=== PATIENT | female | born 1955 ===

== ENCOUNTER 2017-05-27 13:23 | Inpatient (IN) | payer BC ==
--- NOTE | 2017-05-27 13:59 | ED PDOC ---
Lower Extremity Pain/Injury Time Seen by Provider: 05/27/17 13:35 Chief Complaint (Nursing): Lower Extremity Problem/Injury Chief Complaint (Provider): Lower Extremity Problem/Injury History Per: Patient History/Exam Limitations: no limitations Onset/Duration Of Symptoms: Days (X 2) Current Symptoms Are (Timing): Still Present Additional Complaint(s): Raissa is a 62 year old female, with past medical history of diabetes, who was sent from podiatry clinic to emergency room for evaluation. Patient reports having problem since August/September of this year, but has worsen for past 2 days. Patient states it started with swelling and develop pain in her left great toe. Denies fever. PMD: Adelfo Cuevas Past Medical History Reviewed: Historical Data, Nursing Documentation, Vital Signs Vital Signs: Last Vital Signs Temp 98.0 F 05/27/17 13:25 Pulse 97 H 05/27/17 13:25 Resp 16 05/27/17 13:25 BP 156/73 H 05/27/17 13:25 Pulse Ox 100 05/27/17 13:25 - Medical History PMH: Diabetes, HTN, Hypercholesterolemia - Surgical History Surgical History: No Surg Hx - Family History Family History: States: Unknown Family Hx - Immunization History Hx Tetanus Toxoid Vaccination: Yes Hx Influenza Vaccination: Yes Hx Pneumococcal Vaccination: Yes - Home Medications Home Medications: Ambulatory Orders Medication Instructions Recorded Difluprednate [Durezol] 1 drop LEFTEYE DAILY 05/27/17 Empagliflozin [Jardiance] 25 mg PO QPM 05/27/17 Linagliptin [Tradjenta] 5 mg PO DAILY 05/27/17 MetFORMIN [glucoPHAGE] 1,000 mg PO BID 05/27/17 Metoprolol Tartrate [Lopressor] 25 mg PO DAILY 05/27/17 Prasugrel [Effient] 10 mg PO DAILY 05/27/17 Ramipril [Altace] 5 mg PO DAILY 05/27/17 - Allergies Allergies/Adverse Reactions: Allergies Allergy/AdvReac Type Severity Reaction Status Date / Time No Known Allergies Allergy Verified 05/27/17 13:25 Review of Systems ROS Statement: Except As Marked, All Systems Reviewed And Found Negative Constitutional: Negative for: Fever Musculoskeletal: Positive for: Other (Left Great Toe Pain) Physical Exam - Reviewed Nursing Documentation Reviewed: Yes Vital Signs Reviewed: Yes - Physical Exam Cardiovascular/Chest: Positive for: Regular Rate, Rhythm Respiratory: Positive for: Normal Breath Sounds. Negative for: Respiratory Distress Pulses-Dorsalis Pedis (L): 1+ Pulses-Dorsalis Pedis (R): 1+ Pulses-Post. Tibialis (L): 1+ Pulses-Post. Tibialis (R): 1+ Gastrointestinal/Abdominal: Positive for: Normal Exam, Soft. Negative for: Tenderness Extremity: Positive for: Normal ROM, Other (Left Great Toe blackened with ulcers noted on paronychia area with no drainage) - ECG O2 Sat by Pulse Oximetry: 100 (RA) Pulse Ox Interpretation: Normal Medical Decision Making Medical Decision Making: Time: 13:49 Plan: - VBG Shock Panel - EKG - CMP - CBC - PT-INR - Chest X-Ray - Vancomycin Inj - Left Great Toe X-Ray Scribe Attestation: Documented by Rush Henry, acting as a scribe for Liban Eastman MD Provider Scribe Attestation: All medical record entries made by the Scribe were at my direction and personally dictated by me. I have reviewed the chart and agree that the record accurately reflects my personal performance of the history, physical exam, medical decision making, and the department course for this patient. I have also personally directed, reviewed, and agree with the discharge instructions and disposition. Disposition - Clinical Impression Clinical Impression: Cellulitis, Gangrene of toe of left foot, Diabetes - Patient ED Disposition Is Patient to be Admitted: Yes - Disposition Disposition Time: 14:29 Condition: FAIR Forms: [employer] ([place]) - Pt Status Changed To: Hospital Disposition Of: Inpatient - Admit Certification Admit to Inpatient:: After my assessment, the patient will require hospitalization for at least two midnights. This is because of the severity of symptoms shown, intensity of services needed, and/or the medical risk in this patient being treated as an outpatient. - POA Present On Arrival: None
--- NOTE | 2017-05-27 14:15 | RAD ---
PROCEDURE: Radiographs of the left great toe. TECHNIQUE:: AP radiograph of the left foot, with oblique and lateral view of the left great toe. COMPARISON: Left foot radiographs dated 05/08/2017. FINDINGS: BONES: Osteopenia. No fracture. JOINTS: Diffusely narrowed. SOFT TISSUES: Normal. OTHER FINDINGS: Pes planus. IMPRESSION: No demonstrated fracture or dislocation. Degenerative changes. Pes planus.
--- NOTE | 2017-05-27 14:16 | RAD ---
HISTORY: preop COMPARISON: No prior. TECHNIQUE: Chest PA and lateral FINDINGS: LUNGS: No active pulmonary disease. PLEURA: No significant pleural effusion identified. No pneumothorax apparent. CARDIOVASCULAR: Atherosclerotic aortic calcifications. Cardiomediastinal silhouette within normal limits. OSSEOUS STRUCTURES: Degenerative changes. VISUALIZED UPPER ABDOMEN: Normal. OTHER FINDINGS: None. IMPRESSION: No active disease.
[2017-05-27 14:56] LABS: VENOUS BLOOD GAS PCO2 38 mmHg (40-60); VENOUS BLOOD GAS PO2 20 mm/Hg (30-55); VENOUS BLOOD PH 7.32 (7.32-7.43)
[2017-05-27 15:09] LABS: BASO # 0.1 K/uL (0.0-0.2); BASO % 0.8 % (0.0-2.0); EOS # 0.2 K/uL (0.0-0.7); EOS % 1.5 % (0.0-4.0); HEMOGLOBIN 12.6 g/dL (12.0-16.0); LYMPH # 3.5 K/uL (1.0-4.3); LYMPH % 29.6 % (20.0-40.0); MEAN CELL VOLUME 89.7 fl (81.0-99.0); MEAN CORPUSCULAR HEMOGLOBIN 29.6 pg (27.0-31.0); MEAN CORPUSCULAR HGB CONC 33.1 g/dL (33.0-37.0); MONO # 1.1 K/uL (0.0-0.8); MONO % 9.1 % (0.0-10.0); NEUT # 7.1 K/uL (1.8-7.0); NRBC % 0.1 % (0.0-0.0); RBC 4.26 Mil/uL (3.80-5.20); RED CELL DISTRIBUTION WIDTH 14.5 % (11.5-14.5)
[2017-05-27 15:46] LABS: PROTHROMBIN TIME 11.5 Seconds (9.8-13.1)
[2017-05-27 16:32] LABS: ALBUMIN 4.3 g/dL (3.5-5.0); ALT/SGPT 23 U/L (9-52); AST/SGOT 41 U/L (14-36); BLOOD UREA NITROGEN 17 mg/dl (7-17); CALCIUM 9.7 mg/dL (8.4-10.2); GFR AFRICAN-AMERICAN > 60; GFR NON-AFRICAN AMERICAN > 60
[2017-05-27] MEDS: Oxycodone/Acetaminophen 5/325 mg Tab PO PRN ×2 (18:35→22:34)
[2017-05-27] MEDS: Piperacillin/Tazobact 3.375 GM in Sodium Chloride 0.9% 100 ML IVPB SCH (21:14)
[2017-05-27] MEDS: Insulin Lispro (humaLOG) 100 Units/ml Inj SC SCH (21:20)
--- NOTE | 2017-05-27 23:46 | CP.PCM.PCO ---
Physician Communication Note - Physician Communication Note Physician Communication Note: paged for patient yelling in severe LLE pain, 2mg IV morphine ordered
[2017-05-28] MEDS: Piperacillin/Tazobact 3.375 GM in Sodium Chloride 0.9% 100 ML IVPB SCH ×2 (03:03→09:02)
[2017-05-28 06:32] LABS: HEMOGLOBIN 11.4 g/dL (12.0-16.0); MEAN CELL VOLUME 91.3 fl (81.0-99.0); MEAN CORPUSCULAR HEMOGLOBIN 28.8 pg (27.0-31.0); MEAN CORPUSCULAR HGB CONC 31.6 g/dL (33.0-37.0); RBC 3.94 Mil/uL (3.80-5.20); RED CELL DISTRIBUTION WIDTH 14.5 % (11.5-14.5); WHITE BLOOD COUNT 11.7 K/uL (4.8-10.8)
[2017-05-28 07:00] LABS: BLOOD UREA NITROGEN 13 mg/dl (7-17); GFR AFRICAN-AMERICAN > 60; GFR NON-AFRICAN AMERICAN > 60
--- NOTE | 2017-05-28 08:00 | CP.PCM.CON ---
History of Present Illness - History of Present Illness History of Present Illness: Podiatry Consult Note - Dr. Looney 62 year old female patient PMHx DM, HLD, HTN, CAD seen and evaluated at bedside for left great toe gangrene. Patient hemodynamically stable and NAD. Patient states approximately 3 days ago, after coming back home from a cruise, her left great toe started to turn black. Denies any trauma, wearing open toed shoes, swimming in any bodies of water, or change in activity. Patient states she presented to the podiatry clinic yesterday complaining of pain and foul odor and was sent to the ED for further evaluation. Patient states prior to presentation she was soaking her foot to remove any peeling skin. Of note, patient states she had vascular intervention performed in September to her LLE. Patient denies N/V/F/D/C/SOB/calf pain. Review of Systems - Review of Systems All systems: reviewed and no additional remarkable complaints except (as per HPI ) Past Patient History - Past Medical History & Family History Past Medical History?: Yes - Past Social History Smoking Status: Never Smoked - CARDIAC Hx Cardiac Disorders: Yes - PULMONARY Hx Respiratory Disorders: No - NEUROLOGICAL Hx Neurological Disorder: No - HEENT Hx HEENT Problems: No - RENAL Hx Chronic Kidney Disease: No - ENDOCRINE/METABOLIC Hx Endocrine Disorders: Yes - HEMATOLOGICAL/ONCOLOGICAL Hx Blood Disorders: No - INTEGUMENTARY Hx Dermatological Problems: No - MUSCULOSKELETAL/RHEUMATOLOGICAL Hx Musculoskeletal Disorders: No Hx Falls: No - GENITOURINARY/GYNECOLOGICAL Hx Genitourinary Disorders: No - PSYCHIATRIC Hx Psychophysiologic Disorder: No Hx Substance Use: No - SURGICAL HISTORY Hx Surgeries: Yes Hx Cardiac Catheterization: Yes Other/Comment: lower leg surgery. left great ingrown toenail removal - ANESTHESIA Hx Anesthesia: Yes Hx Anesthesia Reactions: No Meds Allergies/Adverse Reactions: Allergies Allergy/AdvReac Type Severity Reaction Status Date / Time No Known Allergies Allergy Verified 05/27/17 13:25 - Medications Medications: Current Medications Home Med (Difluprednate [Durezol]) 1 drop LEFTEYE DAILY JEANNIE Vancomycin HCl 1 gm/ Sodium (Chloride) 250 mls @ 166.667 mls/hr IVPB DAILY JEANNIE Piperacillin Sod/Tazobactam (Sod 3.375 gm/ Sodium Chloride) 100 mls @ 100 mls/ hr IVPB Q6 JEANNIE PRN Reason: Protocol Last Admin: 05/28/17 03:03 Dose: 100 mls/hr Insulin Human Lispro (Humalog) 0 units SC ACHS JEANNIE PRN Reason: Protocol Last Admin: 05/27/17 21:20 Dose: Not Given Metformin HCl (Glucophage) 1,000 mg PO BID [facility] Metoprolol Tartrate (Lopressor) 25 mg PO DAILY [facility] Oxycodone/Acetaminophen (Percocet 5/325 Mg Tab) 1 tab PO Q4 PRN PRN Reason: Pain, severe (8-10) Stop: 05/30/17 18:13 Last Admin: 05/27/17 22:34 Dose: 1 tab Ramipril (Altace) 5 mg PO DAILY JEANNIE Sitagliptin Phosphate (Januvia) 100 mg PO DAILY [facility] Physical Exam - Constitutional Appears: Well, Non-toxic, No Acute Distress - Extremities Exam Additional comments: VASC: DP and PT pulses weakly palpable 1/4 b/l. CFT <3 seconds to all digits x9 , unable to be obtained in left hallux. Temperature gradient warm to warm bilateral. No edema noted. NEURO: Gross sensation diminished bilaterally. DERM: Left hallux appears necrotic with demarcation proximal to hallucal IPJ; hard eschar cap noted dorsally and moist necrosis plantarly. Full thickness ulceration measuring approximately 0.5 x 0.5 cm in area of necrosis, (+) probe to bone, cloudy/bloody drainage noted. Foul odor noted. Erythema extending proximoplantarlly through 1st metatarsal. ORTHO: Mild tenderness to palpation left hallux. - Neurological Exam Neurological exam: Alert, Oriented x3 - Psychiatric Exam Psychiatric exam: Normal Affect, Normal Mood Results - Vital Signs Recent Vital Signs: Last Vital Signs Temp 98.4 F 05/28/17 07:46 Pulse 82 05/28/17 07:46 Resp 20 05/28/17 07:46 BP 133/74 05/28/17 07:46 Pulse Ox 98 05/28/17 07:46 - Labs Result Diagrams: 05/28/17 06:00 05/28/17 06:00 Labs: Laboratory Results - last 24 hr 05/27/17 05/27/17 05/27/17 14:53 14:55 14:55 WBC 12.0 H RBC 4.26 Hgb 12.6 Hct 38.2 MCV 89.7 MCH 29.6 MCHC 33.1 RDW 14.5 Plt Count 490 H MPV 10.0 Neut % (Auto) 59.0 Lymph % (Auto) 29.6 Meagher % (Auto) 9.1 Eos % (Auto) 1.5 Baso % (Auto) 0.8 Neut # 7.1 H Lymph # 3.5 Meagher # 1.1 H Eos # 0.2 Baso # 0.1 PT 11.5 INR 1.0 pO2 20 L VBG pH 7.32 VBG pCO2 38 L VBG HCO3 18.6 VBG Total CO2 20.8 L VBG O2 Sat (Calc) 36.2 L VBG Base Excess -6.0 L VBG Potassium 5.0 A-a O2 Difference 82.0 Sodium 134.0 Chloride 103.0 Glucose 277 H Lactate 1.6 FiO2 21.0 Crit Value Called To Dr ellis crawford Crit Value Called By 15 Crit Value Read Back Y Blood Gas Notified Time 1459 Potassium Carbon Dioxide Anion Gap BUN Creatinine Est GFR ( Amer) Est GFR (Non-Af Amer) POC Glucose (mg/dL) Random Glucose Calcium Total Bilirubin AST ALT Alkaline Phosphatase Total Protein Albumin Globulin Albumin/Globulin Ratio Venous Blood Potassium 5.0 05/27/17 05/27/17 05/28/17 16:09 21:15 05:55 WBC RBC Hgb Hct MCV MCH MCHC RDW Plt Count MPV Neut % (Auto) Lymph % (Auto) Meagher % (Auto) Eos % (Auto) Baso % (Auto) Neut # Lymph # Meagher # Eos # Baso # PT INR pO2 VBG pH VBG pCO2 VBG HCO3 VBG Total CO2 VBG O2 Sat (Calc) VBG Base Excess VBG Potassium A-a O2 Difference Sodium 141 Chloride 104 Glucose Lactate FiO2 Crit Value Called To Crit Value Called By Crit Value Read Back Blood Gas Notified Time Potassium 3.9 Carbon Dioxide 19 L Anion Gap 22 H BUN 17 Creatinine 0.7 Est GFR ( Amer) > 60 Est GFR (Non-Af Amer) > 60 POC Glucose (mg/dL) 287 H 212 H Random Glucose 248 H Calcium 9.7 Total Bilirubin 0.8 AST 41 H ALT 23 Alkaline Phosphatase 112 Total Protein 8.5 H Albumin 4.3 Globulin 4.2 H Albumin/Globulin Ratio 1.0 Venous Blood Potassium 05/28/17 05/28/17 06:00 06:00 WBC 11.7 H RBC 3.94 Hgb 11.4 L Hct 36.0 MCV 91.3 MCH 28.8 MCHC 31.6 L RDW 14.5 Plt Count 415 H MPV Neut % (Auto) Lymph % (Auto) Meagher % (Auto) Eos % (Auto) Baso % (Auto) Neut # Lymph # Meagher # Eos # Baso # PT INR pO2 VBG pH VBG pCO2 VBG HCO3 VBG Total CO2 VBG O2 Sat (Calc) VBG Base Excess VBG Potassium A-a O2 Difference Sodium 141 Chloride 105 Glucose Lactate FiO2 Crit Value Called To Crit Value Called By Crit Value Read Back Blood Gas Notified Time Potassium 3.5 L Carbon Dioxide 19 L Anion Gap 21 H BUN 13 Creatinine 0.7 Est GFR ( Amer) > 60 Est GFR (Non-Af Amer) > 60 POC Glucose (mg/dL) Random Glucose 232 H Calcium 9.0 Total Bilirubin AST ALT Alkaline Phosphatase Total Protein Albumin Globulin Albumin/Globulin Ratio Venous Blood Potassium Assessment & Plan - Assessment and Plan (Free Text) Assessment: 62 year old female patient PMHx DM, HHTN, HLD, CAD with left hallux gangrene and infected ulceration. Plan: Patient seen and evaluated Discussed with attending, Dr. Aayush guy currently, WBC increased 11.7, ESR 101 L foot XR reviewed: negative L foot MRI ordered, f/u report L hallux wound culture taken f/u bilateral LE arterial dopplers Informed patient left hallux likely infected with need for possible amputation vs. senior care IV abx. Discussed with patient risks, complications, benefits, alternatives of procedure; pt demonstrated verbal understanding. Dr. Strange consulted for possible vascular intervention ID consulted - recs appreciated; currently on Vancomycin -Per ID, d/c Zosyn which may have been source of rash on LUE -Cefepime started per ID Wound cleansed with saline and dressed with betadine DSD Pain mgmt per medicine Podiatry will continue to follow patient while in house
[2017-05-28] MEDS: Insulin Lispro (humaLOG) 100 Units/ml Inj SC SCH ×4 (08:59→22:03)
[2017-05-28] MEDS ORDERED: Vancomycin 1 g Inj IVPB SCH (09:00)
[2017-05-28] MEDS: Oxycodone/Acetaminophen 5/325 mg Tab PO PRN ×4 (09:33→21:14)
--- NOTE | 2017-05-28 10:41 | CP.PCM.CON ---
History of Present Illness - History of Present Illness History of Present Illness: Infectious Disease Consultation note- asked to see this patient at the request of for left great toe gangrene. HPI- Patient is a 62 year old female with pmh of DM II, HTN, HLD, who is admitted with left great toe gangrene. patient explains that she has had an ulcer of the toe since 08/2016 and states has been f/u with her systems librarian and has multiple scrapings and has been on oral antibiotics abd the ulcer was improved about 2 months ago but then she had a friend that was [place] ans they went on vacation together and she wore sneakers during that time and after that her toe started to turn black and 3 days ago she started to notice blood discharge form the region and she saw her systems librarian yesterday who advised her to be admitted for further work up and treatment of the gangrenous toe. patient denies any trauma to the region. denies any malodor, denies any pus d/c. denies any fever or chills. Pt. explains she had MRI of the foot done earlier this am and does not know the result yet. pt. does c/o that since last night she has developed slight itchy rash on left forearm and left upper thigh region but nowhere else and denies any sob. she denies any allergies to medications, denies any allergy to PCN. Allergy- NKDA Review of Systems - Review of Systems Review of Systems: ROS- left great toe black and painful and bloody discharge 3 days ago, denies any trauma and denies any malodor. denies any fever or chills, denies any MOONEY, denies any cough, denies any sob, denies any CP, denies any abd. pain, denies any n/v, denies any dysurea, denies any diarrhea slight itchy rash since last night on left forearm and left upper thigh region Past Patient History - Past Medical History & Family History Past Medical History?: Yes - Past Social History Smoking Status: Never Smoked - CARDIAC Hx Hypertension: Yes - PULMONARY Hx Respiratory Disorders: No - NEUROLOGICAL Hx Neurological Disorder: No - HEENT Hx HEENT Problems: No - RENAL Hx Chronic Kidney Disease: No - ENDOCRINE/METABOLIC Hx Endocrine Disorders: Yes Hx Diabetes Mellitus Type 2: Yes - HEMATOLOGICAL/ONCOLOGICAL Hx Blood Disorders: No - INTEGUMENTARY Hx Dermatological Problems: No - MUSCULOSKELETAL/RHEUMATOLOGICAL Hx Musculoskeletal Disorders: No Hx Falls: No - GENITOURINARY/GYNECOLOGICAL Hx Genitourinary Disorders: No - PSYCHIATRIC Hx Psychophysiologic Disorder: No Hx Substance Use: No - SURGICAL HISTORY Hx Surgeries: Yes Hx Cardiac Catheterization: Yes Other/Comment: lower leg surgery. left great ingrown toenail removal - ANESTHESIA Hx Anesthesia: Yes Hx Anesthesia Reactions: No Meds Allergies/Adverse Reactions: Allergies Allergy/AdvReac Type Severity Reaction Status Date / Time No Known Allergies Allergy Verified 05/27/17 13:25 - Medications Medications: Current Medications Home Med (Difluprednate [Durezol]) 1 drop LEFTEYE DAILY [facility] Vancomycin HCl 1 gm/ Sodium (Chloride) 250 mls @ 166.667 mls/hr IVPB DAILY [facility] Last Admin: 05/28/17 09:01 Dose: 166.667 mls/hr Piperacillin Sod/Tazobactam (Sod 3.375 gm/ Sodium Chloride) 100 mls @ 100 mls/ hr IVPB Q6 JEANNIE PRN Reason: Protocol Last Admin: 05/28/17 09:02 Dose: 100 mls/hr Insulin Human Lispro (Humalog) 0 units SC ACHS [facility] PRN Reason: Protocol Last Admin: 05/28/17 08:59 Dose: 2 u Metformin HCl (Glucophage) 1,000 mg PO BID [facility] Last Admin: 05/28/17 08:58 Dose: 1,000 mg Metoprolol Tartrate (Lopressor) 25 mg PO DAILY [facility] Last Admin: 05/28/17 09:29 Dose: 25 mg Oxycodone/Acetaminophen (Percocet 5/325 Mg Tab) 1 tab PO Q4 PRN PRN Reason: Pain, severe (8-10) Stop: 05/30/17 18:13 Last Admin: 05/28/17 09:33 Dose: 1 tab Ramipril (Altace) 5 mg PO DAILY [facility] Last Admin: 05/28/17 09:00 Dose: 5 mg Sitagliptin Phosphate (Januvia) 100 mg PO DAILY [facility] Last Admin: 05/28/17 09:00 Dose: 100 mg Physical Exam - Constitutional Appears: No Acute Distress - Head Exam Head Exam: ATRAUMATIC - Eye Exam Eye Exam: EOMI, PERRL - ENT Exam ENT Exam: Normal Oropharynx - Neck Exam Neck exam: Positive for: Full Rom - Respiratory Exam Respiratory Exam: Clear to Auscultation Bilateral, NORMAL BREATHING PATTERN - Cardiovascular Exam Cardiovascular Exam: RRR, +S1, +S2 - GI/Abdominal Exam GI & Abdominal Exam: Normal Bowel Sounds, Soft Additional comments: NT, ND - Extremities Exam Additional comments: left great toe necrosis with black eschar with small opening on the dorsal portion with sanguinous discharge, not warm to touch, no surrounding erythema DP pulses very weak on the left - Neurological Exam Neurological exam: Alert, Oriented x3 Results - Vital Signs Recent Vital Signs: Last Vital Signs Temp 98.4 F 05/28/17 07:46 Pulse 82 05/28/17 09:29 Resp 20 05/28/17 07:46 BP 133/74 05/28/17 09:29 Pulse Ox 98 05/28/17 07:46 - Labs Result Diagrams: 05/28/17 06:00 05/28/17 06:00 Labs: Laboratory Results - last 24 hr 05/27/17 05/27/17 05/27/17 14:53 14:55 14:55 WBC 12.0 H RBC 4.26 Hgb 12.6 Hct 38.2 MCV 89.7 MCH 29.6 MCHC 33.1 RDW 14.5 Plt Count 490 H MPV 10.0 Neut % (Auto) 59.0 Lymph % (Auto) 29.6 [place] % (Auto) 9.1 Eos % (Auto) 1.5 Baso % (Auto) 0.8 Neut # 7.1 H Lymph # 3.5 [place] # 1.1 H Eos # 0.2 Baso # 0.1 PT 11.5 INR 1.0 pO2 20 L VBG pH 7.32 VBG pCO2 38 L VBG HCO3 18.6 VBG Total CO2 20.8 L VBG O2 Sat (Calc) 36.2 L VBG Base Excess -6.0 L VBG Potassium 5.0 A-a O2 Difference 82.0 Sodium 134.0 Chloride 103.0 Glucose 277 H Lactate 1.6 FiO2 21.0 Crit Value Called To Dr ellis crawford Crit Value Called By 15 Crit Value Read Back Y Blood Gas Notified Time 1459 Potassium Carbon Dioxide Anion Gap BUN Creatinine Est GFR ( Amer) Est GFR (Non-Af Amer) POC Glucose (mg/dL) Random Glucose Calcium Total Bilirubin AST ALT Alkaline Phosphatase Total Protein Albumin Globulin Albumin/Globulin Ratio Venous Blood Potassium 5.0 05/27/17 05/27/17 05/28/17 16:09 21:15 05:55 WBC RBC Hgb Hct MCV MCH MCHC RDW Plt Count MPV Neut % (Auto) Lymph % (Auto) [place] % (Auto) Eos % (Auto) Baso % (Auto) Neut # Lymph # [place] # Eos # Baso # PT INR pO2 VBG pH VBG pCO2 VBG HCO3 VBG Total CO2 VBG O2 Sat (Calc) VBG Base Excess VBG Potassium A-a O2 Difference Sodium 141 Chloride 104 Glucose Lactate FiO2 Crit Value Called To Crit Value Called By Crit Value Read Back Blood Gas Notified Time Potassium 3.9 Carbon Dioxide 19 L Anion Gap 22 H BUN 17 Creatinine 0.7 Est GFR ( Amer) > 60 Est GFR (Non-Af Amer) > 60 POC Glucose (mg/dL) 287 H 212 H Random Glucose 248 H Calcium 9.7 Total Bilirubin 0.8 AST 41 H ALT 23 Alkaline Phosphatase 112 Total Protein 8.5 H Albumin 4.3 Globulin 4.2 H Albumin/Globulin Ratio 1.0 Venous Blood Potassium 05/28/17 05/28/17 06:00 06:00 WBC 11.7 H RBC 3.94 Hgb 11.4 L Hct 36.0 MCV 91.3 MCH 28.8 MCHC 31.6 L RDW 14.5 Plt Count 415 H MPV Neut % (Auto) Lymph % (Auto) [place] % (Auto) Eos % (Auto) Baso % (Auto) Neut # Lymph # [place] # Eos # Baso # PT INR pO2 VBG pH VBG pCO2 VBG HCO3 VBG Total CO2 VBG O2 Sat (Calc) VBG Base Excess VBG Potassium A-a O2 Difference Sodium 141 Chloride 105 Glucose Lactate FiO2 Crit Value Called To Crit Value Called By Crit Value Read Back Blood Gas Notified Time Potassium 3.5 L Carbon Dioxide 19 L Anion Gap 21 H BUN 13 Creatinine 0.7 Est GFR ( Amer) > 60 Est GFR (Non-Af Amer) > 60 POC Glucose (mg/dL) Random Glucose 232 H Calcium 9.0 Total Bilirubin AST ALT Alkaline Phosphatase Total Protein Albumin Globulin Albumin/Globulin Ratio Venous Blood Potassium Laboratory Results - last 72 hr 05/27/17 05/27/17 05/27/17 14:53 14:55 14:55 WBC 12.0 H RBC 4.26 Hgb 12.6 Hct 38.2 MCV 89.7 MCH 29.6 MCHC 33.1 RDW 14.5 Plt Count 490 H MPV 10.0 Neut % (Auto) 59.0 Lymph % (Auto) 29.6 [place] % (Auto) 9.1 Eos % (Auto) 1.5 Baso % (Auto) 0.8 Neut # 7.1 H Lymph # 3.5 [place] # 1.1 H Eos # 0.2 Baso # 0.1 ESR PT 11.5 INR 1.0 pO2 20 L VBG pH 7.32 VBG pCO2 38 L VBG HCO3 18.6 VBG Total CO2 20.8 L VBG O2 Sat (Calc) 36.2 L VBG Base Excess -6.0 L VBG Potassium 5.0 A-a O2 Difference 82.0 Sodium 134.0 Chloride 103.0 Glucose 277 H Lactate 1.6 FiO2 21.0 Crit Value Called To Dr ellis crawford Crit Value Called By 15 Crit Value Read Back Y Blood Gas Notified Time 1459 Potassium Carbon Dioxide Anion Gap BUN Creatinine Est GFR ( Amer) Est GFR (Non-Af Amer) POC Glucose (mg/dL) Random Glucose Calcium Total Bilirubin AST ALT Alkaline Phosphatase Total Protein Albumin Globulin Albumin/Globulin Ratio Venous Blood Potassium 5.0 05/27/17 05/27/17 05/28/17 16:09 21:15 05:55 WBC RBC Hgb Hct MCV MCH MCHC RDW Plt Count MPV Neut % (Auto) Lymph % (Auto) [place] % (Auto) Eos % (Auto) Baso % (Auto) Neut # Lymph # [place] # Eos # Baso # ESR PT INR pO2 VBG pH VBG pCO2 VBG HCO3 VBG Total CO2 VBG O2 Sat (Calc) VBG Base Excess VBG Potassium A-a O2 Difference Sodium 141 Chloride 104 Glucose Lactate FiO2 Crit Value Called To Crit Value Called By Crit Value Read Back Blood Gas Notified Time Potassium 3.9 Carbon Dioxide 19 L Anion Gap 22 H BUN 17 Creatinine 0.7 Est GFR ( Amer) > 60 Est GFR (Non-Af Amer) > 60 POC Glucose (mg/dL) 287 H 212 H Random Glucose 248 H Calcium 9.7 Total Bilirubin 0.8 AST 41 H ALT 23 Alkaline Phosphatase 112 Total Protein 8.5 H Albumin 4.3 Globulin 4.2 H Albumin/Globulin Ratio 1.0 Venous Blood Potassium 05/28/17 05/28/17 05/28/17 06:00 06:00 12:00 WBC 11.7 H RBC 3.94 Hgb 11.4 L Hct 36.0 MCV 91.3 MCH 28.8 MCHC 31.6 L RDW 14.5 Plt Count 415 H MPV Neut % (Auto) Lymph % (Auto) [place] % (Auto) Eos % (Auto) Baso % (Auto) Neut # Lymph # [place] # Eos # Baso # ESR 102 H PT INR pO2 VBG pH VBG pCO2 VBG HCO3 VBG Total CO2 VBG O2 Sat (Calc) VBG Base Excess VBG Potassium A-a O2 Difference Sodium 141 Chloride 105 Glucose Lactate FiO2 Crit Value Called To Crit Value Called By Crit Value Read Back Blood Gas Notified Time Potassium 3.5 L Carbon Dioxide 19 L Anion Gap 21 H BUN 13 Creatinine 0.7 Est GFR ( Amer) > 60 Est GFR (Non-Af Amer) > 60 POC Glucose (mg/dL) Random Glucose 232 H Calcium 9.0 Total Bilirubin AST ALT Alkaline Phosphatase Total Protein Albumin Globulin Albumin/Globulin Ratio Venous Blood Potassium 05/28/17 05/28/17 12:17 15:59 WBC RBC Hgb Hct MCV MCH MCHC RDW Plt Count MPV Neut % (Auto) Lymph % (Auto) [place] % (Auto) Eos % (Auto) Baso % (Auto) Neut # Lymph # [place] # Eos # Baso # ESR PT INR pO2 VBG pH VBG pCO2 VBG HCO3 VBG Total CO2 VBG O2 Sat (Calc) VBG Base Excess VBG Potassium A-a O2 Difference Sodium Chloride Glucose Lactate FiO2 Crit Value Called To Crit Value Called By Crit Value Read Back Blood Gas Notified Time Potassium Carbon Dioxide Anion Gap BUN Creatinine Est GFR ( Amer) Est GFR (Non-Af Amer) POC Glucose (mg/dL) 292 H 224 H Random Glucose Calcium Total Bilirubin AST ALT Alkaline Phosphatase Total Protein Albumin Globulin Albumin/Globulin Ratio Venous Blood Potassium Microbiology 05/27/17 15:15 Blood-Venous Blood Culture - Preliminary NO GROWTH AFTER 24 HOURS Microbiology 04/29/17 16:08 Toe Gram Stain - Final 04/29/17 16:08 Toe Wound Culture - Final Serratia Marcescens Karen Tropicalis 08/25/16 17:20 Blood Blood Culture - Final 08/25/16 17:20 Blood Gram Stain - Final NO GROWTH AFTER 5 DAYS TEST NOT PERFORMED 08/25/16 16:50 Blood Blood Culture - Final 08/25/16 16:50 Blood Gram Stain - Final NO GROWTH AFTER 5 DAYS TEST NOT PERFORMED Accession No. : [id number] Patient Name / ID : KEV Wakefield / [id number] Exam Date : 05/27/2017 13:54:57 ( Approved ) Study Comment : Sex / Age : F / 62Y Creator : Solomon Jimenez MD Dictator : Solomon Jimenez MD Shoe Lacer : Insurance Claims Assistant : Solomon Jimenez MD Approver2 : Report Date : 05/27/2017 14:14:07 My Comment : PROCEDURE: Radiographs of the left great toe. TECHNIQUE:: AP radiograph of the left foot, with oblique and lateral view of the left great toe. COMPARISON: Left foot radiographs dated 05/08/2017. FINDINGS: BONES: Osteopenia. No fracture. JOINTS: Diffusely narrowed. SOFT TISSUES: Normal. OTHER FINDINGS: Pes planus. IMPRESSION: No demonstrated fracture or dislocation. Degenerative changes. Pes planus. Accession No. : [id number] Patient Name / ID : KEV Wakefield / [id number] Exam Date : 05/28/2017 10:23:48 ( Approved ) Study Comment : Sex / Age : F / 62Y Creator : Solomon Jimenez MD Dictator : Solomon Jimenez MD Shoe Lacer : Insurance Claims Assistant : Solomon Jimenez MD Approver2 : Report Date : 05/28/2017 13:49:34 My Comment : PROCEDURE: Duplex ultrasound of the bilateral lower extremity arteries. HISTORY: gangrene COMPARISON: None available. TECHNIQUE: Grayscale and duplex Doppler evaluation of the bilateral common femoral, femoral , profunda femoral, popliteal, posterior tibial, anterior tibial and dorsalis pedis arteries was performed. FINDINGS: RIGHT LOWER EXTREMITY: * Common Femoral Artery: Peak Systolic Velocity - 131.9: Doppler Waveform: Biphasic * Femoral Artery o Proximal Segment: Peak Systolic Velocity - 182.6: Doppler Waveform: Biphasic o Middle Segment: Peak Systolic Velocity - 194.3: Doppler Waveform: Biphasic o Distal Segment: Peak Systolic Velocity - 118.9: Doppler Waveform: Biphasic * Popliteal Artery: Peak Systolic Velocity - 59.2: Doppler Waveform: Biphasic * Posterior Tibial Artery: Peak Systolic Velocity - 71.1: Doppler Waveform: Monophasic * Anterior Tibial Artery: Peak Systolic Velocity - 53.1: Doppler Waveform: Monophasic * Dorsalis Pedis Artery: Peak Systolic Velocity - 32.0: Doppler Waveform: Monophasic LEFT LOWER EXTREMITY: * Common Femoral Artery: Peak Systolic Velocity - 131.8: Doppler Waveform: Triphasic. * Femoral Artery o Proximal Segment: Peak Systolic Velocity - 109.2: Doppler Waveform: Monophasic o Middle Segment: Peak Systolic Velocity - 47.8: Doppler Waveform: Monophasic o Distal Segment: Peak Systolic Velocity - 72.3: Doppler Waveform: Monophasic * Popliteal Artery: Peak Systolic Velocity - 122.1: Doppler Waveform: Monophasic * Posterior Tibial Artery: Peak Systolic Velocity - 18.8: Doppler Waveform: Monophasic * Anterior Tibial Artery: Peak Systolic Velocity - 59.2: Doppler Waveform: Monophasic * Dorsalis Pedis Artery: Peak Systolic Velocity - 27.9: Doppler Waveform: Monophasic OTHER FINDINGS: None. IMPRESSION: There is loss of triphasic waveform involving the entire right lower extremity with varying degrees of stenosis in the superficial femoral artery and tibial vessels. There is loss of triphasic waveform involving the left lower extremity distal to the common femoral artery with varying degrees of stenosis involving the superficial femoral artery, popliteal artery and tibial vessels. Assessment & Plan (1) Gangrene of toe of left foot Status: Acute (2) HTN (hypertension) Status: Acute (3) Diabetes Status: Acute - Assessment and Plan (Free Text) Assessment: A/P- 62 year old female with DM II, HTN admitted with left great toe gangrene. await wound cx. as per med chart had wound cx from 04/2017 serratia and c.tropicalis afebrikle mild leukocytosis. await MRI result r/o OM. US report - poor vasculature plan- check blood cx x 2 await wound cx. check ESR. await MRI result r/o OM. may need angiogram for better evaluation of the LE vaculature. for now advise to continue with IV vancomycin 1 gram BID. keep trough <15. advise to d/c zosyn as the rash in left arm could perhaps be secondary to this. consider benadryl for the pruritis. advise to instead start patient on cefepime which covers the serratia from 2016 wound cx as well. advise to also start patient on fluconazole for the karen tropicalis in 2016 wound cx pending new wound cx result. length of antibiotics pending imaging result and will also need to discuss with podiatry whether further debridement and/or possibly amputation of the toe is considered. Thank you for allowing me to take part in the care of tis patient. will f/u while inpatient. all above also d/w patient and she verbalizes full understanding of all above.
--- NOTE | 2017-05-28 13:55 | US ---
PROCEDURE: Duplex ultrasound of the bilateral lower extremity arteries. HISTORY: gangrene COMPARISON: None available. TECHNIQUE: Grayscale and duplex Doppler evaluation of the bilateral common femoral, femoral, profunda femoral, popliteal, posterior tibial, anterior tibial and dorsalis pedis arteries was performed. FINDINGS: RIGHT LOWER EXTREMITY: * Common Femoral Artery: Peak Systolic Velocity - 131.9: Doppler Waveform: Biphasic * Femoral Artery o Proximal Segment: Peak Systolic Velocity - 182.6: Doppler Waveform: Biphasic o Middle Segment: Peak Systolic Velocity - 194.3: Doppler Waveform: Biphasic o Distal Segment: Peak Systolic Velocity - 118.9: Doppler Waveform: Biphasic * Popliteal Artery: Peak Systolic Velocity - 59.2: Doppler Waveform: Biphasic * Posterior Tibial Artery: Peak Systolic Velocity - 71.1: Doppler Waveform: Monophasic * Anterior Tibial Artery: Peak Systolic Velocity - 53.1: Doppler Waveform: Monophasic * Dorsalis Pedis Artery: Peak Systolic Velocity - 32.0: Doppler Waveform: Monophasic LEFT LOWER EXTREMITY: * Common Femoral Artery: Peak Systolic Velocity - 131.8: Doppler Waveform: Triphasic. * Femoral Artery o Proximal Segment: Peak Systolic Velocity - 109.2: Doppler Waveform: Monophasic o Middle Segment: Peak Systolic Velocity - 47.8: Doppler Waveform: Monophasic o Distal Segment: Peak Systolic Velocity - 72.3: Doppler Waveform: Monophasic * Popliteal Artery: Peak Systolic Velocity - 122.1: Doppler Waveform: Monophasic * Posterior Tibial Artery: Peak Systolic Velocity - 18.8: Doppler Waveform: Monophasic * Anterior Tibial Artery: Peak Systolic Velocity - 59.2: Doppler Waveform: Monophasic * Dorsalis Pedis Artery: Peak Systolic Velocity - 27.9: Doppler Waveform: Monophasic OTHER FINDINGS: None. IMPRESSION: There is loss of triphasic waveform involving the entire right lower extremity with varying degrees of stenosis in the superficial femoral artery and tibial vessels. There is loss of triphasic waveform involving the left lower extremity distal to the common femoral artery with varying degrees of stenosis involving the superficial femoral artery, popliteal artery and tibial vessels.
--- NOTE | 2017-05-28 14:05 | CP.PCM.CON ---
<Jayla Valdez - Last Filed: 05/29/17 06:40> History of Present Illness - History of Present Illness History of Present Illness: PGY2 consult note for cardiology, Dr. Strange 62 year old female with past medical history of DM, HTN, HLD, PAD presented to hospital for gangrene of left toe. Cardiology is consulted for possible vascular intervention. Patient states that starting from August, she has noticed nail changes of her toe. She went to podiatry around September and was given topical cream to apply to area. 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 Elodia Samuels who performed angiography for left toe in September. No surgical intervention done at the time. Pt was onlyplaced on medical therapy. Patient states that in last month she traveled to [facility] on cruise. While on cruise about 2 weeks ago, she developed pain with ambulation of left leg and left foot. 2 days ago, patient started to notice that the skin around the toe is turning black. Today, patient complains of left toe pain. Denies having any swelling of LE, CP, SOB, abd pain, N/V/D/C, F/ C. 12 point ROS are negative except for the above mentioned. PMHX: stated above Sx: tonsillectomy Social: denies tobacco, ETOH or drug use Med: see [facility] PMD: Dr Toñito Cuevas NKDA Review of Systems - Constitutional Constitutional: absent: Chills, Fever - EENT Eyes: absent: Blurred Vision, Change in Vision Nose/Mouth/Throat: absent: Nasal Congestion, Nasal Discharge, Sore Throat - Cardiovascular Cardiovascular: absent: Chest Pain, Dyspnea, Leg Edema, Palpitations, Pedal Edema - Respiratory Respiratory: absent: Cough, Dyspnea, Dyspnea on Exertion, Wheezing, Chest Congestion - Gastrointestinal Gastrointestinal: absent: Abdominal Pain, Bloating, Constipation, Diarrhea, Nausea, Vomiting - Musculoskeletal Musculoskeletal: As Per HPI - Integumentary Integumentary: As Per HPI - Neurological Neurological: As Per HPI Past Patient History - Past Medical History & Family History Past Medical History?: Yes - Past Social History Smoking Status: Never Smoked Chewing Tobacco Use: No Cigar Use: No Alcohol: None Drugs: Denies - CARDIAC Hx Cardiac Disorders: Yes - PULMONARY Hx Respiratory Disorders: No - NEUROLOGICAL Hx Neurological Disorder: No - HEENT Hx HEENT Problems: No - RENAL Hx Chronic Kidney Disease: No - ENDOCRINE/METABOLIC Hx Endocrine Disorders: Yes - HEMATOLOGICAL/ONCOLOGICAL Hx Blood Disorders: No - INTEGUMENTARY Hx Dermatological Problems: No - MUSCULOSKELETAL/RHEUMATOLOGICAL Hx Musculoskeletal Disorders: No Hx Falls: No - GENITOURINARY/GYNECOLOGICAL Hx Genitourinary Disorders: No - PSYCHIATRIC Hx Psychophysiologic Disorder: No Hx Substance Use: No - SURGICAL HISTORY Hx Surgeries: Yes Hx Cardiac Catheterization: Yes Other/Comment: lower leg surgery. left great ingrown toenail removal - ANESTHESIA Hx Anesthesia: Yes Hx Anesthesia Reactions: No Meds Allergies/Adverse Reactions: Allergies Allergy/AdvReac Type Severity Reaction Status Date / Time No Known Allergies Allergy Verified 05/27/17 13:25 - Medications Medications: Current Medications Home Med (Difluprednate [Durezol]) 1 drop LEFTEYE DAILY [facility] Vancomycin HCl 1 gm/ Sodium (Chloride) 250 mls @ 166.667 mls/hr IVPB DAILY [facility] Last Admin: 05/28/17 09:01 Dose: 166.667 mls/hr Piperacillin Sod/Tazobactam (Sod 3.375 gm/ Sodium Chloride) 100 mls @ 100 mls/ hr IVPB Q6 [facility] PRN Reason: Protocol Last Admin: 05/28/17 09:02 Dose: 100 mls/hr Insulin Human Lispro (Humalog) 0 units SC ACHS [facility] PRN Reason: Protocol Last Admin: 05/28/17 08:59 Dose: 2 u Metformin HCl (Glucophage) 1,000 mg PO BID [facility] Last Admin: 05/28/17 08:58 Dose: 1,000 mg Metoprolol Tartrate (Lopressor) 25 mg PO DAILY [facility] Last Admin: 05/28/17 09:29 Dose: 25 mg Oxycodone/Acetaminophen (Percocet 5/325 Mg Tab) 1 tab PO Q4 PRN PRN Reason: Pain, severe (8-10) Stop: 05/30/17 18:13 Last Admin: 05/28/17 13:34 Dose: 1 tab Ramipril (Altace) 5 mg PO DAILY [facility] Last Admin: 05/28/17 09:00 Dose: 5 mg Sitagliptin Phosphate (Januvia) 100 mg PO DAILY [facility] Last Admin: 05/28/17 09:00 Dose: 100 mg Physical Exam - Constitutional Appears: Non-toxic, No Acute Distress - Head Exam Head Exam: ATRAUMATIC - Eye Exam Eye Exam: EOMI - ENT Exam ENT Exam: Mucous Membranes Moist - Respiratory Exam Respiratory Exam: Clear to Auscultation Bilateral, NORMAL BREATHING PATTERN. absent: Accessory Muscle Use, Rales, Rhonchi, Wheezes, Respiratory Distress - Cardiovascular Exam Cardiovascular Exam: REGULAR RHYTHM, +S1, +S2. absent: Diastolic murmur, Gallop , Rubs, Systolic Murmur - GI/Abdominal Exam GI & Abdominal Exam: Normal Bowel Sounds, Soft. absent: Distended, Firm, Guarding, Tenderness - Extremities Exam Extremities exam: Negative for: pedal edema, tenderness Additional comments: left leg bandaged up. +DP and PT pulses present B/L - Neurological Exam Neurological exam: Alert, Oriented x3 - Psychiatric Exam Psychiatric exam: Normal Affect, Normal Mood - Skin Skin Exam: Dry, Normal Color, Warm Results - Vital Signs Recent Vital Signs: Last Vital Signs Temp 98.4 F 05/28/17 07:46 Pulse 82 05/28/17 09:29 Resp 20 05/28/17 07:46 BP 133/74 05/28/17 09:29 Pulse Ox 98 05/28/17 07:46 - Labs Result Diagrams: 05/28/17 06:00 05/28/17 06:00 Labs: Laboratory Results - last 24 hr 05/27/17 05/27/17 05/27/17 14:53 14:55 14:55 WBC 12.0 H RBC 4.26 Hgb 12.6 Hct 38.2 MCV 89.7 MCH 29.6 MCHC 33.1 RDW 14.5 Plt Count 490 H MPV 10.0 Neut % (Auto) 59.0 Lymph % (Auto) 29.6 Sanborn % (Auto) 9.1 Eos % (Auto) 1.5 Baso % (Auto) 0.8 Neut # 7.1 H Lymph # 3.5 Sanborn # 1.1 H Eos # 0.2 Baso # 0.1 ESR PT 11.5 INR 1.0 pO2 20 L VBG pH 7.32 VBG pCO2 38 L VBG HCO3 18.6 VBG Total CO2 20.8 L VBG O2 Sat (Calc) 36.2 L VBG Base Excess -6.0 L VBG Potassium 5.0 A-a O2 Difference 82.0 Sodium 134.0 Chloride 103.0 Glucose 277 H Lactate 1.6 FiO2 21.0 Crit Value Called To Dr ellis crawford Crit Value Called By 15 Crit Value Read Back Y Blood Gas Notified Time 1459 Potassium Carbon Dioxide Anion Gap BUN Creatinine Est GFR ( Amer) Est GFR (Non-Af Amer) POC Glucose (mg/dL) Random Glucose Calcium Total Bilirubin AST ALT Alkaline Phosphatase Total Protein Albumin Globulin Albumin/Globulin Ratio Venous Blood Potassium 5.0 05/27/17 05/27/17 05/28/17 16:09 21:15 05:55 WBC RBC Hgb Hct MCV MCH MCHC RDW Plt Count MPV Neut % (Auto) Lymph % (Auto) Sanborn % (Auto) Eos % (Auto) Baso % (Auto) Neut # Lymph # Sanborn # Eos # Baso # ESR PT INR pO2 VBG pH VBG pCO2 VBG HCO3 VBG Total CO2 VBG O2 Sat (Calc) VBG Base Excess VBG Potassium A-a O2 Difference Sodium 141 Chloride 104 Glucose Lactate FiO2 Crit Value Called To Crit Value Called By Crit Value Read Back Blood Gas Notified Time Potassium 3.9 Carbon Dioxide 19 L Anion Gap 22 H BUN 17 Creatinine 0.7 Est GFR ( Amer) > 60 Est GFR (Non-Af Amer) > 60 POC Glucose (mg/dL) 287 H 212 H Random Glucose 248 H Calcium 9.7 Total Bilirubin 0.8 AST 41 H ALT 23 Alkaline Phosphatase 112 Total Protein 8.5 H Albumin 4.3 Globulin 4.2 H Albumin/Globulin Ratio 1.0 Venous Blood Potassium 05/28/17 05/28/17 05/28/17 06:00 06:00 12:00 WBC 11.7 H RBC 3.94 Hgb 11.4 L Hct 36.0 MCV 91.3 MCH 28.8 MCHC 31.6 L RDW 14.5 Plt Count 415 H MPV Neut % (Auto) Lymph % (Auto) Sanborn % (Auto) Eos % (Auto) Baso % (Auto) Neut # Lymph # Sanborn # Eos # Baso # ESR 102 H PT INR pO2 VBG pH VBG pCO2 VBG HCO3 VBG Total CO2 VBG O2 Sat (Calc) VBG Base Excess VBG Potassium A-a O2 Difference Sodium 141 Chloride 105 Glucose Lactate FiO2 Crit Value Called To Crit Value Called By Crit Value Read Back Blood Gas Notified Time Potassium 3.5 L Carbon Dioxide 19 L Anion Gap 21 H BUN 13 Creatinine 0.7 Est GFR ( Amer) > 60 Est GFR (Non-Af Amer) > 60 POC Glucose (mg/dL) Random Glucose 232 H Calcium 9.0 Total Bilirubin AST ALT Alkaline Phosphatase Total Protein Albumin Globulin Albumin/Globulin Ratio Venous Blood Potassium 05/28/17 12:17 WBC RBC Hgb Hct MCV MCH MCHC RDW Plt Count MPV Neut % (Auto) Lymph % (Auto) Sanborn % (Auto) Eos % (Auto) Baso % (Auto) Neut # Lymph # Sanborn # Eos # Baso # ESR PT INR pO2 VBG pH VBG pCO2 VBG HCO3 VBG Total CO2 VBG O2 Sat (Calc) VBG Base Excess VBG Potassium A-a O2 Difference Sodium Chloride Glucose Lactate FiO2 Crit Value Called To Crit Value Called By Crit Value Read Back Blood Gas Notified Time Potassium Carbon Dioxide Anion Gap BUN Creatinine Est GFR ( Amer) Est GFR (Non-Af Amer) POC Glucose (mg/dL) 292 H Random Glucose Calcium Total Bilirubin AST ALT Alkaline Phosphatase Total Protein Albumin Globulin Albumin/Globulin Ratio Venous Blood Potassium Assessment & Plan - Assessment and Plan (Free Text) Assessment: 62 year old female with past medical history of DM, HTN, HLD, PAD is being seen for left toe gangrene. 1. Left toe gangrene - Arterial dopplers showed loss of triphasi waveform involving entire right lower extremity with varying degree of stenosis in superficial fem artery and tibial vessel. Loss of triphasic waveform involving left lower extremity distal to common femoral artery with varying degree of stenosis involving superficial femoral artery, popliteal artery and tibial vessels. - Pt will likely require repeat angio for lower extremity. Will discuss case with Dr. Strange for further recs - MRI of LE complete. results pending - IV Abx per ID 2. PAD - Patient started on daily Aspirin and statin - Continue home ACEI - Started on Cilostazol 3. DM - management per primary team - Last Hgb A1c from August was 13.0. Will repeat HgbA1c and lipid panel Case will be discussed [facility] attending, Dr. Strange - Date & Time Date: 05/28/17 Time: 14:08 <Nik Strange - Last Filed: 05/30/17 11:09> Meds - Medications Medications: Current Medications Atorvastatin Calcium (Lipitor) 20 mg PO DAILY [facility] Last Admin: 12/23/17 08:45 Dose: 20 mg Cilostazol (Pletal) 50 mg PO DAILY [facility] Last Admin: 05/30/17 08:46 Dose: 50 mg Home Med (Difluprednate [Durezol]) 1 drop LEFTEYE DAILY [facility] Last Admin: 05/30/17 08:43 Dose: 1 drop Vancomycin HCl 1 gm/ Sodium (Chloride) 250 mls @ 166.667 mls/hr IVPB DAILY [facility] Last Admin: 05/30/17 09:07 Dose: 166.667 mls/hr Cefepime HCl 1 gm/ Sodium (Chloride) 100 mls @ 100 mls/hr IVPB Q8 [facility] PRN Reason: Protocol Last Admin: 05/30/17 08:47 Dose: 100 mls/hr Fluconazole (Diflucan Iv 100 Mg/50 Ml Ns) 50 mls @ 50 mls/hr IVPB DAILY [facility] PRN Reason: Protocol Last Admin: 05/29/17 10:30 Dose: 50 mls/hr Insulin Human Lispro (Humalog) 0 units SC ACHS [facility] PRN Reason: Protocol Last Admin: 05/30/17 08:43 Dose: 3 u Metformin HCl (Glucophage) 1,000 mg PO BID [facility] Last Admin: 05/30/17 08:43 Dose: 1,000 mg Metoprolol Tartrate (Lopressor) 25 mg PO DAILY [facility] Last Admin: 05/30/17 08:45 Dose: 25 mg Oxycodone/Acetaminophen (Percocet 5/325 Mg Tab) 1 tab PO Q4 PRN PRN Reason: Pain, moderate (4-7) Stop: 05/30/17 18:13 Oxycodone/Acetaminophen (Percocet 5/325 Mg Tab) 2 tab PO Q4 PRN PRN Reason: Pain, severe (8-10) Stop: 05/31/17 14:58 Last Admin: 05/30/17 09:44 Dose: 2 tab Ramipril (Altace) 5 mg PO DAILY [facility] Last Admin: 05/30/17 08:42 Dose: 5 mg Sitagliptin Phosphate (Januvia) 100 mg PO DAILY [facility] Last Admin: 05/30/17 08:45 Dose: 100 mg Results - Vital Signs Recent Vital Signs: Last Vital Signs Temp 98 F 05/30/17 07:26 Pulse 85 05/30/17 08:45 Resp 18 05/30/17 07:26 BP 142/72 05/30/17 08:45 Pulse Ox 96 05/30/17 07:26 - Labs Result Diagrams: 05/29/17 05:40 05/29/17 05:40 Labs: Laboratory Results - last 24 hr 05/29/17 05/29/17 05/29/17 11:19 16:00 20:59 POC Glucose (mg/dL) 310 H 264 H 287 H Vancomycin Trough 05/30/17 05/30/17 05/30/17 05:25 06:30 10:45 POC Glucose (mg/dL) 252 H 254 H Vancomycin Trough < 5.0 L Attending/Attestation - Attestation I have personally seen and examined this patient.: Yes I have fully participated in the care of the patient.: Yes I have reviewed all pertinent clinical information: Yes Notes (Text): pt seen and evaluated with resident physician arterial duplex reviewed c/w multilevel stenosis in left SFA plan for peripheral angiogram on Thursday at [facility]
[2017-05-28] MEDS ORDERED: Cilostazol 50 mg Tab UD PO SCH (14:15)
--- NOTE | 2017-05-28 14:53 | HP ---
HISTORY OF PRESENT ILLNESS: Ms. Oviedo is a 62-year-old female who was admitted via the podiatry clinic after she presented with left great toe pain and change in color for 2 days prior to presentation. She indicates that she has had problems with the left great toe since August of 2016 and has been followed by Podiatry and Dr. Elodia Cuevas. She indicates that she had recently returned from a cruise and symptoms of pain, redness and then discoloration of the left great toe happened. PAST MEDICAL HISTORY: Diabetes mellitus, hypertension, hyperlipidemia. She also has a history of vascular surgery to both lower extremities this year. FAMILY HISTORY: Remarkable for diabetes mellitus in parents. SOCIAL HISTORY: She does not drink or smoke. REVIEW OF SYSTEMS: Essentially remarkable for pain in the left lower extremity. PHYSICAL EXAMINATION GENERAL: The patient is alert and oriented, appears to have some discomfort because of pain in the left great toe. VITAL SIGNS: Blood pressure 156/73 with a pulse of 97, respiratory rate 16. She is afebrile. O2 sat 100% on room air. SKIN: Shows fair turgor. HEENT: Pupils equal and reactive to light and accommodation. Mouth shows fair hygiene. JVP flat. LUNGS: Clear. HEART: Regular. No murmurs or gallop. BREASTS: Normal. ABDOMEN: Soft, nontender, no organomegaly. EXTREMITIES: There is dry gangrene of the left great toe with tenderness. There are scars of prior surgeries about both lower extremities. Upper extremities appeared unremarkable. CENTRAL NERVOUS SYSTEM: Grossly intact. LABORATORY DATA: Remarkable for WBC of 11.7, hemoglobin of 11.4, platelet count of 415,000. Sodium 141, potassium 3.5, BUN of 13, creatinine 0.7, serum glucose 232, AST 41, ALT 23. Chest x-rays; no acute cardiopulmonary pathology. X-ray of left foot grossly unremarkable. EKG; official report pending. 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 PLAN: Podiatry evaluation for appropriate therapy of gangrene of the left lower extremity. Infectious disease evaluation for adequate antibiotic therapy. The patient also will need vascular surgery evaluation. Further therapy will depend on findings. We will continue analgesics for pain and therapy as ordered. Chris Mason MD [facility] # [id number]
[2017-05-28] MEDS ORDERED: Oxycodone/Acetaminophen 5/325 mg Tab PO PRN (14:57)
[2017-05-28] MEDS: Cilostazol 100 mg Tab UD PO SCH (16:56)
[2017-05-28] MEDS: Fluconazole IV 100mg/50 ml NS 50 ML IVPB SCH (17:01)
[2017-05-28] MEDS: Cefepime 1 GM in Sodium Chloride 0.9% 100 ML IVPB SCH (17:02)
[2017-05-28 18:33] LABS: HDL CHOLESTEROL 24 MG/DL (30-70)
[2017-05-28 18:56] LABS: LDL CHOLESTEROL 174 mg/dL (0-129)
[2017-05-29] MEDS: Cefepime 1 GM in Sodium Chloride 0.9% 100 ML IVPB SCH ×3 (00:48→16:34)
[2017-05-29] MEDS: Oxycodone/Acetaminophen 5/325 mg Tab PO PRN ×4 (03:46→21:22)
[2017-05-29 05:54] LABS: BASO # 0.1 K/uL (0.0-0.2); BASO % 0.4 % (0.0-2.0); EOS # 0.2 K/uL (0.0-0.7); EOS % 1.3 % (0.0-4.0); HEMOGLOBIN 11.1 g/dL (12.0-16.0); LYMPH # 3.9 K/uL (1.0-4.3); MEAN CELL VOLUME 89.6 fl (81.0-99.0); MEAN CORPUSCULAR HEMOGLOBIN 29.5 pg (27.0-31.0); MEAN PLATELET VOLUME 9.1 fl (7.2-11.7); MONO # 1.5 K/uL (0.0-0.8); MONO % 11.5 % (0.0-10.0); NEUT # 7.5 K/uL (1.8-7.0); NEUT % 56.8 % (50.0-75.0); NRBC % 0.1 % (0.0-0.0); RBC 3.76 Mil/uL (3.80-5.20); RED CELL DISTRIBUTION WIDTH 14.2 % (11.5-14.5); WHITE BLOOD COUNT 13.2 K/uL (4.8-10.8)
--- NOTE | 2017-05-29 06:11 | CP.PCM.PN ---
Subjective - Date & Time of Evaluation Date of Evaluation: 05/29/17 Time of Evaluation: 06:11 - Subjective Subjective: Podiatry Progress Note - Dr. Looney 62 year old female patient PMHx DM, HLD, HTN, CAD seen and evaluated at bedside for left great toe gangrene. Patient hemodynamically stable; anxious and crying upon arrival. Patient denies any acute events overnight; pain well-controlled. Patient distraught with how pain and discoloration happened so quickly. Patient aware she may need surgical intervention. Denies N/V/F/D/C/SOB/calf pain. Objective - Vital Signs/Intake and Output Vital Signs (last 24 hours): Temp Pulse Resp BP Pulse Ox 98.3 F 76 19 137/74 95 05/29/17 00:00 05/29/17 00:00 05/29/17 00:00 05/29/17 00:00 05/29/17 00:00 - Medications Medications: Current Medications Atorvastatin Calcium (Lipitor) 20 mg PO DAILY [facility] Last Admin: 05/28/17 17:01 Dose: 20 mg Cilostazol (Pletal) 50 mg PO DAILY [facility] Last Admin: 05/28/17 16:56 Dose: 50 mg Home Med (Difluprednate [Durezol]) 1 drop LEFTEYE DAILY [facility] Last Admin: 05/28/17 16:50 Dose: 1 drop Vancomycin HCl 1 gm/ Sodium (Chloride) 250 mls @ 166.667 mls/hr IVPB DAILY [facility] Last Admin: 05/28/17 09:01 Dose: 166.667 mls/hr Cefepime HCl 1 gm/ Sodium (Chloride) 100 mls @ 100 mls/hr IVPB Q8 [facility] PRN Reason: Protocol Last Admin: 05/29/17 00:48 Dose: 100 mls/hr Fluconazole (Diflucan Iv 100 Mg/50 Ml Ns) 50 mls @ 50 mls/hr IVPB DAILY [facility] PRN Reason: Protocol Last Admin: 05/28/17 17:01 Dose: 50 mls/hr Insulin Human Lispro (Humalog) 0 units SC ACHS [facility] PRN Reason: Protocol Last Admin: 05/28/17 22:03 Dose: Not Given Metformin HCl (Glucophage) 1,000 mg PO BID [facility] Last Admin: 05/28/17 16:58 Dose: 1,000 mg Metoprolol Tartrate (Lopressor) 25 mg PO DAILY [facility] Last Admin: 05/28/17 09:29 Dose: 25 mg Oxycodone/Acetaminophen (Percocet 5/325 Mg Tab) 1 tab PO Q4 PRN PRN Reason: Pain, moderate (4-7) Stop: 05/30/17 18:13 Oxycodone/Acetaminophen (Percocet 5/325 Mg Tab) 2 tab PO Q4 PRN PRN Reason: Pain, severe (8-10) Stop: 05/31/17 14:58 Last Admin: 05/29/17 03:46 Dose: 2 tab Ramipril (Altace) 5 mg PO DAILY [facility] Last Admin: 05/28/17 09:00 Dose: 5 mg Sitagliptin Phosphate (Januvia) 100 mg PO DAILY [facility] Last Admin: 05/28/17 09:00 Dose: 100 mg - Labs Labs: 05/28/17 06:00 05/28/17 06:00 PT 11.5 Seconds (9.8-13.1) 05/27/17 14:55 INR 1.0 (0.9-1.2) 05/27/17 14:55 - Constitutional Appears: Well, Non-toxic, No Acute Distress - Extremities Exam Additional comments: VASC: DP and PT pulses weakly palpable 1/4 b/l. CFT <3 seconds to all digits x9 , unable to be obtained in left hallux. Temperature gradient warm to warm bilateral. No edema noted. NEURO: Gross sensation diminished bilaterally. DERM: Left hallux appears necrotic with demarcation proximal to hallucal IPJ; hard eschar cap noted dorsally and medially, and moist necrosis plantarly. Full thickness ulceration measuring approximately 0.5 x 0.5 cm in area of necrosis, ( +) probe to bone, serosanguinous drainage noted. No foul odor present this visit. Erythema extending proximoplantarlly through 1st metatarsal. ORTHO: Mild tenderness to palpation left hallux. Mild pain upon ROM left hallux. - Neurological Exam Neurological Exam: Alert, Awake, Oriented x3 - Psychiatric Exam Psychiatric exam: Anxious Assessment and Plan - Assessment and Plan (Free Text) Assessment: 62 year old female patient PMHx DM, HHTN, HLD, CAD with left hallux gangrene and infected ulceration. Plan: Patient seen and evaluated Discussed with attending, Dr. Aayush guy currently, WBC increasing @ 13.2 (yesreday 11.7), ESR 101, CRP 56.6 L foot XR reviewed: negative f/u L foot MRI report L hallux wound culture taken, report pending Bilateral LE arterial dopplers: -Loss of triphasic waveform involving entire RLE w/stenosis in SFA and tibial vessels -Loss of triphasic waveform involving LLE distal to common femoral a. w/ stenosis in SFA, popliteal a., and tibial vessels Informed patient left hallux likely infected with need for possible amputation vs. mcc IV abx. Discussed with patient risks, complications, benefits, alternatives of procedure; pt demonstrated verbal understanding and agrees to surgical intervention. Dr. Strange consulted for possible vascular intervention -Per cardiology patient will likely require repeat angio for lower extremity ID consulted - recs appreciated; currently on Vancomycin -Per ID, d/c Zosyn which may have been source of rash on LUE -Cefepime started per ID Wound cleansed with saline and dressed with betadine DSD Pain mgmt per medicine Podiatry will continue to follow patient while in house
[2017-05-29] MEDS ORDERED: Povidone Iodine Topical 10% Sol ONE (06:17)
[2017-05-29 06:58] LABS: CALCIUM 9.1 mg/dL (8.4-10.2)
[2017-05-29] MEDS: Insulin Lispro (humaLOG) 100 Units/ml Inj SC SCH ×4 (07:30→21:58)
[2017-05-29 07:49] LABS: BLOOD UREA NITROGEN 15 mg/dl (7-17); GFR AFRICAN-AMERICAN > 60; GFR NON-AFRICAN AMERICAN > 60
[2017-05-29] MEDS: Cilostazol 100 mg Tab UD PO SCH (09:03)
[2017-05-29] MEDS ORDERED: Potassium Chloride 20 mEq ER Tab PO ONE (09:10)
[2017-05-29] MEDS: Fluconazole IV 100mg/50 ml NS 50 ML IVPB SCH (10:30)
--- NOTE | 2017-05-29 13:08 | CP.PCM.PN ---
Subjective - Date & Time of Evaluation Date of Evaluation: 05/29/17 Time of Evaluation: 13:09 - Subjective Subjective: L FOOT PAIN LESS BUT PRESENT Objective - Vital Signs/Intake and Output Vital Signs (last 24 hours): Temp Pulse Resp BP Pulse Ox 97.4 F L 98 H 18 132/81 99 05/29/17 07:57 05/29/17 08:58 05/29/17 07:57 05/29/17 08:58 05/29/17 07:57 - Medications Medications: Current Medications Atorvastatin Calcium (Lipitor) 20 mg PO DAILY [facility] Last Admin: 05/29/17 08:58 Dose: 20 mg Cilostazol (Pletal) 50 mg PO DAILY [facility] Last Admin: 05/29/17 09:03 Dose: 50 mg Home Med (Difluprednate [Durezol]) 1 drop LEFTEYE DAILY [facility] Last Admin: 05/29/17 08:56 Dose: 1 drop Vancomycin HCl 1 gm/ Sodium (Chloride) 250 mls @ 166.667 mls/hr IVPB DAILY [facility] Last Admin: 05/29/17 09:04 Dose: 166.667 mls/hr Cefepime HCl 1 gm/ Sodium (Chloride) 100 mls @ 100 mls/hr IVPB Q8 [facility] PRN Reason: Protocol Last Admin: 05/29/17 08:59 Dose: 100 mls/hr Fluconazole (Diflucan Iv 100 Mg/50 Ml Ns) 50 mls @ 50 mls/hr IVPB DAILY [facility] PRN Reason: Protocol Last Admin: 05/29/17 10:30 Dose: 50 mls/hr Insulin Human Lispro (Humalog) 0 units SC ACHS [facility] PRN Reason: Protocol Last Admin: 05/29/17 11:50 Dose: 4 u Metformin HCl (Glucophage) 1,000 mg PO BID [facility] Last Admin: 05/29/17 08:56 Dose: 1,000 mg Metoprolol Tartrate (Lopressor) 25 mg PO DAILY [facility] Last Admin: 05/29/17 08:58 Dose: 25 mg Oxycodone/Acetaminophen (Percocet 5/325 Mg Tab) 1 tab PO Q4 PRN PRN Reason: Pain, moderate (4-7) Stop: 05/30/17 18:13 Oxycodone/Acetaminophen (Percocet 5/325 Mg Tab) 2 tab PO Q4 PRN PRN Reason: Pain, severe (8-10) Stop: 05/31/17 14:58 Last Admin: 05/29/17 11:08 Dose: 2 tab Ramipril (Altace) 5 mg PO DAILY [facility] Last Admin: 05/29/17 08:54 Dose: 5 mg Sitagliptin Phosphate (Januvia) 100 mg PO DAILY [facility] Last Admin: 05/29/17 08:54 Dose: 100 mg - Labs Labs: 05/29/17 05:40 05/29/17 05:40 PT 11.5 Seconds (9.8-13.1) 05/27/17 14:55 INR 1.0 (0.9-1.2) 05/27/17 14:55 - Constitutional Appears: In Acute Distress - Head Exam Head Exam: ATRAUMATIC, NORMAL INSPECTION, NORMOCEPHALIC - Eye Exam Eye Exam: EOMI, Normal appearance, PERRL Pupil Exam: NORMAL ACCOMODATION, PERRL - ENT Exam ENT Exam: Mucous Membranes Moist, Normal Exam - Neck Exam Neck Exam: Full ROM, Normal Inspection. absent: Lymphadenopathy - Respiratory Exam Respiratory Exam: Clear to Ausculation Bilateral, NORMAL BREATHING PATTERN - Cardiovascular Exam Cardiovascular Exam: REGULAR RHYTHM, +S1, +S2. absent: Murmur - GI/Abdominal Exam GI & Abdominal Exam: Soft, Normal Bowel Sounds. absent: Tenderness - Rectal Exam Rectal Exam: NORMAL INSPECTION - Extremities Exam Extremities Exam: Full ROM, Normal Capillary Refill, Normal Inspection. absent : Joint Swelling, Pedal Edema Additional comments: GANGRENE OF L GREAT TOE - Back Exam Back Exam: NORMAL INSPECTION - Neurological Exam Neurological Exam: Alert, Awake, CN II-XII Intact, Normal Gait, Oriented x3 - Psychiatric Exam Psychiatric exam: Normal Affect, Normal Mood - Skin Skin Exam: Dry, Intact, Normal Color, Warm Assessment and Plan - Assessment and Plan (Free Text) Assessment: GANGRENE OF L GREAT TOE DM PERPHERAL VASC DZ Plan: CONTINUE IV ANTIBIOTICS AND ANALGESICS AWAIT VASCULAR EVAL PODIATRY CARE
--- NOTE | 2017-05-29 14:40 | CP.PCM.PN ---
Subjective - Date & Time of Evaluation Date of Evaluation: 05/29/17 Time of Evaluation: 14:40 - Subjective Subjective: ID Note- Pt. seen and examined today. she denies any fever or chills. states still has pain in her left great toe. Objective - Vital Signs/Intake and Output Vital Signs (last 24 hours): Temp Pulse Resp BP Pulse Ox 97.4 F L 98 H 18 132/81 99 05/29/17 07:57 05/29/17 08:58 05/29/17 07:57 05/29/17 08:58 05/29/17 07:57 - Medications Medications: Current Medications Atorvastatin Calcium (Lipitor) 20 mg PO DAILY [facility] Last Admin: 05/29/17 08:58 Dose: 20 mg Cilostazol (Pletal) 50 mg PO DAILY [facility] Last Admin: 05/29/17 09:03 Dose: 50 mg Home Med (Difluprednate [Durezol]) 1 drop LEFTEYE DAILY [facility] Last Admin: 05/29/17 08:56 Dose: 1 drop Vancomycin HCl 1 gm/ Sodium (Chloride) 250 mls @ 166.667 mls/hr IVPB DAILY [facility] Last Admin: 05/29/17 09:04 Dose: 166.667 mls/hr Cefepime HCl 1 gm/ Sodium (Chloride) 100 mls @ 100 mls/hr IVPB Q8 [facility] PRN Reason: Protocol Last Admin: 05/29/17 08:59 Dose: 100 mls/hr Fluconazole (Diflucan Iv 100 Mg/50 Ml Ns) 50 mls @ 50 mls/hr IVPB DAILY [facility] PRN Reason: Protocol Last Admin: 05/29/17 10:30 Dose: 50 mls/hr Insulin Human Lispro (Humalog) 0 units SC ACHS [facility] PRN Reason: Protocol Last Admin: 05/29/17 11:50 Dose: 4 u Metformin HCl (Glucophage) 1,000 mg PO BID [facility] Last Admin: 05/29/17 08:56 Dose: 1,000 mg Metoprolol Tartrate (Lopressor) 25 mg PO DAILY [facility] Last Admin: 05/29/17 08:58 Dose: 25 mg Oxycodone/Acetaminophen (Percocet 5/325 Mg Tab) 1 tab PO Q4 PRN PRN Reason: Pain, moderate (4-7) Stop: 05/30/17 18:13 Oxycodone/Acetaminophen (Percocet 5/325 Mg Tab) 2 tab PO Q4 PRN PRN Reason: Pain, severe (8-10) Stop: 05/31/17 14:58 Last Admin: 05/29/17 11:08 Dose: 2 tab Ramipril (Altace) 5 mg PO DAILY [facility] Last Admin: 05/29/17 08:54 Dose: 5 mg Sitagliptin Phosphate (Januvia) 100 mg PO DAILY [facility] Last Admin: 05/29/17 08:54 Dose: 100 mg - Labs Labs: - Additional Findings Additional findings: - Constitutional Appears: No Acute Distress - Head Exam Head Exam: ATRAUMATIC - Eye Exam Eye Exam: EOMI, PERRL - ENT Exam ENT Exam: Normal Oropharynx - Neck Exam Neck exam: Positive for: Full Rom - Respiratory Exam Respiratory Exam: Clear to Auscultation Bilateral, NORMAL BREATHING PATTERN - Cardiovascular Exam Cardiovascular Exam: RRR, +S1, +S2 - GI/Abdominal Exam GI & Abdominal Exam: Normal Bowel Sounds, Soft Additional comments: NT, ND - Extremities Exam Additional comments: left great toe necrosis with black eschar with small opening on the dorsal portion with sanguinous discharge, not warm to touch, no surrounding erythema DP pulses very weak on the left - Neurological Exam Neurological exam: Alert, Oriented x 3 Laboratory Results - last 72 hr 05/27/17 05/27/17 05/27/17 14:53 14:55 14:55 WBC 12.0 H RBC 4.26 Hgb 12.6 Hct 38.2 MCV 89.7 MCH 29.6 MCHC 33.1 RDW 14.5 Plt Count 490 H MPV 10.0 Neut % (Auto) 59.0 Lymph % (Auto) 29.6 [place] % (Auto) 9.1 Eos % (Auto) 1.5 Baso % (Auto) 0.8 Neut # 7.1 H Lymph # 3.5 [place] # 1.1 H Eos # 0.2 Baso # 0.1 ESR PT 11.5 INR 1.0 pO2 20 L VBG pH 7.32 VBG pCO2 38 L VBG HCO3 18.6 VBG Total CO2 20.8 L VBG O2 Sat (Calc) 36.2 L VBG Base Excess -6.0 L VBG Potassium 5.0 A-a O2 Difference 82.0 Sodium 134.0 Chloride 103.0 Glucose 277 H Lactate 1.6 FiO2 21.0 Crit Value Called To Dr ellis crawford Crit Value Called By 15 Crit Value Read Back Y Blood Gas Notified Time 1459 Potassium Carbon Dioxide Anion Gap BUN Creatinine Est GFR ( Amer) Est GFR (Non-Af Amer) POC Glucose (mg/dL) Random Glucose Hemoglobin A1c Calcium Total Bilirubin AST ALT Alkaline Phosphatase C-Reactive Prot, Quant Total Protein Albumin Globulin Albumin/Globulin Ratio Triglycerides Cholesterol LDL Cholesterol Direct HDL Cholesterol Venous Blood Potassium 5.0 05/27/17 05/27/17 05/28/17 16:09 21:15 05:55 WBC RBC Hgb Hct MCV MCH MCHC RDW Plt Count MPV Neut % (Auto) Lymph % (Auto) [place] % (Auto) Eos % (Auto) Baso % (Auto) Neut # Lymph # [place] # Eos # Baso # ESR PT INR pO2 VBG pH VBG pCO2 VBG HCO3 VBG Total CO2 VBG O2 Sat (Calc) VBG Base Excess VBG Potassium A-a O2 Difference Sodium 141 Chloride 104 Glucose Lactate FiO2 Crit Value Called To Crit Value Called By Crit Value Read Back Blood Gas Notified Time Potassium 3.9 Carbon Dioxide 19 L Anion Gap 22 H BUN 17 Creatinine 0.7 Est GFR ( Amer) > 60 Est GFR (Non-Af Amer) > 60 POC Glucose (mg/dL) 287 H 212 H Random Glucose 248 H Hemoglobin A1c Calcium 9.7 Total Bilirubin 0.8 AST 41 H ALT 23 Alkaline Phosphatase 112 C-Reactive Prot, Quant Total Protein 8.5 H Albumin 4.3 Globulin 4.2 H Albumin/Globulin Ratio 1.0 Triglycerides Cholesterol LDL Cholesterol Direct HDL Cholesterol Venous Blood Potassium 05/28/17 05/28/17 05/28/17 06:00 06:00 12:00 WBC 11.7 H RBC 3.94 Hgb 11.4 L Hct 36.0 MCV 91.3 MCH 28.8 MCHC 31.6 L RDW 14.5 Plt Count 415 H MPV Neut % (Auto) Lymph % (Auto) [place] % (Auto) Eos % (Auto) Baso % (Auto) Neut # Lymph # [place] # Eos # Baso # ESR 102 H PT INR pO2 VBG pH VBG pCO2 VBG HCO3 VBG Total CO2 VBG O2 Sat (Calc) VBG Base Excess VBG Potassium A-a O2 Difference Sodium 141 Chloride 105 Glucose Lactate FiO2 Crit Value Called To Crit Value Called By Crit Value Read Back Blood Gas Notified Time Potassium 3.5 L Carbon Dioxide 19 L Anion Gap 21 H BUN 13 Creatinine 0.7 Est GFR ( Amer) > 60 Est GFR (Non-Af Amer) > 60 POC Glucose (mg/dL) Random Glucose 232 H Hemoglobin A1c Calcium 9.0 Total Bilirubin AST ALT Alkaline Phosphatase C-Reactive Prot, Quant Total Protein Albumin Globulin Albumin/Globulin Ratio Triglycerides Cholesterol LDL Cholesterol Direct HDL Cholesterol Venous Blood Potassium 05/28/17 05/28/17 05/28/17 12:00 12:17 15:59 WBC RBC Hgb Hct MCV MCH MCHC RDW Plt Count MPV Neut % (Auto) Lymph % (Auto) [place] % (Auto) Eos % (Auto) Baso % (Auto) Neut # Lymph # [place] # Eos # Baso # ESR PT INR pO2 VBG pH VBG pCO2 VBG HCO3 VBG Total CO2 VBG O2 Sat (Calc) VBG Base Excess VBG Potassium A-a O2 Difference Sodium Chloride Glucose Lactate FiO2 Crit Value Called To Crit Value Called By Crit Value Read Back Blood Gas Notified Time Potassium Carbon Dioxide Anion Gap BUN Creatinine Est GFR ( Amer) Est GFR (Non-Af Amer) POC Glucose (mg/dL) 292 H 224 H Random Glucose Hemoglobin A1c Calcium Total Bilirubin AST ALT Alkaline Phosphatase C-Reactive Prot, Quant 56.6 H Total Protein Albumin Globulin Albumin/Globulin Ratio Triglycerides Cholesterol LDL Cholesterol Direct HDL Cholesterol Venous Blood Potassium 05/28/17 05/28/17 05/28/17 17:30 17:30 18:15 WBC RBC Hgb Hct MCV MCH MCHC RDW Plt Count MPV Neut % (Auto) Lymph % (Auto) [place] % (Auto) Eos % (Auto) Baso % (Auto) Neut # Lymph # [place] # Eos # Baso # ESR 101 H PT INR pO2 VBG pH VBG pCO2 VBG HCO3 VBG Total CO2 VBG O2 Sat (Calc) VBG Base Excess VBG Potassium A-a O2 Difference Sodium Chloride Glucose Lactate FiO2 Crit Value Called To Crit Value Called By Crit Value Read Back Blood Gas Notified Time Potassium Carbon Dioxide Anion Gap BUN Creatinine Est GFR ( Amer) Est GFR (Non-Af Amer) POC Glucose (mg/dL) Random Glucose Hemoglobin A1c 11.5 H Calcium Total Bilirubin AST ALT Alkaline Phosphatase C-Reactive Prot, Quant Total Protein Albumin Globulin Albumin/Globulin Ratio Triglycerides 195 H Cholesterol 237 H LDL Cholesterol Direct 174 H HDL Cholesterol 24 L Venous Blood Potassium 05/28/17 05/29/17 05/29/17 21:45 05:40 05:40 WBC 13.2 H RBC 3.76 L Hgb 11.1 L Hct 33.7 L MCV 89.6 MCH 29.5 MCHC 33.0 RDW 14.2 Plt Count 422 H MPV 9.1 Neut % (Auto) 56.8 Lymph % (Auto) 30.0 [place] % (Auto) 11.5 H Eos % (Auto) 1.3 Baso % (Auto) 0.4 Neut # 7.5 H Lymph # 3.9 [place] # 1.5 H Eos # 0.2 Baso # 0.1 ESR PT INR pO2 VBG pH VBG pCO2 VBG HCO3 VBG Total CO2 VBG O2 Sat (Calc) VBG Base Excess VBG Potassium A-a O2 Difference Sodium 139 Chloride 102 Glucose Lactate FiO2 Crit Value Called To Crit Value Called By Crit Value Read Back Blood Gas Notified Time Potassium 3.5 L Carbon Dioxide 25 Anion Gap 16 BUN 15 Creatinine 0.6 L Est GFR ( Amer) > 60 Est GFR (Non-Af Amer) > 60 POC Glucose (mg/dL) 296 H Random Glucose 250 H Hemoglobin A1c Calcium 9.1 Total Bilirubin AST ALT Alkaline Phosphatase C-Reactive Prot, Quant Total Protein Albumin Globulin Albumin/Globulin Ratio Triglycerides Cholesterol LDL Cholesterol Direct HDL Cholesterol Venous Blood Potassium 05/29/17 05/29/17 06:17 11:19 WBC RBC Hgb Hct MCV MCH MCHC RDW Plt Count MPV Neut % (Auto) Lymph % (Auto) [place] % (Auto) Eos % (Auto) Baso % (Auto) Neut # Lymph # [place] # Eos # Baso # ESR PT INR pO2 VBG pH VBG pCO2 VBG HCO3 VBG Total CO2 VBG O2 Sat (Calc) VBG Base Excess VBG Potassium A-a O2 Difference Sodium Chloride Glucose Lactate FiO2 Crit Value Called To Crit Value Called By Crit Value Read Back Blood Gas Notified Time Potassium Carbon Dioxide Anion Gap BUN Creatinine Est GFR ( Amer) Est GFR (Non-Af Amer) POC Glucose (mg/dL) 236 H 310 H Random Glucose Hemoglobin A1c Calcium Total Bilirubin AST ALT Alkaline Phosphatase C-Reactive Prot, Quant Total Protein Albumin Globulin Albumin/Globulin Ratio Triglycerides Cholesterol LDL Cholesterol Direct HDL Cholesterol Venous Blood Potassium Microbiology 05/27/17 15:15 Blood-Venous Blood Culture - Preliminary 05/27/17 15:15 Blood-Venous Gram Stain - Final 05/28/17 11:23 Foot - Left Gram Stain - Final 05/27/17 18:11 Blood-Venous Blood Culture - Preliminary NO GROWTH AFTER 24 HOURS Assessment and Plan (1) Gangrene of toe of left foot Status: Acute (2) HTN (hypertension) Status: Acute (3) Diabetes Status: Acute - Assessment and Plan (Free Text) Assessment: A/P- 62 year old female with DM II, HTN admitted with left great toe gangrene. await wound cx. as per med chart had wound cx from 04/2017 serratia and c.tropicalis afebrikle mild leukocytosis. await MRI result r/o OM. US report - poor vasculature blood cx- 1 out of 2 blood cx bottles reported today gram variable catrachito ( could be contaminant) high ESR plan- await MRI result r/o OM. may need angiogram for better evaluation of the LE vaculature. for now advise to continue with IV vancomycin 1 gram BID. day #2 keep trough <15. advise to continue with cefepime which covers the serratia from 04/2017 wound cx as well. day #2 advise to also start patient on fluconazole for the karen tropicalis in 2016 wound cx pending new wound cx result. day #2 length of antibiotics pending imaging result and will also need to discuss with podiatry whether further debridement and/or possibly amputation of the toe is considered. all above d/w patient and she verbalizes full understanding of all above and agrees with above plan of care.
--- NOTE | 2017-05-29 16:02 | CARD ---
APPROVED REPORT EKG Measurement Heart [id number] <Conclusion> Normal sinus rhythm Nonspecific ST abnormality Abnormal ECG
--- NOTE | 2017-05-29 16:40 | MRI ---
PROCEDURE: MRI of the left foot without contrast HISTORY: left hallux gangrene r/o osteomyelitis COMPARISON: Comparison is made with previous x-ray of the left foot dated 05/27/2017 TECHNIQUE: Axial coronal and sagittal MRI images of the left foot were obtained without IV contrast administration. FINDINGS: There is cortical destruction at the distal portion of the proximal phalanx of the left big toe and in the distal phalanx of the big toe. There is also diffuse bone marrow edema in the mid and distal portion of the proximal phalanx and in the entire distal phalanx of the left big toe. Findings highly suspicious for osteomyelitis. There is large skin and subcutaneous defect at the mid to distal left big toe associated with subcutaneous diffuse edema and inflammatory changes. There is no evidence of discrete drainable fluid collection in the left big toe. There are mild arthritic changes at the metatarsal-phalangeal joints. There is no evidence of other bone marrow edema or cortical destruction in the left foot. Mild diffuse soft tissue edema seen at the mid to distal left foot. There is mild diffuse T2 signal in the muscles suggestive of mild myositis. No evidence of interruption in the distal left foot tendons. IMPRESSION: Findings highly suspicious for osteomyelitis involving the distal portion of the proximal phalanx and in the entire distal phalanx of the left big toe. Skin and subcutaneous defect at the mid to distal left big toe associated with subcutaneous inflammatory changes. No evidence of discrete drainable fluid collection.
[2017-05-30] MEDS: Cefepime 1 GM in Sodium Chloride 0.9% 100 ML IVPB SCH ×3 (00:22→17:53)
[2017-05-30] MEDS: Oxycodone/Acetaminophen 5/325 mg Tab PO PRN ×4 (04:41→20:44)
[2017-05-30] MEDS: Insulin Lispro (humaLOG) 100 Units/ml Inj SC SCH ×4 (08:43→22:03)
[2017-05-30] MEDS: Cilostazol 100 mg Tab UD PO SCH (08:46)
--- NOTE | 2017-05-30 10:36 | CP.PCM.PN ---
Subjective - Date & Time of Evaluation Date of Evaluation: 05/30/17 Time of Evaluation: 10:37 - Subjective Subjective: LESS FOOT PAIN WORRIED ABOUT SURGICAL INTERVENTION ON L FOOT ASKS THE SAME QUESTIONS ABOUT RX SON AND AT BEDSIDE AND CASE WAS DISCUSSED WITH ALL Objective - Vital Signs/Intake and Output Vital Signs (last 24 hours): Temp Pulse Resp BP Pulse Ox 98 F 85 18 142/72 96 05/30/17 07:26 05/30/17 08:45 05/30/17 07:26 05/30/17 08:45 05/30/17 07:26 - Medications Medications: Current Medications Atorvastatin Calcium (Lipitor) 20 mg PO DAILY [facility] Last Admin: 05/30/17 08:45 Dose: 20 mg Cilostazol (Pletal) 50 mg PO DAILY [facility] Last Admin: 05/30/17 08:46 Dose: 50 mg Home Med (Difluprednate [Durezol]) 1 drop LEFTEYE DAILY [facility] Last Admin: 05/30/17 08:43 Dose: 1 drop Vancomycin HCl 1 gm/ Sodium (Chloride) 250 mls @ 166.667 mls/hr IVPB DAILY [facility] Last Admin: 05/30/17 09:07 Dose: 166.667 mls/hr Cefepime HCl 1 gm/ Sodium (Chloride) 100 mls @ 100 mls/hr IVPB Q8 [facility] PRN Reason: Protocol Last Admin: 05/30/17 08:47 Dose: 100 mls/hr Fluconazole (Diflucan Iv 100 Mg/50 Ml Ns) 50 mls @ 50 mls/hr IVPB DAILY [facility] PRN Reason: Protocol Last Admin: 05/29/17 10:30 Dose: 50 mls/hr Insulin Human Lispro (Humalog) 0 units SC ACHS [facility] PRN Reason: Protocol Last Admin: 05/30/17 08:43 Dose: 3 u Metformin HCl (Glucophage) 1,000 mg PO BID [facility] Last Admin: 05/30/17 08:43 Dose: 1,000 mg Metoprolol Tartrate (Lopressor) 25 mg PO DAILY [facility] Last Admin: 05/30/17 08:45 Dose: 25 mg Oxycodone/Acetaminophen (Percocet 5/325 Mg Tab) 1 tab PO Q4 PRN PRN Reason: Pain, moderate (4-7) Stop: 05/30/17 18:13 Oxycodone/Acetaminophen (Percocet 5/325 Mg Tab) 2 tab PO Q4 PRN PRN Reason: Pain, severe (8-10) Stop: 05/31/17 14:58 Last Admin: 05/30/17 09:44 Dose: 2 tab Ramipril (Altace) 5 mg PO DAILY [facility] Last Admin: 05/30/17 08:42 Dose: 5 mg Sitagliptin Phosphate (Januvia) 100 mg PO DAILY [facility] Last Admin: 05/30/17 08:45 Dose: 100 mg - Labs Labs: 05/29/17 05:40 05/29/17 05:40 PT 11.5 Seconds (9.8-13.1) 05/27/17 14:55 INR 1.0 (0.9-1.2) 05/27/17 14:55 - Constitutional Appears: No Acute Distress - Head Exam Head Exam: ATRAUMATIC, NORMAL INSPECTION, NORMOCEPHALIC - Eye Exam Eye Exam: EOMI, Normal appearance, PERRL Pupil Exam: NORMAL ACCOMODATION, PERRL - ENT Exam ENT Exam: Mucous Membranes Moist, Normal Exam - Neck Exam Neck Exam: Full ROM, Normal Inspection. absent: Lymphadenopathy - Respiratory Exam Respiratory Exam: Clear to Ausculation Bilateral, NORMAL BREATHING PATTERN - Cardiovascular Exam Cardiovascular Exam: REGULAR RHYTHM, +S1, +S2. absent: Murmur - GI/Abdominal Exam GI & Abdominal Exam: Soft, Normal Bowel Sounds. absent: Tenderness - Rectal Exam Rectal Exam: NORMAL INSPECTION - Extremities Exam Extremities Exam: Full ROM, Normal Capillary Refill, Tenderness. absent: Joint Swelling, Pedal Edema Additional comments: DRY GANGRENE OF L GREAT TOE--REDNESS IMPROVED - Back Exam Back Exam: NORMAL INSPECTION - Neurological Exam Neurological Exam: Alert, Awake, CN II-XII Intact, Normal Gait, Oriented x3 - Psychiatric Exam Psychiatric exam: Normal Affect, Normal Mood - Skin Skin Exam: Dry, Intact, Normal Color, Warm Assessment and Plan - Assessment and Plan (Free Text) Assessment: GANGRENE OF L FOOT DM PERIPHERAL VASC DZ Plan: CONTINUE PRESENT RX ?REVASCULARIZATION ATTEMPT BY AUTOMATION TENDER
--- NOTE | 2017-05-30 11:13 | CP.PCM.PN ---
Subjective - Date & Time of Evaluation Date of Evaluation: 05/30/17 Time of Evaluation: 11:10 - Subjective Subjective: c/o left toe pain and mild left foot discomfort MRI c/w possible osteo blood cx +ve Objective - Vital Signs/Intake and Output Vital Signs (last 24 hours): Temp Pulse Resp BP Pulse Ox 98 F 85 18 142/72 96 05/30/17 07:26 05/30/17 08:45 05/30/17 07:26 05/30/17 08:45 05/30/17 07:26 - Medications Medications: Current Medications Atorvastatin Calcium (Lipitor) 20 mg PO DAILY [facility] Last Admin: 05/30/17 08:45 Dose: 20 mg Cilostazol (Pletal) 50 mg PO DAILY [facility] Last Admin: 05/30/17 08:46 Dose: 50 mg Home Med (Difluprednate [Durezol]) 1 drop LEFTEYE DAILY [facility] Last Admin: 05/30/17 08:43 Dose: 1 drop Vancomycin HCl 1 gm/ Sodium (Chloride) 250 mls @ 166.667 mls/hr IVPB DAILY [facility] Last Admin: 05/30/17 09:07 Dose: 166.667 mls/hr Cefepime HCl 1 gm/ Sodium (Chloride) 100 mls @ 100 mls/hr IVPB Q8 [facility] PRN Reason: Protocol Last Admin: 05/30/17 08:47 Dose: 100 mls/hr Fluconazole (Diflucan Iv 100 Mg/50 Ml Ns) 50 mls @ 50 mls/hr IVPB DAILY [facility] PRN Reason: Protocol Last Admin: 05/29/17 10:30 Dose: 50 mls/hr Insulin Human Lispro (Humalog) 0 units SC ACHS [facility] PRN Reason: Protocol Last Admin: 05/30/17 08:43 Dose: 3 u Metformin HCl (Glucophage) 1,000 mg PO BID [facility] Last Admin: 05/30/17 08:43 Dose: 1,000 mg Metoprolol Tartrate (Lopressor) 25 mg PO DAILY [facility] Last Admin: 05/30/17 08:45 Dose: 25 mg Oxycodone/Acetaminophen (Percocet 5/325 Mg Tab) 1 tab PO Q4 PRN PRN Reason: Pain, moderate (4-7) Stop: 05/30/17 18:13 Oxycodone/Acetaminophen (Percocet 5/325 Mg Tab) 2 tab PO Q4 PRN PRN Reason: Pain, severe (8-10) Stop: 05/31/17 14:58 Last Admin: 05/30/17 09:44 Dose: 2 tab Ramipril (Altace) 5 mg PO DAILY [facility] Last Admin: 05/30/17 08:42 Dose: 5 mg Sitagliptin Phosphate (Januvia) 100 mg PO DAILY [facility] Last Admin: 05/30/17 08:45 Dose: 100 mg - Labs Labs: 05/29/17 05:40 05/29/17 05:40 PT 11.5 Seconds (9.8-13.1) 05/27/17 14:55 INR 1.0 (0.9-1.2) 05/27/17 14:55 - Constitutional Appears: Well - Head Exam Head Exam: ATRAUMATIC, NORMAL INSPECTION, NORMOCEPHALIC - Eye Exam Eye Exam: EOMI, Normal appearance, PERRL Pupil Exam: NORMAL ACCOMODATION, PERRL - ENT Exam ENT Exam: Mucous Membranes Moist, Normal Exam - Neck Exam Neck Exam: Full ROM, Normal Inspection. absent: Lymphadenopathy - Respiratory Exam Respiratory Exam: Clear to Ausculation Bilateral, NORMAL BREATHING PATTERN - Cardiovascular Exam Cardiovascular Exam: REGULAR RHYTHM, +S1, +S2, Murmur - GI/Abdominal Exam GI & Abdominal Exam: Soft, Normal Bowel Sounds. absent: Tenderness - Extremities Exam Extremities Exam: Full ROM. absent: Joint Swelling, Pedal Edema Additional comments: left toe gangrenous with dorsal wound - Back Exam Back Exam: NORMAL INSPECTION - Neurological Exam Neurological Exam: Alert, Awake, CN II-XII Intact, Oriented x3 - Psychiatric Exam Psychiatric exam: Normal Affect, Normal Mood - Skin Skin Exam: Dry, Intact, Normal Color, Warm Assessment and Plan (1) PVD (peripheral vascular disease) Assessment & Plan: add asa 81mg po daily cont cilostazol and acei statins plan for peripheral angio after 5 days of Abx possibly Thu or Thursday once cleared by ID Status: Acute (2) Cellulitis Assessment & Plan: Abx per ID Status: Acute (3) Gangrene of toe of left foot Status: Acute (4) CAD (coronary artery disease) Status: Acute (5) HLD (hyperlipidemia) Status: Acute (6) HTN (hypertension) Status: Acute
[2017-05-30] MEDS: Fluconazole IV 100mg/50 ml NS 50 ML IVPB SCH (12:46)
--- NOTE | 2017-05-30 15:56 | CP.PCM.PN ---
Subjective - Date & Time of Evaluation Date of Evaluation: 05/30/17 Time of Evaluation: 11:30 - Subjective Subjective: Podiatry Progress Note - Dr. Looney 62 year old female with PMHx of DM, HLD, HTN, CAD seen with her and son this morning for left great toe gangrene. Patient denies of any acute events overnight. Patient denies of any pain overnight and states that it is well controlled. Patient is aware she may need surgical intervention. Denies N/V/F/D/ C/SOB/calf pain. Objective - Vital Signs/Intake and Output Vital Signs (last 24 hours): Temp Pulse Resp BP Pulse Ox 98.4 F 84 17 121/66 100 05/30/17 15:38 05/30/17 15:38 05/30/17 15:38 05/30/17 15:38 05/30/17 15:38 - Medications Medications: Current Medications Atorvastatin Calcium (Lipitor) 20 mg PO DAILY [facility] Last Admin: 05/30/17 08:45 Dose: 20 mg Cilostazol (Pletal) 50 mg PO DAILY [facility] Last Admin: 05/30/17 08:46 Dose: 50 mg Home Med (Difluprednate [Durezol]) 1 drop LEFTEYE DAILY [facility] Last Admin: 05/30/17 08:43 Dose: 1 drop Vancomycin HCl 1 gm/ Sodium (Chloride) 250 mls @ 166.667 mls/hr IVPB DAILY [facility] Last Admin: 05/30/17 09:07 Dose: 166.667 mls/hr Cefepime HCl 1 gm/ Sodium (Chloride) 100 mls @ 100 mls/hr IVPB Q8 [facility] PRN Reason: Protocol Last Admin: 05/30/17 08:47 Dose: 100 mls/hr Fluconazole (Diflucan Iv 100 Mg/50 Ml Ns) 50 mls @ 50 mls/hr IVPB DAILY [facility] PRN Reason: Protocol Last Admin: 05/30/17 12:46 Dose: 50 mls/hr Insulin Human Lispro (Humalog) 0 units SC ACHS [facility] PRN Reason: Protocol Last Admin: 05/30/17 12:47 Dose: 3 u Metformin HCl (Glucophage) 1,000 mg PO BID [facility] Last Admin: 05/30/17 08:43 Dose: 1,000 mg Metoprolol Tartrate (Lopressor) 25 mg PO DAILY [facility] Last Admin: 05/30/17 08:45 Dose: 25 mg Oxycodone/Acetaminophen (Percocet 5/325 Mg Tab) 1 tab PO Q4 PRN PRN Reason: Pain, moderate (4-7) Stop: 05/30/17 18:13 Oxycodone/Acetaminophen (Percocet 5/325 Mg Tab) 2 tab PO Q4 PRN PRN Reason: Pain, severe (8-10) Stop: 05/31/17 14:58 Last Admin: 05/30/17 14:27 Dose: 2 tab Ramipril (Altace) 5 mg PO DAILY [facility] Last Admin: 05/30/17 08:42 Dose: 5 mg Sitagliptin Phosphate (Januvia) 100 mg PO DAILY [facility] Last Admin: 05/30/17 08:45 Dose: 100 mg - Labs Labs: 05/29/17 05:40 05/29/17 05:40 PT 11.5 Seconds (9.8-13.1) 05/27/17 14:55 INR 1.0 (0.9-1.2) 05/27/17 14:55 - Constitutional Appears: Well, Non-toxic, No Acute Distress - Head Exam Head Exam: ATRAUMATIC - Extremities Exam Additional comments: VASC: DP and PT pulses weakly palpable 1/4 b/l. CFT <3 seconds to all digits x9 , unable to be obtained in left hallux. Temperature gradient warm to warm bilateral. No edema noted. DERM: Left hallux appears necrotic with demarcation proximal to hallucal IPJ; hard eschar cap noted dorsally and medially, and moist necrosis plantarly. Full thickness ulceration measuring approximately 0.5 x 0.5 cm in area of necrosis, ( +) probe to bone, serosanguinous drainage noted. No foul odor present this visit. Erythema extending proximoplantarlly through 1st metatarsal. NEURO: Gross sensation diminished bilaterally. ORTHO: Mild tenderness to palpation left hallux. Mild pain upon ROM left hallux. - Neurological Exam Neurological Exam: Alert, Awake, Oriented x3 - Psychiatric Exam Psychiatric exam: Normal Affect, Normal Mood Assessment and Plan - Assessment and Plan (Free Text) Assessment: 62 year old female with PMHx of DM, HTN, HLD, CAD with left hallux gangrene and infected ulceration. Plan: Patient seen and evaluated Discussed with attending, Dr. Looney afchapo currently, WBC increasing @ 13.2 (as of yesterday), ESR 101, CRP 56.6 L foot XR reviewed: negative L foot MRI report: - OM hallucal distal phalanx and distal portion of proximal phalanx L hallux wound culture taken: - G- rods and G+ cocci (Prelim) Bilateral LE arterial dopplers: -Loss of triphasic waveform involving entire RLE w/stenosis in SFA and tibial vessels -Loss of triphasic waveform involving LLE distal to common femoral a. w/ stenosis in SFA, popliteal a., and tibial vessels Informed patient left hallux likely infected with need for possible amputation vs. 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 Discussed with patient risks, complications, benefits, alternatives of procedure; pt demonstrated verbal understanding and agrees to surgical intervention. Dr. Strange consulted for possible vascular intervention -Per cardiology patient will likely require repeat angio for lower extremity which will take place either Thursday or Thursday ID consulted - recs appreciated; currently on Vancomycin -Per ID, d/c Zosyn which may have been source of rash on LUE -Cefepime started per ID Wound cleansed with saline and dressed with betadine DSD Pain mgmt per medicine Podiatry will continue to follow patient while in house
[2017-05-31] MEDS: Cefepime 1 GM in Sodium Chloride 0.9% 100 ML IVPB SCH ×3 (00:41→17:14)
[2017-05-31] MEDS: Oxycodone/Acetaminophen 5/325 mg Tab PO PRN ×2 (05:51→11:09)
[2017-05-31] MEDS: Insulin Lispro (humaLOG) 100 Units/ml Inj SC SCH ×4 (08:52→21:41)
[2017-05-31 09:38] LABS: BASO # 0.1 K/uL (0.0-0.2); BASO % 0.7 % (0.0-2.0); EOS # 0.1 K/uL (0.0-0.7); HEMOGLOBIN 11.1 g/dL (12.0-16.0); LYMPH # 3.6 K/uL (1.0-4.3); LYMPH % 24.9 % (20.0-40.0); MEAN CELL VOLUME 90.3 fl (81.0-99.0); MEAN CORPUSCULAR HEMOGLOBIN 28.8 pg (27.0-31.0); MEAN CORPUSCULAR HGB CONC 31.9 g/dL (33.0-37.0); MEAN PLATELET VOLUME 9.6 fl (7.2-11.7); MONO # 1.2 K/uL (0.0-0.8); MONO % 8.3 % (0.0-10.0); NEUT # 9.5 K/uL (1.8-7.0); NEUT % 65.1 % (50.0-75.0); NRBC % 0.1 % (0.0-0.0); RBC 3.83 Mil/uL (3.80-5.20); RED CELL DISTRIBUTION WIDTH 14.5 % (11.5-14.5); WHITE BLOOD COUNT 14.6 K/uL (4.8-10.8)
[2017-05-31 09:46] LABS: BLOOD UREA NITROGEN 13 mg/dl (7-17); CALCIUM 9.4 mg/dL (8.4-10.2); GFR AFRICAN-AMERICAN > 60; GFR NON-AFRICAN AMERICAN > 60
[2017-05-31] MEDS: Fluconazole IV 100mg/50 ml NS 50 ML IVPB SCH (10:10)
[2017-05-31] MEDS: Cilostazol 100 mg Tab UD PO SCH (11:11)
--- NOTE | 2017-05-31 11:28 | CP.PCM.PN ---
Subjective - Date & Time of Evaluation Date of Evaluation: 05/31/17 Time of Evaluation: 11:29 - Subjective Subjective: C/O SEVERE PAIN IN L GREAT TOE Objective - Vital Signs/Intake and Output Vital Signs (last 24 hours): Temp Pulse Resp BP Pulse Ox 98.8 F 84 17 125/74 97 05/31/17 07:29 05/31/17 10:13 05/31/17 07:29 05/31/17 10:13 05/31/17 07:29 - Medications Medications: Current Medications Atorvastatin Calcium (Lipitor) 20 mg PO DAILY [facility] Last Admin: 05/31/17 08:56 Dose: 20 mg Cilostazol (Pletal) 50 mg PO DAILY [facility] Last Admin: 05/31/17 11:11 Dose: 50 mg Home Med (Difluprednate [Durezol]) 1 drop LEFTEYE DAILY [facility] Last Admin: 05/31/17 08:54 Dose: 1 drop Vancomycin HCl 1 gm/ Sodium (Chloride) 250 mls @ 166.667 mls/hr IVPB DAILY [facility] Last Admin: 05/30/17 09:07 Dose: 166.667 mls/hr Cefepime HCl 1 gm/ Sodium (Chloride) 100 mls @ 100 mls/hr IVPB Q8 [facility] PRN Reason: Protocol Last Admin: 05/31/17 09:00 Dose: 100 mls/hr Fluconazole (Diflucan Iv 100 Mg/50 Ml Ns) 50 mls @ 50 mls/hr IVPB DAILY [facility] PRN Reason: Protocol Last Admin: 05/31/17 10:10 Dose: 50 mls/hr Insulin Human Lispro (Humalog) 0 units SC ACHS [facility] PRN Reason: Protocol Last Admin: 05/31/17 08:52 Dose: 2 u Metformin HCl (Glucophage) 1,000 mg PO BID [facility] Last Admin: 05/31/17 08:52 Dose: 1,000 mg Metoprolol Tartrate (Lopressor) 25 mg PO DAILY [facility] Last Admin: 05/31/17 10:13 Dose: 25 mg Oxycodone/Acetaminophen (Percocet 5/325 Mg Tab) 2 tab PO Q4 PRN PRN Reason: Pain, severe (8-10) Stop: 05/31/17 14:58 Last Admin: 05/31/17 11:09 Dose: 2 tab Ramipril (Altace) 5 mg PO DAILY [facility] Last Admin: 05/31/17 10:12 Dose: 5 mg Sitagliptin Phosphate (Januvia) 100 mg PO DAILY [facility] Last Admin: 05/31/17 08:55 Dose: 100 mg - Labs Labs: 05/31/17 08:50 05/31/17 08:50 PT 11.5 Seconds (9.8-13.1) 05/27/17 14:55 INR 1.0 (0.9-1.2) 05/27/17 14:55 - Constitutional Appears: In Acute Distress - Head Exam Head Exam: ATRAUMATIC, NORMAL INSPECTION, NORMOCEPHALIC - Eye Exam Eye Exam: EOMI, Normal appearance, PERRL Pupil Exam: NORMAL ACCOMODATION, PERRL - ENT Exam ENT Exam: Mucous Membranes Moist, Normal Exam - Neck Exam Neck Exam: Full ROM, Normal Inspection. absent: Lymphadenopathy - Respiratory Exam Respiratory Exam: Clear to Ausculation Bilateral, NORMAL BREATHING PATTERN - Cardiovascular Exam Cardiovascular Exam: REGULAR RHYTHM, +S1, +S2. absent: Murmur - GI/Abdominal Exam GI & Abdominal Exam: Soft, Normal Bowel Sounds. absent: Tenderness - Rectal Exam Rectal Exam: NORMAL INSPECTION - Extremities Exam Extremities Exam: Full ROM, Tenderness. absent: Joint Swelling, Pedal Edema Additional comments: GANGRENE OF L GREAT TOE - Back Exam Back Exam: NORMAL INSPECTION - Neurological Exam Neurological Exam: Alert, Awake, CN II-XII Intact, Normal Gait, Oriented x3 - Psychiatric Exam Psychiatric exam: Normal Affect, Normal Mood Assessment and Plan - Assessment and Plan (Free Text) Assessment: GANGRENE OF L GREAT TOE CELLULITIS OF L FOOT PERIPHERAL VASC DZ UNCONTROLLED TYPE 2 DM Plan: PAIN CONTROL CONTINUE IV ANTIBIOTICS FOR POSSIBLE REVASCULARIZATION ON
--- NOTE | 2017-05-31 14:39 | CP.PCM.PN ---
Subjective - Date & Time of Evaluation Date of Evaluation: 05/31/17 Time of Evaluation: 12:20 - Subjective Subjective: Podiatry Progress Note - Dr. Looney 62 year old female with PMHx of DM, HLD, HTN, CAD seen with her and son this morning for left great toe gangrene. Patient denies of any acute events overnight. Patient states that she is having a lot of pain in her toe but is managing it well with the medications. Patient is aware she may need surgical intervention. Denies N/V/F/D/C/SOB/calf pain. Objective - Vital Signs/Intake and Output Vital Signs (last 24 hours): Temp Pulse Resp BP Pulse Ox 98.8 F 84 17 125/74 97 05/31/17 09:00 05/31/17 10:13 05/31/17 09:00 05/31/17 10:13 05/31/17 09:00 - Medications Medications: Current Medications Atorvastatin Calcium (Lipitor) 20 mg PO DAILY [facility] Last Admin: 05/31/17 08:56 Dose: 20 mg Cilostazol (Pletal) 50 mg PO DAILY [facility] Last Admin: 05/31/17 11:11 Dose: 50 mg Home Med (Difluprednate [Durezol]) 1 drop LEFTEYE DAILY [facility] Last Admin: 05/31/17 08:54 Dose: 1 drop Vancomycin HCl 1 gm/ Sodium (Chloride) 250 mls @ 166.667 mls/hr IVPB DAILY [facility] Last Admin: 05/31/17 12:21 Dose: 166.667 mls/hr Cefepime HCl 1 gm/ Sodium (Chloride) 100 mls @ 100 mls/hr IVPB Q8 [facility] PRN Reason: Protocol Last Admin: 05/31/17 09:00 Dose: 100 mls/hr Fluconazole (Diflucan Iv 100 Mg/50 Ml Ns) 50 mls @ 50 mls/hr IVPB DAILY [facility] PRN Reason: Protocol Last Admin: 05/31/17 10:10 Dose: 50 mls/hr Insulin Human Lispro (Humalog) 0 units SC ACHS [facility] PRN Reason: Protocol Last Admin: 05/31/17 12:22 Dose: 3 u Metformin HCl (Glucophage) 1,000 mg PO BID [facility] Last Admin: 05/31/17 08:52 Dose: 1,000 mg Metoprolol Tartrate (Lopressor) 25 mg PO DAILY [facility] Last Admin: 05/31/17 10:13 Dose: 25 mg Oxycodone/Acetaminophen (Percocet 5/325 Mg Tab) 2 tab PO Q4 PRN PRN Reason: Pain, severe (8-10) Stop: 05/31/17 14:58 Last Admin: 05/31/17 11:09 Dose: 2 tab Ramipril (Altace) 5 mg PO DAILY [facility] Last Admin: 05/31/17 10:12 Dose: 5 mg Sitagliptin Phosphate (Januvia) 100 mg PO DAILY [facility] Last Admin: 05/31/17 08:55 Dose: 100 mg - Labs Labs: 05/31/17 08:50 05/31/17 08:50 PT 11.5 Seconds (9.8-13.1) 05/27/17 14:55 INR 1.0 (0.9-1.2) 05/27/17 14:55 - Constitutional Appears: Well, Non-toxic, No Acute Distress - Extremities Exam Extremities Exam: absent: Calf Tenderness Additional comments: VASC: DP and PT pulses weakly palpable 1/4 b/l. CFT <3 seconds to all digits x9 , unable to be obtained in left hallux. Temperature gradient warm to warm bilateral. No edema noted. DERM: Left hallux appears necrotic with demarcation proximal to hallucal IPJ; hard eschar cap noted dorsally and medially, and dry necrosis plantarly, mild moistness noted in the first interspace, Full thickness ulceration measuring approximately 0.5 x 0.5 cm in area of necrosis, (+) probe to bone, no active drainage noted. No foul odor present this visit. Erythema extending proximoplantarlly through 1st metatarsal which appears to be resolving. NEURO: Gross sensation diminished bilaterally. ORTHO: Mild tenderness to palpation left hallux. Mild pain upon ROM left hallux. - Neurological Exam Neurological Exam: Alert, Awake, Oriented x3 - Psychiatric Exam Psychiatric exam: Normal Affect, Normal Mood Assessment and Plan - Assessment and Plan (Free Text) Assessment: 62 year old female with PMHx of DM, HTN, HLD, CAD with left hallux gangrene and infected ulceration. Plan: Patient seen and evaluated Discussed with attending, Dr. Looney afebrile currently, WBC increasing @ 14.6, ESR 101, CRP 56.6 L foot XR reviewed: negative L foot MRI report: - OM hallucal distal phalanx and distal portion of proximal phalanx L hallux wound culture taken: - G- rods and G+ cocci (Prelim) Bilateral LE arterial dopplers: -Loss of triphasic waveform involving entire RLE w/stenosis in SFA and tibial vessels -Loss of triphasic waveform involving LLE distal to common femoral a. w/ stenosis in SFA, popliteal a., and tibial vessels Informed patient left hallux likely infected with need for possible amputation vs. 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 Discussed with patient risks, complications, benefits, alternatives of procedure; pt demonstrated verbal understanding and agrees to surgical intervention. Dr. Strange consulted for possible vascular intervention -Per cardiology patient will likely require repeat angio for lower extremity which will take place either Thursday or Thursday ID consulted - recs appreciated; currently on Vancomycin and cefepime -Per ID, d/c Zosyn which may have been source of rash on LUE -Cefepime started per ID Wound cleansed with saline and dressed with betadine DSD Pain mgmt per medicine Podiatry will continue to follow patient while in house
[2017-06-01] MEDS: Cefepime 1 GM in Sodium Chloride 0.9% 100 ML IVPB SCH ×4 (00:04→23:59)
[2017-06-01] MEDS: Oxycodone/Acetaminophen 5/325 mg Tab PO PRN ×2 (05:08→15:04)
[2017-06-01 08:02] LABS: BASO # 0.2 K/uL (0.0-0.2); BASO % 1.3 % (0.0-2.0); EOS # 0.1 K/uL (0.0-0.7); EOS % 0.8 % (0.0-4.0); LYMPH # 3.3 K/uL (1.0-4.3); LYMPH % 25.5 % (20.0-40.0); MEAN CELL VOLUME 89.3 fl (81.0-99.0); MEAN CORPUSCULAR HGB CONC 32.5 g/dL (33.0-37.0); MONO # 1.2 K/uL (0.0-0.8); MONO % 9.1 % (0.0-10.0); NEUT # 8.2 K/uL (1.8-7.0); NEUT % 63.3 % (50.0-75.0); RBC 3.46 Mil/uL (3.80-5.20); RED CELL DISTRIBUTION WIDTH 14.7 % (11.5-14.5); WHITE BLOOD COUNT 12.9 K/uL (4.8-10.8)
[2017-06-01 08:11] LABS: BLOOD UREA NITROGEN 14 mg/dl (7-17); CALCIUM 9.1 mg/dL (8.4-10.2); GFR AFRICAN-AMERICAN > 60; GFR NON-AFRICAN AMERICAN > 60
[2017-06-01] MEDS: Insulin Lispro (humaLOG) 100 Units/ml Inj SC SCH ×4 (09:24→22:01)
[2017-06-01] MEDS: Cilostazol 100 mg Tab UD PO SCH (09:25)
--- NOTE | 2017-06-01 09:28 | CP.PCM.PN ---
Subjective - Date & Time of Evaluation Date of Evaluation: 06/01/17 Time of Evaluation: 09:29 - Subjective Subjective: C/O L FOOT PAIN SCHEDULED FOR VASCULAR INTERVENTION L LEG IN AM Objective - Vital Signs/Intake and Output Vital Signs (last 24 hours): Temp Pulse Resp BP Pulse Ox 98 F 78 20 121/66 96 06/01/17 08:08 06/01/17 08:08 06/01/17 08:08 06/01/17 08:08 06/01/17 08:08 - Medications Medications: Current Medications Atorvastatin Calcium (Lipitor) 20 mg PO DAILY [facility] Last Admin: 05/31/17 08:56 Dose: 20 mg Cilostazol (Pletal) 50 mg PO DAILY [facility] Last Admin: 05/31/17 11:11 Dose: 50 mg Home Med (Difluprednate [Durezol]) 1 drop LEFTEYE DAILY [facility] Last Admin: 05/31/17 08:54 Dose: 1 drop Hydromorphone HCl (Dilaudid) 1 mg IVP Q6 PRN PRN Reason: Pain, severe (8-10) Last Admin: 06/01/17 05:54 Dose: 1 mg Vancomycin HCl 1 gm/ Sodium (Chloride) 250 mls @ 166.667 mls/hr IVPB DAILY [facility] Last Admin: 05/31/17 12:21 Dose: 166.667 mls/hr Cefepime HCl 1 gm/ Sodium (Chloride) 100 mls @ 100 mls/hr IVPB Q8 [facility] PRN Reason: Protocol Last Admin: 06/01/17 00:04 Dose: 100 mls/hr Fluconazole (Diflucan Iv 100 Mg/50 Ml Ns) 50 mls @ 50 mls/hr IVPB DAILY [facility] PRN Reason: Protocol Last Admin: 05/31/17 10:10 Dose: 50 mls/hr Insulin Human Lispro (Humalog) 0 units SC ACHS [facility] PRN Reason: Protocol Last Admin: 05/31/17 21:41 Dose: Not Given Lactulose (Enulose) 20 gm PO DAILY [facility] PRN Reason: Constipation Metformin HCl (Glucophage) 1,000 mg PO BID [facility] Last Admin: 05/31/17 17:15 Dose: 1,000 mg Metoprolol Tartrate (Lopressor) 25 mg PO DAILY [facility] Last Admin: 05/31/17 10:13 Dose: 25 mg Oxycodone/Acetaminophen (Percocet 5/325 Mg Tab) 1 tab PO Q4 PRN PRN Reason: Pain, moderate (4-7) Stop: 06/03/17 16:58 Last Admin: 06/01/17 05:08 Dose: 1 tab Ramipril (Altace) 5 mg PO DAILY [facility] Last Admin: 05/31/17 10:12 Dose: 5 mg Sitagliptin Phosphate (Januvia) 100 mg PO DAILY [facility] Last Admin: 05/31/17 08:55 Dose: 100 mg - Labs Labs: 06/01/17 07:56 06/01/17 07:56 PT 11.5 Seconds (9.8-13.1) 05/27/17 14:55 INR 1.0 (0.9-1.2) 05/27/17 14:55 - Constitutional Appears: No Acute Distress - Head Exam Head Exam: ATRAUMATIC, NORMAL INSPECTION, NORMOCEPHALIC - Eye Exam Eye Exam: EOMI, Normal appearance, PERRL Pupil Exam: NORMAL ACCOMODATION, PERRL - ENT Exam ENT Exam: Mucous Membranes Moist, Normal Exam - Neck Exam Neck Exam: Full ROM, Normal Inspection. absent: Lymphadenopathy - Respiratory Exam Respiratory Exam: Clear to Ausculation Bilateral, NORMAL BREATHING PATTERN - Cardiovascular Exam Cardiovascular Exam: REGULAR RHYTHM, +S1, +S2. absent: Murmur - GI/Abdominal Exam GI & Abdominal Exam: Soft, Normal Bowel Sounds. absent: Tenderness - Rectal Exam Rectal Exam: NORMAL INSPECTION - Extremities Exam Extremities Exam: Full ROM, Normal Inspection, Tenderness. absent: Joint Swelling, Pedal Edema Additional comments: GANGRENE OF L GREAT TOE - Back Exam Back Exam: NORMAL INSPECTION - Neurological Exam Neurological Exam: Alert, Awake, CN II-XII Intact, Normal Gait, Oriented x3 - Psychiatric Exam Psychiatric exam: Normal Affect, Normal Mood - Skin Skin Exam: Dry, Intact, Normal Color, Warm Assessment and Plan - Assessment and Plan (Free Text) Assessment: GANGRENE L FOOT PERIPHERAL VASC DZ CELLULITIS OF L FOOT/OSTEOMYELITIS DM Plan: CONTINUE IV ANTIBIOTICS ANALGESICS FOR PAIN VASCULAR INTERVENTION IN AM
[2017-06-01] MEDS: Fluconazole IV 100mg/50 ml NS 50 ML IVPB SCH (10:49)
--- NOTE | 2017-06-01 15:20 | CP.PCM.PN ---
Subjective - Date & Time of Evaluation Date of Evaluation: 06/01/17 Time of Evaluation: 13:00 - Subjective Subjective: Podiatry Progress Note - Dr. Looney 62 year old female with PMHx of DM, HLD, HTN, CAD seen with her and son this morning for left great toe gangrene. Patient denies of any acute events overnight. Patient states that she is having a lot of pain in her toe but is managing it well with the medications. Patient is aware she may need surgical intervention. Also admits that she is aware of the vascular intervention tomorrow morning and will remain NPO starting midnight today. Denies N/V/F/D/C/ SOB/calf pain. Objective - Vital Signs/Intake and Output Vital Signs (last 24 hours): Temp Pulse Resp BP Pulse Ox 98 F 78 20 121/66 96 06/01/17 08:08 06/01/17 09:22 06/01/17 08:08 06/01/17 09:23 06/01/17 08:08 - Medications Medications: Current Medications Atorvastatin Calcium (Lipitor) 20 mg PO DAILY [facility] Last Admin: 06/01/17 09:25 Dose: 20 mg Cilostazol (Pletal) 50 mg PO DAILY [facility] Home Med (Difluprednate [Durezol]) 1 drop LEFTEYE DAILY [facility] Last Admin: 06/01/17 10:50 Dose: 1 drop Hydromorphone HCl (Dilaudid) 1 mg IVP Q6 PRN PRN Reason: Pain, severe (8-10) Last Admin: 06/01/17 11:37 Dose: 1 mg Vancomycin HCl 1 gm/ Sodium (Chloride) 250 mls @ 166.667 mls/hr IVPB DAILY [facility] Last Admin: 06/01/17 11:37 Dose: 166.667 mls/hr Cefepime HCl 1 gm/ Sodium (Chloride) 100 mls @ 100 mls/hr IVPB Q8 [facility] PRN Reason: Protocol Last Admin: 06/01/17 09:20 Dose: 100 mls/hr Fluconazole (Diflucan Iv 100 Mg/50 Ml Ns) 50 mls @ 50 mls/hr IVPB DAILY [facility] PRN Reason: Protocol Last Admin: 06/01/17 10:49 Dose: 50 mls/hr Insulin Human Lispro (Humalog) 0 units SC ACHS [facility] PRN Reason: Protocol Last Admin: 06/01/17 12:21 Dose: 4 u Lactulose (Enulose) 20 gm PO DAILY PRN PRN Reason: Constipation Metformin HCl (Glucophage) 1,000 mg PO BID [facility] Last Admin: 06/01/17 09:22 Dose: 1,000 mg Metoprolol Tartrate (Lopressor) 25 mg PO DAILY [facility] Last Admin: 06/01/17 09:22 Dose: 25 mg Oxycodone/Acetaminophen (Percocet 5/325 Mg Tab) 1 tab PO Q4 PRN PRN Reason: Pain, moderate (4-7) Stop: 06/03/17 16:58 Last Admin: 06/01/17 15:04 Dose: 1 tab Ramipril (Altace) 5 mg PO DAILY [facility] Last Admin: 06/01/17 09:23 Dose: 5 mg Sitagliptin Phosphate (Januvia) 100 mg PO DAILY [facility] Last Admin: 06/01/17 09:25 Dose: 100 mg - Labs Labs: 06/01/17 07:56 06/01/17 07:56 PT 11.5 Seconds (9.8-13.1) 05/27/17 14:55 INR 1.0 (0.9-1.2) 05/27/17 14:55 - Constitutional Appears: Well, Non-toxic, No Acute Distress - Extremities Exam Extremities Exam: absent: Calf Tenderness Additional comments: VASC: DP and PT pulses weakly palpable 1/4 b/l. CFT <3 seconds to all digits x9 , unable to be obtained in left hallux. Temperature gradient warm to warm bilateral. No edema noted. DERM: Left hallux appears necrotic with demarcation proximal to hallucal IPJ; hard eschar cap noted dorsally and medially, and dry necrosis plantarly, mild moistness noted in the first interspace, Full thickness ulceration measuring approximately 0.5 x 0.5 cm in area of necrosis, (+) probe to bone, no active drainage noted. No foul odor present this visit. Erythema extending proximoplantarlly through 1st metatarsal which appears to be resolving. NEURO: Gross sensation diminished bilaterally. ORTHO: Mild tenderness to palpation left hallux. Mild pain upon ROM left hallux. - Neurological Exam Neurological Exam: Alert, Awake, Oriented x3 - Psychiatric Exam Psychiatric exam: Normal Affect, Normal Mood Assessment and Plan - Assessment and Plan (Free Text) Assessment: 62 year old female with PMHx of DM, HTN, HLD, CAD with left hallux gangrene and infected ulceration. Plan: Patient seen and evaluated Discussed with attending, Dr. Aayush guy currently, WBC increasing @ 12.9, ESR 101, CRP 56.6 L foot XR reviewed: negative L foot MRI report: - OM hallucal distal phalanx and distal portion of proximal phalanx L hallux wound culture taken: - G- rods and G+ cocci (Prelim) Bilateral LE arterial dopplers: -Loss of triphasic waveform involving entire RLE w/stenosis in SFA and tibial vessels -Loss of triphasic waveform involving LLE distal to common femoral a. w/ stenosis in SFA, popliteal a., and tibial vessels Informed patient left hallux likely infected with need for possible amputation vs. fci IV abx. Discussed with patient risks, complications, benefits, alternatives of procedure; pt demonstrated verbal understanding and agrees to surgical intervention. Dr. Strange consulted for possible vascular intervention -Per cardiology patient will likely require repeat angio for lower extremity which will take place tomorrow morning at [facility] ID consulted - recs appreciated; currently on Vancomycin and cefepime -Per ID, d/c Zosyn which may have been source of rash on LUE -Cefepime started per ID Wound cleansed with saline and dressed with betadine DSD Pain mgmt per medicine Podiatry will continue to follow patient while in house
[2017-06-02] MEDS: Insulin Lispro (humaLOG) 100 Units/ml Inj SC SCH ×3 (07:20→22:59)
--- NOTE | 2017-06-02 07:53 | CP.PCM.PN ---
Subjective - Date & Time of Evaluation Date of Evaluation: 06/02/17 Time of Evaluation: 07:53 - Subjective Subjective: Podiatry Progress Note - Dr. Looney 62 year old female with PMHx of DM, HLD, HTN, CAD seen and evaluated at bedside for left great toe gangrene. Patient hemodynamically stable and NAD. Denies any acute events overnight. Admits to continued pain, well-controlled. EMS present to transport patient to [facility]. Patient aware she will be undergoing peripheral angio with Dr. Strange today. NPO status confirmed. Denies N/V/F/D/C/ SOB/calf pain. Objective - Vital Signs/Intake and Output Vital Signs (last 24 hours): Temp Pulse Resp BP Pulse Ox 98 F 90 20 140/71 97 06/02/17 06:00 06/02/17 07:31 06/02/17 06:00 06/02/17 07:32 06/02/17 06:00 - Medications Medications: Current Medications Atorvastatin Calcium (Lipitor) 20 mg PO DAILY [facility] Last Admin: 06/01/17 09:25 Dose: 20 mg Cilostazol (Pletal) 50 mg PO DAILY [facility] Home Med (Difluprednate [Durezol]) 1 drop LEFTEYE DAILY [facility] Last Admin: 06/01/17 10:50 Dose: 1 drop Hydromorphone HCl (Dilaudid) 1 mg IVP Q6 PRN PRN Reason: Pain, severe (8-10) Last Admin: 06/02/17 06:01 Dose: 1 mg Vancomycin HCl 1 gm/ Sodium (Chloride) 250 mls @ 166.667 mls/hr IVPB DAILY [facility] Last Admin: 06/01/17 11:37 Dose: 166.667 mls/hr Cefepime HCl 1 gm/ Sodium (Chloride) 100 mls @ 100 mls/hr IVPB Q8 [facility]ANNIE PRN Reason: Protocol Last Admin: 06/01/17 23:59 Dose: 100 mls/hr Fluconazole (Diflucan Iv 100 Mg/50 Ml Ns) 50 mls @ 50 mls/hr IVPB DAILY [facility] PRN Reason: Protocol Last Admin: 06/01/17 10:49 Dose: 50 mls/hr Insulin Human Lispro (Humalog) 0 units SC ACHS [facility] PRN Reason: Protocol Last Admin: 06/02/17 07:20 Dose: Not Given Lactulose (Enulose) 20 gm PO DAILY PRN PRN Reason: Constipation Metformin HCl (Glucophage) 1,000 mg PO BID [facility] Last Admin: 06/01/17 17:54 Dose: 1,000 mg Metoprolol Tartrate (Lopressor) 25 mg PO DAILY [facility] Last Admin: 06/02/17 07:31 Dose: 25 mg Oxycodone/Acetaminophen (Percocet 5/325 Mg Tab) 1 tab PO Q4 PRN PRN Reason: Pain, moderate (4-7) Stop: 06/03/17 16:58 Last Admin: 06/01/17 15:04 Dose: 1 tab Ramipril (Altace) 5 mg PO DAILY [facility] Last Admin: 06/02/17 07:32 Dose: 5 mg Sitagliptin Phosphate (Januvia) 100 mg PO DAILY [facility] Last Admin: 06/01/17 09:25 Dose: 100 mg - Labs Labs: 06/01/17 07:56 06/01/17 07:56 PT 11.5 Seconds (9.8-13.1) 05/27/17 14:55 INR 1.0 (0.9-1.2) 05/27/17 14:55 - Constitutional Appears: Well, Non-toxic, No Acute Distress - Extremities Exam Additional comments: Dressing to LLE appears clean/dry/intact with no strikethrough noted. - Neurological Exam Neurological Exam: Alert, Awake, Oriented x3 - Psychiatric Exam Psychiatric exam: Normal Affect, Normal Mood Assessment and Plan - Assessment and Plan (Free Text) Assessment: 62 year old female with PMHx of DM, HTN, HLD, CAD with left hallux gangrene and infected ulceration. Plan: Patient seen and evaluated Discussed with attending, Dr. Looney afebrifred currently, ESR 101, CRP 56.6 L foot XR reviewed: negative L foot MRI report: - OM hallucal distal phalanx and distal portion of proximal phalanx L hallux wound culture taken: - G- rods and G+ cocci (Prelim) Bilateral LE arterial dopplers: -Loss of triphasic waveform involving entire RLE w/stenosis in SFA and tibial vessels -Loss of triphasic waveform involving LLE distal to common femoral a. w/ stenosis in SFA, popliteal a., and tibial vessels Informed patient left hallux likely infected with need for possible amputation vs. senior care IV abx. Discussed with patient risks, complications, benefits, alternatives of procedure; pt demonstrated verbal understanding and agrees to surgical intervention. Continue local wound care - betadine DSD Dr. Strange consulted for possible vascular intervention -Per cardiology plan for peripheral angio this AM at [facility] consulted - recs appreciated; currently on Vancomycin and Cefepime -Per ID, d/c Zosyn which may have been source of rash on LUE -Cefepime started per ID Pain mgmt per medicine Podiatry will continue to follow patient while in house
[2017-06-02] MEDS ORDERED: Nitroglycerin 50mg in D5W 50 MG/250 ML BOTTLE IV ONE (16:58)
--- NOTE | 2017-06-02 17:15 | CP.PCM.PN ---
Subjective - Date & Time of Evaluation Date of Evaluation: 06/01/17 Time of Evaluation: 17:00 - Subjective Subjective: pt seen and evaluated discussed plan for peripheral angiogram in am Objective - Vital Signs/Intake and Output Vital Signs (last 24 hours): Temp Pulse Resp BP Pulse Ox 98 F 90 20 140/71 97 06/02/17 06:00 06/02/17 07:31 06/02/17 06:00 06/02/17 07:32 06/02/17 06:00 - Medications Medications: Current Medications Atorvastatin Calcium (Lipitor) 20 mg PO DAILY [facility] Last Admin: 06/01/17 09:25 Dose: 20 mg Cilostazol (Pletal) 50 mg PO DAILY [facility] Home Med (Difluprednate [Durezol]) 1 drop LEFTEYE DAILY [facility] Last Admin: 06/01/17 10:50 Dose: 1 drop Hydromorphone HCl (Dilaudid) 1 mg IVP Q6 PRN PRN Reason: Pain, severe (8-10) Last Admin: 06/02/17 06:01 Dose: 1 mg Vancomycin HCl 1 gm/ Sodium (Chloride) 250 mls @ 166.667 mls/hr IVPB DAILY [facility] Last Admin: 06/01/17 11:37 Dose: 166.667 mls/hr Cefepime HCl 1 gm/ Sodium (Chloride) 100 mls @ 100 mls/hr IVPB Q8 [facility]ANN[facility] PRN Reason: Protocol Last Admin: 06/01/17 23:59 Dose: 100 mls/hr Fluconazole (Diflucan Iv 100 Mg/50 Ml Ns) 50 mls @ 50 mls/hr IVPB DAILY [facility] PRN Reason: Protocol Last Admin: 06/01/17 10:49 Dose: 50 mls/hr Heparin Sodium/Dextrose (Heparin 25,000 Units/250ml In D5w) 25,000 units in 250 mls @ 7 mls/hr IV .Q24H [facility]ANN[facility] Nitroglycerin/Dextrose (Nitroglycerin 50 Mg/250 Ml D5w) 50 mg in 250 mls @ 3 mls/hr IV .Q24H ONE PRN Reason: Protocol Stop: 06/03/17 16:57 Insulin Human Lispro (Humalog) 0 units SC ACHS [facility] PRN Reason: Protocol Last Admin: 06/02/17 07:20 Dose: Not Given Lactulose (Enulose) 20 gm PO DAILY PRN PRN Reason: Constipation Metformin HCl (Glucophage) 1,000 mg PO BID [facility] Last Admin: 06/01/17 17:54 Dose: 1,000 mg Metoprolol Tartrate (Lopressor) 25 mg PO DAILY [facility] Last Admin: 06/02/17 07:31 Dose: 25 mg Oxycodone/Acetaminophen (Percocet 5/325 Mg Tab) 1 tab PO Q4 PRN PRN Reason: Pain, moderate (4-7) Stop: 06/03/17 16:58 Last Admin: 06/01/17 15:04 Dose: 1 tab Ramipril (Altace) 5 mg PO DAILY [facility] Last Admin: 06/02/17 07:32 Dose: 5 mg Sitagliptin Phosphate (Januvia) 100 mg PO DAILY [facility] Last Admin: 06/01/17 09:25 Dose: 100 mg - Labs Labs: 06/01/17 07:56 06/01/17 07:56 PT 11.5 Seconds (9.8-13.1) 05/27/17 14:55 INR 1.0 (0.9-1.2) 05/27/17 14:55 - Constitutional Appears: Well - Head Exam Head Exam: ATRAUMATIC, NORMAL INSPECTION, NORMOCEPHALIC - Eye Exam Eye Exam: EOMI, Normal appearance, PERRL Pupil Exam: NORMAL ACCOMODATION, PERRL - ENT Exam ENT Exam: Mucous Membranes Moist, Normal Exam - Neck Exam Neck Exam: Full ROM, Normal Inspection. absent: Lymphadenopathy - Respiratory Exam Respiratory Exam: Clear to Ausculation Bilateral, NORMAL BREATHING PATTERN - Cardiovascular Exam Cardiovascular Exam: REGULAR RHYTHM, +S1, +S2, Murmur - GI/Abdominal Exam GI & Abdominal Exam: Soft, Normal Bowel Sounds. absent: Tenderness - Extremities Exam Extremities Exam: Full ROM, Normal Capillary Refill. absent: Joint Swelling, Pedal Edema Additional comments: left foot dsg - Back Exam Back Exam: NORMAL INSPECTION - Neurological Exam Neurological Exam: Alert, Awake, CN II-XII Intact, Oriented x3 - Psychiatric Exam Psychiatric exam: Normal Affect, Normal Mood - Skin Skin Exam: Dry, Intact, Normal Color, Warm Assessment and Plan (1) PVD (peripheral vascular disease) Status: Acute (2) Cellulitis Status: Acute (3) Gangrene of toe of left foot Status: Acute (4) CAD (coronary artery disease) Status: Acute (5) HLD (hyperlipidemia) Status: Acute (6) HTN (hypertension) Status: Acute
--- NOTE | 2017-06-02 17:20 | CP.PCM.PN ---
Subjective - Date & Time of Evaluation Date of Evaluation: 06/02/17 Time of Evaluation: 17:18 - Subjective Subjective: s/p peripheral angiogram with MOVIE THEATER MANAGER of in-stent restenosis of left SFA 90% stenosis, MOVIE THEATER MANAGER of [place] distal SFA 80% stenosis, popliteal 99% stenosis ( MOVIE THEATER MANAGER + atherectomy ) and VALERIA 90% stenosis ( MOVIE THEATER MANAGER + atherectomy ) feeling fine Objective - Vital Signs/Intake and Output Vital Signs (last 24 hours): Temp Pulse Resp BP Pulse Ox 98 F 90 20 140/71 97 06/02/17 06:00 06/02/17 07:31 06/02/17 06:00 06/02/17 07:32 06/02/17 06:00 - Medications Medications: Current Medications Atorvastatin Calcium (Lipitor) 20 mg PO DAILY [facility] Last Admin: 06/01/17 09:25 Dose: 20 mg Cilostazol (Pletal) 50 mg PO DAILY [facility] Home Med (Difluprednate [Durezol]) 1 drop LEFTEYE DAILY [facility] Last Admin: 06/01/17 10:50 Dose: 1 drop Hydromorphone HCl (Dilaudid) 1 mg IVP Q6 PRN PRN Reason: Pain, severe (8-10) Last Admin: 06/02/17 06:01 Dose: 1 mg Vancomycin HCl 1 gm/ Sodium (Chloride) 250 mls @ 166.667 mls/hr IVPB DAILY [facility] Last Admin: 06/01/17 11:37 Dose: 166.667 mls/hr Cefepime HCl 1 gm/ Sodium (Chloride) 100 mls @ 100 mls/hr IVPB Q8 JEANNIE PRN Reason: Protocol Last Admin: 06/01/17 23:59 Dose: 100 mls/hr Fluconazole (Diflucan Iv 100 Mg/50 Ml Ns) 50 mls @ 50 mls/hr IVPB DAILY [facility] PRN Reason: Protocol Last Admin: 06/01/17 10:49 Dose: 50 mls/hr Heparin Sodium/Dextrose (Heparin 25,000 Units/250ml In D5w) 25,000 units in 250 mls @ 7 mls/hr IV .Q24H JEANNIE Nitroglycerin/Dextrose (Nitroglycerin 50 Mg/250 Ml D5w) 50 mg in 250 mls @ 3 mls/hr IV .Q24H ONE PRN Reason: Protocol Stop: 06/03/17 16:57 Insulin Human Lispro (Humalog) 0 units SC ACHS [facility] PRN Reason: Protocol Last Admin: 06/02/17 07:20 Dose: Not Given Lactulose (Enulose) 20 gm PO DAILY PRN PRN Reason: Constipation Metformin HCl (Glucophage) 1,000 mg PO BID [facility] Last Admin: 06/01/17 17:54 Dose: 1,000 mg Metoprolol Tartrate (Lopressor) 25 mg PO DAILY [facility] Last Admin: 06/02/17 07:31 Dose: 25 mg Oxycodone/Acetaminophen (Percocet 5/325 Mg Tab) 1 tab PO Q4 PRN PRN Reason: Pain, moderate (4-7) Stop: 06/03/17 16:58 Last Admin: 06/01/17 15:04 Dose: 1 tab Ramipril (Altace) 5 mg PO DAILY [facility] Last Admin: 06/02/17 07:32 Dose: 5 mg Sitagliptin Phosphate (Januvia) 100 mg PO DAILY [facility] Last Admin: 06/01/17 09:25 Dose: 100 mg - Labs Labs: 06/01/17 07:56 06/01/17 07:56 PT 11.5 Seconds (9.8-13.1) 05/27/17 14:55 INR 1.0 (0.9-1.2) 05/27/17 14:55 - Constitutional Appears: Well - Head Exam Head Exam: ATRAUMATIC, NORMAL INSPECTION, NORMOCEPHALIC - Eye Exam Eye Exam: EOMI, Normal appearance, PERRL Pupil Exam: NORMAL ACCOMODATION, PERRL - ENT Exam ENT Exam: Mucous Membranes Moist, Normal Exam - Neck Exam Neck Exam: Full ROM, Normal Inspection. absent: Lymphadenopathy - Respiratory Exam Respiratory Exam: Clear to Ausculation Bilateral, NORMAL BREATHING PATTERN - Cardiovascular Exam Cardiovascular Exam: REGULAR RHYTHM, +S1, +S2, Murmur - GI/Abdominal Exam GI & Abdominal Exam: Soft, Normal Bowel Sounds. absent: Tenderness - Extremities Exam Extremities Exam: Full ROM, Normal Capillary Refill. absent: Joint Swelling, Pedal Edema Additional comments: left foot dsg - Back Exam Back Exam: NORMAL INSPECTION - Neurological Exam Neurological Exam: Alert, Awake, CN II-XII Intact, Oriented x3 - Psychiatric Exam Psychiatric exam: Normal Affect, Normal Mood - Skin Skin Exam: Dry, Intact, Normal Color, Warm Assessment and Plan (1) PVD (peripheral vascular disease) Assessment & Plan: Raissa had severe in-stent restenosis of left SFA for which she had angioplasty done in the proximal segment she also had ostial SFA stenosis which required angioplasty as well as distal SFA lesion she also underwent atherectomy and angioplasty of popliteal 99% stenosis and mid anterior tibial artery stenosis. I will continue her on dual antiplatelet therapy with aspirin and Plavix along with cilostazol. Keep her on IV heparin drip for 48 hours along with IV nitroglycerin to improve the microcirculation only collateral flow to the left foot with the dorsalis pedis and superficial and deep plantar arch is being filled by collaterals. Status: Acute (2) Cellulitis Assessment & Plan: cont Abx per ID Status: Acute (3) Gangrene of toe of left foot Status: Acute (4) CAD (coronary artery disease) Status: Acute (5) HLD (hyperlipidemia) Status: Acute (6) HTN (hypertension) Status: Acute
[2017-06-02] MEDS: Cefepime 1 GM in Sodium Chloride 0.9% 100 ML IVPB SCH (18:12)
[2017-06-02] MEDS: Heparin 25,000units in D5W 25,000 UNITS/250 ML BAG IV SCH (18:14)
[2017-06-02] MEDS: Oxycodone/Acetaminophen 5/325 mg Tab PO PRN (21:27)
[2017-06-02 21:28] LABS: BASO # 0.1 K/uL (0.0-0.2); BASO % 1.2 % (0.0-2.0); EOS % 0.3 % (0.0-4.0); HEMOGLOBIN 9.8 g/dL (12.0-16.0); LYMPH # 3.3 K/uL (1.0-4.3); MEAN CELL VOLUME 89.8 fl (81.0-99.0); MEAN CORPUSCULAR HEMOGLOBIN 28.7 pg (27.0-31.0); MEAN CORPUSCULAR HGB CONC 31.9 g/dL (33.0-37.0); MEAN PLATELET VOLUME 9.6 fl (7.2-11.7); MONO # 1.3 K/uL (0.0-0.8); MONO % 10.5 % (0.0-10.0); NEUT # 7.4 K/uL (1.8-7.0); RBC 3.41 Mil/uL (3.80-5.20); RED CELL DISTRIBUTION WIDTH 14.5 % (11.5-14.5); WHITE BLOOD COUNT 12.1 K/uL (4.8-10.8)
[2017-06-02 21:35] LABS: BLOOD UREA NITROGEN 14 mg/dl (7-17); CALCIUM 8.9 mg/dL (8.4-10.2); GFR AFRICAN-AMERICAN > 60; GFR NON-AFRICAN AMERICAN > 60
[2017-06-03] MEDS: Cefepime 1 GM in Sodium Chloride 0.9% 100 ML IVPB SCH ×3 (01:54→16:36)
[2017-06-03 05:56] LABS: HEMOGLOBIN 10.3 g/dL (12.0-16.0); MEAN CELL VOLUME 90.7 fl (81.0-99.0); MEAN CORPUSCULAR HEMOGLOBIN 28.9 pg (27.0-31.0); MEAN CORPUSCULAR HGB CONC 31.9 g/dL (33.0-37.0); RBC 3.55 Mil/uL (3.80-5.20); RED CELL DISTRIBUTION WIDTH 14.6 % (11.5-14.5); WHITE BLOOD COUNT 13.7 K/uL (4.8-10.8)
[2017-06-03 06:28] LABS: INR 1.2 (0.9-1.2); PARTIAL THROMBOPLASTIN TIME 33.3 Seconds (25.6-37.1); PROTHROMBIN TIME 12.8 Seconds (9.8-13.1)
--- NOTE | 2017-06-03 08:01 | CP.PCM.PN ---
Subjective - Date & Time of Evaluation Date of Evaluation: 06/03/17 Time of Evaluation: 08:00 - Subjective Subjective: Podiatry Progress Note - Dr. Looney 62 year old female with PMHx of DM, HLD, HTN, CAD seen and evaluated at bedside for left great toe gangrene. Patient hemodynamically stable and NAD. Patient s/ p vascular intervention with Dr. Strange. Patient admits to pain in LLE. Denies N/ V/F/D/C/SOB/calf pain. Objective - Vital Signs/Intake and Output Vital Signs (last 24 hours): Temp Pulse Resp BP Pulse Ox 98.3 F 80 15 153/76 H 97 06/03/17 05:00 06/03/17 05:00 06/03/17 05:00 06/03/17 05:00 06/03/17 05:00 - Medications Medications: Current Medications Aspirin (Aspirin) 325 mg PO DAILY [facility] Atorvastatin Calcium (Lipitor) 20 mg PO DAILY [facility] Last Admin: 06/01/17 09:25 Dose: 20 mg Cilostazol (Pletal) 50 mg PO DAILY [facility] Clopidogrel Bisulfate (Plavix) 75 mg PO DAILY [facility] Home Med (Difluprednate [Durezol]) 1 drop LEFTEYE DAILY [facility] Last Admin: 06/01/17 10:50 Dose: 1 drop Hydromorphone HCl (Dilaudid) 1 mg IVP Q6 PRN PRN Reason: Pain, severe (8-10) Last Admin: 06/02/17 06:01 Dose: 1 mg Vancomycin HCl 1 gm/ Sodium (Chloride) 250 mls @ 166.667 mls/hr IVPB DAILY [facility] Last Admin: 06/01/17 11:37 Dose: 166.667 mls/hr Cefepime HCl 1 gm/ Sodium (Chloride) 100 mls @ 100 mls/hr IVPB Q8 [facility] PRN Reason: Protocol Last Admin: 06/03/17 01:54 Dose: 100 mls/hr Fluconazole (Diflucan Iv 100 Mg/50 Ml Ns) 50 mls @ 50 mls/hr IVPB DAILY [facility] PRN Reason: Protocol Last Admin: 06/01/17 10:49 Dose: 50 mls/hr Heparin Sodium/Dextrose (Heparin 25,000 Units/250ml In D5w) 25,000 units in 250 mls @ 7 mls/hr IV .Q24H [facility] Last Admin: 06/02/17 18:14 Dose: 7 mls/hr Nitroglycerin/Dextrose (Nitroglycerin 50 Mg/250 Ml D5w) 50 mg in 250 mls @ 3 mls/hr IV .Q24H ONE PRN Reason: Protocol Stop: 06/03/17 16:57 Last Admin: 06/02/17 18:04 Dose: 3 mls/hr Insulin Human Lispro (Humalog) 0 units SC ACHS [facility] PRN Reason: Protocol Last Admin: 06/02/17 22:59 Dose: Not Given Lactulose (Enulose) 20 gm PO DAILY PRN PRN Reason: Constipation Metformin HCl (Glucophage) 1,000 mg PO BID [facility] Last Admin: 06/02/17 18:17 Dose: Not Given Metoprolol Tartrate (Lopressor) 25 mg PO DAILY [facility] Last Admin: 06/02/17 07:31 Dose: 25 mg Morphine Sulfate (Morphine) 4 mg IVP Q6 PRN PRN Reason: Pain, severe (8-10) Last Admin: 06/03/17 06:07 Dose: 4 mg Oxycodone/Acetaminophen (Percocet 5/325 Mg Tab) 1 tab PO Q4 PRN PRN Reason: Pain, moderate (4-7) Stop: 06/03/17 16:58 Last Admin: 06/02/17 21:27 Dose: 1 tab Ramipril (Altace) 5 mg PO DAILY [facility] Last Admin: 06/02/17 07:32 Dose: 5 mg Sitagliptin Phosphate (Januvia) 100 mg PO DAILY [facility] Last Admin: 06/01/17 09:25 Dose: 100 mg - Labs Labs: 06/03/17 05:00 06/02/17 20:30 PT 12.8 Seconds (9.8-13.1) 06/03/17 05:00 INR 1.2 (0.9-1.2) 06/03/17 05:00 APTT 33.3 Seconds (25.6-37.1) 06/03/17 05:00 - Constitutional Appears: Well, Non-toxic, No Acute Distress - Extremities Exam Additional comments: VASC: DP and PT pulses weakly palpable 1/4 b/l. CFT <3 seconds to all digits x9 , unable to be obtained in left hallux. Temperature gradient warm to warm bilateral. No edema noted. DERM: Left hallux appears necrotic with demarcation proximal to hallucal IPJ; hard eschar cap noted circumfirentially. Full thickness ulceration measuring approximately 0.5 x 0.5 cm in area of necrosis, (+) probe to bone, no active drainage noted. Absent malodor. Erythema extending proximoplantarly through 1st metatarsal. NEURO: Gross sensation diminished bilaterally. ORTHO: Pain on palpation left hallux. Pain upon ROM left hallux. - Neurological Exam Neurological Exam: Alert, Awake, Oriented x3 - Psychiatric Exam Psychiatric exam: Normal Affect, Normal Mood Assessment and Plan - Assessment and Plan (Free Text) Assessment: 62 year old female with PMHx of DM, HTN, HLD, CAD with left hallux gangrene and infected ulceration. Plan: Patient seen and evaluated Discussed with attending, Dr. Looney afebrifred currently, WBC increasing @ 13.7, ESR 101, CRP 56.6 L foot XR reviewed: negative L foot MRI report: - OM hallucal distal phalanx and distal portion of proximal phalanx L hallux wound culture taken: - G- rods and G+ cocci (Prelim) Bilateral LE arterial dopplers: -Loss of triphasic waveform involving entire RLE w/stenosis in SFA and tibial vessels -Loss of triphasic waveform involving LLE distal to common femoral a. w/ stenosis in SFA, popliteal a., and tibial vessels Informed patient left hallux likely infected with need for possible amputation vs. human resources executive IV abx. Discussed with patient risks, complications, benefits, alternatives of procedure; pt demonstrated verbal understanding and agrees to surgical intervention. Dr. Strange consulted vascular intervention -Patient underwent repeat angio yesterday 06/02 at [facility] -Per Dr. Strange, pt had angioplasty in proximal segment of L SFA, angioplasty of distal SFA lesion, artherectomy and angioplasty of popliteal a. and mid anterior tibial a. -Patient will be kept on IV heparin drop 48h along with IV nitroglycerin -Will f/u regarding when patient can be taken to sx for partial 1st ray amputation ID consulted - recs appreciated; currently on Vancomycin and Cefepime -Per ID, d/c Zosyn which may have been source of rash on LUE; Cefepime started Wound cleansed with saline and dressed with betadine DSD Pain mgmt per medicine Podiatry will continue to follow patient while in house
[2017-06-03] MEDS: Insulin Lispro (humaLOG) 100 Units/ml Inj SC SCH ×4 (08:41→21:22)
[2017-06-03] MEDS: Cilostazol 50 mg Tab UD PO SCH (08:42)
[2017-06-03] MEDS: Fluconazole IV 100mg/50 ml NS 50 ML IVPB SCH (08:43)
--- NOTE | 2017-06-03 09:35 | CP.PCM.PN ---
Subjective - Date & Time of Evaluation Date of Evaluation: 06/03/17 Time of Evaluation: 09:38 - Subjective Subjective: S/P ANGIOPLASTY OF LOWER EXTREMITIES ON IV NITRO AND HEPARIN STILL HAVING FOOT PAIN Objective - Vital Signs/Intake and Output Vital Signs (last 24 hours): Temp Pulse Resp BP Pulse Ox 98.2 F 82 20 145/70 96 06/03/17 08:12 06/03/17 08:42 06/03/17 08:12 06/03/17 08:42 06/03/17 08:12 - Medications Medications: Current Medications Aspirin (Aspirin) 325 mg PO DAILY [facility] Last Admin: 06/03/17 08:45 Dose: 325 mg Atorvastatin Calcium (Lipitor) 20 mg PO DAILY [facility] Last Admin: 06/03/17 08:41 Dose: 20 mg Cilostazol (Pletal) 50 mg PO DAILY [facility] Last Admin: 06/03/17 08:42 Dose: 50 mg Clopidogrel Bisulfate (Plavix) 75 mg PO DAILY [facility] Last Admin: 06/03/17 08:42 Dose: 75 mg Home Med (Difluprednate [Durezol]) 1 drop LEFTEYE DAILY [facility] Last Admin: 06/03/17 08:40 Dose: 1 drop Hydromorphone HCl (Dilaudid) 1 mg IVP Q6 PRN PRN Reason: Pain, severe (8-10) Last Admin: 06/02/17 06:01 Dose: 1 mg Vancomycin HCl 1 gm/ Sodium (Chloride) 250 mls @ 166.667 mls/hr IVPB DAILY [facility] Last Admin: 06/03/17 08:46 Dose: 166.667 mls/hr Cefepime HCl 1 gm/ Sodium (Chloride) 100 mls @ 100 mls/hr IVPB Q8 [facility] PRN Reason: Protocol Last Admin: 06/03/17 08:44 Dose: 100 mls/hr Fluconazole (Diflucan Iv 100 Mg/50 Ml Ns) 50 mls @ 50 mls/hr IVPB DAILY [facility] PRN Reason: Protocol Last Admin: 06/03/17 08:43 Dose: 50 mls/hr Heparin Sodium/Dextrose (Heparin 25,000 Units/250ml In D5w) 25,000 units in 250 mls @ 7 mls/hr IV .Q24H [facility] Last Admin: 06/02/17 18:14 Dose: 7 mls/hr Nitroglycerin/Dextrose (Nitroglycerin 50 Mg/250 Ml D5w) 50 mg in 250 mls @ 3 mls/hr IV .Q24H ONE PRN Reason: Protocol Stop: 06/03/17 16:57 Last Admin: 06/02/17 18:04 Dose: 3 mls/hr Insulin Human Lispro (Humalog) 0 units SC ACHS [facility] PRN Reason: Protocol Last Admin: 06/03/17 08:41 Dose: 3 u Lactulose (Enulose) 20 gm PO DAILY PRN PRN Reason: Constipation Metformin HCl (Glucophage) 1,000 mg PO BID [facility] Last Admin: 06/03/17 08:40 Dose: 1,000 mg Metoprolol Tartrate (Lopressor) 25 mg PO DAILY [facility] Last Admin: 06/03/17 08:42 Dose: 25 mg Morphine Sulfate (Morphine) 4 mg IVP Q6 PRN PRN Reason: Pain, severe (8-10) Last Admin: 06/03/17 06:07 Dose: 4 mg Oxycodone/Acetaminophen (Percocet 5/325 Mg Tab) 1 tab PO Q4 PRN PRN Reason: Pain, moderate (4-7) Stop: 06/03/17 16:58 Last Admin: 06/02/17 21:27 Dose: 1 tab Ramipril (Altace) 5 mg PO DAILY [facility] Last Admin: 06/03/17 08:38 Dose: 5 mg Sitagliptin Phosphate (Januvia) 100 mg PO DAILY [facility] Last Admin: 06/03/17 08:41 Dose: 100 mg - Labs Labs: 06/03/17 05:00 06/02/17 20:30 PT 12.8 Seconds (9.8-13.1) 06/03/17 05:00 INR 1.2 (0.9-1.2) 06/03/17 05:00 APTT 33.3 Seconds (25.6-37.1) 06/03/17 05:00 - Constitutional Appears: In Acute Distress - Head Exam Head Exam: ATRAUMATIC, NORMAL INSPECTION, NORMOCEPHALIC - Eye Exam Eye Exam: EOMI, Normal appearance, PERRL Pupil Exam: NORMAL ACCOMODATION, PERRL - ENT Exam ENT Exam: Mucous Membranes Moist, Normal Exam - Neck Exam Neck Exam: Full ROM, Normal Inspection. absent: Lymphadenopathy - Respiratory Exam Respiratory Exam: Clear to Ausculation Bilateral, NORMAL BREATHING PATTERN - Cardiovascular Exam Cardiovascular Exam: REGULAR RHYTHM, +S1, +S2. absent: Murmur - GI/Abdominal Exam GI & Abdominal Exam: Soft, Normal Bowel Sounds. absent: Tenderness - Rectal Exam Rectal Exam: NORMAL INSPECTION - Extremities Exam Extremities Exam: Full ROM. absent: Joint Swelling, Pedal Edema Additional comments: DRY GANGRENE OF L GREAT TOE SEVERE PERIPHERAL VASCULAR DZ DM - Back Exam Back Exam: NORMAL INSPECTION - Neurological Exam Neurological Exam: Alert, Awake, CN II-XII Intact, Normal Gait, Oriented x3 - Psychiatric Exam Psychiatric exam: Normal Affect, Normal Mood - Skin Skin Exam: Dry, Intact, Normal Color, Warm Assessment and Plan - Assessment and Plan (Free Text) Assessment: DRY GANGRENE OF L GREAT TOE CELLULITIS OF L FOOT HTN DM SEVERE PERIPHERAL VASCULAR DZ Plan: CONTINUE RX ORDERED AWAIT PODIATRY DECISION ON POSSIBLE AMPUTAION OF L GREAT TOE
--- NOTE | 2017-06-03 12:47 | CP.PCM.PN ---
<Jayla Valdez - Last Filed: 06/03/17 13:09> Subjective - Date & Time of Evaluation Date of Evaluation: 06/03/17 Time of Evaluation: 12:40 - Subjective Subjective: PGY 2 progress note for cardiology, Dr. Strange Pt is seen and examined at bedside. No acute events overnight. Pt continues ot complain of left foot pain with movement or when she puts pressure on it. Denies having any CP, SOB, abd pain, N/V/D/C. 12 point ROS negative except for the above mentioned. Objective - Vital Signs/Intake and Output Vital Signs (last 24 hours): Temp Pulse Resp BP Pulse Ox 98.2 F 82 20 145/70 96 06/03/17 08:12 06/03/17 09:00 06/03/17 08:12 06/03/17 08:42 06/03/17 08:12 - Medications Medications: Current Medications Aspirin (Aspirin) 325 mg PO DAILY [facility] Last Admin: 06/03/17 08:45 Dose: 325 mg Atorvastatin Calcium (Lipitor) 20 mg PO DAILY [facility] Last Admin: 06/03/17 08:41 Dose: 20 mg Cilostazol (Pletal) 50 mg PO DAILY [facility] Last Admin: 06/03/17 08:42 Dose: 50 mg Clopidogrel Bisulfate (Plavix) 75 mg PO DAILY [facility] Last Admin: 06/03/17 08:42 Dose: 75 mg Docusate Sodium (Colace) 100 mg PO DAILY [facility] Last Admin: 06/03/17 11:00 Dose: 100 mg Home Med (Difluprednate [Durezol]) 1 drop LEFTEYE DAILY [facility] Last Admin: 06/03/17 08:40 Dose: 1 drop Hydromorphone HCl (Dilaudid) 1 mg IVP Q6 PRN PRN Reason: Pain, severe (8-10) Last Admin: 06/02/17 06:01 Dose: 1 mg Vancomycin HCl 1 gm/ Sodium (Chloride) 250 mls @ 166.667 mls/hr IVPB DAILY [facility] Last Admin: 06/03/17 08:46 Dose: 166.667 mls/hr Cefepime HCl 1 gm/ Sodium (Chloride) 100 mls @ 100 mls/hr IVPB Q8 [facility] PRN Reason: Protocol Last Admin: 06/03/17 08:44 Dose: 100 mls/hr Fluconazole (Diflucan Iv 100 Mg/50 Ml Ns) 50 mls @ 50 mls/hr IVPB DAILY [facility] PRN Reason: Protocol Last Admin: 06/03/17 08:43 Dose: 50 mls/hr Heparin Sodium/Dextrose (Heparin 25,000 Units/250ml In D5w) 25,000 units in 250 mls @ 7 mls/hr IV .Q24H [facility] Last Admin: 06/02/17 18:14 Dose: 7 mls/hr Nitroglycerin/Dextrose (Nitroglycerin 50 Mg/250 Ml D5w) 50 mg in 250 mls @ 3 mls/hr IV .Q24H ONE PRN Reason: Protocol Stop: 06/03/17 16:57 Last Admin: 06/02/17 18:04 Dose: 3 mls/hr Insulin Human Lispro (Humalog) 0 units SC ACHS [facility] PRN Reason: Protocol Last Admin: 06/03/17 12:08 Dose: 5 u Lactulose (Enulose) 20 gm PO DAILY PRN PRN Reason: Constipation Metformin HCl (Glucophage) 1,000 mg PO BID [facility] Last Admin: 06/03/17 08:40 Dose: 1,000 mg Metoprolol Tartrate (Lopressor) 25 mg PO DAILY [facility] Last Admin: 06/03/17 08:42 Dose: 25 mg Morphine Sulfate (Morphine) 4 mg IVP Q6 PRN PRN Reason: Pain, severe (8-10) Last Admin: 06/03/17 12:06 Dose: 4 mg Oxycodone/Acetaminophen (Percocet 5/325 Mg Tab) 1 tab PO Q4 PRN PRN Reason: Pain, moderate (4-7) Stop: 06/03/17 16:58 Last Admin: 06/02/17 21:27 Dose: 1 tab Ramipril (Altace) 5 mg PO DAILY [facility] Last Admin: 06/03/17 08:38 Dose: 5 mg Sitagliptin Phosphate (Januvia) 100 mg PO DAILY [facility] Last Admin: 06/03/17 08:41 Dose: 100 mg - Labs Labs: 06/03/17 05:00 06/02/17 20:30 PT 12.8 Seconds (9.8-13.1) 06/03/17 05:00 INR 1.2 (0.9-1.2) 06/03/17 05:00 APTT 33.3 Seconds (25.6-37.1) 06/03/17 05:00 - Constitutional Appears: Non-toxic, No Acute Distress - Head Exam Head Exam: ATRAUMATIC - ENT Exam ENT Exam: Mucous Membranes Moist - Respiratory Exam Respiratory Exam: Clear to Ausculation Bilateral. absent: Accessory Muscle Use , Rales, Rhonchi, Wheezes, Respiratory Distress - Cardiovascular Exam Cardiovascular Exam: REGULAR RHYTHM, +S1, +S2. absent: Gallop, Rubs, Murmur - GI/Abdominal Exam GI & Abdominal Exam: Soft, Normal Bowel Sounds. absent: Distended, Firm, Guarding, Rigid, Tenderness - Extremities Exam Extremities Exam: absent: Pedal Edema, Tenderness - Neurological Exam Neurological Exam: Alert, Awake, Oriented x3 - Psychiatric Exam Psychiatric exam: Normal Affect, Normal Mood - Skin Skin Exam: Dry, Intact, Normal Color, Warm Assessment and Plan - Assessment and Plan (Free Text) Assessment: (1) PVD (peripheral vascular disease) Status post PTS of in-stent restenosis of left SFA 90% stenosis, BUILDING MAINTENANCE TECHNICIAN of [place] distal SFA 80% stenosis, BUILDING MAINTENANCE TECHNICIAN and artherectomy of popliteal 90% stenosis, BUILDING MAINTENANCE TECHNICIAN and artherectomy of VALERIA 90% stenosis Continue dual antiplatelet therapy with aspirin and Plavix along with cilostazol. Continue IV heparin drip for additional 24 hours along with IV nitroglycerin to improve the microcirculation only collateral flow to the left foot with the dorsalis pedis and superficial and deep plantar arch is being filled by collaterals. Cleared from vascular stand point for toe amputation (2) Cellulitis cont Abx per ID (3) Gangrene of toe of left foot Continue Abx per ID (4) CAD (coronary artery disease) Continue DAPT Continue lipitor, ACEI and metoprolol (5) HLD (hyperlipidemia) Continue lipitor (6) HTN (hypertension) Continue to monitor VS Case will be discussed with attending, Dr. Strange <Nik Strange - Last Filed: 06/03/17 15:33> Objective - Vital Signs/Intake and Output Vital Signs (last 24 hours): Temp Pulse Resp BP Pulse Ox 99.0 F 80 20 100/57 L 98 06/03/17 12:48 06/03/17 12:48 06/03/17 12:48 06/03/17 12:48 06/03/17 12:48 - Medications Medications: Current Medications Aspirin (Aspirin) 325 mg PO DAILY [facility] Last Admin: 06/03/17 08:45 Dose: 325 mg Atorvastatin Calcium (Lipitor) 20 mg PO DAILY [facility] Last Admin: 06/03/17 08:41 Dose: 20 mg Cilostazol (Pletal) 50 mg PO DAILY [facility] Last Admin: 06/03/17 08:42 Dose: 50 mg Clopidogrel Bisulfate (Plavix) 75 mg PO DAILY [facility] Last Admin: 06/03/17 08:42 Dose: 75 mg Docusate Sodium (Colace) 100 mg PO DAILY [facility] Last Admin: 06/03/17 11:00 Dose: 100 mg Home Med (Difluprednate [Durezol]) 1 drop LEFTEYE DAILY [facility] Last Admin: 06/03/17 08:40 Dose: 1 drop Hydromorphone HCl (Dilaudid) 1 mg IVP Q6 PRN PRN Reason: Pain, severe (8-10) Last Admin: 06/02/17 06:01 Dose: 1 mg Vancomycin HCl 1 gm/ Sodium (Chloride) 250 mls @ 166.667 mls/hr IVPB DAILY [facility] Last Admin: 06/03/17 08:46 Dose: 166.667 mls/hr Cefepime HCl 1 gm/ Sodium (Chloride) 100 mls @ 100 mls/hr IVPB Q8 [facility] PRN Reason: Protocol Last Admin: 06/03/17 08:44 Dose: 100 mls/hr Fluconazole (Diflucan Iv 100 Mg/50 Ml Ns) 50 mls @ 50 mls/hr IVPB DAILY [facility] PRN Reason: Protocol Last Admin: 06/03/17 08:43 Dose: 50 mls/hr Heparin Sodium/Dextrose (Heparin 25,000 Units/250ml In D5w) 25,000 units in 250 mls @ 7 mls/hr IV .Q24H [facility] Last Admin: 06/02/17 18:14 Dose: 7 mls/hr Nitroglycerin/Dextrose (Nitroglycerin 50 Mg/250 Ml D5w) 50 mg in 250 mls @ 3 mls/hr IV .Q24H ONE PRN Reason: Protocol Stop: 06/03/17 16:57 Last Admin: 06/02/17 18:04 Dose: 3 mls/hr Insulin Human Lispro (Humalog) 0 units SC ACHS [facility] PRN Reason: Protocol Last Admin: 06/03/17 12:08 Dose: 5 u Lactulose (Enulose) 20 gm PO DAILY PRN PRN Reason: Constipation Metformin HCl (Glucophage) 1,000 mg PO BID [facility] Last Admin: 06/03/17 08:40 Dose: 1,000 mg Metoprolol Tartrate (Lopressor) 25 mg PO DAILY [facility] Last Admin: 06/03/17 08:42 Dose: 25 mg Morphine Sulfate (Morphine) 4 mg IVP Q6 PRN PRN Reason: Pain, severe (8-10) Last Admin: 06/03/17 12:06 Dose: 4 mg Oxycodone/Acetaminophen (Percocet 5/325 Mg Tab) 1 tab PO Q4 PRN PRN Reason: Pain, moderate (4-7) Stop: 06/03/17 16:58 Last Admin: 06/02/17 21:27 Dose: 1 tab Ramipril (Altace) 5 mg PO DAILY [facility] Last Admin: 06/03/17 08:38 Dose: 5 mg Sitagliptin Phosphate (Januvia) 100 mg PO DAILY [facility] Last Admin: 06/03/17 08:41 Dose: 100 mg - Labs Labs: 06/03/17 05:00 06/02/17 20:30 PT 12.8 Seconds (9.8-13.1) 06/03/17 05:00 INR 1.2 (0.9-1.2) 06/03/17 05:00 APTT 33.3 Seconds (25.6-37.1) 06/03/17 05:00 Assessment and Plan (1) PVD (peripheral vascular disease) Status: Acute (2) Cellulitis Status: Acute (3) Gangrene of toe of left foot Status: Acute (4) CAD (coronary artery disease) Status: Acute (5) HLD (hyperlipidemia) Status: Acute (6) HTN (hypertension) Status: Acute Attending/Attestation - Attestation I have personally seen and examined this patient.: Yes I have fully participated in the care of the patient.: Yes I have reviewed all pertinent clinical information, including history, physical exam and plan: Yes Notes (Text): 06/03/17 15:33 ok to proceed with amputation in am
[2017-06-03] MEDS: Heparin 25,000units in D5W 25,000 UNITS/250 ML BAG IV SCH (16:34)
[2017-06-03] MEDS: Oxycodone/Acetaminophen 5/325 mg Tab PO PRN (16:40)
[2017-06-04] MEDS: Cefepime 1 GM in Sodium Chloride 0.9% 100 ML IVPB SCH ×3 (00:09→19:32)
[2017-06-04 06:46] LABS: HEMOGLOBIN 9.5 g/dL (12.0-16.0); MEAN CORPUSCULAR HGB CONC 32.2 g/dL (33.0-37.0); RBC 3.28 Mil/uL (3.80-5.20); RED CELL DISTRIBUTION WIDTH 14.4 % (11.5-14.5); WHITE BLOOD COUNT 12.6 K/uL (4.8-10.8)
[2017-06-04 06:57] LABS: BLOOD UREA NITROGEN 14 mg/dl (7-17); CALCIUM 9.2 mg/dL (8.4-10.2); GFR AFRICAN-AMERICAN > 60; GFR NON-AFRICAN AMERICAN > 60
--- NOTE | 2017-06-04 07:36 | CP.PCM.PN ---
Subjective - Date & Time of Evaluation Date of Evaluation: 06/04/17 Time of Evaluation: 07:36 - Subjective Subjective: Podiatry Progress Note - Dr. Looney 62 year old female with PMHx of DM, HLD, HTN, CAD seen and evaluated at bedside for pre-operative evaluation for left foot partial 1st ray amputation secondary to left great toe gangrene. Patient is anxious, crying at time of visit. Denies any acute events overnight. Patient reports continued pain to left foot, well- controlled. Patient aware she is scheduled for surgery this afternoon with Dr. Looney. NPO status confirmed. Denies N/V/F/D/C/SOB/calf pain. Objective - Vital Signs/Intake and Output Vital Signs (last 24 hours): Temp Pulse Resp BP Pulse Ox 98.6 F 90 18 156/86 H 95 06/04/17 05:45 06/04/17 05:45 06/04/17 05:45 06/04/17 05:45 06/04/17 05:45 - Medications Medications: Current Medications Aspirin (Aspirin) 325 mg PO DAILY [facility] Last Admin: 06/03/17 08:45 Dose: 325 mg Atorvastatin Calcium (Lipitor) 20 mg PO DAILY [facility] Last Admin: 06/03/17 08:41 Dose: 20 mg Cilostazol (Pletal) 50 mg PO DAILY [facility] Last Admin: 06/03/17 08:42 Dose: 50 mg Clopidogrel Bisulfate (Plavix) 75 mg PO DAILY [facility] Last Admin: 06/03/17 08:42 Dose: 75 mg Docusate Sodium (Colace) 100 mg PO DAILY [facility] Last Admin: 06/03/17 11:00 Dose: 100 mg Home Med (Difluprednate [Durezol]) 1 drop LEFTEYE DAILY [facility] Last Admin: 06/03/17 08:40 Dose: 1 drop Hydromorphone HCl (Dilaudid) 1 mg IVP Q6 PRN PRN Reason: Pain, severe (8-10) Last Admin: 06/02/17 06:01 Dose: 1 mg Vancomycin HCl 1 gm/ Sodium (Chloride) 250 mls @ 166.667 mls/hr IVPB DAILY [facility] Last Admin: 06/03/17 08:46 Dose: 166.667 mls/hr Cefepime HCl 1 gm/ Sodium (Chloride) 100 mls @ 100 mls/hr IVPB Q8 [facility] PRN Reason: Protocol Last Admin: 06/04/17 00:09 Dose: 100 mls/hr Fluconazole (Diflucan Iv 100 Mg/50 Ml Ns) 50 mls @ 50 mls/hr IVPB DAILY [facility] PRN Reason: Protocol Last Admin: 06/03/17 08:43 Dose: 50 mls/hr Dextrose/Sodium Chloride (Dextrose 5%-0.45% Ns 500 Ml) 500 mls @ 40 mls/hr IV .[id number] [facility] Stop: 06/04/17 20:10 Last Admin: 06/04/17 00:10 Dose: 40 mls/hr Insulin Human Lispro (Humalog) 0 units SC ACHS [facility] PRN Reason: Protocol Last Admin: 06/03/17 21:22 Dose: Not Given Lactulose (Enulose) 20 gm PO DAILY PRN PRN Reason: Constipation Metformin HCl (Glucophage) 1,000 mg PO BID [facility] Last Admin: 06/03/17 16:32 Dose: 1,000 mg Metoprolol Tartrate (Lopressor) 25 mg PO DAILY [facility] Last Admin: 06/03/17 08:42 Dose: 25 mg Morphine Sulfate (Morphine) 4 mg IVP Q6 PRN PRN Reason: Pain, severe (8-10) Last Admin: 06/04/17 06:18 Dose: 4 mg Ramipril (Altace) 5 mg PO DAILY [facility] Last Admin: 06/03/17 08:38 Dose: 5 mg Sitagliptin Phosphate (Januvia) 100 mg PO DAILY [facility] Last Admin: 06/03/17 08:41 Dose: 100 mg - Labs Labs: 06/04/17 05:15 06/04/17 05:15 PT 12.8 Seconds (9.8-13.1) 06/03/17 05:00 INR 1.2 (0.9-1.2) 06/03/17 05:00 APTT 33.3 Seconds (25.6-37.1) 06/03/17 05:00 - Constitutional Appears: Well, Non-toxic, No Acute Distress - Extremities Exam Additional comments: Dressing to LLE appears clean/dry/intact with no strikethrough noted. Multipodus boots present to bilateral LE. - Neurological Exam Neurological Exam: Alert, Awake, Oriented x3 - Psychiatric Exam Psychiatric exam: Anxious Assessment and Plan - Assessment and Plan (Free Text) Assessment: 62 year old female with PMHx of DM, HTN, HLD, CAD with left hallux gangrene and infected ulceration. Plan: Patient seen and evaluated Discussed with attending, Dr. Aayush guy currently, WBC 12.6 ESR 101, CRP 56.6 L foot XR reviewed: negative L foot MRI report: - OM hallucal distal phalanx and distal portion of proximal phalanx L hallux wound culture taken: - G- rods and G+ cocci (Prelim) Bilateral LE arterial dopplers: -Loss of triphasic waveform involving entire RLE w/stenosis in SFA and tibial vessels -Loss of triphasic waveform involving LLE distal to common femoral a. w/ stenosis in SFA, popliteal a., and tibial vessels Informed patient left hallux likely infected with need for possible amputation vs. exterminator termite IV abx. Discussed with patient risks, complications, benefits, alternatives of procedure; pt demonstrated verbal understanding and agrees to surgical intervention. -Patient explained procedure and post-operative course -NPO confirmed To OR today at 4PM for left foot partial 1st ray amputation Dr. Strange consulted vascular intervention -Patient underwent repeat angio on 06/02 at [facility] -Per Dr. Strange, pt had angioplasty in proximal segment of L SFA, angioplasty of distal SFA lesion, artherectomy and angioplasty of popliteal a. and mid anterior tibial a. -Patient will be kept on IV heparin drop 48h along with IV nitroglycerin ID consulted - recs appreciated; currently on Vancomycin and Cefepime -Per ID, d/c Zosyn which may have been source of rash on LUE; Cefepime started Pain mgmt per medicine Podiatry will continue to follow patient while in house
--- NOTE | 2017-06-04 08:30 | CP.PCM.PN ---
<Jayla Valdez - Last Filed: 06/04/17 08:25> Subjective - Date & Time of Evaluation Date of Evaluation: 06/04/17 Time of Evaluation: 08:25 - Subjective Subjective: PGY2 progress note for cardiology, Dr. Strange Pt seen and examined this am. No acute events overnight. Denies having any CP , SOB, abd pain, N/V/D/C. Pt is resting LE at elevation and denies having any LE pain. 12 point ROS negative except for above mentioned. Objective - Vital Signs/Intake and Output Vital Signs (last 24 hours): Temp Pulse Resp BP Pulse Ox 98.6 F 85 18 137/77 96 06/04/17 08:00 06/04/17 08:00 06/04/17 08:00 06/04/17 08:00 06/04/17 08:00 - Medications Medications: Current Medications Aspirin (Aspirin) 325 mg PO DAILY [facility] Last Admin: 06/03/17 08:45 Dose: 325 mg Atorvastatin Calcium (Lipitor) 20 mg PO DAILY [facility] Last Admin: 06/03/17 08:41 Dose: 20 mg Cilostazol (Pletal) 50 mg PO DAILY [facility] Last Admin: 06/03/17 08:42 Dose: 50 mg Clopidogrel Bisulfate (Plavix) 75 mg PO DAILY [facility] Last Admin: 06/03/17 08:42 Dose: 75 mg Docusate Sodium (Colace) 100 mg PO DAILY [facility] Last Admin: 06/03/17 11:00 Dose: 100 mg Home Med (Difluprednate [Durezol]) 1 drop LEFTEYE DAILY [facility] Last Admin: 06/03/17 08:40 Dose: 1 drop Hydromorphone HCl (Dilaudid) 1 mg IVP Q6 PRN PRN Reason: Pain, severe (8-10) Last Admin: 06/02/17 06:01 Dose: 1 mg Vancomycin HCl 1 gm/ Sodium (Chloride) 250 mls @ 166.667 mls/hr IVPB DAILY [facility] Last Admin: 06/03/17 08:46 Dose: 166.667 mls/hr Cefepime HCl 1 gm/ Sodium (Chloride) 100 mls @ 100 mls/hr IVPB Q8 [facility] PRN Reason: Protocol Last Admin: 06/04/17 00:09 Dose: 100 mls/hr Fluconazole (Diflucan Iv 100 Mg/50 Ml Ns) 50 mls @ 50 mls/hr IVPB DAILY [facility] PRN Reason: Protocol Last Admin: 06/03/17 08:43 Dose: 50 mls/hr Dextrose/Sodium Chloride (Dextrose 5%-0.45% Ns 500 Ml) 500 mls @ 40 mls/hr IV .[id number] [facility] Stop: 06/04/17 20:10 Last Admin: 06/04/17 00:10 Dose: 40 mls/hr Insulin Human Lispro (Humalog) 0 units SC ACHS [facility] PRN Reason: Protocol Last Admin: 06/03/17 21:22 Dose: Not Given Lactulose (Enulose) 20 gm PO DAILY PRN PRN Reason: Constipation Metformin HCl (Glucophage) 1,000 mg PO BID [facility] Last Admin: 06/03/17 16:32 Dose: 1,000 mg Metoprolol Tartrate (Lopressor) 25 mg PO DAILY [facility] Last Admin: 06/03/17 08:42 Dose: 25 mg Morphine Sulfate (Morphine) 4 mg IVP Q6 PRN PRN Reason: Pain, severe (8-10) Last Admin: 06/04/17 06:18 Dose: 4 mg Ramipril (Altace) 5 mg PO DAILY [facility] Last Admin: 06/03/17 08:38 Dose: 5 mg Sitagliptin Phosphate (Januvia) 100 mg PO DAILY [facility] Last Admin: 06/03/17 08:41 Dose: 100 mg - Labs Labs: 06/04/17 05:15 06/04/17 05:15 PT 12.8 Seconds (9.8-13.1) 06/03/17 05:00 INR 1.2 (0.9-1.2) 06/03/17 05:00 APTT 33.3 Seconds (25.6-37.1) 06/03/17 05:00 - Constitutional Appears: Non-toxic, No Acute Distress - Head Exam Head Exam: ATRAUMATIC - ENT Exam ENT Exam: Mucous Membranes Moist - Respiratory Exam Respiratory Exam: Clear to Ausculation Bilateral. absent: Accessory Muscle Use , Rales, Rhonchi, Wheezes, Respiratory Distress - Cardiovascular Exam Cardiovascular Exam: REGULAR RHYTHM, +S1, +S2. absent: Gallop, Rubs, Murmur - GI/Abdominal Exam GI & Abdominal Exam: Soft, Normal Bowel Sounds. absent: Distended, Firm, Guarding, Rigid, Tenderness, Organomegaly - Extremities Exam Extremities Exam: absent: Pedal Edema, Tenderness - Neurological Exam Neurological Exam: Alert, Awake, Oriented x3 - Psychiatric Exam Psychiatric exam: Normal Affect, Normal Mood - Skin Skin Exam: Dry, Intact, Normal Color, Warm Assessment and Plan - Assessment and Plan (Free Text) Assessment: (1) PVD (peripheral vascular disease) Cleared from vascular stand point for 1st ray left toe amputation Status post PTS of in-stent restenosis of left SFA 90% stenosis, ION IMPLANT MACHINE OPERATOR of [place] distal SFA 80% stenosis, ION IMPLANT MACHINE OPERATOR and artherectomy of popliteal 90% stenosis, ION IMPLANT MACHINE OPERATOR and artherectomy of VALERIA 90% stenosis Continue dual antiplatelet therapy with aspirin and Plavix along with cilostazol. Patient will require close follow up upon discharge for medical management to maintain good circulation of LE. (2) Cellulitis cont Abx per ID (3) Gangrene of toe of left foot Continue Abx per ID (4) CAD (coronary artery disease) Continue DAPT Continue lipitor, ACEI and metoprolol (5) HLD (hyperlipidemia) Continue lipitor (6) HTN (hypertension) Continue to monitor VS Case discussed with attending, Dr. Strange <Nik Strange - Last Filed: 06/04/17 11:17> Objective - Vital Signs/Intake and Output Vital Signs (last 24 hours): Temp Pulse Resp BP Pulse Ox 98.6 F 85 18 137/77 96 06/04/17 08:00 06/04/17 08:54 06/04/17 08:00 06/04/17 08:54 06/04/17 08:00 - Medications Medications: Current Medications Aspirin (Aspirin) 325 mg PO DAILY [facility] Last Admin: 06/04/17 08:45 Dose: Not Given Atorvastatin Calcium (Lipitor) 20 mg PO DAILY [facility] Last Admin: 06/04/17 08:54 Dose: Not Given Cilostazol (Pletal) 50 mg PO DAILY [facility] Last Admin: 06/04/17 08:55 Dose: Not Given Clopidogrel Bisulfate (Plavix) 75 mg PO DAILY [facility] Last Admin: 06/04/17 08:55 Dose: Not Given Docusate Sodium (Colace) 100 mg PO DAILY [facility] Last Admin: 06/04/17 08:45 Dose: Not Given Home Med (Difluprednate [Durezol]) 1 drop LEFTEYE DAILY [facility] Last Admin: 06/04/17 08:52 Dose: 1 drop Hydromorphone HCl (Dilaudid) 1 mg IVP Q6 PRN PRN Reason: Pain, severe (8-10) Last Admin: 06/02/17 06:01 Dose: 1 mg Vancomycin HCl 1 gm/ Sodium (Chloride) 250 mls @ 166.667 mls/hr IVPB DAILY [facility] Last Admin: 06/04/17 08:58 Dose: 166.667 mls/hr Cefepime HCl 1 gm/ Sodium (Chloride) 100 mls @ 100 mls/hr IVPB Q8 [facility] PRN Reason: Protocol Last Admin: 06/04/17 08:56 Dose: 100 mls/hr Fluconazole (Diflucan Iv 100 Mg/50 Ml Ns) 50 mls @ 50 mls/hr IVPB DAILY [facility] PRN Reason: Protocol Last Admin: 06/04/17 08:51 Dose: 50 mls/hr Dextrose/Sodium Chloride (Dextrose 5%-0.45% Ns 500 Ml) 500 mls @ 40 mls/hr IV .[id number] [facility] Stop: 06/04/17 20:10 Last Admin: 06/04/17 08:45 Dose: 40 mls/hr Insulin Human Lispro (Humalog) 0 units SC ACHS [facility] PRN Reason: Protocol Last Admin: 06/04/17 08:53 Dose: 4 units Lactulose (Enulose) 20 gm PO DAILY PRN PRN Reason: Constipation Metformin HCl (Glucophage) 1,000 mg PO BID [facility] Last Admin: 06/04/17 08:52 Dose: Not Given Metoprolol Tartrate (Lopressor) 25 mg PO DAILY [facility] Last Admin: 06/04/17 08:54 Dose: 25 mg Morphine Sulfate (Morphine) 4 mg IVP Q6 PRN PRN Reason: Pain, severe (8-10) Last Admin: 06/04/17 06:18 Dose: 4 mg Ramipril (Altace) 5 mg PO DAILY [facility] Last Admin: 06/04/17 08:57 Dose: Not Given Sitagliptin Phosphate (Januvia) 100 mg PO DAILY [facility] Last Admin: 06/04/17 08:52 Dose: Not Given - Labs Labs: 06/04/17 05:15 06/04/17 05:15 PT 12.8 Seconds (9.8-13.1) 06/03/17 05:00 INR 1.2 (0.9-1.2) 06/03/17 05:00 APTT 33.3 Seconds (25.6-37.1) 06/03/17 05:00 Assessment and Plan (1) PVD (peripheral vascular disease) Status: Acute (2) Cellulitis Status: Acute (3) Gangrene of toe of left foot Status: Acute (4) CAD (coronary artery disease) Status: Acute (5) HLD (hyperlipidemia) Status: Acute (6) HTN (hypertension) Status: Acute Attending/Attestation - Attestation I have personally seen and examined this patient.: Yes I have fully participated in the care of the patient.: Yes I have reviewed all pertinent clinical information, including history, physical exam and plan: Yes
--- NOTE | 2017-06-04 08:36 | CP.PCM.PN ---
Subjective - Date & Time of Evaluation Date of Evaluation: 06/04/17 Time of Evaluation: 08:38 - Subjective Subjective: SCHEDULED FOR PODIATRY SURGERY TODAY--AMPUTATION OF GANGRENOUS TOE OFF HEPARIN AND NTG Objective - Vital Signs/Intake and Output Vital Signs (last 24 hours): Temp Pulse Resp BP Pulse Ox 98.6 F 85 18 137/77 96 06/04/17 08:00 06/04/17 08:00 06/04/17 08:00 06/04/17 08:00 06/04/17 08:00 - Medications Medications: Current Medications Aspirin (Aspirin) 325 mg PO DAILY [facility] Last Admin: 06/03/17 08:45 Dose: 325 mg Atorvastatin Calcium (Lipitor) 20 mg PO DAILY [facility] Last Admin: 06/03/17 08:41 Dose: 20 mg Cilostazol (Pletal) 50 mg PO DAILY [facility] Last Admin: 06/03/17 08:42 Dose: 50 mg Clopidogrel Bisulfate (Plavix) 75 mg PO DAILY [facility] Last Admin: 06/03/17 08:42 Dose: 75 mg Docusate Sodium (Colace) 100 mg PO DAILY [facility] Last Admin: 06/03/17 11:00 Dose: 100 mg Home Med (Difluprednate [Durezol]) 1 drop LEFTEYE DAILY [facility] Last Admin: 06/03/17 08:40 Dose: 1 drop Hydromorphone HCl (Dilaudid) 1 mg IVP Q6 PRN PRN Reason: Pain, severe (8-10) Last Admin: 06/02/17 06:01 Dose: 1 mg Vancomycin HCl 1 gm/ Sodium (Chloride) 250 mls @ 166.667 mls/hr IVPB DAILY [facility] Last Admin: 06/03/17 08:46 Dose: 166.667 mls/hr Cefepime HCl 1 gm/ Sodium (Chloride) 100 mls @ 100 mls/hr IVPB Q8 [facility] PRN Reason: Protocol Last Admin: 06/04/17 00:09 Dose: 100 mls/hr Fluconazole (Diflucan Iv 100 Mg/50 Ml Ns) 50 mls @ 50 mls/hr IVPB DAILY [facility] PRN Reason: Protocol Last Admin: 06/03/17 08:43 Dose: 50 mls/hr Dextrose/Sodium Chloride (Dextrose 5%-0.45% Ns 500 Ml) 500 mls @ 40 mls/hr IV .[id number] [facility] Stop: 06/04/17 20:10 Last Admin: 06/04/17 00:10 Dose: 40 mls/hr Insulin Human Lispro (Humalog) 0 units SC ACHS [facility] PRN Reason: Protocol Last Admin: 06/03/17 21:22 Dose: Not Given Lactulose (Enulose) 20 gm PO DAILY PRN PRN Reason: Constipation Metformin HCl (Glucophage) 1,000 mg PO BID [facility] Last Admin: 06/03/17 16:32 Dose: 1,000 mg Metoprolol Tartrate (Lopressor) 25 mg PO DAILY [facility] Last Admin: 06/03/17 08:42 Dose: 25 mg Morphine Sulfate (Morphine) 4 mg IVP Q6 PRN PRN Reason: Pain, severe (8-10) Last Admin: 06/04/17 06:18 Dose: 4 mg Ramipril (Altace) 5 mg PO DAILY [facility] Last Admin: 06/03/17 08:38 Dose: 5 mg Sitagliptin Phosphate (Januvia) 100 mg PO DAILY [facility] Last Admin: 06/03/17 08:41 Dose: 100 mg - Labs Labs: 06/04/17 05:15 06/04/17 05:15 PT 12.8 Seconds (9.8-13.1) 06/03/17 05:00 INR 1.2 (0.9-1.2) 06/03/17 05:00 APTT 33.3 Seconds (25.6-37.1) 06/03/17 05:00 - Constitutional Appears: Chronically Ill - Head Exam Head Exam: ATRAUMATIC, NORMAL INSPECTION, NORMOCEPHALIC - Eye Exam Eye Exam: EOMI, Normal appearance, PERRL Pupil Exam: NORMAL ACCOMODATION, PERRL - ENT Exam ENT Exam: Mucous Membranes Moist, Normal Exam - Neck Exam Neck Exam: Full ROM, Normal Inspection. absent: Lymphadenopathy - Respiratory Exam Respiratory Exam: Clear to Ausculation Bilateral, NORMAL BREATHING PATTERN - Cardiovascular Exam Cardiovascular Exam: REGULAR RHYTHM, +S1, +S2. absent: Murmur - GI/Abdominal Exam GI & Abdominal Exam: Soft, Normal Bowel Sounds. absent: Tenderness - Rectal Exam Rectal Exam: NORMAL INSPECTION - Extremities Exam Extremities Exam: Full ROM, Tenderness. absent: Joint Swelling, Pedal Edema Additional comments: GANGRENE OF L GREAT TOE - Back Exam Back Exam: NORMAL INSPECTION - Neurological Exam Neurological Exam: Alert, Awake, CN II-XII Intact, Normal Gait, Oriented x3 - Psychiatric Exam Psychiatric exam: Normal Affect, Normal Mood - Skin Skin Exam: Dry, Intact, Normal Color, Warm Assessment and Plan - Assessment and Plan (Free Text) Assessment: GANGRENE OF L GREAT TOE SEVERE PERIPHERAL VASCULAR DISEASE DM TYPE 2-UNCONTROLLED WITH HYPERGLYCEMIA CELLULITIS OF L FOOT WITH POSITIVE BLOOD CULTURES HTN Plan: FOR PODIATRY SURGERY CASE DISCUSSED WITH DR PAL--INTERVENTIONAL CARDIOLOGIS--PT IS CLEARED FOR SURGERY WILL NEED ANTIPLATLETS AND ANTICOAGULAION OUT 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
[2017-06-04] MEDS: Fluconazole IV 100mg/50 ml NS 50 ML IVPB SCH (08:51)
[2017-06-04] MEDS: Insulin Lispro (humaLOG) 100 Units/ml Inj SC SCH ×4 (08:53→22:47)
[2017-06-04] MEDS: Cilostazol 50 mg Tab UD PO SCH (08:55)
--- NOTE | 2017-06-04 13:45 | CP.PCM.PN ---
Subjective - Date & Time of Evaluation Date of Evaluation: 06/04/17 Time of Evaluation: 11:00 - Subjective Subjective: ID note- Patient seen and examined today. pt. denies any fever or chills but c/o pian in her left foot. had LE angiogram done by . pt. awaiting toe amputation today by podiatry . Objective - Vital Signs/Intake and Output Vital Signs (last 24 hours): Temp Pulse Resp BP Pulse Ox 98.3 F 83 18 144/72 93 L 06/04/17 12:12 06/04/17 12:12 06/04/17 12:12 06/04/17 12:12 06/04/17 12:12 - Medications Medications: Current Medications Aspirin (Aspirin) 325 mg PO DAILY [facility] Last Admin: 06/04/17 08:45 Dose: Not Given Atorvastatin Calcium (Lipitor) 20 mg PO DAILY [facility] Last Admin: 06/04/17 08:54 Dose: Not Given Cilostazol (Pletal) 50 mg PO DAILY [facility] Last Admin: 06/04/17 08:55 Dose: Not Given Clopidogrel Bisulfate (Plavix) 75 mg PO DAILY [facility] Last Admin: 06/04/17 08:55 Dose: Not Given Docusate Sodium (Colace) 100 mg PO DAILY [facility] Last Admin: 06/04/17 08:45 Dose: Not Given Home Med (Difluprednate [Durezol]) 1 drop LEFTEYE DAILY [facility] Last Admin: 06/04/17 08:52 Dose: 1 drop Hydromorphone HCl (Dilaudid) 1 mg IVP Q6 PRN PRN Reason: Pain, severe (8-10) Last Admin: 06/04/17 11:49 Dose: 1 mg Vancomycin HCl 1 gm/ Sodium (Chloride) 250 mls @ 166.667 mls/hr IVPB DAILY [facility] Last Admin: 06/04/17 08:58 Dose: 166.667 mls/hr Cefepime HCl 1 gm/ Sodium (Chloride) 100 mls @ 100 mls/hr IVPB Q8 [facility] PRN Reason: Protocol Last Admin: 06/04/17 08:56 Dose: 100 mls/hr Fluconazole (Diflucan Iv 100 Mg/50 Ml Ns) 50 mls @ 50 mls/hr IVPB DAILY [facility] PRN Reason: Protocol Last Admin: 06/04/17 08:51 Dose: 50 mls/hr Dextrose/Sodium Chloride (Dextrose 5%-0.45% Ns 500 Ml) 500 mls @ 40 mls/hr IV .[id number] [facility] Stop: 06/04/17 20:10 Last Admin: 06/04/17 08:45 Dose: 40 mls/hr Insulin Human Lispro (Humalog) 0 units SC ACHS [facility] PRN Reason: Protocol Last Admin: 06/04/17 13:24 Dose: Not Given Lactulose (Enulose) 20 gm PO DAILY PRN PRN Reason: Constipation Metformin HCl (Glucophage) 1,000 mg PO BID [facility] Last Admin: 06/04/17 08:52 Dose: Not Given Metoprolol Tartrate (Lopressor) 25 mg PO DAILY [facility] Last Admin: 06/04/17 08:54 Dose: 25 mg Morphine Sulfate (Morphine) 4 mg IVP Q6 PRN PRN Reason: Pain, severe (8-10) Last Admin: 06/04/17 06:18 Dose: 4 mg Ramipril (Altace) 5 mg PO DAILY [facility] Last Admin: 06/04/17 08:57 Dose: Not Given Sitagliptin Phosphate (Januvia) 100 mg PO DAILY [facility] Last Admin: 06/04/17 08:52 Dose: Not Given - Labs Labs: 1 - Additional Findings Additional findings: - Constitutional Appears: No Acute Distress - Head Exam Head Exam: ATRAUMATIC - Eye Exam Eye Exam: EOMI, PERRL - ENT Exam ENT Exam: Normal Oropharynx - Neck Exam Neck exam: Positive for: Full Rom - Respiratory Exam Respiratory Exam: Clear to Auscultation Bilateral, NORMAL BREATHING PATTERN - Cardiovascular Exam Cardiovascular Exam: RRR, +S1, +S2 - GI/Abdominal Exam GI & Abdominal Exam: Normal Bowel Sounds, Soft Additional comments: NT, ND - Extremities Exam Additional comments: left great toe necrosis with black eschar with small opening on the dorsal portion with sanguinous discharge, not warm to touch, no surrounding erythema DP pulses very weak on the left - Neurological Exam Neurological exam: Alert, Oriented x 3 Laboratory Results - last 72 hr 06/01/17 06/01/17 06/02/17 16:27 21:58 05:54 WBC RBC Hgb Hct MCV MCH MCHC RDW Plt Count MPV Neut % (Auto) Lymph % (Auto) Cochran % (Auto) Eos % (Auto) Baso % (Auto) Neut # Lymph # Cochran # Eos # Baso # PT INR APTT Sodium Potassium Chloride Carbon Dioxide Anion Gap BUN Creatinine Est GFR ( Amer) Est GFR (Non-Af Amer) POC Glucose (mg/dL) 256 H 307 H 250 H Random Glucose Calcium 06/02/17 06/02/17 06/02/17 17:57 20:30 20:30 WBC 12.1 H RBC 3.41 L Hgb 9.8 L Hct 30.6 L MCV 89.8 MCH 28.7 MCHC 31.9 L RDW 14.5 Plt Count 407 H MPV 9.6 Neut % (Auto) 61.0 Lymph % (Auto) 27.0 Cochran % (Auto) 10.5 H Eos % (Auto) 0.3 Baso % (Auto) 1.2 Neut # 7.4 H Lymph # 3.3 Cochran # 1.3 H Eos # 0.0 Baso # 0.1 PT INR APTT Sodium 131 L Potassium 3.8 Chloride 93 L Carbon Dioxide 29 Anion Gap 13 BUN 14 Creatinine 0.6 L Est GFR ( Amer) > 60 Est GFR (Non-Af Amer) > 60 POC Glucose (mg/dL) 311 H Random Glucose 338 H Calcium 8.9 06/02/17 06/03/17 06/03/17 21:41 05:00 05:00 WBC 13.7 H RBC 3.55 L Hgb 10.3 L Hct 32.2 L MCV 90.7 MCH 28.9 MCHC 31.9 L RDW 14.6 H Plt Count 445 H MPV Neut % (Auto) Lymph % (Auto) Cochran % (Auto) Eos % (Auto) Baso % (Auto) Neut # Lymph # Cochran # Eos # Baso # PT 12.8 INR 1.2 APTT 33.3 Sodium Potassium Chloride Carbon Dioxide Anion Gap BUN Creatinine Est GFR ( Amer) Est GFR (Non-Af Amer) POC Glucose (mg/dL) 319 H Random Glucose Calcium 06/03/17 06/03/17 06/03/17 05:14 10:48 16:37 WBC RBC Hgb Hct MCV MCH MCHC RDW Plt Count MPV Neut % (Auto) Lymph % (Auto) Cochran % (Auto) Eos % (Auto) Baso % (Auto) Neut # Lymph # Cochran # Eos # Baso # PT INR APTT Sodium Potassium Chloride Carbon Dioxide Anion Gap BUN Creatinine Est GFR ( Amer) Est GFR (Non-Af Amer) POC Glucose (mg/dL) 253 H 395 H 311 H Random Glucose Calcium 06/03/17 06/04/17 06/04/17 21:11 04:45 05:15 WBC 12.6 H RBC 3.28 L Hgb 9.5 L Hct 29.5 L MCV 90.0 MCH 29.0 MCHC 32.2 L RDW 14.4 Plt Count 445 H MPV Neut % (Auto) Lymph % (Auto) Cochran % (Auto) Eos % (Auto) Baso % (Auto) Neut # Lymph # Cochran # Eos # Baso # PT INR APTT Sodium Potassium Chloride Carbon Dioxide Anion Gap BUN Creatinine Est GFR ( Amer) Est GFR (Non-Af Amer) POC Glucose (mg/dL) 316 H 341 H Random Glucose Calcium 06/04/17 06/04/17 06/04/17 05:15 11:26 12:52 WBC RBC Hgb Hct MCV MCH MCHC RDW Plt Count MPV Neut % (Auto) Lymph % (Auto) Cochran % (Auto) Eos % (Auto) Baso % (Auto) Neut # Lymph # Cochran # Eos # Baso # PT INR APTT Sodium 136 Potassium 3.6 Chloride 96 L Carbon Dioxide 33 H Anion Gap 11 BUN 14 Creatinine 0.5 L Est GFR ( Amer) > 60 Est GFR (Non-Af Amer) > 60 POC Glucose (mg/dL) 285 H 270 H Random Glucose 360 H Calcium 9.2 Microbiology 05/27/17 18:11 Blood-Venous Blood Culture - Final NO GROWTH AFTER 5 DAYS 05/27/17 18:11 Blood-Venous Gram Stain - Final TEST NOT PERFORMED 05/27/17 15:15 Blood-Venous Blood Culture - Final Corynebacterium Species 05/27/17 15:15 Blood-Venous Gram Stain - Final 05/28/17 11:23 Foot - Left Gram Stain - Final 05/28/17 11:23 Foot - Left Wound Culture - Final Serratia Marcescens Enterococcus Faecalis Accession No. : [id number] Patient Name / ID : KEV Wakefield / [id number] Exam Date : 05/28/2017 11:13:14 ( Approved ) Study Comment : Sex / Age : F / 62Y Creator : Gema Easton MD Dictator : Gema Easton MD Sewing Techniques Demonstrator : Production Sanitizer : Gema Easton MD Approver2 : Report Date : 05/29/2017 16:35:31 My Comment : PROCEDURE: MRI of the left foot without contrast HISTORY: left hallux gangrene r/o osteomyelitis COMPARISON: Comparison is made with previous x-ray of the left foot dated 05/27/2017 TECHNIQUE: Axial coronal and sagittal MRI images of the left foot were obtained without IV contrast administration. FINDINGS: There is cortical destruction at the distal portion of the proximal phalanx of the left big toe and in the distal phalanx of the big toe. There is also diffuse bone marrow edema in the mid and distal portion of the proximal phalanx and in the entire distal phalanx of the left big toe. Findings highly suspicious for osteomyelitis. There is large skin and subcutaneous defect at the mid to distal left big toe associated with subcutaneous diffuse edema and inflammatory changes. There is no evidence of discrete drainable fluid collection in the left big toe. There are mild arthritic changes at the metatarsal-phalangeal joints. There is no evidence of other bone marrow edema or cortical destruction in the left foot. Mild diffuse soft tissue edema seen at the mid to distal left foot. There is mild diffuse T2 signal in the muscles suggestive of mild myositis. No evidence of interruption in the distal left foot tendons. IMPRESSION: Findings highly suspicious for osteomyelitis involving the distal portion of the proximal phalanx and in the entire distal phalanx of the left big toe. Skin and subcutaneous defect at the mid to distal left big toe associated with subcutaneous inflammatory changes. No evidence of discrete drainable fluid collection. Assessment and Plan (1) Gangrene of toe of left foot Status: Acute (2) HTN (hypertension) Status: Acute (3) Diabetes Status: Acute (4) PVD (peripheral vascular disease) Status: Acute - Assessment and Plan (Free Text) Assessment: A/P- 62 year old female with DM II, HTN admitted with left great toe gangrene. afebrikle mild leukocytosis. foot MRI- OM as per report, US report - poor vasculature blood cx- 1 out of 2 blood cx bottles corynebacterium( could be contaminant) high ESR foot wound cx- e.fecalis and serratia marsecens plan- for now advise to continue with IV vancomycin 1 gram BID. day #7. keep trough <15. advise to continue with cefepime which covers the serratia day #7 d/c Iv fluconazole. advise to check 2 more blood cx. check TTE r/o any vegetations eventhough the 1 out of 2 initial admission blood cx pos for corynebacyerium is most likely a contaminant. all above d/w patient and she verbalizes full understanding of all above and agrees with above plan of care.
[2017-06-04] MEDS ORDERED: Lidocaine 1% Inj (20ml) IJ ONE (15:04)
[2017-06-04] MEDS ORDERED: Bupivacaine 0.5% Inj(30mL) IJ ONE (15:04)
[2017-06-04] MEDS ORDERED: Lidocaine 1% Inj (20ml) ONE (16:00)
[2017-06-04] MEDS ORDERED: Bupivacaine 0.5% Inj(30mL) ONE (16:00)
[2017-06-04] MEDS ORDERED: Propofol 10 mg/ml Inj (20 ML) ONE (16:14)
[2017-06-04] MEDS ORDERED: Midazolam 2 MG/2 ML VIAL ONE (16:15)
[2017-06-04] MEDS ORDERED: Lidocaine 1% 5ml Abboject IV ONE (16:15)
[2017-06-04] MEDS ORDERED: Lactated Ringer's 1,000 ML IV ONE (16:19)
[2017-06-04] MEDS ORDERED: Cefepime (Maxipime) 1 g Inj IVPB ONE (16:25)
[2017-06-04] MEDS ORDERED: Bupivacaine 0.5% 50 ML IJ ONE (17:19)
--- NOTE | 2017-06-04 17:32 | PCM.SURG1 ---
Surgeon's Initial Post Op Note - Surgeon's Notes Surgeon: Dr. Raven Looney DPM Juice Weigher: Dr. Zean Brown DPM PGY-1, Dr. Ana Ramirez DPM PGY-2 Type of Anesthesia: IV Sedation, Local Anesthesia Administered By: Dr. Benito MIJARES Pre-Operative Diagnosis: Left foot gangreen hallux with infected ulcer Operative Findings: See dictation. M: 3-0, 4-0 prolene, 1/4 iodoform packing. I: 20 cc of 1:1 1% lidocain plain:0.5% marcain plain pre-op, Post-op: 10 cc of 0.5% marcain plain Post-Operative Diagnosis: Same Operation Performed: partial 1st ray resection with removal of all non-viable soft tissue and bone of the left foot Specimen/Specimens Removed: none. Intra-op: (pre-op) dirty culture and (post-op ) clean culture taken Estimated Blood Loss: EBL {In ML}: 10 Blood Products Given: N/A Drains Used: No Drains Post-Op Condition: Good Date of Surgery/Procedure: 06/04/17 Time of Surgery/Procedure: 17:34
[2017-06-04] MEDS: Lactated Ringer's 1,000 ML IV SCH (18:30)
[2017-06-05] MEDS: Cefepime 1 GM in Sodium Chloride 0.9% 100 ML IVPB SCH ×3 (00:03→16:01)
[2017-06-05] MEDS: Insulin Lispro (humaLOG) 100 Units/ml Inj SC SCH ×5 (06:34→22:27)
--- NOTE | 2017-06-05 07:26 | CP.PCM.PN ---
<Jayla Valdez - Last Filed: 06/05/17 07:24> Subjective - Date & Time of Evaluation Date of Evaluation: 06/05/17 Time of Evaluation: 07:24 - Subjective Subjective: PGY2 progress note for cardiology, Dr. Strange Pt is seen and examined at bedside. No acute events overnight. Pt is s/p 1st ray partial resection with removal of non-viable soft tissue and bone of left foot. Pt tolerated procedure well. C/O left foot pain. Denies having any CP, SOB, abd pain, N/V/D/C, F/C. 12 point ROS negative except for the above mentioned. Objective - Vital Signs/Intake and Output Vital Signs (last 24 hours): Temp Pulse Resp BP Pulse Ox 98 F 80 18 135/74 98 06/05/17 05:23 06/05/17 05:23 06/05/17 05:23 06/05/17 05:23 06/05/17 05:23 - Medications Medications: Current Medications Aspirin (Aspirin) 325 mg PO DAILY [facility] Last Admin: 06/04/17 08:45 Dose: Not Given Atorvastatin Calcium (Lipitor) 20 mg PO DAILY [facility] Last Admin: 06/04/17 08:54 Dose: Not Given Cilostazol (Pletal) 50 mg PO DAILY [facility] Last Admin: 06/04/17 08:55 Dose: Not Given Clopidogrel Bisulfate (Plavix) 75 mg PO DAILY [facility] Last Admin: 06/04/17 08:55 Dose: Not Given Docusate Sodium (Colace) 100 mg PO DAILY [facility] Last Admin: 06/04/17 08:45 Dose: Not Given Home Med (Difluprednate [Durezol]) 1 drop LEFTEYE DAILY [facility] Last Admin: 06/04/17 08:52 Dose: 1 drop Hydromorphone HCl (Dilaudid) 1 mg IVP Q6 PRN PRN Reason: Pain, severe (8-10) Last Admin: 06/05/17 06:47 Dose: 1 mg Vancomycin HCl 1 gm/ Sodium (Chloride) 250 mls @ 166.667 mls/hr IVPB DAILY [facility] Last Admin: 06/04/17 08:58 Dose: 166.667 mls/hr Cefepime HCl 1 gm/ Sodium (Chloride) 100 mls @ 100 mls/hr IVPB Q8 [facility] PRN Reason: Protocol Last Admin: 06/05/17 00:03 Dose: 100 mls/hr Lactated Ringer's (Lactated Ringer's) 1,000 mls @ 50 mls/hr IV .Q20H [facility] Last Admin: 06/04/17 18:30 Dose: 50 mls/hr Insulin Human Lispro (Humalog) 0 units SC ACHS [facility] PRN Reason: Protocol Last Admin: 06/05/17 06:34 Dose: 3 units Lactulose (Enulose) 20 gm PO DAILY PRN PRN Reason: Constipation Metformin HCl (Glucophage) 1,000 mg PO BID [facility] Last Admin: 06/04/17 17:00 Dose: Not Given Metoprolol Tartrate (Lopressor) 25 mg PO DAILY [facility] Last Admin: 06/04/17 08:54 Dose: 25 mg Morphine Sulfate (Morphine) 4 mg IVP Q6 PRN PRN Reason: Pain, severe (8-10) Last Admin: 06/04/17 06:18 Dose: 4 mg Ramipril (Altace) 5 mg PO DAILY [facility] Last Admin: 06/04/17 08:57 Dose: Not Given Sitagliptin Phosphate (Januvia) 100 mg PO DAILY [facility] Last Admin: 06/04/17 08:52 Dose: Not Given - Labs Labs: 06/04/17 05:15 06/04/17 05:15 PT 12.8 Seconds (9.8-13.1) 06/03/17 05:00 INR 1.2 (0.9-1.2) 06/03/17 05:00 APTT 33.3 Seconds (25.6-37.1) 06/03/17 05:00 - Constitutional Appears: Non-toxic, No Acute Distress - Head Exam Head Exam: ATRAUMATIC - ENT Exam ENT Exam: Mucous Membranes Moist - Respiratory Exam Respiratory Exam: Clear to Ausculation Bilateral. absent: Accessory Muscle Use , Rales, Rhonchi, Wheezes, Respiratory Distress - Cardiovascular Exam Cardiovascular Exam: REGULAR RHYTHM, +S1, +S2. absent: Gallop, Rubs, Murmur - GI/Abdominal Exam GI & Abdominal Exam: Soft, Normal Bowel Sounds. absent: Distended, Firm, Guarding, Rigid, Tenderness, Organomegaly - Extremities Exam Extremities Exam: Tenderness (Left LE). absent: Pedal Edema - Neurological Exam Neurological Exam: Alert, Awake, Oriented x3 - Psychiatric Exam Psychiatric exam: Normal Affect, Normal Mood - Skin Skin Exam: Dry, Intact, Normal Color, Warm Assessment and Plan - Assessment and Plan (Free Text) Assessment: (1) Gangrene of toe of left foot S/P left partial 1st ray resection with removal of non-viable soft tissue and bone Continue Abx per ID (2) PVD (peripheral vascular disease) Continue dual antiplatelet therapy with aspirin and Plavix along with cilostazol. Patient will require close follow up upon discharge for medical management to maintain good circulation of LE. (3) CAD (coronary artery disease) Continue DAPT Continue lipitor, ACEI and metoprolol (4) HLD (hyperlipidemia) Continue lipitor (5) HTN (hypertension) Continue to monitor VS Case discussed with attending, Dr. Strange <Nik Strange - Last Filed: 06/09/17 11:53> Objective - Vital Signs/Intake and Output Vital Signs (last 24 hours): Temp Pulse Resp BP Pulse Ox 98.5 F 87 18 154/80 H 95 06/09/17 07:55 06/09/17 07:55 06/09/17 07:55 06/09/17 07:55 06/09/17 07:55 Intake and Output: 06/09/17 06/09/17 06:59 18:59 Intake Total 1000 Balance 1000 - Medications Medications: Current Medications Acetaminophen (Tylenol 325mg Tab) 650 mg PO Q4 PRN PRN Reason: Pain, Mild (1-3) Alprazolam (Xanax) 0.25 mg PO Q12 PRN PRN Reason: Anxiety Stop: 06/15/17 13:24 Aspirin (Aspirin) 325 mg PO DAILY [facility] Last Admin: 06/07/17 08:50 Dose: 325 mg Atorvastatin Calcium (Lipitor) 20 mg PO DAILY [facility] Last Admin: 06/08/17 10:31 Dose: 20 mg Cilostazol (Pletal) 50 mg PO DAILY [facility] Last Admin: 06/08/17 10:33 Dose: 50 mg Clopidogrel Bisulfate (Plavix) 75 mg PO DAILY [facility] Last Admin: 06/08/17 10:33 Dose: 75 mg Docusate Sodium (Colace) 100 mg PO DAILY [facility] Last Admin: 06/08/17 10:28 Dose: 100 mg Home Med (Difluprednate [Durezol]) 1 drop LEFTEYE DAILY [facility] Last Admin: 06/08/17 11:53 Dose: Not Given Hydromorphone HCl (Dilaudid) 1 mg IVP Q4 PRN PRN Reason: Pain, severe (8-10) Last Admin: 06/09/17 04:58 Dose: 1 mg Hydromorphone HCl (Dilaudid) 0.5 mg IVP Q5M PRN PRN Reason: Pain, moderate (4-7) Stop: 06/09/17 13:28 Vancomycin HCl 1 gm/ Sodium (Chloride) 250 mls @ 166.667 mls/hr IVPB DAILY [facility] Last Admin: 06/08/17 10:32 Dose: 166.667 mls/hr Cefepime HCl 1 gm/ Sodium (Chloride) 100 mls @ 100 mls/hr IVPB Q8 [facility] PRN Reason: Protocol Last Admin: 06/09/17 00:00 Dose: 100 mls/hr Sodium Chloride (Sodium Chloride 0.9%) 1,000 mls @ 1,000 mls/hr IV .Q1H [facility] Stop: 06/10/17 07:57 Lactated Ringer's (Lactated Ringer's) 1,000 mls @ 100 mls/hr IV .Q10H [facility] Insulin Human Lispro (Humalog) 0 units SC ACHS [facility] PRN Reason: Protocol Last Admin: 06/08/17 22:27 Dose: Not Given Lactulose (Enulose) 20 gm PO DAILY PRN PRN Reason: Constipation Last Admin: 06/08/17 10:37 Dose: 20 gm Metformin HCl (Glucophage) 1,000 mg PO BID [facility] Last Admin: 06/08/17 16:21 Dose: 1,000 mg Metoprolol Tartrate (Lopressor) 25 mg PO DAILY [facility] Last Admin: 06/08/17 10:31 Dose: 25 mg Ondansetron HCl (Zofran Inj) 4 mg IVP ONCE PRN PRN Reason: Nausea/Vomiting Stop: 06/09/17 13:28 Oxycodone/Acetaminophen (Percocet 5/325 Mg Tab) 1 tab PO Q4 PRN PRN Reason: Pain, moderate (4-7) Stop: 06/12/17 11:24 Oxycodone/Acetaminophen (Percocet 5/325 Mg Tab) 2 tab PO Q4 PRN PRN Reason: Pain, severe (8-10) Stop: 06/12/17 11:24 Prednisolone Acetate (Pred Forte 1% Opht Susp) 1 drop OS BID [facility] Last Admin: 06/08/17 16:22 Dose: 1 drop Ramipril (Altace) 5 mg PO DAILY [facility] Last Admin: 06/08/17 10:28 Dose: 5 mg Sitagliptin Phosphate (Januvia) 100 mg PO DAILY [facility] Last Admin: 06/08/17 10:31 Dose: 100 mg - Labs Labs: 06/08/17 20:30 06/08/17 20:30 PT 12.8 Seconds (9.8-13.1) 06/03/17 05:00 INR 1.2 (0.9-1.2) 06/03/17 05:00 APTT 33.3 Seconds (25.6-37.1) 06/03/17 05:00 Assessment and Plan (1) PVD (peripheral vascular disease) Status: Acute (2) Cellulitis Status: Acute (3) Gangrene of toe of left foot Status: Acute (4) CAD (coronary artery disease) Status: Acute (5) HLD (hyperlipidemia) Status: Acute (6) HTN (hypertension) Status: Acute Attending/Attestation - Attestation I have personally seen and examined this patient.: Yes I have fully participated in the care of the patient.: Yes I have reviewed all pertinent clinical information, including history, physical exam and plan: Yes
--- NOTE | 2017-06-05 07:35 | CP.PCM.PN ---
Subjective - Date & Time of Evaluation Date of Evaluation: 06/05/17 Time of Evaluation: 07:34 - Subjective Subjective: Podiatry Progress Note - Dr. Looney 62 year old female patient seen and evaluated at bedside POD#1 left foot partial 1st ray resection with removal of all non-viable soft tissue and bone. Patient hemodynamically stable and NAD. No acute events overnight. Admits to continued pain to left foot, well-controlled. Denies N/V/F/D/C/SOB/calf pain. Objective - Vital Signs/Intake and Output Vital Signs (last 24 hours): Temp Pulse Resp BP Pulse Ox 98 F 80 18 135/74 98 06/05/17 05:23 06/05/17 05:23 06/05/17 05:23 06/05/17 05:23 06/05/17 05:23 - Medications Medications: Current Medications Aspirin (Aspirin) 325 mg PO DAILY [facility] Last Admin: 06/04/17 08:45 Dose: Not Given Atorvastatin Calcium (Lipitor) 20 mg PO DAILY [facility] Last Admin: 06/04/17 08:54 Dose: Not Given Cilostazol (Pletal) 50 mg PO DAILY [facility] Last Admin: 06/04/17 08:55 Dose: Not Given Clopidogrel Bisulfate (Plavix) 75 mg PO DAILY [facility] Last Admin: 06/04/17 08:55 Dose: Not Given Docusate Sodium (Colace) 100 mg PO DAILY [facility] Last Admin: 06/04/17 08:45 Dose: Not Given Home Med (Difluprednate [Durezol]) 1 drop LEFTEYE DAILY [facility] Last Admin: 06/04/17 08:52 Dose: 1 drop Hydromorphone HCl (Dilaudid) 1 mg IVP Q6 PRN PRN Reason: Pain, severe (8-10) Last Admin: 06/05/17 06:47 Dose: 1 mg Vancomycin HCl 1 gm/ Sodium (Chloride) 250 mls @ 166.667 mls/hr IVPB DAILY [facility] Last Admin: 06/04/17 08:58 Dose: 166.667 mls/hr Cefepime HCl 1 gm/ Sodium (Chloride) 100 mls @ 100 mls/hr IVPB Q8 [facility] PRN Reason: Protocol Last Admin: 06/05/17 00:03 Dose: 100 mls/hr Lactated Ringer's (Lactated Ringer's) 1,000 mls @ 50 mls/hr IV .Q20H [facility] Last Admin: 06/04/17 18:30 Dose: 50 mls/hr Insulin Human Lispro (Humalog) 0 units SC ACHS [facility] PRN Reason: Protocol Last Admin: 06/05/17 06:34 Dose: 3 units Lactulose (Enulose) 20 gm PO DAILY PRN PRN Reason: Constipation Metformin HCl (Glucophage) 1,000 mg PO BID [facility] Last Admin: 06/04/17 17:00 Dose: Not Given Metoprolol Tartrate (Lopressor) 25 mg PO DAILY [facility] Last Admin: 06/04/17 08:54 Dose: 25 mg Morphine Sulfate (Morphine) 4 mg IVP Q6 PRN PRN Reason: Pain, severe (8-10) Last Admin: 06/04/17 06:18 Dose: 4 mg Ramipril (Altace) 5 mg PO DAILY [facility] Last Admin: 06/04/17 08:57 Dose: Not Given Sitagliptin Phosphate (Januvia) 100 mg PO DAILY [facility] Last Admin: 06/04/17 08:52 Dose: Not Given - Labs Labs: 06/04/17 05:15 06/04/17 05:15 PT 12.8 Seconds (9.8-13.1) 06/03/17 05:00 INR 1.2 (0.9-1.2) 06/03/17 05:00 APTT 33.3 Seconds (25.6-37.1) 06/03/17 05:00 - Constitutional Appears: Well, Non-toxic, No Acute Distress - Extremities Exam Additional comments: VASC: DP and PT pulses weakly palpable 1/4 b/l. CFT <3 seconds to all digits x9. Temperature gradient warm to warm bilateral however left digits 2-5 are cool to touch. Mild non-pitting edema noted to left forefoot. DERM: Left foot surgical wound measuring 2 x 1.5 x 2 cm noted to 1st ray s/p hallux amputation - noted to have granular base with exposed 1st metatarsal; sanguinous drainage noted; absent malodor; periwound erythema extending proximally. Surgical incision noted to medial aspect of 1st ray with sutures intact and no wound dehiscence noted. Left 2nd digit hyperpigmentation. NEURO: Gross sensation diminished bilaterally. ORTHO: Left hallux amputation Pain on palpation left foot amputation site. - Neurological Exam Neurological Exam: Alert, Awake, Oriented x3 - Psychiatric Exam Psychiatric exam: Normal Affect, Normal Mood Assessment and Plan - Assessment and Plan (Free Text) Assessment: 62 year old female POD#1 left foot partial 1st ray resection with removal of all non-viable soft tissue and bone (DOS 06/04/17) Plan: Patient seen and evaluated Discussed with attending, Dr. Looney afebrile currently, WBC decreasing 12.3 (yesterday 12.6) ESR 101, CRP 56.6 L foot XR reviewed: negative L foot MRI report: OM hallucal distal phalanx and distal portion of proximal phalanx L hallux wound culture taken reveals serratia marcescens & enterococcus faecalis Bilateral LE arterial dopplers: -Loss of triphasic waveform involving entire RLE w/stenosis in SFA and tibial vessels -Loss of triphasic waveform involving LLE distal to common femoral a. w/ stenosis in SFA, popliteal a., and tibial vessels Dr. Strange consulted for vascular intervention -Patient underwent repeat angio on 06/02 at [facility] -Per Dr. Strange, pt had angioplasty in proximal segment of L SFA, angioplasty of distal SFA lesion, artherectomy and angioplasty of popliteal a. and mid anterior tibial a. ID consulted - recs appreciated; currently on Vancomycin and Cefepime -Per ID, d/c Zosyn which may have been source of rash on LUE; Cefepime started OR yesterday 06/04/17 left partial 1st ray resection with removal of all non- viable soft tissue and bone -Intra-op WCx taken, f/u report -WoundVAC applied to left foot amputation site, 125mmHg continuous suction -Adaptic DSD applied to incision Pain mgmt per medicine Podiatry will continue to follow patient while in house
[2017-06-05 08:25] LABS: MEAN CELL VOLUME 90.3 fl (81.0-99.0); MEAN CORPUSCULAR HEMOGLOBIN 28.7 pg (27.0-31.0); MEAN CORPUSCULAR HGB CONC 31.7 g/dL (33.0-37.0); RBC 3.49 Mil/uL (3.80-5.20); RED CELL DISTRIBUTION WIDTH 14.4 % (11.5-14.5); WHITE BLOOD COUNT 12.3 K/uL (4.8-10.8)
--- NOTE | 2017-06-05 08:29 | RAD ---
PROCEDURE: Left Foot Radiographs. HISTORY: s/p left foot surgery COMPARISON: Left foot series 05/27/2017. FINDINGS: BONES: PA seen to be status post partial amputation of the 1st metatarsal bone and complete amputation of the 1st digit. Limited postoperative changes seen in local soft tissues. Diffuse osteopenia suggests osteoporosis once again. JOINTS: Degenerative changes seen throughout the left foot diffusely. No acute fracture dislocation appreciable. SOFT TISSUES: Vascular calcifications are infrequently scattered. OTHER FINDINGS: None. IMPRESSION: Status post left great toe amputation and partial amputation of the distal metatarsal bone. Postop change identified within local soft tissues. Degenerative joint changes are diffusely seen throughout the remainder of the foot.
[2017-06-05 08:39] LABS: BLOOD UREA NITROGEN 12 mg/dl (7-17); CALCIUM 9.5 mg/dL (8.4-10.2); GFR AFRICAN-AMERICAN > 60; GFR NON-AFRICAN AMERICAN > 60
[2017-06-05] MEDS: Cilostazol 50 mg Tab UD PO SCH (09:12)
--- NOTE | 2017-06-05 12:43 | CP.PCM.PN ---
Subjective - Date & Time of Evaluation Date of Evaluation: 06/05/17 Time of Evaluation: 12:44 - Subjective Subjective: S/P AMPUTATION OF L GREAT TOE STILL ON IV ANTIBIOTICS STILL IN PAIN Objective - Vital Signs/Intake and Output Vital Signs (last 24 hours): Temp Pulse Resp BP Pulse Ox 99.3 F 86 18 134/73 96 06/05/17 12:12 06/05/17 12:12 06/05/17 12:12 06/05/17 12:12 06/05/17 12:12 - Medications Medications: Current Medications Aspirin (Aspirin) 325 mg PO DAILY [facility] Last Admin: 06/05/17 09:12 Dose: 325 mg Atorvastatin Calcium (Lipitor) 20 mg PO DAILY [facility] Last Admin: 06/05/17 09:13 Dose: 20 mg Cilostazol (Pletal) 50 mg PO DAILY [facility] Last Admin: 06/05/17 09:12 Dose: 50 mg Clopidogrel Bisulfate (Plavix) 75 mg PO DAILY [facility] Last Admin: 06/05/17 09:13 Dose: 75 mg Docusate Sodium (Colace) 100 mg PO DAILY [facility] Last Admin: 06/05/17 09:12 Dose: 100 mg Home Med (Difluprednate [Durezol]) 1 drop LEFTEYE DAILY [facility] Last Admin: 06/05/17 09:16 Dose: 1 drop Hydromorphone HCl (Dilaudid) 1 mg IVP Q6 PRN PRN Reason: Pain, severe (8-10) Last Admin: 06/05/17 06:47 Dose: 1 mg Vancomycin HCl 1 gm/ Sodium (Chloride) 250 mls @ 166.667 mls/hr IVPB DAILY [facility] Last Admin: 06/05/17 09:21 Dose: 166.667 mls/hr Cefepime HCl 1 gm/ Sodium (Chloride) 100 mls @ 100 mls/hr IVPB Q8 [facility] PRN Reason: Protocol Last Admin: 06/05/17 09:14 Dose: 100 mls/hr Lactated Ringer's (Lactated Ringer's) 1,000 mls @ 50 mls/hr IV .Q20H [facility] Last Admin: 06/04/17 18:30 Dose: 50 mls/hr Insulin Human Lispro (Humalog) 0 units SC ACHS [facility] PRN Reason: Protocol Last Admin: 06/05/17 12:16 Dose: 6 units Lactulose (Enulose) 20 gm PO DAILY PRN PRN Reason: Constipation Metformin HCl (Glucophage) 1,000 mg PO BID [facility] Last Admin: 06/05/17 09:14 Dose: 1,000 mg Metoprolol Tartrate (Lopressor) 25 mg PO DAILY [facility] Last Admin: 06/05/17 09:13 Dose: 25 mg Morphine Sulfate (Morphine) 4 mg IVP Q6 PRN PRN Reason: Pain, severe (8-10) Last Admin: 06/05/17 12:05 Dose: 4 mg Ramipril (Altace) 5 mg PO DAILY [facility] Last Admin: 06/05/17 09:15 Dose: 5 mg Sitagliptin Phosphate (Januvia) 100 mg PO DAILY [facility] Last Admin: 06/05/17 09:14 Dose: 100 mg - Labs Labs: 06/05/17 08:10 06/05/17 08:10 PT 12.8 Seconds (9.8-13.1) 06/03/17 05:00 INR 1.2 (0.9-1.2) 06/03/17 05:00 APTT 33.3 Seconds (25.6-37.1) 06/03/17 05:00 - Constitutional Appears: In Acute Distress - Head Exam Head Exam: ATRAUMATIC, NORMAL INSPECTION, NORMOCEPHALIC - Eye Exam Eye Exam: EOMI, Normal appearance, PERRL Pupil Exam: NORMAL ACCOMODATION, PERRL - ENT Exam ENT Exam: Mucous Membranes Moist, Normal Exam - Neck Exam Neck Exam: Full ROM, Normal Inspection. absent: Lymphadenopathy - Respiratory Exam Respiratory Exam: Clear to Ausculation Bilateral, NORMAL BREATHING PATTERN - Cardiovascular Exam Cardiovascular Exam: REGULAR RHYTHM, +S1, +S2. absent: Murmur - GI/Abdominal Exam GI & Abdominal Exam: Soft, Normal Bowel Sounds. absent: Tenderness - Rectal Exam Rectal Exam: NORMAL INSPECTION - Extremities Exam Extremities Exam: Full ROM, Normal Capillary Refill. absent: Joint Swelling, Pedal Edema Additional comments: SURGICAL DRESSING IN PLACE OVER L FOOT - Back Exam Back Exam: NORMAL INSPECTION - Neurological Exam Neurological Exam: Alert, Awake, CN II-XII Intact, Normal Gait, Oriented x3 - Psychiatric Exam Psychiatric exam: Normal Affect, Normal Mood - Skin Skin Exam: Dry, Intact, Normal Color, Warm Assessment and Plan - Assessment and Plan (Free Text) Assessment: GANGRENE OF L FOOT CELLULITIS OF L FOOT WITH POSITIVE BLOOD CULTURES DM HTN PVD Plan: CONTINUE IV ANTIBIOTIC RX FOR TRANSFER TO TRANSITIONAL CARE
--- NOTE | 2017-06-05 12:51 | CARD ---
APPROVED REPORT EXAM: Two-dimensional and M-mode echocardiogram with Doppler and color Doppler. Other Information Quality : GoodRhythm : NSR INDICATION Infection:Subacute bacterial endocarditis 2D DIMENSIONS IVSd1.19 (0.7-1.1cm)LVDd4.12 (3.9-5.9cm) LVOT Diameter2.10 (1.8-2.4cm)PWd1.17 (0.7-1.1cm) IVSs1.10 (0.8-1.2cm)LVDs3.16 (2.5-4.0cm) FS (%) 23.2 %PWs1.07 (0.8-1.2cm) M-Mode DIMENSIONS Left Atrium (MM)4.41 (2.5-4.0cm)IVSd1.09 (0.7-1.1cm) Aortic Root3.35 (2.2-3.7cm)LVDd5.53 (4.0-5.6cm) Aortic Cusp Exc.1.94 (1.5-2.0cm)PWd0.94 (0.7-1.1cm) IVSs1.50 cmFS (%) 48 % LVDs2.85 (2.0-3.8cm)PWs1.85 cm Mitral Valve MV E Pdpzbpsa91.6cm/sMV DECEL [id number] A Nnwgabgs99.8cm/s MV WAA22aoM/A ratio0.8MVA (PHT)4.07cm2 TDI Lateral E' Peak V5.38cm/sMedial E' Peak V8.23cm/sE/Lateral E'13.1 E/Medial E'8.6 Pulmonary Valve PV Peak Xvphvxbo95.4cm/s LEFT VENTRICLE The left ventricle is normal size. There is normal left ventricular wall thickness. The left ventricular function is normal. The left ventricular ejection fraction is within the normal range. The Ejection Fraction is 60-65%. There is normal LV segmental wall motion. The left ventricular diastolic function is normal. No left ventricle thrombus noted on this study. RIGHT VENTRICLE The right ventricle is normal size. There is normal right ventricular wall thickness. The right ventricular systolic function is normal. ATRIA The left atrium size is normal. The right atrium size is normal. The interatrial septum is intact with no evidence for an atrial septal defect. AORTIC VALVE The aortic valve is normal in structure. No aortic regurgitation is present. There is no aortic valvular stenosis. There is no aortic valvular vegetation. MITRAL VALVE The mitral valve is normal in structure. There is no evidence of mitral valve prolapse. There is no mitral valve stenosis. There is no mitral valve regurgitation noted. TRICUSPID VALVE The tricuspid valve is normal in structure. There is no tricuspid valve regurgitation noted. There is no tricuspid valve prolapse or vegetation. There is no tricuspid valve stenosis. PULMONIC VALVE The pulmonary valve is normal in structure. There is no pulmonic valvular regurgitation. There is no pulmonic valvular stenosis. GREAT VESSELS The aortic root is normal in size. The IVC is normal in size and collapses >50% with inspiration. PERICARDIAL EFFUSION The pericardium appears normal. <Conclusion> The left ventricle is normal size. The left ventricular function is normal. The left ventricular ejection fraction is within the normal range. The Ejection Fraction is 60-65%.
[2017-06-05] MEDS ORDERED: Oxycodone/Acetaminophen 5/325 mg Tab PO PRN ×2 (14:57→15:00)
[2017-06-05] MEDS ORDERED: HYDROmorphone 0.5 mg/0.5 ml ISec IVP ONE (15:41)
[2017-06-05] MEDS: Lactated Ringer's 1,000 ML IV SCH (16:06)
[2017-06-06] MEDS: Cefepime 1 GM in Sodium Chloride 0.9% 100 ML IVPB SCH ×4 (00:17→18:35)
[2017-06-06] MEDS: Insulin Lispro (humaLOG) 100 Units/ml Inj SC SCH ×4 (06:41→22:05)
[2017-06-06] MEDS: Cilostazol 50 mg Tab UD PO SCH (10:00)
--- NOTE | 2017-06-06 12:01 | CP.PCM.PN ---
Subjective - Date & Time of Evaluation Date of Evaluation: 06/06/17 Time of Evaluation: 12:04 - Subjective Subjective: C/O SEVERE L FOOT PAIN MINIMAL DRAINAGE L FOOT--SURGICAL SITE WOUND VAC IN PLACE Objective - Vital Signs/Intake and Output Vital Signs (last 24 hours): Temp Pulse Resp BP Pulse Ox 98.4 F 90 18 138/76 96 06/06/17 08:25 06/06/17 10:00 06/06/17 08:25 06/06/17 10:00 06/06/17 08:25 - Medications Medications: Current Medications Aspirin (Aspirin) 325 mg PO DAILY [facility] Last Admin: 06/06/17 10:05 Dose: 325 mg Atorvastatin Calcium (Lipitor) 20 mg PO DAILY [facility] Last Admin: 06/06/17 10:00 Dose: 20 mg Cilostazol (Pletal) 50 mg PO DAILY [facility] Last Admin: 06/06/17 10:00 Dose: 50 mg Clopidogrel Bisulfate (Plavix) 75 mg PO DAILY [facility] Last Admin: 06/06/17 10:00 Dose: 75 mg Docusate Sodium (Colace) 100 mg PO DAILY [facility] Last Admin: 06/06/17 10:00 Dose: 100 mg Home Med (Difluprednate [Durezol]) 1 drop LEFTEYE DAILY [facility] Last Admin: 06/06/17 10:01 Dose: 1 drop Vancomycin HCl 1 gm/ Sodium (Chloride) 250 mls @ 166.667 mls/hr IVPB DAILY [facility] Last Admin: 06/06/17 09:57 Dose: 166.667 mls/hr Cefepime HCl 1 gm/ Sodium (Chloride) 100 mls @ 100 mls/hr IVPB Q8 [facility] PRN Reason: Protocol Last Admin: 06/06/17 09:57 Dose: 100 mls/hr Lactated Ringer's (Lactated Ringer's) 1,000 mls @ 50 mls/hr IV .Q20H [facility] Last Admin: 06/05/17 16:06 Dose: 50 mls/hr Insulin Human Lispro (Humalog) 0 units SC ACHS [facility] PRN Reason: Protocol Last Admin: 06/06/17 06:41 Dose: 4 units Lactulose (Enulose) 20 gm PO DAILY PRN PRN Reason: Constipation Metformin HCl (Glucophage) 1,000 mg PO BID [facility] Last Admin: 06/06/17 10:03 Dose: 1,000 mg Metoprolol Tartrate (Lopressor) 25 mg PO DAILY [facility] Last Admin: 06/06/17 10:00 Dose: 25 mg Morphine Sulfate (Morphine) 4 mg IVP Q6 PRN PRN Reason: Pain, severe (8-10) Last Admin: 06/06/17 00:13 Dose: 4 mg Oxycodone/Acetaminophen (Percocet 5/325 Mg Tab) 1 tab PO Q4 PRN PRN Reason: Pain, moderate (4-7) Stop: 06/08/17 14:58 Ramipril (Altace) 5 mg PO DAILY [facility] Last Admin: 06/06/17 09:59 Dose: 5 mg Sitagliptin Phosphate (Januvia) 100 mg PO DAILY [facility] Last Admin: 06/06/17 10:00 Dose: 100 mg - Labs Labs: 06/05/17 08:10 06/05/17 08:10 PT 12.8 Seconds (9.8-13.1) 06/03/17 05:00 INR 1.2 (0.9-1.2) 06/03/17 05:00 APTT 33.3 Seconds (25.6-37.1) 06/03/17 05:00 - Constitutional Appears: In Acute Distress - Head Exam Head Exam: ATRAUMATIC, NORMAL INSPECTION, NORMOCEPHALIC - Eye Exam Eye Exam: EOMI, Normal appearance, PERRL Pupil Exam: NORMAL ACCOMODATION, PERRL - ENT Exam ENT Exam: Mucous Membranes Moist, Normal Exam - Neck Exam Neck Exam: Full ROM, Normal Inspection. absent: Lymphadenopathy - Respiratory Exam Respiratory Exam: Clear to Ausculation Bilateral, NORMAL BREATHING PATTERN - Cardiovascular Exam Cardiovascular Exam: REGULAR RHYTHM, +S1, +S2. absent: Murmur - GI/Abdominal Exam GI & Abdominal Exam: Soft, Normal Bowel Sounds. absent: Tenderness - Rectal Exam Rectal Exam: NORMAL INSPECTION - Extremities Exam Extremities Exam: Full ROM. absent: Joint Swelling, Pedal Edema Additional comments: S/P L GREAT TOE AMPUTATION - Back Exam Back Exam: NORMAL INSPECTION - Neurological Exam Neurological Exam: Alert, Awake, CN II-XII Intact, Normal Gait, Oriented x3 - Psychiatric Exam Psychiatric exam: Normal Affect, Normal Mood - Skin Skin Exam: Dry, Intact, Normal Color, Warm Assessment and Plan - Assessment and Plan (Free Text) Assessment: GANGRENE OF L FOOT--S/P AMPUTATION OF L GREAT TOE MULTIPLE POSITIVE BLOOD AND WOUND CULTURES DM HTN SEVERE PERIPHERAL VASC DZ Plan: CONTINUE WOUND VAC,IV ANTIBIOTICS AND ANALGESICS FOR PAIN AWAIT INS CO OK FOR TRANSFER TO TCU
[2017-06-06] MEDS ORDERED: HYDROmorphone 1 mg/ml ISec IVP PRN (12:06)
[2017-06-06] MEDS: HYDROmorphone 0.5 mg/0.5 ml ISec IVP PRN ×2 (13:37→18:18)
--- NOTE | 2017-06-06 17:43 | CP.PCM.PN ---
Subjective - Date & Time of Evaluation Date of Evaluation: 06/06/17 Time of Evaluation: 12:00 - Subjective Subjective: 62 year old female patient seen and evaluated at bedside POD#2 left foot partial 1st ray resection with removal of all non-viable soft tissue and bone. Patient is AAO x 3 and NAD resting in bed. Patient denies any acute overnight events. Denies N/V/F/C/CP/SOB/posterior calf pain. Patient denies any further pedal complaints at this time. Wound vac is seen to be working and in appropriate placement. 0 cc of drainage noted in canister. Objective - Vital Signs/Intake and Output Vital Signs (last 24 hours): Temp Pulse Resp BP Pulse Ox 97.6 F 73 16 111/62 96 06/06/17 16:14 06/06/17 16:14 06/06/17 16:14 06/06/17 16:14 06/06/17 16:14 - Medications Medications: Current Medications Aspirin (Aspirin) 325 mg PO DAILY [facility] Last Admin: 06/06/17 10:05 Dose: 325 mg Atorvastatin Calcium (Lipitor) 20 mg PO DAILY [facility] Last Admin: 06/06/17 10:00 Dose: 20 mg Cilostazol (Pletal) 50 mg PO DAILY [facility] Last Admin: 06/06/17 10:00 Dose: 50 mg Clopidogrel Bisulfate (Plavix) 75 mg PO DAILY [facility] Last Admin: 06/06/17 10:00 Dose: 75 mg Docusate Sodium (Colace) 100 mg PO DAILY [facility] Last Admin: 06/06/17 10:00 Dose: 100 mg Home Med (Difluprednate [Durezol]) 1 drop LEFTEYE DAILY [facility] Last Admin: 06/06/17 10:01 Dose: 1 drop Hydromorphone HCl (Dilaudid) 1 mg IVP Q4 PRN PRN Reason: Pain, severe (8-10) Last Admin: 06/06/17 13:37 Dose: 1 mg Vancomycin HCl 1 gm/ Sodium (Chloride) 250 mls @ 166.667 mls/hr IVPB DAILY [facility] Last Admin: 06/06/17 09:57 Dose: 166.667 mls/hr Cefepime HCl 1 gm/ Sodium (Chloride) 100 mls @ 100 mls/hr IVPB Q8 [facility] PRN Reason: Protocol Last Admin: 06/06/17 17:18 Dose: 100 mls/hr Insulin Human Lispro (Humalog) 0 units SC ACHS [facility] PRN Reason: Protocol Last Admin: 06/06/17 17:19 Dose: 4 units Lactulose (Enulose) 20 gm PO DAILY PRN PRN Reason: Constipation Metformin HCl (Glucophage) 1,000 mg PO BID [facility] Last Admin: 06/06/17 17:18 Dose: 1,000 mg Metoprolol Tartrate (Lopressor) 25 mg PO DAILY [facility] Last Admin: 06/06/17 10:00 Dose: 25 mg Oxycodone/Acetaminophen (Percocet 5/325 Mg Tab) 1 tab PO Q4 PRN PRN Reason: Pain, moderate (4-7) Stop: 06/08/17 14:58 Ramipril (Altace) 5 mg PO DAILY [facility] Last Admin: 06/06/17 09:59 Dose: 5 mg Sitagliptin Phosphate (Januvia) 100 mg PO DAILY [facility] Last Admin: 06/06/17 10:00 Dose: 100 mg - Labs Labs: 06/05/17 08:10 06/05/17 08:10 PT 12.8 Seconds (9.8-13.1) 06/03/17 05:00 INR 1.2 (0.9-1.2) 06/03/17 05:00 APTT 33.3 Seconds (25.6-37.1) 06/03/17 05:00 - Constitutional Appears: Well, Non-toxic, No Acute Distress - Extremities Exam Additional comments: VASC: DP and PT pulses weakly palpable 1/4 b/l. CFT <3 seconds to all digits x9. Temperature gradient warm to warm bilateral however left digits 2-5 are cool to touch. Mild non-pitting edema noted to left forefoot. DERM: Wound vac noted to left foot surgical site. Adequate suction noted and proper placement seen. No other abnormal dermatological findings noted at this time. NEURO: Gross sensation diminished bilaterally. ORTHO: Left hallux amputation Pain on palpation left foot amputation site. - Neurological Exam Neurological Exam: Alert, Awake, Oriented x3 - Psychiatric Exam Psychiatric exam: Normal Affect, Normal Mood - Skin Skin Exam: Intact, Normal Color, Warm Assessment and Plan - Assessment and Plan (Free Text) Assessment: 62 year old female POD#2 left foot partial 1st ray resection with removal of all non-viable soft tissue and bone (DOS 06/04/17) Plan: Patient seen and evaluated at bedside Plan discussed with attending, Dr. Looney Afebrile WBC 12.3 yesterday, f/u new CBC Continue IV abx per ID Wound cx prelim: GN rods, GP cocci Foot xray 06/04: S/p left great toe amputation and partial amputation of the distal metatarsal bone. Postop change identified within local soft tissues. Degenerative joint changes are diffusely seen throughout the remainder of the foot Podiatry will change wound vac every three days Podiatry will continue to follow patient while in house
[2017-06-06 18:44] LABS: HEMOGLOBIN 9.6 g/dL (12.0-16.0); MEAN CELL VOLUME 89.3 fl (81.0-99.0); MEAN CORPUSCULAR HEMOGLOBIN 29.1 pg (27.0-31.0); MEAN CORPUSCULAR HGB CONC 32.6 g/dL (33.0-37.0); RBC 3.31 Mil/uL (3.80-5.20); WHITE BLOOD COUNT 11.3 K/uL (4.8-10.8)
[2017-06-07] MEDS: Cefepime 1 GM in Sodium Chloride 0.9% 100 ML IVPB SCH ×3 (00:46→17:01)
[2017-06-07] MEDS: Insulin Lispro (humaLOG) 100 Units/ml Inj SC SCH ×4 (06:49→22:01)
[2017-06-07] MEDS: Cilostazol 50 mg Tab UD PO SCH (08:48)
--- NOTE | 2017-06-07 11:43 | CP.PCM.PN ---
Subjective - Date & Time of Evaluation Date of Evaluation: 06/07/17 Time of Evaluation: 11:34 - Subjective Subjective: 62 year old female patient seen and evaluated at bedside POD#3 left foot partial 1st ray resection with removal of all non-viable soft tissue and bone. Patient is AAO x 3 and NAD resting in bed. Patient denies any acute overnight events. Denies N/V/F/C/CP/SOB/posterior calf pain. Patient denies any further pedal complaints at this time. Wound vac is seen to be working and in appropriate placement. 0 cc of drainage noted in canister. Objective - Vital Signs/Intake and Output Vital Signs (last 24 hours): Temp Pulse Resp BP Pulse Ox 97.3 F L 87 18 130/76 98 06/07/17 08:26 06/07/17 08:48 06/07/17 08:26 06/07/17 08:48 06/07/17 08:26 - Medications Medications: Current Medications Aspirin (Aspirin) 325 mg PO DAILY [facility] Last Admin: 06/07/17 08:50 Dose: 325 mg Atorvastatin Calcium (Lipitor) 20 mg PO DAILY [facility] Last Admin: 06/07/17 08:47 Dose: 20 mg Cilostazol (Pletal) 50 mg PO DAILY [facility] Last Admin: 06/07/17 08:48 Dose: 50 mg Clopidogrel Bisulfate (Plavix) 75 mg PO DAILY [facility] Last Admin: 06/07/17 08:48 Dose: 75 mg Docusate Sodium (Colace) 100 mg PO DAILY [facility] Last Admin: 06/07/17 08:46 Dose: 100 mg Home Med (Difluprednate [Durezol]) 1 drop LEFTEYE DAILY [facility] Last Admin: 06/07/17 08:47 Dose: 1 drop Hydromorphone HCl (Dilaudid) 1 mg IVP Q4 PRN PRN Reason: Pain, severe (8-10) Last Admin: 06/07/17 05:31 Dose: 1 mg Vancomycin HCl 1 gm/ Sodium (Chloride) 250 mls @ 166.667 mls/hr IVPB DAILY [facility] Last Admin: 06/06/17 09:57 Dose: 166.667 mls/hr Cefepime HCl 1 gm/ Sodium (Chloride) 100 mls @ 100 mls/hr IVPB Q8 [facility] PRN Reason: Protocol Last Admin: 06/07/17 08:50 Dose: 100 mls/hr Insulin Human Lispro (Humalog) 0 units SC ACHS [facility] PRN Reason: Protocol Last Admin: 06/07/17 06:49 Dose: 4 units Lactulose (Enulose) 20 gm PO DAILY PRN PRN Reason: Constipation Last Admin: 06/06/17 23:59 Dose: 20 gm Metformin HCl (Glucophage) 1,000 mg PO BID [facility] Last Admin: 06/07/17 08:47 Dose: 1,000 mg Metoprolol Tartrate (Lopressor) 25 mg PO DAILY [facility] Last Admin: 06/07/17 08:48 Dose: 25 mg Oxycodone/Acetaminophen (Percocet 5/325 Mg Tab) 1 tab PO Q4 PRN PRN Reason: Pain, moderate (4-7) Stop: 06/08/17 14:58 Ramipril (Altace) 5 mg PO DAILY [facility] Last Admin: 06/07/17 08:46 Dose: 5 mg Sitagliptin Phosphate (Januvia) 100 mg PO DAILY [facility] Last Admin: 06/07/17 08:47 Dose: 100 mg - Labs Labs: 06/06/17 18:20 06/05/17 08:10 PT 12.8 Seconds (9.8-13.1) 06/03/17 05:00 INR 1.2 (0.9-1.2) 06/03/17 05:00 APTT 33.3 Seconds (25.6-37.1) 06/03/17 05:00 - Constitutional Appears: Well, Non-toxic, No Acute Distress - Extremities Exam Additional comments: VASC: DP and PT pulses weakly palpable 1/4 b/l. CFT > 3 seconds to second and third digit of left foot and < 3 seconds to all remaining digits. Temperature gradient warm to warm bilateral however left digits 2-5 are cool to touch. Mild non-pitting edema noted to left forefoot. DERM: Wound vac noted to left foot surgical site. Adequate suction noted and proper placement seen. No other abnormal dermatological findings noted at this time. Increased ischemic changes noted to remaining left foot digits with increased dusky color apparent, especially to second digit. No open lesions, wounds, maceration, xerosis or abnormal growths noted at this time. NEURO: Gross sensation diminished bilaterally. ORTHO: Left hallux amputation. Pain on palpation left foot amputation site. - Neurological Exam Neurological Exam: Alert, Awake, Oriented x3 - Psychiatric Exam Psychiatric exam: Normal Affect, Normal Mood Assessment and Plan - Assessment and Plan (Free Text) Assessment: 62 year old female POD#2 left foot partial 1st ray resection with removal of all non-viable soft tissue and bone (DOS 06/04/17) Plan: Patient seen and evaluated at bedside Plan discussed with attending, Dr. Looney- Due to ischemic changes seen at patient's remaining forefoot patient will be brought back to OR next week for TMA. Time and date TBD. Afebrile WBC 11.3 from 12.3 yesterday Continue IV abx per ID Wound cx prelim: GN rods, GP cocci Foot xray 06/04: S/p left great toe amputation and partial amputation of the distal metatarsal bone. Postop change identified within local soft tissues. Degenerative joint changes are diffusely seen throughout the remainder of the foot Podiatry will change wound vac every three days Podiatry will continue to follow patient while in house
--- NOTE | 2017-06-07 12:10 | CP.PCM.PN ---
Subjective - Date & Time of Evaluation Date of Evaluation: 06/07/17 Time of Evaluation: 12:11 - Subjective Subjective: l foot pain persists tearful because podiatry is considering transmet amputation Objective - Vital Signs/Intake and Output Vital Signs (last 24 hours): Temp Pulse Resp BP Pulse Ox 97.3 F L 87 18 130/76 98 06/07/17 08:26 06/07/17 08:48 06/07/17 08:26 06/07/17 08:48 06/07/17 08:26 - Medications Medications: Current Medications Aspirin (Aspirin) 325 mg PO DAILY [facility] Last Admin: 06/07/17 08:50 Dose: 325 mg Atorvastatin Calcium (Lipitor) 20 mg PO DAILY [facility] Last Admin: 06/07/17 08:47 Dose: 20 mg Cilostazol (Pletal) 50 mg PO DAILY [facility] Last Admin: 06/07/17 08:48 Dose: 50 mg Clopidogrel Bisulfate (Plavix) 75 mg PO DAILY [facility] Last Admin: 06/07/17 08:48 Dose: 75 mg Docusate Sodium (Colace) 100 mg PO DAILY [facility] Last Admin: 06/07/17 08:46 Dose: 100 mg Home Med (Difluprednate [Durezol]) 1 drop LEFTEYE DAILY [facility] Last Admin: 06/07/17 08:47 Dose: 1 drop Hydromorphone HCl (Dilaudid) 1 mg IVP Q4 PRN PRN Reason: Pain, severe (8-10) Last Admin: 06/07/17 05:31 Dose: 1 mg Vancomycin HCl 1 gm/ Sodium (Chloride) 250 mls @ 166.667 mls/hr IVPB DAILY [facility] Last Admin: 06/07/17 10:10 Dose: 166.667 mls/hr Cefepime HCl 1 gm/ Sodium (Chloride) 100 mls @ 100 mls/hr IVPB Q8 [facility] PRN Reason: Protocol Last Admin: 06/07/17 08:50 Dose: 100 mls/hr Insulin Human Lispro (Humalog) 0 units SC ACHS [facility] PRN Reason: Protocol Last Admin: 06/07/17 06:49 Dose: 4 units Lactulose (Enulose) 20 gm PO DAILY PRN PRN Reason: Constipation Last Admin: 06/06/17 23:59 Dose: 20 gm Metformin HCl (Glucophage) 1,000 mg PO BID [facility] Last Admin: 06/07/17 08:47 Dose: 1,000 mg Metoprolol Tartrate (Lopressor) 25 mg PO DAILY [facility] Last Admin: 06/07/17 08:48 Dose: 25 mg Oxycodone/Acetaminophen (Percocet 5/325 Mg Tab) 1 tab PO Q4 PRN PRN Reason: Pain, moderate (4-7) Stop: 06/08/17 14:58 Ramipril (Altace) 5 mg PO DAILY [facility] Last Admin: 06/07/17 08:46 Dose: 5 mg Sitagliptin Phosphate (Januvia) 100 mg PO DAILY [facility] Last Admin: 06/07/17 08:47 Dose: 100 mg - Labs Labs: 06/06/17 18:20 06/05/17 08:10 PT 12.8 Seconds (9.8-13.1) 06/03/17 05:00 INR 1.2 (0.9-1.2) 06/03/17 05:00 APTT 33.3 Seconds (25.6-37.1) 06/03/17 05:00 - Constitutional Appears: No Acute Distress - Head Exam Head Exam: ATRAUMATIC, NORMAL INSPECTION, NORMOCEPHALIC - Eye Exam Eye Exam: EOMI, Normal appearance, PERRL Pupil Exam: NORMAL ACCOMODATION, PERRL - ENT Exam ENT Exam: Mucous Membranes Moist, Normal Exam - Neck Exam Neck Exam: Full ROM, Normal Inspection. absent: Lymphadenopathy - Respiratory Exam Respiratory Exam: Clear to Ausculation Bilateral, NORMAL BREATHING PATTERN - Cardiovascular Exam Cardiovascular Exam: REGULAR RHYTHM, +S1, +S2. absent: Murmur - GI/Abdominal Exam GI & Abdominal Exam: Soft, Normal Bowel Sounds. absent: Tenderness - Rectal Exam Rectal Exam: NORMAL INSPECTION - Extremities Exam Extremities Exam: Full ROM, Tenderness. absent: Joint Swelling, Pedal Edema Additional comments: discol;oration of toes l foot - Back Exam Back Exam: NORMAL INSPECTION - Neurological Exam Neurological Exam: Alert, Awake, CN II-XII Intact, Oriented x3 - Psychiatric Exam Psychiatric exam: Normal Affect, Normal Mood - Skin Skin Exam: Dry, Intact, Normal Color, Warm Assessment and Plan - Assessment and Plan (Free Text) Assessment: gangrene l foot dm pvd htn +blood cultures Plan: continue present rx podiatry care
[2017-06-08] MEDS: Cefepime 1 GM in Sodium Chloride 0.9% 100 ML IVPB SCH ×3 (00:57→16:26)
[2017-06-08] MEDS: Insulin Lispro (humaLOG) 100 Units/ml Inj SC SCH ×4 (07:30→22:27)
--- NOTE | 2017-06-08 09:43 | CP.PCM.PN ---
Subjective - Date & Time of Evaluation Date of Evaluation: 06/08/17 Time of Evaluation: 09:44 - Subjective Subjective: C/O PAIN IN L FOOT CONTINUES TO ASK FOR PAIN MEDS AROUND THE CLOCK Objective - Vital Signs/Intake and Output Vital Signs (last 24 hours): Temp Pulse Resp BP Pulse Ox 98.4 F 86 18 144/77 98 06/08/17 08:25 06/08/17 08:25 06/08/17 08:25 06/08/17 08:25 06/08/17 08:25 - Medications Medications: Current Medications Aspirin (Aspirin) 325 mg PO DAILY [facility] Last Admin: 06/07/17 08:50 Dose: 325 mg Atorvastatin Calcium (Lipitor) 20 mg PO DAILY [facility] Last Admin: 06/07/17 08:47 Dose: 20 mg Cilostazol (Pletal) 50 mg PO DAILY [facility] Last Admin: 06/07/17 08:48 Dose: 50 mg Clopidogrel Bisulfate (Plavix) 75 mg PO DAILY [facility] Last Admin: 06/07/17 08:48 Dose: 75 mg Docusate Sodium (Colace) 100 mg PO DAILY [facility] Last Admin: 06/07/17 08:46 Dose: 100 mg Home Med (Difluprednate [Durezol]) 1 drop LEFTEYE DAILY [facility] Last Admin: 06/07/17 08:47 Dose: 1 drop Hydromorphone HCl (Dilaudid) 1 mg IVP Q4 PRN PRN Reason: Pain, severe (8-10) Last Admin: 06/08/17 07:42 Dose: 1 mg Vancomycin HCl 1 gm/ Sodium (Chloride) 250 mls @ 166.667 mls/hr IVPB DAILY [facility] Last Admin: 06/07/17 10:10 Dose: 166.667 mls/hr Cefepime HCl 1 gm/ Sodium (Chloride) 100 mls @ 100 mls/hr IVPB Q8 [facility] PRN Reason: Protocol Last Admin: 06/08/17 00:57 Dose: 100 mls/hr Insulin Human Lispro (Humalog) 0 units SC ACHS [facility] PRN Reason: Protocol Last Admin: 06/07/17 22:01 Dose: Not Given Lactulose (Enulose) 20 gm PO DAILY PRN PRN Reason: Constipation Last Admin: 06/06/17 23:59 Dose: 20 gm Metformin HCl (Glucophage) 1,000 mg PO BID [facility] Last Admin: 06/07/17 17:01 Dose: 1,000 mg Metoprolol Tartrate (Lopressor) 25 mg PO DAILY [facility] Last Admin: 06/07/17 08:48 Dose: 25 mg Oxycodone/Acetaminophen (Percocet 5/325 Mg Tab) 1 tab PO Q4 PRN PRN Reason: Pain, moderate (4-7) Stop: 06/08/17 14:58 Ramipril (Altace) 5 mg PO DAILY [facility] Last Admin: 06/07/17 08:46 Dose: 5 mg Sitagliptin Phosphate (Januvia) 100 mg PO DAILY [facility] Last Admin: 06/07/17 08:47 Dose: 100 mg - Labs Labs: 06/06/17 18:20 06/05/17 08:10 PT 12.8 Seconds (9.8-13.1) 06/03/17 05:00 INR 1.2 (0.9-1.2) 06/03/17 05:00 APTT 33.3 Seconds (25.6-37.1) 06/03/17 05:00 - Constitutional Appears: In Acute Distress - Head Exam Head Exam: ATRAUMATIC, NORMAL INSPECTION, NORMOCEPHALIC - Eye Exam Eye Exam: EOMI, Normal appearance, PERRL Pupil Exam: NORMAL ACCOMODATION, PERRL - ENT Exam ENT Exam: Mucous Membranes Moist, Normal Exam - Neck Exam Neck Exam: Full ROM, Normal Inspection. absent: Lymphadenopathy - Respiratory Exam Respiratory Exam: Clear to Ausculation Bilateral, NORMAL BREATHING PATTERN - Cardiovascular Exam Cardiovascular Exam: REGULAR RHYTHM, +S1, +S2. absent: Murmur - GI/Abdominal Exam GI & Abdominal Exam: Soft, Normal Bowel Sounds. absent: Tenderness - Rectal Exam Rectal Exam: NORMAL INSPECTION - Extremities Exam Extremities Exam: Full ROM, Tenderness. absent: Joint Swelling, Pedal Edema Additional comments: GANGRENE OF TOES--L FOOT - Back Exam Back Exam: NORMAL INSPECTION - Neurological Exam Neurological Exam: Alert, Awake, CN II-XII Intact, Normal Gait, Oriented x3 - Psychiatric Exam Psychiatric exam: Normal Affect, Normal Mood - Skin Skin Exam: Dry, Intact, Normal Color, Warm Assessment and Plan - Assessment and Plan (Free Text) Assessment: GANGRENE L FOOT WOUND INFECTION DM--WITH HYPERGLYCEMIA HTN PVD Plan: CONTINUE ANTIBIOTIC RX FOR TRANSMET AMPUTATION IN AM
[2017-06-08] MEDS: Cilostazol 50 mg Tab UD PO SCH (10:33)
--- NOTE | 2017-06-08 14:42 | CP.PCM.PN ---
Subjective - Date & Time of Evaluation Date of Evaluation: 06/08/17 Time of Evaluation: 14:40 - Subjective Subjective: 62 year old female patient seen and evaluated at bedside POD#3 left foot partial 1st ray resection with removal of all non-viable soft tissue and bone. Patient is AAO x 3 resting in bed. Multipodus boots are noted to be in place. Patient is crying because she has to have a TMA performed on her foot. Wound vac is in place and working properly wth 0 cc of fluid in the canister. Patient states that she has pain at the amputation site. Patient denies any acute overnight events. Denies N/V/F/C/CP/SOB/posterior calf pain. Denies any further pedal complaints at this time. Objective - Vital Signs/Intake and Output Vital Signs (last 24 hours): Temp Pulse Resp BP Pulse Ox 98.8 F 83 18 138/63 97 06/08/17 12:13 06/08/17 12:13 06/08/17 12:13 06/08/17 12:13 06/08/17 12:13 - Medications Medications: Current Medications Alprazolam (Xanax) 0.25 mg PO Q12 PRN PRN Reason: Anxiety Stop: 06/15/17 13:24 Aspirin (Aspirin) 325 mg PO DAILY [facility] Last Admin: 06/07/17 08:50 Dose: 325 mg Atorvastatin Calcium (Lipitor) 20 mg PO DAILY [facility] Last Admin: 06/08/17 10:31 Dose: 20 mg Cilostazol (Pletal) 50 mg PO DAILY [facility] Last Admin: 06/08/17 10:33 Dose: 50 mg Clopidogrel Bisulfate (Plavix) 75 mg PO DAILY [facility] Last Admin: 06/08/17 10:33 Dose: 75 mg Docusate Sodium (Colace) 100 mg PO DAILY [facility] Last Admin: 06/08/17 10:28 Dose: 100 mg Home Med (Difluprednate [Durezol]) 1 drop LEFTEYE DAILY [facility] Last Admin: 06/08/17 11:53 Dose: Not Given Hydromorphone HCl (Dilaudid) 1 mg IVP Q4 PRN PRN Reason: Pain, severe (8-10) Last Admin: 06/08/17 11:58 Dose: 1 mg Vancomycin HCl 1 gm/ Sodium (Chloride) 250 mls @ 166.667 mls/hr IVPB DAILY [facility] Last Admin: 06/08/17 10:32 Dose: 166.667 mls/hr Cefepime HCl 1 gm/ Sodium (Chloride) 100 mls @ 100 mls/hr IVPB Q8 [facility] PRN Reason: Protocol Last Admin: 06/08/17 10:32 Dose: 100 mls/hr Insulin Human Lispro (Humalog) 0 units SC ACHS [facility] PRN Reason: Protocol Last Admin: 06/07/17 22:01 Dose: Not Given Lactulose (Enulose) 20 gm PO DAILY PRN PRN Reason: Constipation Last Admin: 06/08/17 10:37 Dose: 20 gm Metformin HCl (Glucophage) 1,000 mg PO BID [facility] Last Admin: 06/08/17 10:30 Dose: 1,000 mg Metoprolol Tartrate (Lopressor) 25 mg PO DAILY [facility] Last Admin: 06/08/17 10:31 Dose: 25 mg Oxycodone/Acetaminophen (Percocet 5/325 Mg Tab) 1 tab PO Q4 PRN PRN Reason: Pain, moderate (4-7) Stop: 06/08/17 14:58 Prednisolone Acetate (Pred Forte 1% Opht Susp) 1 drop OS BID [facility] Ramipril (Altace) 5 mg PO DAILY [facility] Last Admin: 06/08/17 10:28 Dose: 5 mg Sitagliptin Phosphate (Januvia) 100 mg PO DAILY [facility] Last Admin: 06/08/17 10:31 Dose: 100 mg - Labs Labs: 06/06/17 18:20 06/05/17 08:10 PT 12.8 Seconds (9.8-13.1) 06/03/17 05:00 INR 1.2 (0.9-1.2) 06/03/17 05:00 APTT 33.3 Seconds (25.6-37.1) 06/03/17 05:00 - Constitutional Appears: Well, Non-toxic, In Acute Distress - Extremities Exam Additional comments: VASC: DP and PT pulses weakly palpable 1/4 b/l. CFT > 3 seconds to second and third digit of left foot and < 3 seconds to all remaining digits. Temperature gradient warm to warm bilateral however left digits 2-5 are cool to touch. Mild non-pitting edema noted to left forefoot. DERM: Wound vac removed from left foot revealing an underlying nearly 100% necrotic wound. Sutures are noted to be intact with no signs of dehiscence. Necrotic changes extend to base of second and third digit and proximally along the dorsal medial side of the foot to the level of the midfoot. Minimal periwound erythema is appreciated. No malodor or purulent drainage appreciated. On right foot no open lesions, wounds, maceration, xerosis, abnormal pigmentation or abnormal growths noted. NEURO: Gross sensation diminished bilaterally. ORTHO: Left hallux amputation. Pain on palpation left foot amputation site. - Neurological Exam Neurological Exam: Alert, Awake, Oriented x3 - Psychiatric Exam Psychiatric exam: Normal Affect, Normal Mood Assessment and Plan - Assessment and Plan (Free Text) Assessment: 62 year old female POD#3 left foot partial 1st ray resection with removal of all non-viable soft tissue and bone (DOS 06/04/17). Patient tentatively scheduled for TMA tomorrow with Dr. Looney Plan: Patient seen and evaluated at bedside Plan discussed with attending, Dr. Looney- Due to ischemic changes seen at patient's remaining forefoot patient will be brought back to OR for TMA. Sx tentatively scheduled for tomorrow NPO past midnight, all anticoagulation medication held Medical clearance appreciated Afebrile Wound cx final: Serratia Macescens, Enterococcus Faecalis Continue IV abx per ID Foot xray 06/04: S/p left great toe amputation and partial amputation of the distal metatarsal bone. Postop change identified within local soft tissues. Degenerative joint changes are diffusely seen throughout the remainder of the foot Continue multipodus boots Podiatry will continue to follow patient while in house
[2017-06-08] MEDS: PrednisoLONE 1% OPTH SUSP OS SCH (16:22)
[2017-06-08 21:35] LABS: HEMOGLOBIN 9.3 g/dL (12.0-16.0); MEAN CELL VOLUME 88.3 fl (81.0-99.0); MEAN CORPUSCULAR HEMOGLOBIN 29.2 pg (27.0-31.0); MEAN CORPUSCULAR HGB CONC 33.1 g/dL (33.0-37.0); RBC 3.18 Mil/uL (3.80-5.20); RED CELL DISTRIBUTION WIDTH 14.6 % (11.5-14.5); WHITE BLOOD COUNT 11.7 K/uL (4.8-10.8)
[2017-06-08 21:41] LABS: BLOOD UREA NITROGEN 11 mg/dl (7-17); GFR AFRICAN-AMERICAN > 60; GFR NON-AFRICAN AMERICAN > 60
--- NOTE | 2017-06-09 07:55 | CP.PCM.PN ---
Subjective - Date & Time of Evaluation Date of Evaluation: 06/09/17 Time of Evaluation: 07:35 - Subjective Subjective: 62 year old female patient seen and evaluated at bedside 5 days s/p left foot partial 1st ray resection. Patient is AAO x 3 and resting at time of visit. Multipodus boots are noted to be in place to bilateral LE. Patient NPO status confirmed after midnight. Pt is aware she is to go to OR at 8:30am for left foot transmetatarsal amputation. Denies any acute events overnight. Denies F/C/N /V/CP/SOB. Objective - Vital Signs/Intake and Output Vital Signs (last 24 hours): Temp Pulse Resp BP Pulse Ox 98.5 F 88 18 148/74 94 L 06/09/17 05:31 06/09/17 05:31 06/09/17 05:31 06/09/17 05:31 06/09/17 05:31 - Medications Medications: Current Medications Alprazolam (Xanax) 0.25 mg PO Q12 PRN PRN Reason: Anxiety Stop: 06/15/17 13:24 Aspirin (Aspirin) 325 mg PO DAILY [facility] Last Admin: 06/07/17 08:50 Dose: 325 mg Atorvastatin Calcium (Lipitor) 20 mg PO DAILY [facility] Last Admin: 06/08/17 10:31 Dose: 20 mg Cilostazol (Pletal) 50 mg PO DAILY [facility] Last Admin: 06/08/17 10:33 Dose: 50 mg Clopidogrel Bisulfate (Plavix) 75 mg PO DAILY [facility] Last Admin: 06/08/17 10:33 Dose: 75 mg Docusate Sodium (Colace) 100 mg PO DAILY [facility] Last Admin: 06/08/17 10:28 Dose: 100 mg Home Med (Difluprednate [Durezol]) 1 drop LEFTEYE DAILY [facility] Last Admin: 06/08/17 11:53 Dose: Not Given Hydromorphone HCl (Dilaudid) 1 mg IVP Q4 PRN PRN Reason: Pain, severe (8-10) Last Admin: 06/09/17 04:58 Dose: 1 mg Vancomycin HCl 1 gm/ Sodium (Chloride) 250 mls @ 166.667 mls/hr IVPB DAILY [facility] Last Admin: 06/08/17 10:32 Dose: 166.667 mls/hr Cefepime HCl 1 gm/ Sodium (Chloride) 100 mls @ 100 mls/hr IVPB Q8 [facility] PRN Reason: Protocol Last Admin: 06/09/17 00:00 Dose: 100 mls/hr Insulin Human Lispro (Humalog) 0 units SC ACHS [facility] PRN Reason: Protocol Last Admin: 06/08/17 22:27 Dose: Not Given Lactulose (Enulose) 20 gm PO DAILY PRN PRN Reason: Constipation Last Admin: 06/08/17 10:37 Dose: 20 gm Metformin HCl (Glucophage) 1,000 mg PO BID [facility] Last Admin: 06/08/17 16:21 Dose: 1,000 mg Metoprolol Tartrate (Lopressor) 25 mg PO DAILY [facility] Last Admin: 06/08/17 10:31 Dose: 25 mg Prednisolone Acetate (Pred Forte 1% Opht Susp) 1 drop OS BID [facility] Last Admin: 06/08/17 16:22 Dose: 1 drop Ramipril (Altace) 5 mg PO DAILY [facility] Last Admin: 06/08/17 10:28 Dose: 5 mg Sitagliptin Phosphate (Januvia) 100 mg PO DAILY [facility] Last Admin: 06/08/17 10:31 Dose: 100 mg - Labs Labs: 06/08/17 20:30 06/08/17 20:30 PT 12.8 Seconds (9.8-13.1) 06/03/17 05:00 INR 1.2 (0.9-1.2) 06/03/17 05:00 APTT 33.3 Seconds (25.6-37.1) 06/03/17 05:00 - Constitutional Appears: Well, Non-toxic, No Acute Distress - Extremities Exam Additional comments: multipodus boots on B/L lower extremities dressing to left foot C/D/I with sanguinous strikethrough noted to dressing at previous surgical site - Neurological Exam Neurological Exam: Alert, Awake, Oriented x3 - Psychiatric Exam Psychiatric exam: Normal Affect, Normal Mood Assessment and Plan - Assessment and Plan (Free Text) Assessment: 62 year old female 5 days left foot partial 1st ray resection (DOS 06/04/17) with left foot non-healing amputation site with ischemic changes. Patient to go to OR today for transmetatarsal amputation of left foot Plan: Pt was seen and examined at bedside Pt NPO status was confirmed All pre-op testing and clearance in chart Pt has exhausted all conservative treatment at this time and is opting for surgical intervention Pt was explained procedure and post-operative course All pt's questions were answered to satisfaction No guarantees were made Pt understands all risks, benefits and complications of procedure Podiatry will continue to follow patient on floors
[2017-06-09] MEDS ORDERED: Lidocaine 1% Inj (20ml) IJ ONE (07:56)
[2017-06-09] MEDS ORDERED: Bupivacaine 0.5% Inj(30mL) IJ ONE (07:56)
[2017-06-09] MEDS ORDERED: ceFAZolin 2 GM in Sodium Chloride 0.9% 100 ML IVPB ONE (07:58)
[2017-06-09] MEDS ORDERED: Sodium Chloride 0.9% 1,000 ML IV SCH (08:00)
[2017-06-09] MEDS ORDERED: Etomidate 20 mg/10ml Inj IV ONE (08:10)
[2017-06-09] MEDS ORDERED: Propofol 10 mg/ml Inj (20 ML) ONE (08:10)
[2017-06-09] MEDS ORDERED: Phenylephrine 10 mg/ml Inj ONE (08:15)
[2017-06-09] MEDS ORDERED: Ropivacaine 0.5% 30ML IV ONE (08:16)
[2017-06-09] MEDS: PrednisoLONE 1% OPTH SUSP OS SCH ×2 (09:00→16:43)
[2017-06-09] MEDS: Cefepime 1 GM in Sodium Chloride 0.9% 100 ML IVPB SCH ×3 (09:00→16:40)
--- NOTE | 2017-06-09 09:10 | CP.PCM.PN ---
Subjective - Date & Time of Evaluation Date of Evaluation: 06/09/17 Time of Evaluation: 09:10 - Subjective Subjective: SCHEDULED FOR L TRANSMET AMPUTAION[L FOOT] TODAY Objective - Vital Signs/Intake and Output Vital Signs (last 24 hours): Temp Pulse Resp BP Pulse Ox 98.5 F 87 18 154/80 H 95 06/09/17 07:55 06/09/17 07:55 06/09/17 07:55 06/09/17 07:55 06/09/17 07:55 - Medications Medications: Current Medications Alprazolam (Xanax) 0.25 mg PO Q12 PRN PRN Reason: Anxiety Stop: 06/15/17 13:24 Aspirin (Aspirin) 325 mg PO DAILY [facility] Last Admin: 06/07/17 08:50 Dose: 325 mg Atorvastatin Calcium (Lipitor) 20 mg PO DAILY [facility] Last Admin: 06/08/17 10:31 Dose: 20 mg Cilostazol (Pletal) 50 mg PO DAILY [facility] Last Admin: 06/08/17 10:33 Dose: 50 mg Clopidogrel Bisulfate (Plavix) 75 mg PO DAILY [facility] Last Admin: 06/08/17 10:33 Dose: 75 mg Docusate Sodium (Colace) 100 mg PO DAILY [facility] Last Admin: 06/08/17 10:28 Dose: 100 mg Home Med (Difluprednate [Durezol]) 1 drop LEFTEYE DAILY [facility] Last Admin: 06/08/17 11:53 Dose: Not Given Hydromorphone HCl (Dilaudid) 1 mg IVP Q4 PRN PRN Reason: Pain, severe (8-10) Last Admin: 06/09/17 04:58 Dose: 1 mg Vancomycin HCl 1 gm/ Sodium (Chloride) 250 mls @ 166.667 mls/hr IVPB DAILY [facility] Last Admin: 06/08/17 10:32 Dose: 166.667 mls/hr Cefepime HCl 1 gm/ Sodium (Chloride) 100 mls @ 100 mls/hr IVPB Q8 [facility] PRN Reason: Protocol Last Admin: 06/09/17 00:00 Dose: 100 mls/hr Sodium Chloride (Sodium Chloride 0.9%) 1,000 mls @ 1,000 mls/hr IV .Q1H [facility] Stop: 06/10/17 07:57 Insulin Human Lispro (Humalog) 0 units SC ACHS [facility] PRN Reason: Protocol Last Admin: 06/08/17 22:27 Dose: Not Given Lactulose (Enulose) 20 gm PO DAILY PRN PRN Reason: Constipation Last Admin: 06/08/17 10:37 Dose: 20 gm Metformin HCl (Glucophage) 1,000 mg PO BID [facility] Last Admin: 06/08/17 16:21 Dose: 1,000 mg Metoprolol Tartrate (Lopressor) 25 mg PO DAILY [facility] Last Admin: 06/08/17 10:31 Dose: 25 mg Prednisolone Acetate (Pred Forte 1% Opht Susp) 1 drop OS BID [facility] Last Admin: 06/08/17 16:22 Dose: 1 drop Ramipril (Altace) 5 mg PO DAILY [facility] Last Admin: 06/08/17 10:28 Dose: 5 mg Sitagliptin Phosphate (Januvia) 100 mg PO DAILY [facility] Last Admin: 06/08/17 10:31 Dose: 100 mg - Labs Labs: 06/08/17 20:30 06/08/17 20:30 PT 12.8 Seconds (9.8-13.1) 06/03/17 05:00 INR 1.2 (0.9-1.2) 06/03/17 05:00 APTT 33.3 Seconds (25.6-37.1) 06/03/17 05:00 - Constitutional Appears: In Acute Distress - Head Exam Head Exam: ATRAUMATIC, NORMAL INSPECTION, NORMOCEPHALIC - Eye Exam Eye Exam: EOMI, Normal appearance, PERRL Pupil Exam: NORMAL ACCOMODATION, PERRL - ENT Exam ENT Exam: Mucous Membranes Moist, Normal Exam - Neck Exam Neck Exam: Full ROM, Normal Inspection. absent: Lymphadenopathy - Respiratory Exam Respiratory Exam: Clear to Ausculation Bilateral, NORMAL BREATHING PATTERN - Cardiovascular Exam Cardiovascular Exam: REGULAR RHYTHM, +S1, +S2. absent: Murmur - GI/Abdominal Exam GI & Abdominal Exam: Soft, Normal Bowel Sounds. absent: Tenderness - Rectal Exam Rectal Exam: NORMAL INSPECTION - Extremities Exam Extremities Exam: Full ROM, Normal Capillary Refill, Normal Inspection, Tenderness. absent: Joint Swelling, Pedal Edema Additional comments: GANGRENE OF TOES L FOOT - Back Exam Back Exam: NORMAL INSPECTION - Neurological Exam Neurological Exam: Alert, Awake, CN II-XII Intact, Normal Gait, Oriented x3 - Psychiatric Exam Psychiatric exam: Normal Affect, Normal Mood - Skin Skin Exam: Dry, Intact, Normal Color, Warm Assessment and Plan - Assessment and Plan (Free Text) Assessment: GANGRENE L FOOT PND DM HTN WOUND INFECTION Plan: FOR SURGERY TODAY LOCAL [employer] FOR D/C PLANNING
[2017-06-09] MEDS ORDERED: Lactated Ringer's 1,000 ML IV ONE ×2 (09:23→10:45)
[2017-06-09] MEDS ORDERED: Midazolam 2 MG/2 ML VIAL ONE (09:25)
[2017-06-09] MEDS ORDERED: Vancomycin 1 g Inj IVPB ONE (09:25)
[2017-06-09] MEDS ORDERED: Cefepime (Maxipime) 1 g Inj IVPB ONE (09:30)
[2017-06-09] MEDS ORDERED: Metoprolol 1 mg/ml Inj IVP ONE (09:56)
[2017-06-09] MEDS ORDERED: Bupivacaine HCl 0.25% PF (30 ml) Inj ONE (10:34)
[2017-06-09] MEDS ORDERED: Oxycodone/Acetaminophen 5/325 mg Tab PO PRN (11:23)
[2017-06-09] MEDS ORDERED: HYDROmorphone 0.5 mg/0.5 ml ISec IVP PRN (11:27)
--- NOTE | 2017-06-09 11:28 | PCM.SURG1 ---
Surgeon's Initial Post Op Note - Surgeon's Notes Surgeon: Dr. Raven Looney Senior Caregiver: Dr. Lesly Hubbard PGY-1 Type of Anesthesia: General LMA, Block Regional Anesthesia Administered By: Dr. Mcclellan Pre-Operative Diagnosis: left foot non-healing wound with ischemic changes Operative Findings: see operative report. M: 2-0 prolene Post-Operative Diagnosis: same Operation Performed: left foot transmetatarsal amputation Specimen/Specimens Removed: left foot digits 2-5 soft tissue and bone Estimated Blood Loss: EBL {In ML}: 150 Blood Products Given: N/A Drains Used: No Drains Post-Op Condition: Good Date of Surgery/Procedure: 06/09/17 Time of Surgery/Procedure: 09:35
[2017-06-09] MEDS ORDERED: Lactated Ringer's 1,000 ML IV SCH (11:30)
--- NOTE | 2017-06-09 11:31 | PCM.ANESB2 ---
Popliteal Nerve Block - Popliteal Nerve Block Date of Procedure: 06/09/17 Anesthesiologist: Vy Pre-Procedure Diagnosis: Left foot gangrene Procedure Performed: Popliteal Nerve Block Left - Procedure Popliteal Nerve Block: This procedure was explained to the patient that it is for post-operative pain management. Consent was obtained after a thorough discussion with the patient regarding the benefits and possible complications of local anesthetic block of the sciatic nerve at the popliteal level. The patient was brought to the operating room and standard monitors are applied. Time-out was held with the circulating nurse to confirm the correct surgery and the appropriate block. Under general anesthesia, patient's operative leg was gently raised and supported and the groove in between the biceps femoris and vastus lateralis muscles was carefully palpated. The skin approximately 8cm above the popliteal crease was then marked. The ultrasound transducer was then applied to the posterior thigh approximately 8cm above the popliteal crease in the transverse plane and the sciatic nerve before its division was visualized lateral to the popliteal artery and in between the bicep femoris and semimembranosus/ semitendinosus muscles. After identification, the lateral portion of the thigh was prepped with Betadine solution three times and Lidocaine 1% was injected subcutaneously for topical anesthesia. At this point, a # 21 gauge Stimuplex insulated 4 inch needle was inserted into pre-marked area and advanced in a perpendicular direction. The needle was inserted above the ultrasound transducer in-plane towards the sciatic nerve in a [id number] direction. Needle advancement was performed carefully under direct ultrasound visualization. Nerve stimulator was used and dorsiflexion of the __left___ foot was elicited at a current of _0.4____ MA. After repeated negative aspiration, __2___cc of __0.5___ % ____ropivicaine was injected and this was flowed with __18____ cc of __0.5____% ___ropivicaine ___. Under ultrasound guidance the local anesthetics were observed surrounding sciatic nerve . The needle was removed intact and sterile dressing was applied. The patient tolerated the popliteal nerve block well with stable vital signs and was subsequently prepared for emergence.
--- NOTE | 2017-06-09 11:33 | PCM.ANESB3 ---
Femoral Nerve Block - Femoral Nerve Block Date of Procedure: 06/09/17 Anesthesiologist: Vy Pre-Procedure Diagnosis: Left foot gangrene Post-Procedure Diagnosis: same Procedure Performed: Femoral Nerve Block Left - Procedure Femoral Nerve Block: The procedure was explained to the patient that it is for the post-operative pain management. Consent was obtained after a thorough discussion with the patient regarding the benefits and possible complications of local anesthetic block of the femoral nerve at the inguinal crease area. The patient was brought to the operating room and standard monitors were applied. Time-out was held with the circulating nurse to confirm the correct surgery and the appropriate block. Under general anesthesia, patient was placed in supine position with fully extended lower extremities and the ___left groin exposed. The femoral artery was then carefully palpated. The ultrasound transducer was then applied to this area in the transverse plane and the femoral nerve was visualized lateral to the femoral artery and underneath the fascia iliaca. After thorough identification, the inguinal crease area was prepped with Chloraprep. At this point, a #22 gauge Stimuplex 2-inch needle was inserted immediately lateral to the femoral artery pulse at the inguinal crease and advanced perpendicularly. The needle was inserted to the ultrasound transducer in-plane towards the femoral nerve in a [id number] direction. Needle advancement was performed carefully under direct ultrasound visualization. Nerve stimulator was used and twitch of the quadriceps muscle was obtained at current of __0.4___ MA. After negative aspiration, __2___cc of __0.25___% ____bupivicaine with 1:200 ,000 epinephrine was injected and this was followed with __18___ _ cc of ___0.25____ % ____bupivicaine with 1:200,000 epinephrine . Under ultrasound guidance the local anesthetics were observed spreading below fascia iliaca and around the femoral nerve. The needle was removed intact . The patient had stable vital signs, was conscious and in no apparent distress. The patient tolerated the femoral nerve block well with stable vital signs and was prepared for emergence.
[2017-06-09] MEDS ORDERED: Insulin Lispro (humaLOG) 100 Units/ml Inj SC STA (11:35)
--- NOTE | 2017-06-09 11:54 | CP.PCM.PN ---
Subjective - Date & Time of Evaluation Date of Evaluation: 06/08/17 Time of Evaluation: 19:00 - Subjective Subjective: worsening pain and gangrene plan for TMA in am Objective - Vital Signs/Intake and Output Vital Signs (last 24 hours): Temp Pulse Resp BP Pulse Ox 98.4 F 86 18 144/77 98 06/08/17 08:25 06/08/17 08:25 06/08/17 08:25 06/08/17 08:25 06/08/17 08:25 Intake and Output: - Medications Medications: Current Medications Acetaminophen (Tylenol 325mg Tab) 650 mg PO Q4 PRN PRN Reason: Pain, Mild (1-3) Alprazolam (Xanax) 0.25 mg PO Q12 PRN PRN Reason: Anxiety Stop: 06/15/17 13:24 Aspirin (Aspirin) 325 mg PO DAILY [facility] Last Admin: 06/07/17 08:50 Dose: 325 mg Atorvastatin Calcium (Lipitor) 20 mg PO DAILY [facility] Last Admin: 06/08/17 10:31 Dose: 20 mg Cilostazol (Pletal) 50 mg PO DAILY [facility] Last Admin: 06/08/17 10:33 Dose: 50 mg Clopidogrel Bisulfate (Plavix) 75 mg PO DAILY [facility] Last Admin: 06/08/17 10:33 Dose: 75 mg Docusate Sodium (Colace) 100 mg PO DAILY [facility] Last Admin: 06/08/17 10:28 Dose: 100 mg Home Med (Difluprednate [Durezol]) 1 drop LEFTEYE DAILY [facility] Last Admin: 06/08/17 11:53 Dose: Not Given Hydromorphone HCl (Dilaudid) 1 mg IVP Q4 PRN PRN Reason: Pain, severe (8-10) Last Admin: 06/09/17 04:58 Dose: 1 mg Hydromorphone HCl (Dilaudid) 0.5 mg IVP Q5M PRN PRN Reason: Pain, moderate (4-7) Stop: 06/09/17 13:28 Vancomycin HCl 1 gm/ Sodium (Chloride) 250 mls @ 166.667 mls/hr IVPB DAILY [facility] Last Admin: 06/08/17 10:32 Dose: 166.667 mls/hr Cefepime HCl 1 gm/ Sodium (Chloride) 100 mls @ 100 mls/hr IVPB Q8 [facility] PRN Reason: Protocol Last Admin: 06/09/17 00:00 Dose: 100 mls/hr Sodium Chloride (Sodium Chloride 0.9%) 1,000 mls @ 1,000 mls/hr IV .Q1H [facility] Stop: 06/10/17 07:57 Lactated Ringer's (Lactated Ringer's) 1,000 mls @ 100 mls/hr IV .Q10H [facility] Insulin Human Lispro (Humalog) 0 units SC ACHS [facility] PRN Reason: Protocol Last Admin: 06/08/17 22:27 Dose: Not Given Lactulose (Enulose) 20 gm PO DAILY PRN PRN Reason: Constipation Last Admin: 06/08/17 10:37 Dose: 20 gm Metformin HCl (Glucophage) 1,000 mg PO BID [facility] Last Admin: 06/08/17 16:21 Dose: 1,000 mg Metoprolol Tartrate (Lopressor) 25 mg PO DAILY [facility] Last Admin: 06/08/17 10:31 Dose: 25 mg Ondansetron HCl (Zofran Inj) 4 mg IVP ONCE PRN PRN Reason: Nausea/Vomiting Stop: 06/09/17 13:28 Oxycodone/Acetaminophen (Percocet 5/325 Mg Tab) 1 tab PO Q4 PRN PRN Reason: Pain, moderate (4-7) Stop: 06/12/17 11:24 Oxycodone/Acetaminophen (Percocet 5/325 Mg Tab) 2 tab PO Q4 PRN PRN Reason: Pain, severe (8-10) Stop: 06/12/17 11:24 Prednisolone Acetate (Pred Forte 1% Opht Susp) 1 drop OS BID [facility] Last Admin: 06/08/17 16:22 Dose: 1 drop Ramipril (Altace) 5 mg PO DAILY [facility] Last Admin: 06/08/17 10:28 Dose: 5 mg Sitagliptin Phosphate (Januvia) 100 mg PO DAILY [facility] Last Admin: 06/08/17 10:31 Dose: 100 mg - Labs Labs: 06/08/17 20:30 06/08/17 20:30 PT 12.8 Seconds (9.8-13.1) 06/03/17 05:00 INR 1.2 (0.9-1.2) 06/03/17 05:00 APTT 33.3 Seconds (25.6-37.1) 06/03/17 05:00 - Constitutional Appears: Well, In Acute Distress - Head Exam Head Exam: ATRAUMATIC, NORMAL INSPECTION, NORMOCEPHALIC - Eye Exam Eye Exam: EOMI, Normal appearance, PERRL Pupil Exam: NORMAL ACCOMODATION, PERRL - ENT Exam ENT Exam: Mucous Membranes Moist, Normal Exam - Neck Exam Neck Exam: Full ROM, Normal Inspection. absent: Lymphadenopathy - Respiratory Exam Respiratory Exam: Clear to Ausculation Bilateral, NORMAL BREATHING PATTERN - Cardiovascular Exam Cardiovascular Exam: REGULAR RHYTHM, +S1, +S2, Murmur - GI/Abdominal Exam GI & Abdominal Exam: Soft, Normal Bowel Sounds. absent: Tenderness - Extremities Exam Extremities Exam: Full ROM, Normal Capillary Refill. absent: Joint Swelling, Pedal Edema Additional comments: gangrenous toes - Back Exam Back Exam: NORMAL INSPECTION - Neurological Exam Neurological Exam: Alert, Awake, CN II-XII Intact, Oriented x3 - Psychiatric Exam Psychiatric exam: Normal Affect, Normal Mood - Skin Skin Exam: Dry, Intact, Normal Color, Warm Assessment and Plan (1) PVD (peripheral vascular disease) Status: Acute (2) Cellulitis Status: Acute (3) Gangrene of toe of left foot Status: Acute (4) CAD (coronary artery disease) Status: Acute (5) HLD (hyperlipidemia) Status: Acute (6) HTN (hypertension) Status: Acute
[2017-06-09 11:55] LABS: HEMOGLOBIN 9.8 g/dL (12.0-16.0); MEAN CELL VOLUME 87.8 fl (81.0-99.0); MEAN CORPUSCULAR HEMOGLOBIN 28.8 pg (27.0-31.0); MEAN CORPUSCULAR HGB CONC 32.8 g/dL (33.0-37.0); RBC 3.42 Mil/uL (3.80-5.20); RED CELL DISTRIBUTION WIDTH 14.2 % (11.5-14.5); WHITE BLOOD COUNT 14.1 K/uL (4.8-10.8)
--- NOTE | 2017-06-09 12:35 | CP.PCM.PN ---
Subjective - Date & Time of Evaluation Date of Evaluation: 06/09/17 Time of Evaluation: 16:00 - Subjective Subjective: ID Note- pt. seen and examined. s/p left TMA today. denies any fever or chills. Objective - Vital Signs/Intake and Output Vital Signs (last 24 hours): Temp Pulse Resp BP Pulse Ox 99.1 F 92 H 18 141/72 100 06/09/17 11:25 06/09/17 11:25 06/09/17 11:25 06/09/17 11:25 06/09/17 11:25 Intake and Output: 06/09/17 06/09/17 06:59 18:59 Intake Total 1000 Balance 1000 - Medications Medications: Current Medications Acetaminophen (Tylenol 325mg Tab) 650 mg PO Q4 PRN PRN Reason: Pain, Mild (1-3) Alprazolam (Xanax) 0.25 mg PO Q12 PRN PRN Reason: Anxiety Stop: 06/15/17 13:24 Aspirin (Aspirin) 325 mg PO DAILY [facility] Last Admin: 06/07/17 08:50 Dose: 325 mg Atorvastatin Calcium (Lipitor) 20 mg PO DAILY [facility] Last Admin: 06/08/17 10:31 Dose: 20 mg Cilostazol (Pletal) 50 mg PO DAILY [facility] Last Admin: 06/08/17 10:33 Dose: 50 mg Clopidogrel Bisulfate (Plavix) 75 mg PO DAILY [facility] Last Admin: 06/08/17 10:33 Dose: 75 mg Docusate Sodium (Colace) 100 mg PO DAILY [facility] Last Admin: 06/08/17 10:28 Dose: 100 mg Home Med (Difluprednate [Durezol]) 1 drop LEFTEYE DAILY [facility] Last Admin: 06/08/17 11:53 Dose: Not Given Hydromorphone HCl (Dilaudid) 1 mg IVP Q4 PRN PRN Reason: Pain, severe (8-10) Last Admin: 06/09/17 04:58 Dose: 1 mg Hydromorphone HCl (Dilaudid) 0.5 mg IVP Q5M PRN PRN Reason: Pain, moderate (4-7) Stop: 06/09/17 13:28 Vancomycin HCl 1 gm/ Sodium (Chloride) 250 mls @ 166.667 mls/hr IVPB DAILY [facility] Last Admin: 06/08/17 10:32 Dose: 166.667 mls/hr Cefepime HCl 1 gm/ Sodium (Chloride) 100 mls @ 100 mls/hr IVPB Q8 [facility] PRN Reason: Protocol Last Admin: 06/09/17 00:00 Dose: 100 mls/hr Sodium Chloride (Sodium Chloride 0.9%) 1,000 mls @ 1,000 mls/hr IV .Q1H [facility] Stop: 06/10/17 07:57 Lactated Ringer's (Lactated Ringer's) 1,000 mls @ 100 mls/hr IV .Q10H [facility] Insulin Human Lispro (Humalog) 0 units SC ACHS [facility] PRN Reason: Protocol Last Admin: 06/08/17 22:27 Dose: Not Given Lactulose (Enulose) 20 gm PO DAILY PRN PRN Reason: Constipation Last Admin: 06/08/17 10:37 Dose: 20 gm Metformin HCl (Glucophage) 1,000 mg PO BID [facility] Last Admin: 06/08/17 16:21 Dose: 1,000 mg Metoprolol Tartrate (Lopressor) 25 mg PO DAILY [facility] Last Admin: 06/08/17 10:31 Dose: 25 mg Ondansetron HCl (Zofran Inj) 4 mg IVP ONCE PRN PRN Reason: Nausea/Vomiting Stop: 06/09/17 13:28 Oxycodone/Acetaminophen (Percocet 5/325 Mg Tab) 1 tab PO Q4 PRN PRN Reason: Pain, moderate (4-7) Stop: 06/12/17 11:24 Oxycodone/Acetaminophen (Percocet 5/325 Mg Tab) 2 tab PO Q4 PRN PRN Reason: Pain, severe (8-10) Stop: 06/12/17 11:24 Prednisolone Acetate (Pred Forte 1% Opht Susp) 1 drop OS BID [facility] Last Admin: 06/08/17 16:22 Dose: 1 drop Ramipril (Altace) 5 mg PO DAILY [facility] Last Admin: 06/08/17 10:28 Dose: 5 mg Sitagliptin Phosphate (Januvia) 100 mg PO DAILY [facility] Last Admin: 06/08/17 10:31 Dose: 100 mg - Labs Labs: 06/09/17 11:27 06/08/17 20:30 PT 12.8 Seconds (9.8-13.1) 06/03/17 05:00 INR 1.2 (0.9-1.2) 06/03/17 05:00 APTT 33.3 Seconds (25.6-37.1) 06/03/17 05:00 Microbiology 06/09/17 10:30 Foot - Left Gram Stain - Final 06/09/17 10:30 Foot - Left Wound Culture - Preliminary NO GROWTH AFTER 24 HOURS 06/09/17 10:30 Foot - Left Gram Stain - Final 06/09/17 10:30 Foot - Left Wound Culture - Preliminary NO GROWTH AFTER 24 HOURS 06/04/17 18:52 Blood-Venous Blood Culture - Final NO GROWTH AFTER 5 DAYS 06/04/17 18:52 Blood-Venous Gram Stain - Final TEST NOT PERFORMED 06/04/17 18:52 Blood-Venous Blood Culture - Final NO GROWTH AFTER 5 DAYS 06/04/17 18:52 Blood-Venous Gram Stain - Final TEST NOT PERFORMED 06/05/17 13:52 Toe Gram Stain - Final 06/05/17 13:52 Toe Wound Culture - Final Enterococcus Faecalis 06/05/17 13:52 Toe Gram Stain - Final 06/05/17 13:52 Toe Wound Culture - Final Serratia Marcescens Enterococcus Faecalis 05/27/17 18:11 Blood-Venous Blood Culture - Final NO GROWTH AFTER 5 DAYS 05/27/17 18:11 Blood-Venous Gram Stain - Final TEST NOT PERFORMED 05/27/17 15:15 Blood-Venous Blood Culture - Final Corynebacterium Species 05/27/17 15:15 Blood-Venous Gram Stain - Final 05/28/17 11:23 Foot - Left Gram Stain - Final 05/28/17 11:23 Foot - Left Wound Culture - Final Serratia Marcescens Enterococcus Faecalis - Additional Findings Additional findings: - Constitutional Appears: No Acute Distress - Head Exam Head Exam: ATRAUMATIC - Eye Exam Eye Exam: EOMI, PERRL - ENT Exam ENT Exam: Normal Oropharynx - Neck Exam Neck exam: Positive for: Full Rom - Respiratory Exam Respiratory Exam: Clear to Auscultation Bilateral, NORMAL BREATHING PATTERN - Cardiovascular Exam Cardiovascular Exam: RRR, +S1, +S2 - GI/Abdominal Exam GI & Abdominal Exam: Normal Bowel Sounds, Soft Additional comments: NT, ND - Extremities Exam Additional comments: s/p left TMA amputation Accession No. : [id number] Patient Name / ID : KEV KELLEY / [id number] Exam Date : 06/09/2017 11:23:41 ( Approved ) Study Comment : Sex / Age : F / 62Y Creator : Vernon Hillman MD Dictator : Vernon Hillman MD Chemistry Account Manager : Presentation Manager : Vernon Hillman MD Approver2 : Report Date : 06/09/2017 12:39:12 My Comment : PROCEDURE: Left Foot Radiographs. HISTORY: s/p left foot surgery COMPARISON: 06/04/2017 FINDINGS: BONES: Status post transmetatarsal amputation. Proximal aspect of the 1st through 5th metatarsal remain. The tarsal bones appear unremarkable. The tarsal-metatarsal articulations appear unremarkable. JOINTS: Normal. SOFT TISSUES: Normal. OTHER FINDINGS: None. IMPRESSION: Status post transmetatarsal amputation. Assessment and Plan (1) Gangrene of toe of left foot Status: Acute (2) HTN (hypertension) Status: Acute (3) Diabetes Status: Acute (4) PVD (peripheral vascular disease) Status: Acute - Assessment and Plan (Free Text) Assessment: A/P- 62 year old female with DM II, HTN admitted with left great toe gangrene. s/p left TMA today afebrikle mild leukocytosis. foot MRI- OM as per report, US report - poor vasculature blood cx- 1 out of 2 blood cx bottles corynebacterium (could be contaminant) high ESR foot wound cx- e.fecalis and serratia marsecens x 2 plan- for now advise to continue with IV vancomycin 1 gram BID. day #12 keep trough <15. advise to continue with cefepime which covers the serratia day #12 advise 7 more days of above 2 antibiotics. monitor wbc while in [facility]. f/u closely with her barrel cutter. would also advise after pt. is d/c from [place] to f/u with her pcp and also for ID with me as outpatient. all above d/w WEIGHER AND CRUSHER lucianaita. all above d/w patient and she verbalizes full understanding of all above and agrees with above plan of care.
[2017-06-09] MEDS: Insulin Lispro (humaLOG) 100 Units/ml Inj SC SCH ×3 (12:42→21:37)
--- NOTE | 2017-06-09 12:44 | RAD ---
PROCEDURE: Left Foot Radiographs. HISTORY: s/p left foot surgery COMPARISON: 06/04/2017 FINDINGS: BONES: Status post transmetatarsal amputation. Proximal aspect of the 1st through 5th metatarsal remain. The tarsal bones appear unremarkable. The tarsal-metatarsal articulations appear unremarkable. JOINTS: Normal. SOFT TISSUES: Normal. OTHER FINDINGS: None. IMPRESSION: Status post transmetatarsal amputation.
--- NOTE | 2017-06-09 14:01 | OP ---
PROCEDURE DATE: 06/04/2017 PREOPERATIVE DIAGNOSIS: Left foot gangrene, hallux with infected ulcer. POSTOPERATIVE DIAGNOSIS: Left foot gangrene, hallux with infected ulcer. NAME OF THE PROCEDURE: Partial first ray resection with removal of all nonviable soft tissue and bone of the left foot. SURGEON: Raven Looney DPM. HARDWARE TEST ENGINEER: Zena Brown DPM, PGY-1. TYPE OF ANESTHESIA: IV sedation with local. ANESTHESIA ADMINISTERED BY: Silver Oliver MD. INDICATIONS: The patient is a 62-year-old female with a above diagnosis. The patient has exhausted all conservative treatment at this time and now requires surgical intervention. The patient signed the consent after careful explanations of risks, benefits, complications and alternatives for the surgical procedure. No guarantees were given nor implied. N.p.o. status was confirmed prior to taking the patient to the OR. PREPARATION: The patient was brought into the operating room and placed on the operating room table in the supine position. The time-out was performed for identification of the correct patient and the procedure. After that induction of IV sedation, the patient received a total of 20 mL of 1:1 mixture of 1% lidocaine plain and 0.5% Marcaine plain in local block type fashion to the left foot. The left foot was then prepped and draped in normal sterile manner and the procedure began. No tourniquet was used during the procedure. DESCRIPTION OF PROCEDURE: The attention was drawn to the distal medial left first ray where a fishmouth incision was made using a #15 blade. The incision was then extended down through the subcutaneous layer down to the level of the bone on the medial aspect of the first ray and circumferentially around the left hallux at the level of first MTPJ. Using a bone clamp to stabilize the hallux, proximal phalanx was then disarticulated from the foot at the level of MTPJ. Using a sagittal saw, approximately distal one-third of the first metatarsal head was resected and passed from the operative field. Using a fresh #15 blade, all necrotic and nonviable tissue was then excised, excisionally debrided from the surgical site. Both the fibular and tibial sessamoids were removed as well. The wound was then copiously flushed with sterile saline and pulse lavage. The left hallux as well as the first metatarsal head was then sent to the pathology. The surgical site on the medial aspect was then sutured close using 3-0 Prolene sutures. The distal end of the surgical wound was left open where a one-fourth inch of packing was inserted. The wound was then dressed with Betadine-soaked Adaptic, 4x4 gauze and Kerlix. POSTOPERATIVE CONDITION: The patient tolerated the anesthesia and procedure well and was escorted to the recovery room with vital signs stable and neurovascular status intact to the left foot. The patient is to remain partial weightbearing to the left lower extremity as tolerated using a surgical shoe. The patient is to returns to the floors and will be followed by Podiatry with Dr. Looney. Zena Brown DPM Raven Looney DPM [facility]
[2017-06-10] MEDS: Cefepime 1 GM in Sodium Chloride 0.9% 100 ML IVPB SCH ×3 (00:07→16:30)
[2017-06-10] MEDS: Oxycodone/Acetaminophen 5/325 mg Tab PO PRN ×4 (02:51→16:31)
[2017-06-10 05:47] LABS: HEMOGLOBIN 8.5 g/dL (12.0-16.0); MEAN CELL VOLUME 88.9 fl (81.0-99.0); MEAN CORPUSCULAR HEMOGLOBIN 28.7 pg (27.0-31.0); MEAN CORPUSCULAR HGB CONC 32.3 g/dL (33.0-37.0); RBC 2.95 Mil/uL (3.80-5.20); RED CELL DISTRIBUTION WIDTH 14.5 % (11.5-14.5)
[2017-06-10] MEDS: Cilostazol 50 mg Tab UD PO SCH (08:47)
[2017-06-10] MEDS: PrednisoLONE 1% OPTH SUSP OS SCH (08:47)
--- NOTE | 2017-06-10 09:02 | CP.PCM.PN ---
Addendum entered and electronically signed by Jayla Valdez DO 06/10/17 12:23: Cleared from cardiac stand point to be transferred to TCU. Will require close follow up on discharge. Original Note: <Jayla Valdez - Last Filed: 06/10/17 11:48> Subjective - Date & Time of Evaluation Date of Evaluation: 06/10/17 Time of Evaluation: 09:00 - Subjective Subjective: PGY2 progress note for cardiology/vascular, Dr. Strange Pt seen and examined at bedside. No acute events overnight. Pt is s/p left foot transmetatarsal amputation POD #1. Complains of slight pain in left LE. Denies having any CP,SOB, abd pain, N/V/D/C, F/C. 12 point ROS negative except for the above mentioned. Objective - Vital Signs/Intake and Output Vital Signs (last 24 hours): Temp Pulse Resp BP Pulse Ox 98.2 F 83 18 127/60 99 06/10/17 08:00 06/10/17 08:42 06/10/17 08:00 06/10/17 08:42 06/10/17 08:00 - Medications Medications: Current Medications Acetaminophen (Tylenol 325mg Tab) 650 mg PO Q4 PRN PRN Reason: Pain, Mild (1-3) Alprazolam (Xanax) 0.25 mg PO Q12 PRN PRN Reason: Anxiety Stop: 06/15/17 13:24 Aspirin (Aspirin) 325 mg PO DAILY [facility] Last Admin: 06/07/17 08:50 Dose: 325 mg Atorvastatin Calcium (Lipitor) 20 mg PO DAILY [facility] Last Admin: 06/10/17 08:41 Dose: 20 mg Cilostazol (Pletal) 50 mg PO DAILY [facility] Last Admin: 06/10/17 08:47 Dose: 50 mg Clopidogrel Bisulfate (Plavix) 75 mg PO DAILY [facility] Last Admin: 06/10/17 08:46 Dose: 75 mg Docusate Sodium (Colace) 100 mg PO DAILY [facility] Last Admin: 06/10/17 08:34 Dose: 100 mg Home Med (Difluprednate [Durezol]) 1 drop LEFTEYE DAILY [facility] Last Admin: 06/08/17 11:53 Dose: Not Given Vancomycin HCl 1 gm/ Sodium (Chloride) 250 mls @ 166.667 mls/hr IVPB DAILY [facility] Last Admin: 06/10/17 08:49 Dose: 166.667 mls/hr Cefepime HCl 1 gm/ Sodium (Chloride) 100 mls @ 100 mls/hr IVPB Q8 [facility] PRN Reason: Protocol Last Admin: 06/10/17 08:43 Dose: 100 mls/hr Lactated Ringer's (Lactated Ringer's) 1,000 mls @ 100 mls/hr IV .Q10H [facility] Last Admin: 06/09/17 21:37 Dose: 100 mls/hr Insulin Human Lispro (Humalog) 0 units SC ACHS [facility] PRN Reason: Protocol Last Admin: 06/09/17 21:37 Dose: Not Given Lactulose (Enulose) 20 gm PO DAILY PRN PRN Reason: Constipation Last Admin: 06/08/17 10:37 Dose: 20 gm Metformin HCl (Glucophage) 1,000 mg PO BID [facility] Last Admin: 06/10/17 08:38 Dose: 1,000 mg Metoprolol Tartrate (Lopressor) 25 mg PO DAILY [facility] Last Admin: 06/10/17 08:42 Dose: 25 mg Oxycodone/Acetaminophen (Percocet 5/325 Mg Tab) 1 tab PO Q4 PRN PRN Reason: Pain, moderate (4-7) Stop: 06/12/17 11:24 Oxycodone/Acetaminophen (Percocet 5/325 Mg Tab) 2 tab PO Q4 PRN PRN Reason: Pain, severe (8-10) Stop: 06/12/17 11:24 Last Admin: 06/10/17 06:10 Dose: 2 tab Prednisolone Acetate (Pred Forte 1% Opht Susp) 1 drop OS BID [facility] Last Admin: 06/10/17 08:47 Dose: 1 drop Ramipril (Altace) 5 mg PO DAILY [facility] Last Admin: 06/10/17 08:33 Dose: 5 mg Sitagliptin Phosphate (Januvia) 100 mg PO DAILY [facility] Last Admin: 06/10/17 08:40 Dose: 100 mg - Labs Labs: 06/10/17 04:30 06/08/17 20:30 PT 12.8 Seconds (9.8-13.1) 06/03/17 05:00 INR 1.2 (0.9-1.2) 06/03/17 05:00 APTT 33.3 Seconds (25.6-37.1) 06/03/17 05:00 - Constitutional Appears: Non-toxic, No Acute Distress - Head Exam Head Exam: ATRAUMATIC - ENT Exam ENT Exam: Mucous Membranes Moist - Respiratory Exam Respiratory Exam: Clear to Ausculation Bilateral. absent: Accessory Muscle Use , Rales, Rhonchi, Wheezes, Respiratory Distress - Cardiovascular Exam Cardiovascular Exam: REGULAR RHYTHM, +S1, +S2. absent: Gallop, Rubs, Murmur - GI/Abdominal Exam GI & Abdominal Exam: Soft, Normal Bowel Sounds. absent: Distended, Firm, Guarding, Rigid, Tenderness, Organomegaly - Extremities Exam Extremities Exam: Tenderness (left LE). absent: Pedal Edema - Neurological Exam Neurological Exam: Alert, Awake, Oriented x3 - Psychiatric Exam Psychiatric exam: Normal Affect, Normal Mood - Skin Skin Exam: Dry, Intact, Normal Color, Warm Assessment and Plan - Assessment and Plan (Free Text) Assessment: (1) Gangrene of toe of left foot S/P left foot transmetatarsal amputation POD #1 Currently on vanco and cefepime (2) PVD (peripheral vascular disease) Continue dual antiplatelet therapy with aspirin and Plavix along with cilostazol. Patient will require close follow up upon discharge for medical management to maintain good circulation of LE. (3) CAD (coronary artery disease) Continue DAPT Continue lipitor high dose, ACEI high dose and metoprolol (4) HLD (hyperlipidemia) Continue lipitor (5) HTN (hypertension) Continue to monitor VS Case will be discussed with attending, Dr. Strange <Nik Strange - Last Filed: 06/10/17 23:16> Objective - Vital Signs/Intake and Output Vital Signs (last 24 hours): Temp Pulse Resp BP Pulse Ox 98.1 F 90 14 123/54 L 96 06/10/17 20:05 06/10/17 20:05 06/10/17 20:05 06/10/17 20:05 06/10/17 20:05 - Labs Labs: 06/10/17 04:30 06/10/17 14:35 PT 12.8 Seconds (9.8-13.1) 06/03/17 05:00 INR 1.2 (0.9-1.2) 06/03/17 05:00 APTT 33.3 Seconds (25.6-37.1) 06/03/17 05:00 Assessment and Plan (1) PVD (peripheral vascular disease) Status: Acute (2) Cellulitis Status: Acute (3) Gangrene of toe of left foot Status: Acute (4) CAD (coronary artery disease) Status: Acute (5) HLD (hyperlipidemia) Status: Acute (6) HTN (hypertension) Status: Acute Attending/Attestation - Attestation I have personally seen and examined this patient.: Yes I have fully participated in the care of the patient.: Yes I have reviewed all pertinent clinical information, including history, physical exam and plan: Yes
--- NOTE | 2017-06-10 10:17 | CP.PCM.PN ---
Subjective - Date & Time of Evaluation Date of Evaluation: 06/10/17 Time of Evaluation: 10:17 - Subjective Subjective: S/P L TRANSMET AMPUTATION STILL IN PAIN BUT CONTROLLED BY PERCOCET Objective - Vital Signs/Intake and Output Vital Signs (last 24 hours): Temp Pulse Resp BP Pulse Ox 98.2 F 83 18 127/60 99 06/10/17 08:00 06/10/17 08:42 06/10/17 08:00 06/10/17 08:42 06/10/17 08:00 - Medications Medications: Current Medications Acetaminophen (Tylenol 325mg Tab) 650 mg PO Q4 PRN PRN Reason: Pain, Mild (1-3) Alprazolam (Xanax) 0.25 mg PO Q12 PRN PRN Reason: Anxiety Stop: 06/15/17 13:24 Aspirin (Aspirin) 325 mg PO DAILY [facility] Last Admin: 06/07/17 08:50 Dose: 325 mg Atorvastatin Calcium (Lipitor) 20 mg PO DAILY [facility] Last Admin: 06/10/17 08:41 Dose: 20 mg Cilostazol (Pletal) 50 mg PO DAILY [facility] Last Admin: 06/10/17 08:47 Dose: 50 mg Clopidogrel Bisulfate (Plavix) 75 mg PO DAILY [facility] Last Admin: 06/10/17 08:46 Dose: 75 mg Docusate Sodium (Colace) 100 mg PO DAILY [facility] Last Admin: 06/10/17 08:34 Dose: 100 mg Home Med (Difluprednate [Durezol]) 1 drop LEFTEYE DAILY [facility] Last Admin: 06/08/17 11:53 Dose: Not Given Vancomycin HCl 1 gm/ Sodium (Chloride) 250 mls @ 166.667 mls/hr IVPB DAILY [facility] Last Admin: 06/10/17 08:49 Dose: 166.667 mls/hr Cefepime HCl 1 gm/ Sodium (Chloride) 100 mls @ 100 mls/hr IVPB Q8 [facility] PRN Reason: Protocol Last Admin: 06/10/17 08:43 Dose: 100 mls/hr Lactated Ringer's (Lactated Ringer's) 1,000 mls @ 100 mls/hr IV .Q10H [facility] Last Admin: 06/09/17 21:37 Dose: 100 mls/hr Insulin Human Lispro (Humalog) 0 units SC ACHS [facility] PRN Reason: Protocol Last Admin: 06/09/17 21:37 Dose: Not Given Lactulose (Enulose) 20 gm PO DAILY PRN PRN Reason: Constipation Last Admin: 06/08/17 10:37 Dose: 20 gm Metformin HCl (Glucophage) 1,000 mg PO BID [facility] Last Admin: 06/10/17 08:38 Dose: 1,000 mg Metoprolol Tartrate (Lopressor) 25 mg PO DAILY [facility] Last Admin: 06/10/17 08:42 Dose: 25 mg Oxycodone/Acetaminophen (Percocet 5/325 Mg Tab) 1 tab PO Q4 PRN PRN Reason: Pain, moderate (4-7) Stop: 06/12/17 11:24 Oxycodone/Acetaminophen (Percocet 5/325 Mg Tab) 2 tab PO Q4 PRN PRN Reason: Pain, severe (8-10) Stop: 06/12/17 11:24 Last Admin: 06/10/17 06:10 Dose: 2 tab Prednisolone Acetate (Pred Forte 1% Opht Susp) 1 drop OS BID [facility] Last Admin: 06/10/17 08:47 Dose: 1 drop Ramipril (Altace) 5 mg PO DAILY [facility] Last Admin: 06/10/17 08:33 Dose: 5 mg Sitagliptin Phosphate (Januvia) 100 mg PO DAILY [facility] Last Admin: 06/10/17 08:40 Dose: 100 mg - Labs Labs: 06/10/17 04:30 06/08/17 20:30 PT 12.8 Seconds (9.8-13.1) 06/03/17 05:00 INR 1.2 (0.9-1.2) 06/03/17 05:00 APTT 33.3 Seconds (25.6-37.1) 06/03/17 05:00 - Constitutional Appears: No Acute Distress - Head Exam Head Exam: ATRAUMATIC, NORMAL INSPECTION, NORMOCEPHALIC - Eye Exam Eye Exam: EOMI, Normal appearance, PERRL Pupil Exam: NORMAL ACCOMODATION, PERRL - ENT Exam ENT Exam: Mucous Membranes Moist, Normal Exam - Neck Exam Neck Exam: Full ROM, Normal Inspection. absent: Lymphadenopathy - Respiratory Exam Respiratory Exam: Clear to Ausculation Bilateral, NORMAL BREATHING PATTERN - Cardiovascular Exam Cardiovascular Exam: REGULAR RHYTHM, +S1, +S2. absent: Murmur - GI/Abdominal Exam GI & Abdominal Exam: Soft, Normal Bowel Sounds. absent: Tenderness - Rectal Exam Rectal Exam: NORMAL INSPECTION - Extremities Exam Extremities Exam: Full ROM, Normal Capillary Refill, Normal Inspection, Tenderness. absent: Joint Swelling, Pedal Edema Additional comments: S/P L TRANSMET AMPUTATION - Back Exam Back Exam: NORMAL INSPECTION - Neurological Exam Neurological Exam: Alert, Awake, CN II-XII Intact, Normal Gait, Oriented x3 - Psychiatric Exam Psychiatric exam: Normal Affect, Normal Mood - Skin Skin Exam: Dry, Intact, Normal Color, Warm Assessment and Plan - Assessment and Plan (Free Text) Assessment: S/P L TRANSMET AMPUTATION CELLULITIS OF L FOOT POSITIVE BLOOD CULTURES DM-POORLY CONTROLLED HTN PVD ANEMIA OF CHRONIC DZ Plan: TRANSFER TO TCU
--- NOTE | 2017-06-10 10:22 | CP.PCM.PN ---
Subjective - Date & Time of Evaluation Date of Evaluation: 06/10/17 Time of Evaluation: 10:22 - Subjective Subjective: 62 y/o female seen at bedside this morning 1 day s/p left transmetatarsal amputation. Denies any acute events overnight. Admits to no pain yesterday as she felt numb but today is experiencing moderate to severe pain. States Percocet is managing her pain well. Denies F/C/N/V/CP/SOB. Admits to eating well since surgery. Urinating as normal. Objective - Vital Signs/Intake and Output Vital Signs (last 24 hours): Temp Pulse Resp BP Pulse Ox 98.2 F 83 18 127/60 99 06/10/17 08:00 06/10/17 08:42 06/10/17 08:00 06/10/17 08:42 06/10/17 08:00 - Medications Medications: Current Medications Acetaminophen (Tylenol 325mg Tab) 650 mg PO Q4 PRN PRN Reason: Pain, Mild (1-3) Alprazolam (Xanax) 0.25 mg PO Q12 PRN PRN Reason: Anxiety Stop: 06/15/17 13:24 Aspirin (Aspirin) 325 mg PO DAILY [facility] Last Admin: 06/07/17 08:50 Dose: 325 mg Atorvastatin Calcium (Lipitor) 20 mg PO DAILY [facility] Last Admin: 06/10/17 08:41 Dose: 20 mg Cilostazol (Pletal) 50 mg PO DAILY [facility] Last Admin: 06/10/17 08:47 Dose: 50 mg Clopidogrel Bisulfate (Plavix) 75 mg PO DAILY [facility] Last Admin: 06/10/17 08:46 Dose: 75 mg Docusate Sodium (Colace) 100 mg PO DAILY [facility] Last Admin: 06/10/17 08:34 Dose: 100 mg Home Med (Difluprednate [Durezol]) 1 drop LEFTEYE DAILY [facility] Last Admin: 06/08/17 11:53 Dose: Not Given Vancomycin HCl 1 gm/ Sodium (Chloride) 250 mls @ 166.667 mls/hr IVPB DAILY [facility] Last Admin: 06/10/17 08:49 Dose: 166.667 mls/hr Cefepime HCl 1 gm/ Sodium (Chloride) 100 mls @ 100 mls/hr IVPB Q8 [facility] PRN Reason: Protocol Last Admin: 06/10/17 08:43 Dose: 100 mls/hr Lactated Ringer's (Lactated Ringer's) 1,000 mls @ 100 mls/hr IV .Q10H [facility] Last Admin: 06/09/17 21:37 Dose: 100 mls/hr Insulin Human Lispro (Humalog) 0 units SC ACHS [facility] PRN Reason: Protocol Last Admin: 06/09/17 21:37 Dose: Not Given Lactulose (Enulose) 20 gm PO DAILY PRN PRN Reason: Constipation Last Admin: 06/08/17 10:37 Dose: 20 gm Metformin HCl (Glucophage) 1,000 mg PO BID [facility] Last Admin: 06/10/17 08:38 Dose: 1,000 mg Metoprolol Tartrate (Lopressor) 25 mg PO DAILY [facility] Last Admin: 06/10/17 08:42 Dose: 25 mg Oxycodone/Acetaminophen (Percocet 5/325 Mg Tab) 1 tab PO Q4 PRN PRN Reason: Pain, moderate (4-7) Stop: 06/12/17 11:24 Oxycodone/Acetaminophen (Percocet 5/325 Mg Tab) 2 tab PO Q4 PRN PRN Reason: Pain, severe (8-10) Stop: 06/12/17 11:24 Last Admin: 06/10/17 06:10 Dose: 2 tab Prednisolone Acetate (Pred Forte 1% Opht Susp) 1 drop OS BID [facility] Last Admin: 06/10/17 08:47 Dose: 1 drop Ramipril (Altace) 5 mg PO DAILY [facility] Last Admin: 06/10/17 08:33 Dose: 5 mg Sitagliptin Phosphate (Januvia) 100 mg PO DAILY [facility] Last Admin: 06/10/17 08:40 Dose: 100 mg - Labs Labs: 06/10/17 04:30 06/08/17 20:30 PT 12.8 Seconds (9.8-13.1) 06/03/17 05:00 INR 1.2 (0.9-1.2) 06/03/17 05:00 APTT 33.3 Seconds (25.6-37.1) 06/03/17 05:00 - Constitutional Appears: Well, Non-toxic, No Acute Distress - Extremities Exam Additional comments: Lower extremity focused examination: Vasc: DP/PT pulses 2/4 R, 1/4 L. Temperature gradient warm to cool B/L. Mild non pitting edema noted to left foot at TMA site. CFT < 3 sec to all digits on R , delayed but present to L foot TMA site. Derm: Surgical incision site noted to L TMA stump with sutures intact, no dehiscence noted. Mild hypopigmented tissue noted to 1.5cm segment at medial aspect of incision. No evident signs of necrosis. No active drainage, no malodor , no purulence. Neuro: Protective sensation grossly intact Ortho: Mild tenderness to palpation of L TMA surgical site - Neurological Exam Neurological Exam: Alert, Awake, Oriented x3 - Psychiatric Exam Psychiatric exam: Normal Affect, Normal Mood Assessment and Plan - Assessment and Plan (Free Text) Assessment: 62 y/o female 1 day s/p left foot transmetatarsal amputation secondary to gangrene and ischemic changes Plan: Pt seen and evaluated at bedside Discussed plan with attending Dr. Looney Pt is afebrile, WBC 13.0 Continue Vanco/Cefepime per ID Surgical site cleansed with sterile saline Dressing to L foot applied with betadine, Adaptic, ABD, kerlix and light YELITZA bandage with posterior splint reapplied Patient is to remain NWB with rolling walker Await intra op specimen cultures from 06/09/17 Upon D/C, patient to receive wound care in group home with dressing changes every other day- betadine, Adaptic, ABD, kerlix and light YELITZA bandage Patient is to follow up at [facility] podiatry clinic with Dr. Looney on Thursday
[2017-06-10] MEDS: Insulin Lispro (humaLOG) 100 Units/ml Inj SC SCH ×2 (10:46→16:27)
--- NOTE | 2017-06-10 11:37 | CP.PCM.PCO ---
Assessment & Plan - Assessment and Plan (Free Text) Assessment: patient will require 7 days of Cefemipe 1 gm q8 and Vancomycin 1gm iv daily check vanco trough in [facility], monitor cbc
[2017-06-10 15:26] LABS: ALB/GLOB RATIO 0.9 (1.0-2.1); ALBUMIN 3.4 g/dL (3.5-5.0); ALT/SGPT 26 U/L (9-52); AST/SGOT 23 U/L (14-36); BLOOD UREA NITROGEN 14 mg/dl (7-17); CALCIUM 9.2 mg/dL (8.4-10.2); GFR AFRICAN-AMERICAN > 60; GFR NON-AFRICAN AMERICAN > 60
[2017-06-10 16:00] VITALS: RESP 14
[2017-06-10] MEDS ORDERED: Cilostazol 100 mg Tab UD PO SCH (17:00)
[2017-06-10 20:06] VITALS: BP 123/54; PULSE 90; TEMP 98.1; O2SAT 96
--- NOTE | 2017-06-11 10:42 | OP ---
PROCEDURE DATE: 06/09/2017 PREOPERATIVE DIAGNOSIS: Left foot nonhealing wound with ischemic changes. POSTOPERATIVE DIAGNOSIS: Left foot nonhealing wound with ischemic changes. NAME OF PROCEDURE: Left foot transmetatarsal amputation. SURGEON: Raven Looney DPM. NOTCHED BLADE LOADER: Lesly Hubbard DPM, PGY-1. TYPE OF ANESTHESIA: General LMA with regional block. ANESTHESIA ADMINISTERED BY: Devon Mcclellan MD. INDICATIONS: The patient is a 62-year-old female with the above diagnosis. The patient has exhausted all conservative treatment at this time and now requires surgical intervention. The patient signed the consent after careful explanation of the risks, benefits, complications and the alternatives for surgical procedure. No guarantees were given or implied. N.p.o. status was confirmed prior to taking the patient to the OR. PREPARATION: The patient was brought into the operating room and placed on the operating room table in a supine position. Time-out was performed for identification of the correct patient and procedure. After induction of general anesthesia, the left lower extremity was then prepped and draped in normal sterile manner and the procedure began. No tourniquet was used during the procedure. No local anesthesia was needed. DESCRIPTION OF PROCEDURE: Attention was then directed to the distal aspect of the left foot where the second digit was noted to show gangrenous ischemic changes. The third through fifth digits also appeared dusky in nature with necrotic skin changes noted. At this time, a #15 blade was used to create a fishmouth incision circumferentially around the midfoot with the plantar incision made distally to create a long plantar flap. At this time, all the soft tissue was freed from the distal aspect of the neck of the first metatarsal and the head and neck of metatarsals 2 through 5 and periosteum was freed using a Pimentel elevator. A sagittal saw was then used to resect the first metatarsal at the level of the neck and the blade was angled from dorsal distal to plantar proximal. All devitalized bone and tissue were then passed off the field and sent for pathology. The step was then repeated for metatarsals 2 through 5. All devitalized bone and tissue were passed off the field and sent for pathology. The remaining sharp bone edges were then debrided down to smoothness using a bone rasp. The site was then irrigated with copious amounts of bacitracin-infused saline solution with a bulb syringe. Pulse lavage was also utilized using an entire liter of solution of bacitracin-infused saline. The plantar tissue was then brought up towards to cover the distal aspect of the metatarsal head. The skin was then reapproximated using 2-0 Prolene. The left foot was dressed with Betadine-soaked Adaptic, ABC, Kerlix and a posterior splint. POSTOPERATIVE CONDITION: The patient tolerated the anesthesia and procedure well and was escorted to the recovery room with vital signs stable and neurovascular status intact to the left lower extremity. The patient is to be nonweightbearing to the left lower extremity with a rolling walker. Podiatry will continue to follow the patient while in-house. The patient will be discharged to [facility] in stable condition and will follow up with Dr. Looney in [facility] on 06/15/2017. Lesly Hubbard DPM Raven Looney DPM
--- NOTE | 2017-06-11 12:19 | CP.PCM.DIS ---
Provider - Provider Date of Admission: 05/27/17 14:26 Attending physician: Chris Mason MD Time Spent in preparation of Discharge (in minutes): 30 Diagnosis - Discharge Diagnosis (1) Diabetes Status: Acute (2) Gangrene of toe of left foot Status: Acute (3) HLD (hyperlipidemia) Status: Acute (4) HTN (hypertension) Status: Acute (5) Hypokalemia Status: Acute (6) PVD (peripheral vascular disease) Status: Acute Hospital Course - Lab Results Lab Results: Micro Results 06/09/17 10:30 Foot - Left Gram Stain - Final 06/09/17 10:30 Foot - Left Wound Culture - Preliminary NO GROWTH AFTER 24 HOURS 06/09/17 10:30 Foot - Left Gram Stain - Final 06/09/17 10:30 Foot - Left Wound Culture - Preliminary NO GROWTH AFTER 24 HOURS 06/04/17 18:52 Blood-Venous Blood Culture - Final NO GROWTH AFTER 5 DAYS 06/04/17 18:52 Blood-Venous Gram Stain - Final TEST NOT PERFORMED 06/04/17 18:52 Blood-Venous Blood Culture - Final NO GROWTH AFTER 5 DAYS 06/04/17 18:52 Blood-Venous Gram Stain - Final TEST NOT PERFORMED 06/05/17 13:52 Toe Gram Stain - Final 06/05/17 13:52 Toe Wound Culture - Final Enterococcus Faecalis 06/05/17 13:52 Toe Gram Stain - Final 06/05/17 13:52 Toe Wound Culture - Final Serratia Marcescens Enterococcus Faecalis 05/27/17 18:11 Blood-Venous Blood Culture - Final NO GROWTH AFTER 5 DAYS 05/27/17 18:11 Blood-Venous Gram Stain - Final TEST NOT PERFORMED 05/27/17 15:15 Blood-Venous Blood Culture - Final Corynebacterium Species 05/27/17 15:15 Blood-Venous Gram Stain - Final 05/28/17 11:23 Foot - Left Gram Stain - Final 05/28/17 11:23 Foot - Left Wound Culture - Final Serratia Marcescens Enterococcus Faecalis Most Recent Lab Values WBC 13.0 K/uL (4.8-10.8) H 06/10/17 04:30 RBC 2.95 Mil/uL (3.80-5.20) L 06/10/17 04:30 Hgb 8.5 g/dL (12.0-16.0) L 06/10/17 04:30 Hct 26.2 % (34.0-47.0) L 06/10/17 04:30 MCV 88.9 fl (81.0-99.0) 06/10/17 04:30 MCH 28.7 pg (27.0-31.0) 06/10/17 04:30 MCHC 32.3 g/dL (33.0-37.0) L 06/10/17 04:30 RDW 14.5 % (11.5-14.5) 06/10/17 04:30 Plt Count 406 K/uL (130-400) H 06/10/17 04:30 MPV 9.6 fl (7.2-11.7) 06/02/17 20:30 Neut % (Auto) 61.0 % (50.0-75.0) 06/02/17 20:30 Lymph % (Auto) 27.0 % (20.0-40.0) 06/02/17 20:30 Bowman % (Auto) 10.5 % (0.0-10.0) H 06/02/17 20:30 Eos % (Auto) 0.3 % (0.0-4.0) 06/02/17 20:30 Baso % (Auto) 1.2 % (0.0-2.0) 06/02/17 20:30 Neut # 7.4 K/uL (1.8-7.0) H 06/02/17 20:30 Lymph # 3.3 K/uL (1.0-4.3) 06/02/17 20:30 Bowman # 1.3 K/uL (0.0-0.8) H 06/02/17 20:30 Eos # 0.0 K/uL (0.0-0.7) 06/02/17 20:30 Baso # 0.1 K/uL (0.0-0.2) 06/02/17 20:30 ESR 101 mm/hr (0-30) H 05/28/17 18:15 PT 12.8 Seconds (9.8-13.1) 06/03/17 05:00 INR 1.2 (0.9-1.2) 06/03/17 05:00 APTT 33.3 Seconds (25.6-37.1) 06/03/17 05:00 pO2 20 mm/Hg (30-55) L 05/27/17 14:53 VBG pH 7.32 (7.32-7.43) 05/27/17 14:53 VBG pCO2 38 mmHg (40-60) L 05/27/17 14:53 VBG HCO3 18.6 mmol/L 05/27/17 14:53 VBG Total CO2 20.8 mmol/L (22-28) L 05/27/17 14:53 VBG O2 Sat (Calc) 36.2 % (40-65) L 05/27/17 14:53 VBG Base Excess -6.0 mmol/L (0.0-2.0) L 05/27/17 14:53 VBG Potassium 5.0 mmol/L (3.6-5.2) 05/27/17 14:53 A-a O2 Difference 82.0 mm/Hg 05/27/17 14:53 Sodium 134.0 mmol/L (132-148) 05/27/17 14:53 Chloride 103.0 mmol/L (98-107) 05/27/17 14:53 Glucose 277 mg/dL (65-105) H 05/27/17 14:53 Lactate 1.6 mmol/L (0.7-2.1) 05/27/17 14:53 FiO2 21.0 % 05/27/17 14:53 Crit Value Called To Dr ellis crawford 05/27/17 14:53 Crit Value Called By 15 05/27/17 14:53 Crit Value Read Back Y 05/27/17 14:53 Blood Gas Notified Time 1459 05/27/17 14:53 Sodium 137 mmol/l (132-148) 06/10/17 14:35 Potassium 3.8 MMOL/L (3.6-5.0) 06/10/17 14:35 Chloride 92 mmol/L (98-107) L 06/10/17 14:35 Carbon Dioxide 32 mmol/L (22-30) H 06/10/17 14:35 Anion Gap 17 (10-20) 06/10/17 14:35 BUN 14 mg/dl (7-17) 06/10/17 14:35 Creatinine 0.6 mg/dl (0.7-1.2) L 06/10/17 14:35 Est GFR ( Amer) > 60 06/10/17 14:35 Est GFR (Non-Af Amer) > 60 06/10/17 14:35 POC Glucose (mg/dL) 265 mg/dL (65-110) H 06/10/17 15:46 Random Glucose 277 mg/dL (65-105) H 06/10/17 14:35 Hemoglobin A1c 11.5 % (4.2-6.5) H 05/28/17 17:30 Calcium 9.2 mg/dL (8.4-10.2) 06/10/17 14:35 Total Bilirubin 0.4 mg/dl (0.2-1.3) 06/10/17 14:35 AST 23 U/L (14-36) 06/10/17 14:35 ALT 26 U/L (9-52) 06/10/17 14:35 Alkaline Phosphatase 74 U/L (38-126) 06/10/17 14:35 C-Reactive Prot, Quant 56.6 mg/L (<8.0) H 05/28/17 12:00 Total Protein 7.2 G/DL (6.3-8.2) 06/10/17 14:35 Albumin 3.4 g/dL (3.5-5.0) L D 06/10/17 14:35 Globulin 3.8 gm/dL (2.2-3.9) 06/10/17 14:35 Albumin/Globulin Ratio 0.9 (1.0-2.1) L 06/10/17 14:35 Triglycerides 195 mg/DL (0-149) H 05/28/17 17:30 Cholesterol 237 mg/dL (0-199) H 05/28/17 17:30 LDL Cholesterol Direct 174 mg/dL (0-129) H 05/28/17 17:30 HDL Cholesterol 24 MG/DL (30-70) L 05/28/17 17:30 Venous Blood Potassium 5.0 mmol/L (3.6-5.2) 05/27/17 14:53 Vancomycin Trough < 5.0 ug/mL (5.0-10.0) L 06/05/17 04:09 Blood Type B POSITIVE 06/09/17 10:00 Blood Type Confirm B POSITIVE 06/09/17 11:07 Antibody Screen Negative 06/09/17 10:00 Crossmatch See Detail 06/09/17 10:00 BBK History Checked No verified bt 06/09/17 10:00 - Hospital Course Hospital Course: S/P L TRANSMETARTASEL AMPUTATION Discharge Exam - Head Exam Head Exam: ATRAUMATIC - Eye Exam Eye Exam: EOMI, Normal appearance, PERRL Pupil Exam: NORMAL ACCOMODATION, PERRL - GI/Abdominal Exam GI & Abdominal Exam: Normal Bowel Sounds - Rectal Exam Rectal Exam: NORMAL INSPECTION - Extremities Exam Extremities exam: tenderness Additional comments: L TRANSMET AMPUTATION - Neurological Exam Neurological exam: Alert, CN II-XII Intact, Normal Gait, Oriented x3, Reflexes Normal - Psychiatric Exam Psychiatric exam: Normal Affect, Normal Mood - Skin Skin Exam: Dry, Intact, Normal Color, Warm Discharge Plan - Discharge Medications Prescriptions: Cefepime 1gm in NS 50ml [Maxipime 1gm] 1 gm IV Q8 #10 bag oxyCODONE/Acetaminophen [Percocet 5/325 mg Tab] 1 ea PO Q4 #10 tab Vancomycin 1 GM [Vancomycin 1GM in Normal Saline Addvantage] 1 gm IVPB DAILY #7 bag - Follow Up Plan Condition: FAIR Disposition: REHAB FACILITY/REHAB UNIT Patient education suggested?: Yes Referrals: Nik Strange MD [Staff Provider] -
== END 2017-06-10 19:45 | DRG 240 ==
LOC: H.ER 13:23 → H.ERHOLD 14:26 → H.MEDSURG1 16:55 → H.TEL 06-02 16:28
PROVIDERS: ADMIT Internal Medicine Pulmonary Disease; ATTEND Internal Medicine Pulmonary Disease
PROC: 047L3ZZ Dilation of Left Femoral Artery, Percutaneous Approach (ICD-10-PCS; 2017-06-02)
PROC: 047N3ZZ Dilation of Left Popliteal Artery, Percutaneous Approach (ICD-10-PCS; 2017-06-02)
PROC: B41DYZZ Fluoroscopy of Aorta and Bilateral Lower Extremity Arteries using Other Contrast (ICD-10-PCS; 2017-06-02)
PROC: 0QTR0ZZ Resection of Left Toe Phalanx, Open Approach (ICD-10-PCS; 2017-06-04)
PROC: 0Y6N0ZC Detachment at Left Foot, Partial 3rd Ray, Open Approach (ICD-10-PCS; 2017-06-09)
PROC: 0Y6N0ZD Detachment at Left Foot, Partial 4th Ray, Open Approach (ICD-10-PCS; 2017-06-09)
PROC: 0Y6N0ZF Detachment at Left Foot, Partial 5th Ray, Open Approach (ICD-10-PCS; 2017-06-09)
PROC: 3E0T3BZ Introduction of Anesthetic Agent into Peripheral Nerves and Plexi, Percutaneous Approach (ICD-10-PCS; 2017-06-09)
PROC: 3E0T33Z Introduction of Anti-inflammatory into Peripheral Nerves and Plexi, Percutaneous Approach (ICD-10-PCS; 2017-06-09)
PROC: 0Y6N0Z9 Detachment at Left Foot, Partial 1st Ray, Open Approach (ICD-10-PCS; principal; 2017-06-09 08:30)
PROC: 0Y6N0ZB Detachment at Left Foot, Partial 2nd Ray, Open Approach (ICD-10-PCS; 2017-06-09 08:30)
DX: E11.52 Type 2 diabetes mellitus with diabetic peripheral angiopathy with gangrene (principal); E11.621 Type 2 diabetes mellitus with foot ulcer; M86.172 Other acute osteomyelitis, left ankle and foot; E11.65 Type 2 diabetes mellitus with hyperglycemia; L03.116 Cellulitis of left lower limb; B95.2 Enterococcus as the cause of diseases classified elsewhere; B96.89 Other specified bacterial agents as the cause of diseases classified elsewhere; D63.8 Anemia in other chronic diseases classified elsewhere; E87.6 Hypokalemia; L97.529 Non-pressure chronic ulcer of other part of left foot with unspecified severity; I10 Essential (primary) hypertension; E78.5 Hyperlipidemia, unspecified; I25.10 Atherosclerotic heart disease of native coronary artery without angina pectoris; I70.203 Unspecified atherosclerosis of native arteries of extremities, bilateral legs; M21.42 Flat foot [pes planus] (acquired), left foot; Z79.02 Long term (current) use of antithrombotics/antiplatelets; Z79.82 Long term (current) use of aspirin

== ENCOUNTER 2017-07-15 10:26 | Inpatient (IN) | payer BC ==
[2017-07-10 10:46] VITALS: BMI 24.7
--- NOTE | 2017-07-15 12:30 | CP.PCM.PN ---
Subjective - Date & Time of Evaluation Date of Evaluation: 07/15/17 Time of Evaluation: 12:28 - Subjective Subjective: 62 year old female seen preoperatively in [facility] today for I and D of left foot TMA site abscess with application of skin graft and wound vac. Patient states that she is out of pain medication and her pain today is 9/10. Patient denies any further pedal complaints at this time. States that she has been NPO since yesterday evening and has been off all of her anticoagulation medication for at least five days. Denies any recent N/V/F/C/CP/SOB/D/posterior calf pain when squeezed. Objective - Vital Signs/Intake and Output Vital Signs (last 24 hours): Temp Pulse Resp BP Pulse Ox 98.9 F 71 18 142/61 97 07/15/17 11:30 07/15/17 11:37 07/15/17 11:30 07/15/17 11:30 07/15/17 11:30 - Constitutional Appears: Well, Non-toxic, No Acute Distress - Extremities Exam Additional comments: LE focused exam: Vasc: DP/PT pulses 2/4 R, 1/4 L. Temperature gradient warm to cool B/L. Mild non pitting edema noted to left foot at TMA site. CFT < 3 sec to all digits on R , delayed but present to L foot TMA site. Derm: TMA site noted to be slightly dehisced with clinical signs of infection including drainage, erythema and malodor. Otherwise, no open wounds, maceration , xerosis, abnormal pigmentation or abnormal growths noted Neuro: Protective sensation grossly intact Ortho: POP to TMA site left foot - Neurological Exam Neurological Exam: Alert, Awake, Oriented x3 - Psychiatric Exam Psychiatric exam: Normal Affect, Normal Mood Assessment and Plan - Assessment and Plan (Free Text) Assessment: 62 year old female seen in [facility] preoperatively for incision and drainage of left foot TMA site with application of skin graft and wound vac Plan: Pt was seen and examined in [facility] Pt NPO status was confirmed All pre-op testing and clearance in chart Pt has exhausted all conservative treatment at this time and is opting for surgical intervention Pt was explained procedure and post-operative course All pt's questions were answered to satisfaction No guarantees were made Pt understands all risks, benefits and complications of procedure Pt will follow-up with Dr. Looney within 1 week of surgery
[2017-07-15] MEDS ORDERED: Lidocaine 1% Inj (20ml) ONE (12:50)
[2017-07-15] MEDS ORDERED: Bupivacaine 0.5% Inj(30mL) ONE (12:50)
--- NOTE | 2017-07-15 12:50 | CP.SDSHP ---
Same Day Surgery H & P - History Proposed Procedure: Incision and drainage of infected left foot TMA site with application of biological graft and wound vac Pre-Op Diagnosis: Infected, dehisced, TMA site left foot - Previous Medical/Surgical History Pain: 8.Very Severe Previous Surgical History: TMA left foot - Allergies Allergies: Allergies No Known Allergies Allergy (Verified 07/15/17 10:44) - Physical Exam Vital Signs: Vital Signs 07/15/17 07/15/17 11:30 11:37 Temperature 98.9 F Pulse Rate 71 71 Respiratory 18 Rate Blood Pressure 142/61 O2 Sat by Pulse 97 Oximetry Mental Status: Alert & Oriented x3 - {Optional Preform as Required} Integument: Other (Dehisced TMA site left foot) - Impression Pt. Evaluated Today:Candidate for Anesthesia & Procedure: Yes - Date & Time Date: 07/15/17 Time: 12:50 Short Stay Discharge - Short Stay Discharge Admitting Diagnosis/Reason for Visit: L03.116/ L97.524/ T87.54/ Referrals: Veronica Sol MD [Staff Provider] - Nik Strange MD [Staff Provider] - Elodia Cuevas MD [Primary Care Provider] - Raven Looney DPM [Staff Provider] - Instructions: Abscess (GEN), Incision and Drainage (DC)
[2017-07-15] MEDS ORDERED: ceFAZolin 1 GM in Sodium Chloride 0.9% 100 ML IVPB ONE (12:51)
[2017-07-15] MEDS ORDERED: Lidocaine 1% Inj (20ml) IJ ONE (12:51)
[2017-07-15] MEDS ORDERED: Bupivacaine 0.5% Inj(30mL) IJ ONE (12:51)
[2017-07-15] MEDS ORDERED: Sodium Chloride 0.9% 1,000 ML IV SCH (13:00)
[2017-07-15] MEDS ORDERED: Lactated Ringer's 1,000 ML IV ONE (13:05)
[2017-07-15] MEDS ORDERED: Lidocaine 1% 5ml Abboject IV ONE (13:13)
[2017-07-15] MEDS ORDERED: Propofol 10 mg/ml Inj (20 ML) ONE (13:13)
[2017-07-15] MEDS ORDERED: Midazolam 2 MG/2 ML VIAL ONE (13:13)
[2017-07-15] MEDS ORDERED: Oxycodone/Acetaminophen 5/325 mg Tab PO PRN (14:47)
--- NOTE | 2017-07-15 14:50 | PCM.SURG1 ---
Surgeon's Initial Post Op Note - Surgeon's Notes Surgeon: Dr. Raven Looney Family Development Specialist: Dr. Lesly Hubbard PGY-1, Dr. Rafael Trejo PGY-1 Type of Anesthesia: IV Sedation, Local Anesthesia Administered By: Dr. Oliver Pre-Operative Diagnosis: left foot abscess with non-healing wound Operative Findings: see operative report. I: 17cc 1:1 mix of 1% Lidocaine plain and 0.5% Bupivicaine plain; additional 10cc 1% Lidocaine plain intra-op. M: 3-0 prolene, 2-0 prolene, 1/4" iodoform packing. 50cc purulent drainage Post-Operative Diagnosis: same Operation Performed: left foot revisional transmetatarsal amputation, incision and drainage of abscess with debridement of bone and soft tissue Specimen/Specimens Removed: soft tissue and bone, left foot Estimated Blood Loss: EBL {In ML}: 25 Blood Products Given: N/A Drains Used: No Drains Post-Op Condition: Good Date of Surgery/Procedure: 07/15/17 Time of Surgery/Procedure: 13:40
[2017-07-15] MEDS ORDERED: HYDROmorphone 0.5 mg/0.5 ml ISec IVP PRN (15:15)
--- NOTE | 2017-07-15 16:04 | CP.PCM.HP ---
History of Present Illness - History of Present Illness History of Present Illness: 62 yo female with history of DM2, HTN and PVD S/P TMA of the left foot on 2016 requested admission by associate data scientist because severe infection of the left foot. Patient had revision of TMA with I&D and debridement and collected large amount of pus. Present on Admission - Present on Admission Any Indicators Present on Admission: No History of DVT/PE: No History of Uncontrolled Diabetes: No Urinary Catheter: No Decubitus Ulcer Present: No Review of Systems - Review of Systems All systems: reviewed and no additional remarkable complaints except (aside from those mentioned above, 12 point system review were negative by me) Past Patient History - Tetanus Immunizations Tetanus Immunization: Unknown - Past Medical History & Family History Past Medical History?: Yes - Past Social History Smoking Status: Never Smoked Alcohol: None Drugs: Denies Home Situation {Lives}: With Family - CARDIAC Hx Cardiac Disorders: Yes Hx Circulatory Problems: Yes Hx Hypercholesterolemia: Yes Hx Hypertension: Yes Hx Peripheral Vascular Disease: Yes - PULMONARY Hx Respiratory Disorders: No - NEUROLOGICAL Hx Neurological Disorder: No - HEENT Hx HEENT Problems: No - RENAL Hx Chronic Kidney Disease: No - ENDOCRINE/METABOLIC Hx Endocrine Disorders: Yes Hx Diabetes Mellitus Type 2: Yes - HEMATOLOGICAL/ONCOLOGICAL Hx Blood Disorders: No - INTEGUMENTARY Hx Dermatological Problems: No - MUSCULOSKELETAL/RHEUMATOLOGICAL Hx Musculoskeletal Disorders: Yes Hx Herniated Disk: Yes (with left lumbar radiculopathy) - GASTROINTESTINAL Hx Gastrointestinal Disorders: No - GENITOURINARY/GYNECOLOGICAL Hx Genitourinary Disorders: No - PSYCHIATRIC Hx Emotional Abuse: No Hx Physical Abuse: No - SURGICAL HISTORY Hx Surgeries: Yes Hx Cataract Extraction: Yes (bilateral) Hx Cardiac Catheterization: Yes Other/Comment: lower leg surgery, left TMA. left great ingrown toenail removal - ANESTHESIA Hx Anesthesia: Yes Hx Anesthesia Reactions: No Hx Malignant Hyperthermia: No Meds Allergies/Adverse Reactions: Allergies Allergy/AdvReac Type Severity Reaction Status Date / Time No Known Allergies Allergy Verified 07/15/17 10:44 Physical Exam - Constitutional Appears: No Acute Distress - Head Exam Head Exam: ATRAUMATIC - Eye Exam Eye Exam: absent: Scleral icterus - ENT Exam ENT Exam: Mucous Membranes Moist - Neck Exam Neck exam: Negative for: Meningismus - Respiratory Exam Respiratory Exam: absent: Rhonchi, Wheezes, Respiratory Distress - Cardiovascular Exam Cardiovascular Exam: REGULAR RHYTHM, +S1, +S2 - GI/Abdominal Exam GI & Abdominal Exam: Soft. absent: Tenderness - Rectal Exam Rectal Exam: Deferred - Extremities Exam Extremities exam: Negative for: normal inspection (left foot covered with dressing) - Neurological Exam Neurological exam: Alert, Oriented x3 - Psychiatric Exam Psychiatric exam: Normal Affect - Skin Skin Exam: Dry, Intact Results - Vital Signs Recent Vital Signs: Last Vital Signs Temp 99.3 F 07/15/17 15:15 Pulse 65 07/15/17 15:15 Resp 20 07/15/17 15:15 BP 127/61 07/15/17 15:15 Pulse Ox 100 07/15/17 15:15 - Labs Labs: Laboratory Results - last 24 hr 07/15/17 14:34 POC Glucose (mg/dL) 155 H Assessment & Plan (1) Gangrene of left foot Status: Acute Comment: Dr Looney following up case closely. cardiology consult with Dr Strange. ID consult with Dr Sol. Cefepime 1gm IV q 8hrs. Vanco 1gm IV q 12hrs. follow up culture (2) DM2 (diabetes mellitus, type 2) Status: Chronic Comment: HgA1, BMP in am. accuchek ACHS with low Lispro coverage. Metformin 1000mg PO q 12hrs. Januvia 100mg PO daily (3) HTN (hypertension) Status: Chronic Comment: BP stable. continue Metoprolol and Ramipril. monitor BP
--- NOTE | 2017-07-15 16:44 | CP.PCM.CON ---
History of Present Illness - History of Present Illness History of Present Illness: Infectious Disease Consultation Note- asked to see the patient at the request of the hospitalist for left TMA site infection. HPI- Patient known to me from her last admission in 05/2017. patient is a 62 y/o female with PMH of DM II, HTN, PVD s/p TMA of the left foot 06/09/2017 for left great toe gangrene and Osteomyelitis who was on IV antibiotics during that admission for 12 days ( cefepime and vanco) and was d/ c to [facility] and was supposed to continue with IV abx there for another 7 days and to f/u as outpatient with both podiatry and me. Pt. never f/u with me as outpatient but she did recently see the airport planner who advised her that she needs to have revision of the TMA . asper pt. she states she was not receiving IV abx at the [facility]. as per pt. at home she was not changing the dressing and hence she did not know that there was an underlying pus or infection. apparently once pt. TMA site was opened up by podiatry large amount of pus was drained and was sent for culture and wound partially left open. pt. restarted back on Vanco and cefepime ( [facility] [place] cx from last time namely e.fecalis adn serratia were sensitive to above antibiotics). Pt. denies any fever or chills . only c/o pain at the left TMA site. Review of Systems - Review of Systems Review of Systems: ROS- denies any fever or chills, denies any MOONEY, denies any cough, denies any sob, denies any chest pain, denies any abd. pain, denies any n/v, denies any diarrhea , denies any dysurea c/o pain in left TMA site Past Patient History - Tetanus Immunizations Tetanus Immunization: Unknown - Past Medical History & Family History Past Medical History?: Yes - Past Social History Smoking Status: Never Smoked Alcohol: None Drugs: Denies Home Situation {Lives}: With Family - CARDIAC Hx Circulatory Problems: Yes Hx Hypercholesterolemia: Yes Hx Hypertension: Yes Hx Peripheral Vascular Disease: Yes - PULMONARY Hx Respiratory Disorders: No - NEUROLOGICAL Hx Neurological Disorder: No - HEENT Hx HEENT Problems: No - RENAL Hx Chronic Kidney Disease: No - ENDOCRINE/METABOLIC Hx Endocrine Disorders: Yes Hx Diabetes Mellitus Type 2: Yes - HEMATOLOGICAL/ONCOLOGICAL Hx Blood Disorders: No - INTEGUMENTARY Hx Dermatological Problems: No - MUSCULOSKELETAL/RHEUMATOLOGICAL Hx Musculoskeletal Disorders: Yes Hx Herniated Disk: Yes (with left lumbar radiculopathy) - GASTROINTESTINAL Hx Gastrointestinal Disorders: No - GENITOURINARY/GYNECOLOGICAL Hx Genitourinary Disorders: No - PSYCHIATRIC Hx Emotional Abuse: No Hx Physical Abuse: No - SURGICAL HISTORY Hx Surgeries: Yes Hx Cataract Extraction: Yes (bilateral) Hx Cardiac Catheterization: Yes Other/Comment: lower leg surgery, left TMA. left great ingrown toenail removal - ANESTHESIA Hx Anesthesia: Yes Hx Anesthesia Reactions: No Hx Malignant Hyperthermia: No Meds Allergies/Adverse Reactions: Allergies Allergy/AdvReac Type Severity Reaction Status Date / Time No Known Allergies Allergy Verified 07/15/17 10:44 - Medications Medications: Current Medications Acetaminophen (Tylenol 325mg Tab) 650 mg PO Q4 PRN PRN Reason: Pain, Mild (1-3) Hydromorphone HCl (Dilaudid) 0.5 mg IVP Q5M PRN PRN Reason: Pain, moderate (4-7) Stop: 07/15/17 17:15 Last Admin: 07/15/17 15:19 Dose: 0.5 mg Sodium Chloride (Sodium Chloride 0.9%) 1,000 mls @ 0 mls/hr IV .Q0M JEANNIE PRN Reason: As Directed Stop: 07/16/17 12:51 Lactated Ringer's (Lactated Ringer's) 1,000 mls @ 100 mls/hr IV .Q10H JEANNIE Ondansetron HCl (Zofran Inj) 4 mg IVP ONCE PRN PRN Reason: Nausea/Vomiting Stop: 07/15/17 17:16 Oxycodone/Acetaminophen (Percocet 5/325 Mg Tab) 1 tab PO Q4 PRN PRN Reason: Pain, moderate (4-7) Stop: 07/18/17 14:48 Oxycodone/Acetaminophen (Percocet 5/325 Mg Tab) 2 tab PO Q4 PRN PRN Reason: Pain, severe (8-10) Stop: 07/18/17 14:48 Physical Exam - Constitutional Appears: No Acute Distress - Head Exam Head Exam: ATRAUMATIC - Eye Exam Eye Exam: EOMI - ENT Exam ENT Exam: Normal Oropharynx - Neck Exam Neck exam: Positive for: Full Rom - Respiratory Exam Respiratory Exam: Clear to Auscultation Bilateral, NORMAL BREATHING PATTERN - Cardiovascular Exam Cardiovascular Exam: RRR, +S1, +S2 - GI/Abdominal Exam GI & Abdominal Exam: Normal Bowel Sounds, Soft Additional comments: NT, ND - Extremities Exam Additional comments: Left foot TMA site with sutures in place in distal ends but mid posrtion about 5 x 7 cm open wound with sanguinous discharge only, no pus seen no surrounding erythema no malodor - Neurological Exam Neurological exam: Alert, Oriented x3 Results - Vital Signs Recent Vital Signs: Last Vital Signs Temp 98.5 F 07/15/17 15:45 Pulse 66 07/15/17 15:45 Resp 18 07/15/17 15:45 BP 112/57 L 07/15/17 15:45 Pulse Ox 97 07/15/17 15:45 - Labs Result Diagrams: 07/16/17 05:55 07/16/17 05:55 Labs: Laboratory Results - last 24 hr 07/15/17 07/15/17 14:34 16:26 POC Glucose (mg/dL) 155 H 139 H Laboratory Results - last 72 hr 07/15/17 07/15/17 07/15/17 10:48 14:34 16:26 WBC RBC Hgb Hct MCV MCH MCHC RDW Plt Count MPV Neut % (Auto) Lymph % (Auto) Clayton % (Auto) Eos % (Auto) Baso % (Auto) Neut # (Auto) Lymph # (Auto) Clayton # (Auto) Eos # (Auto) Baso # (Auto) Sodium Potassium Chloride Carbon Dioxide Anion Gap BUN Creatinine Est GFR ( Amer) Est GFR (Non-Af Amer) POC Glucose (mg/dL) 180 H 155 H 139 H Random Glucose Calcium Influenza Typ A,B (EIA) 07/15/17 07/16/17 07/16/17 21:11 05:33 05:55 WBC 23.6 H D RBC 3.32 L Hgb 8.2 L Hct 27.3 L MCV 82.2 MCH 24.7 L MCHC 30.1 L RDW 18.4 H Plt Count 627 H MPV 8.8 Neut % (Auto) 78.0 H Lymph % (Auto) 12.3 L Clayton % (Auto) 8.8 Eos % (Auto) 0.7 Baso % (Auto) 0.2 Neut # (Auto) 18.4 H Lymph # (Auto) 2.9 Clayton # (Auto) 2.1 H Eos # (Auto) 0.2 Baso # (Auto) 0.1 Sodium Potassium Chloride Carbon Dioxide Anion Gap BUN Creatinine Est GFR ( Amer) Est GFR (Non-Af Amer) POC Glucose (mg/dL) 278 H 174 H Random Glucose Calcium Influenza Typ A,B (EIA) 07/16/17 07/16/17 07/16/17 05:55 09:14 11:03 WBC RBC Hgb Hct MCV MCH MCHC RDW Plt Count MPV Neut % (Auto) Lymph % (Auto) Clayton % (Auto) Eos % (Auto) Baso % (Auto) Neut # (Auto) Lymph # (Auto) Clayton # (Auto) Eos # (Auto) Baso # (Auto) Sodium 135 Potassium 3.0 L Chloride 98 Carbon Dioxide 14 L Anion Gap 26 H BUN 8 Creatinine 0.5 L Est GFR ( Amer) > 60 Est GFR (Non-Af Amer) > 60 POC Glucose (mg/dL) 225 H Random Glucose 212 H Calcium 8.9 Influenza Typ A,B (EIA) Negative for flu a/b Microbiology 06/05/17 13:52 Toe Gram Stain - Final 06/05/17 13:52 Toe Wound Culture - Final Serratia Marcescens Enterococcus Faecalis 06/05/17 13:52 Toe Gram Stain - Final 06/05/17 13:52 Toe Wound Culture - Final Enterococcus Faecalis 06/04/17 18:52 Blood-Venous Blood Culture - Final 06/04/17 18:52 Blood-Venous Gram Stain - Final NO GROWTH AFTER 5 DAYS TEST NOT PERFORMED 06/04/17 18:52 Blood-Venous Blood Culture - Final 06/04/17 18:52 Blood-Venous Gram Stain - Final NO GROWTH AFTER 5 DAYS TEST NOT PERFORMED 05/28/17 11:23 Foot - Left Gram Stain - Final 05/28/17 11:23 Foot - Left Wound Culture - Final Serratia Marcescens Enterococcus Faecalis 06/09/17 10:30 Foot - Left Gram Stain - Final 06/09/17 10:30 Foot - Left Wound Culture - Final No growth. 06/09/17 10:30 Foot - Left Gram Stain - Final 06/09/17 10:30 Foot - Left Wound Culture - Final Coagulase Neg Staphylococcus Accession No. : [id number] Patient Name / ID : KEV KELLEY E / [id number] Exam Date : 07/16/2017 08:25:52 ( Approved ) Study Comment : Sex / Age : F / 62Y Creator : Solomon Jimenez MD Dictator : Solomon Jimenez MD Block Cutter : Haircutter : Solomon Jimenez MD Approver2 : Report Date : 07/16/2017 12:41:19 My Comment : PROCEDURE: Left Foot Radiographs. HISTORY: s/p TMA revision COMPARISON: Left foot radiographs dated 06/09/2017. FINDINGS: The patient is status post revision transmetatarsal amputation. A small amount expected air and fluid is seen within the edges and soft tissues. Diffuse osteopenia is evident. IMPRESSION: Status post revision transmetatarsal amputation. Assessment & Plan (1) Gangrene of left foot Status: Acute (2) DM2 (diabetes mellitus, type 2) Status: Chronic (3) PVD (peripheral vascular disease) Status: Acute (4) Status post transmetatarsal amputation of left foot Status: Acute - Assessment and Plan (Free Text) Assessment: A/P- 62 year old female with DM II, HTN, PVD with left great toe gangrene and Om s/p left foot TMA 06/09/2017 and wsa on IV antibiotics but now is admitted because of infection at the TMA site and is s/p I and D at the TMA site by podiatry drainage of pus. afebrile high wbc count wound cx from toe from last admission serratia and e.Fecalis. bone bx- acute OM ( last admission) plan- advise to continue with Both Iv vancomycin and Cefepime to treat the TMNA site infection and also this regimen covers the 2 bacteria from previous admission wound cx. keep vanco trough <15. await wound culture from this admission. keep wound clean. check blood cx as well. check ESR. pt. will most likely need long duration of antibiotics 3-4 weeks. All above d/w patient and her who is at bedside and their questions answered. Thank you for allowing me to take part in the care of this patient.
[2017-07-15] MEDS ORDERED: MORPHINE SULFATE 15 MG PO PRN (16:47)
[2017-07-15] MEDS ORDERED: Cefepime 1 GM in Sodium Chloride 0.9% 100 ML IVPB SCH (17:00)
[2017-07-15] MEDS: Oxycodone/Acetaminophen 5/325 mg Tab PO PRN ×2 (17:38→22:01)
[2017-07-15] MEDS: Cefepime 1 GM in Sodium Chloride 0.9% 100 ML IVPB SCH (20:00)
[2017-07-16] MEDS: Lactated Ringer's 1,000 ML IV SCH ×2 (01:15→07:07)
[2017-07-16] MEDS: Oxycodone/Acetaminophen 5/325 mg Tab PO PRN ×2 (03:13→14:14)
[2017-07-16] MEDS: Cefepime 1 GM in Sodium Chloride 0.9% 100 ML IVPB SCH ×3 (04:16→20:54)
[2017-07-16 07:28] LABS: BLOOD UREA NITROGEN 8 mg/dl (7-17); CALCIUM 8.9 mg/dL (8.4-10.2); GFR AFRICAN-AMERICAN > 60; GFR NON-AFRICAN AMERICAN > 60
[2017-07-16 07:53] LABS: HEMOGLOBIN 8.2 g/dL (12.0-16.0); MEAN CELL VOLUME 82.2 fl (81.0-99.0); MEAN CORPUSCULAR HEMOGLOBIN 24.7 pg (27.0-31.0); RBC 3.32 Mil/uL (3.80-5.20); WHITE BLOOD COUNT 23.6 K/uL (4.8-10.8)
[2017-07-16 07:54] LABS: MEAN CORPUSCULAR HGB CONC 30.1 g/dL (33.0-37.0); MEAN PLATELET VOLUME 8.8 fl (7.2-11.7); RED CELL DISTRIBUTION WIDTH 18.4 % (11.5-14.5)
[2017-07-16 07:55] LABS: LYMPH % 12.3 % (20.0-40.0); NRBC % 0.1 % (0.0-0.0)
[2017-07-16 07:56] LABS: BASO % 0.2 % (0.0-2.0); EOS % 0.7 % (0.0-4.0); LYMPH # 2.9 K/uL (1.0-4.3); MONO % 8.8 % (0.0-10.0); NEUT # 18.4 K/uL (1.8-7.0)
[2017-07-16 07:57] LABS: BASO # 0.1 K/uL (0.0-0.2); EOS # 0.2 K/uL (0.0-0.7); MONO # 2.1 K/uL (0.0-0.8)
[2017-07-16] MEDS ORDERED: Patient's Own Med (Linagliptin [Tradjenta] 5 MG) PO SCH (09:00)
[2017-07-16] MEDS: Pantoprazole 40 mg EC Tab PO SCH (09:04)
[2017-07-16] MEDS: Aspirin 325 mg EC Tablets PO SCH (09:04)
--- NOTE | 2017-07-16 09:04 | CP.PCM.PN ---
<Rafael Trejo - Last Filed: 07/16/17 16:48> Subjective - Date & Time of Evaluation Date of Evaluation: 07/16/17 Time of Evaluation: 09:05 - Subjective Subjective: HOSPITALIST PROGRESS NOTE- DR. LEMONS 62 y.o female with PMH of DM2, HTN and PVD seen and evaluated at bedside 1 day s /p left foot incision and drainage and debridement, including nonviable soft tissue and bone, of non-healing TMA with abscess. Patient is seen resting in bed , in NAD, and AA0x3. Patient reports that she was in severe pain last night at 3am in which she was given pain medication. She reports the pain has decreased. She rates her pain 8/10 and describes the pain as a combination of pain: throbbing, achy, and sharp. Patient reports pain is localized to the left foot. She denies calf tenderness. Denies n/v/sob/cp or f. She reports feeling chills. Dressing is c/d/i without strikethrough. Objective - Vital Signs/Intake and Output Vital Signs (last 24 hours): Temp Pulse Resp BP Pulse Ox 98.2 F 86 20 151/70 H 100 07/16/17 08:04 07/16/17 08:04 07/16/17 08:04 07/16/17 08:04 07/16/17 08:04 - Medications Medications: Current Medications Acetaminophen (Tylenol 325mg Tab) 650 mg PO Q4 PRN PRN Reason: Pain, Mild (1-3) Last Admin: 07/15/17 20:52 Dose: 650 mg Aspirin (Ecotrin) 325 mg PO DAILY [facility] Clopidogrel Bisulfate (Plavix) 75 mg PO DAILY [facility] Docusate Sodium (Colace) 100 mg PO BID [facility] Last Admin: 07/15/17 17:00 Dose: Not Given Enoxaparin Sodium (Lovenox) 40 mg SC DAILY [facility] PRN Reason: Protocol Sodium Chloride (Sodium Chloride 0.9%) 1,000 mls @ 0 mls/hr IV .Q0M [facility] PRN Reason: As Directed Stop: 07/16/17 12:51 Lactated Ringer's (Lactated Ringer's) 1,000 mls @ 100 mls/hr IV .Q10H [facility] Last Admin: 07/16/17 07:07 Dose: 100 mls/hr Vancomycin HCl 1 gm/ Sodium (Chloride) 250 mls @ 166.667 mls/hr IVPB Q12 [facility] PRN Reason: Protocol Last Admin: 07/15/17 21:30 Dose: 166.667 mls/hr Cefepime HCl 1 gm/ Sodium (Chloride) 100 mls @ 100 mls/hr IVPB Q8@0400,1200, 2000 [facility] PRN Reason: Protocol Last Admin: 07/16/17 04:16 Dose: 100 mls/hr Metformin HCl (Glucophage) 1,000 mg PO BID [facility] Last Admin: 07/15/17 17:00 Dose: Not Given Metoprolol Tartrate (Lopressor) 100 mg PO DAILY [facility] Morphine Sulfate (Morphine) 2 mg IVP Q4 PRN PRN Reason: Pain, severe (8-10) Last Admin: 07/16/17 07:31 Dose: 2 mg Oxycodone/Acetaminophen (Percocet 5/325 Mg Tab) 1 tab PO Q4 PRN PRN Reason: Pain, moderate (4-7) Stop: 07/18/17 14:48 Oxycodone/Acetaminophen (Percocet 5/325 Mg Tab) 2 tab PO Q4 PRN PRN Reason: Pain, severe (8-10) Stop: 07/18/17 14:48 Last Admin: 07/16/17 03:13 Dose: 2 tab Pantoprazole Sodium (Protonix Ec Tab) 40 mg PO DAILY [facility] Ramipril (Altace) 10 mg PO DAILY [facility] Sitagliptin Phosphate (Januvia) 100 mg PO DAILY [facility] - Labs Labs: 07/16/17 05:55 07/16/17 05:55 - Constitutional Appears: Well, Non-toxic, No Acute Distress - Head Exam Head Exam: ATRAUMATIC, NORMAL INSPECTION, NORMOCEPHALIC - Eye Exam Eye Exam: EOMI, Normal appearance, PERRL Pupil Exam: NORMAL ACCOMODATION - ENT Exam ENT Exam: Mucous Membranes Moist, Normal Exam - Neck Exam Neck Exam: Full ROM, Normal Inspection - Respiratory Exam Respiratory Exam: Clear to Ausculation Bilateral, NORMAL BREATHING PATTERN. absent: Rales, Rhonchi, Wheezes, Respiratory Distress, Stridor - Cardiovascular Exam Cardiovascular Exam: REGULAR RHYTHM, +S1, +S2 - GI/Abdominal Exam GI & Abdominal Exam: Soft, Normal Bowel Sounds - Extremities Exam Extremities Exam: absent: Calf Tenderness Additional comments: Dressing to the left LE is c/d/i without strikethrough Skin temperature WNL - Neurological Exam Neurological Exam: Awake, Oriented x3 - Psychiatric Exam Psychiatric exam: Normal Affect, Normal Mood Assessment and Plan - Assessment and Plan (Free Text) Assessment: 62 y.o female with PMH of DM2, HTN and PVD 1 day s/p left foot incision and drainage and debridement, including nonviable soft tissue and bone, of non- healing TMA with abscess Plan: Infected left foot Status: Acute -podiatry on board- Dr. Looney -1 day s/p left foot incision and drainage and debridement, including nonviable soft tissue and bone, of non-healing TMA with abscess -ID consulted -Cefepime 1gm IV q 8h and Vanco 1gm IV q 12h -leukocytosis WBC=23.6 -c/w antibiotics -f/u wound culture, f/u blood culture -s/p left foot x-ray. Impression: s/p left TMA -c/w current pain management -repeat CBC, BMP in am PVD Status: Chronic -cardiology consulted- Dr Strange -f/u ABIs -Plavix Diabetes Mellitus, type 2 Status: Chronic -HbA1c, BMP -accuchek ACHS with low Lispro coverage. -metformin 1000mg PO q 12hrs -januvia 100mg PO daily Hypertension Status: Chronic -BP stable -continue Metoprolol and Ramipril -monitor BP Hypokalemia Status: Acute -Potassium 3.0 -Give K-Dur 20meq PO x 2 -Give KCl IV 10meq x 2 -ordered magnesium routine -repeat magnesium in AM Diet -Heart Healthy Diet DVT prophylaxis -Lovenox 40 mg SC daily <Sharita Lemons - Last Filed: 07/18/17 19:13> Objective - Vital Signs/Intake and Output Vital Signs (last 24 hours): Temp Pulse Resp BP Pulse Ox 99.1 F 74 20 113/67 97 07/18/17 15:57 07/18/17 15:57 07/18/17 15:57 07/18/17 15:57 07/18/17 15:57 - Medications Medications: Current Medications Acetaminophen (Tylenol 325mg Tab) 650 mg PO Q4 PRN PRN Reason: Pain, Mild (1-3) Last Admin: 07/15/17 20:52 Dose: 650 mg Clopidogrel Bisulfate (Plavix) 75 mg PO DAILY [facility] Last Admin: 07/18/17 09:06 Dose: 75 mg Docusate Sodium (Colace) 100 mg PO BID [facility] Last Admin: 07/18/17 17:03 Dose: 100 mg Enoxaparin Sodium (Lovenox) 40 mg SC DAILY [facility] PRN Reason: Protocol Last Admin: 07/18/17 09:06 Dose: 40 mg Glipizide (Glucotrol Xl) 2.5 mg PO BRK [facility] Last Admin: 07/18/17 12:35 Dose: 2.5 mg Vancomycin HCl 1 gm/ Sodium (Chloride) 250 mls @ 166.667 mls/hr IVPB Q12 [facility] PRN Reason: Protocol Last Admin: 07/18/17 09:12 Dose: 166.667 mls/hr Cefepime HCl 1 gm/ Sodium (Chloride) 100 mls @ 100 mls/hr IVPB Q8@0400,1200, 2000 [facility] PRN Reason: Protocol Last Admin: 07/18/17 11:09 Dose: 100 mls/hr Iron Sucrose 100 mg/ Sodium (Chloride) 105 mls @ 105 mls/hr IVPB DAILY [facility] Stop: 07/19/17 09:59 Last Admin: 07/18/17 12:34 Dose: 105 mls/hr Insulin Detemir (Levemir) 8 units SC HS [facility] Insulin Human Lispro (Humalog) 0 units SC ACHS [facility] PRN Reason: Protocol Last Admin: 07/18/17 17:22 Dose: 2 units Lactulose (Enulose) 20 gm PO BID PRN PRN Reason: Constipation Last Admin: 07/18/17 12:16 Dose: 20 gm Metoprolol Tartrate (Lopressor) 100 mg PO DAILY [facility] Last Admin: 07/18/17 09:05 Dose: 100 mg Morphine Sulfate (Morphine) 4 mg IVP Q3 PRN PRN Reason: Pain, severe (8-10) Last Admin: 07/18/17 12:15 Dose: 4 mg Oxycodone HCl (Oxycontin Extended Release Tab) 20 mg PO Q12 [facility] Last Admin: 07/18/17 12:40 Dose: 20 mg Pantoprazole Sodium (Protonix Ec Tab) 40 mg PO DAILY [facility] Last Admin: 07/18/17 09:06 Dose: 40 mg Ramipril (Altace) 10 mg PO DAILY [facility] Last Admin: 07/18/17 09:04 Dose: 10 mg Sitagliptin Phosphate (Januvia) 100 mg PO DAILY [facility] Last Admin: 07/18/17 09:05 Dose: 100 mg Sodium Bicarbonate (Sodium Bicarbonate Tab) 650 mg PO Q6 [facility] Stop: 07/19/17 16:01 Last Admin: 07/18/17 17:23 Dose: 650 mg - Labs Labs: 07/18/17 04:50 07/18/17 11:30 Attending/Attestation - Attestation I have personally seen and examined this patient.: Yes I have fully participated in the care of the patient.: Yes I have reviewed all pertinent clinical information, including history, physical exam and plan: Yes Notes (Text): 07/18/17 19:13 Seen, examined, and discussed with resident Dr. Healy, agree with findings and plan as above.
[2017-07-16] MEDS: Enoxaparin 40 mg Syringe SC SCH (10:31)
--- NOTE | 2017-07-16 12:47 | RAD ---
PROCEDURE: Left Foot Radiographs. HISTORY: s/p TMA revision COMPARISON: Left foot radiographs dated 06/09/2017. FINDINGS: The patient is status post revision transmetatarsal amputation. A small amount expected air and fluid is seen within the edges and soft tissues. Diffuse osteopenia is evident. IMPRESSION: Status post revision transmetatarsal amputation.
[2017-07-16] MEDS ORDERED: Potassium Chloride 20 mEq ER Tab PO ONE ×2 (13:28→13:42)
--- NOTE | 2017-07-16 14:54 | CP.PCM.PN ---
Subjective - Date & Time of Evaluation Date of Evaluation: 07/16/17 Time of Evaluation: 14:52 - Subjective Subjective: 62 y.o female with PMH of DM2, HTN and PVD seen and evaluated at bedside 1 day s /p left foot incision and drainage and debridement, including nonviable soft tissue and bone, of non-healing TMA with abscess for wound vac application. Patient states that she is in a lot of pain today and appears very distraught over the state of her foot. The patient is AAO x 3 and time of visit. Denies any further pedal complaints at this time. Denies N/V/F/C/CP/SOB/D/posterior calf pain when squeezed. Objective - Vital Signs/Intake and Output Vital Signs (last 24 hours): Temp Pulse Resp BP Pulse Ox 98.2 F 86 20 151/70 H 100 07/16/17 08:04 07/16/17 08:04 07/16/17 08:04 07/16/17 09:03 07/16/17 08:04 - Medications Medications: Current Medications Acetaminophen (Tylenol 325mg Tab) 650 mg PO Q4 PRN PRN Reason: Pain, Mild (1-3) Last Admin: 07/15/17 20:52 Dose: 650 mg Aspirin (Ecotrin) 325 mg PO DAILY [facility] Last Admin: 07/16/17 09:04 Dose: 325 mg Clopidogrel Bisulfate (Plavix) 75 mg PO DAILY [facility] Last Admin: 07/16/17 09:03 Dose: 75 mg Docusate Sodium (Colace) 100 mg PO BID [facility] Last Admin: 07/16/17 09:03 Dose: 100 mg Enoxaparin Sodium (Lovenox) 40 mg SC DAILY [facility] PRN Reason: Protocol Last Admin: 07/16/17 10:31 Dose: 40 mg Vancomycin HCl 1 gm/ Sodium (Chloride) 250 mls @ 166.667 mls/hr IVPB Q12 [facility] PRN Reason: Protocol Last Admin: 07/16/17 10:31 Dose: 166.667 mls/hr Cefepime HCl 1 gm/ Sodium (Chloride) 100 mls @ 100 mls/hr IVPB Q8@0400,1200, 2000 [facility] PRN Reason: Protocol Last Admin: 07/16/17 13:17 Dose: 100 mls/hr Potassium Chloride (Potassium Cl 10meq/50ml Sterile Water) 50 mls @ 50 mls/hr IVPB Q1 [facility] Stop: 07/16/17 16:59 Metformin HCl (Glucophage) 1,000 mg PO BID [facility] Last Admin: 07/16/17 09:04 Dose: 1,000 mg Metoprolol Tartrate (Lopressor) 100 mg PO DAILY [facility] Last Admin: 07/16/17 09:03 Dose: 100 mg Oxycodone/Acetaminophen (Percocet 5/325 Mg Tab) 1 tab PO Q4 PRN PRN Reason: Pain, moderate (4-7) Stop: 07/18/17 14:48 Oxycodone/Acetaminophen (Percocet 5/325 Mg Tab) 2 tab PO Q4 PRN PRN Reason: Pain, severe (8-10) Stop: 07/18/17 14:48 Last Admin: 07/16/17 14:14 Dose: 2 tab Pantoprazole Sodium (Protonix Ec Tab) 40 mg PO DAILY [facility] Last Admin: 07/16/17 09:04 Dose: 40 mg Ramipril (Altace) 10 mg PO DAILY [facility] Last Admin: 07/16/17 09:03 Dose: 10 mg Sitagliptin Phosphate (Januvia) 100 mg PO DAILY [facility] Last Admin: 07/16/17 09:03 Dose: 100 mg - Labs Labs: 07/16/17 05:55 07/16/17 05:55 - Constitutional Appears: Well, Non-toxic - Extremities Exam Additional comments: RLE focused exam: Vasc: DP/PT pulses non-palpable. Skin temperature warm to warm from proximal to distal. Minimal edema noted surround surgical site Neuro: Epicritic and protective sensation grossly intact b/l Derm: Erythematous changes noted to periwound area consistent with recent surgery. No purulent drainage expressed from surgical site. No other clinical signs of infection appreciated at this time MSK: Open TMA site noted to right foot with distal aspect of remaining metatarsal bases seen. Nylon suturing noted to medial and lateral portions of TMA site with skin well coapted and no signs of dehiscence. Retention sutures noted across open midportion of TMA site. All sutures are intact. Packing noted to be in place. POP to TMA site - Neurological Exam Neurological Exam: Alert, Awake, Oriented x3 - Psychiatric Exam Psychiatric exam: Normal Affect, Normal Mood Assessment and Plan - Assessment and Plan (Free Text) Assessment: 62 y.o female with PMH of DM2, HTN and PVD seen and evaluated at bedside 1 day s /p left foot incision and drainage and debridement, including nonviable soft tissue and bone, of non-healing TMA with abscess for wound vac application. Plan: Patient seen and evaluated at bedside Plan discussed with attending Dr. Looney Afebrifred WBC 23.6 Foot xray reviewed: S/p transmetatarsal amputation F/u wound cx foot Continue IV abx per ID F/u arterial duplex Continue PT KCI portable wound vac applied to patients right foot and dressed with kirlix and YELITZA Pressure set to 125 mmHg and good seal achieved Patient instructed to inform nurse if canister becomes full Podiatry will change vac in two days No surgical intervention planned at this time Podiatry will continue to follow while patient in house
[2017-07-16] MEDS: Potassium CL 10 MEQ/50 ML 50 ML IVPB SCH ×2 (17:15→19:30)
[2017-07-17] MEDS: Cefepime 1 GM in Sodium Chloride 0.9% 100 ML IVPB SCH ×3 (04:28→20:20)
[2017-07-17 06:38] LABS: BASO # 0.1 K/uL (0.0-0.2); BASO % 0.2 % (0.0-2.0); EOS # 0.2 K/uL (0.0-0.7); EOS % 0.7 % (0.0-4.0); HEMOGLOBIN 7.8 g/dL (12.0-16.0); LYMPH # 3.6 K/uL (1.0-4.3); LYMPH % 16.5 % (20.0-40.0); MEAN CORPUSCULAR HEMOGLOBIN 24.6 pg (27.0-31.0); MEAN CORPUSCULAR HGB CONC 29.6 g/dL (33.0-37.0); MEAN PLATELET VOLUME 8.6 fl (7.2-11.7); MONO # 1.8 K/uL (0.0-0.8); MONO % 8.4 % (0.0-10.0); NEUT # 16.2 K/uL (1.8-7.0); NEUT % 74.2 % (50.0-75.0); RBC 3.19 Mil/uL (3.80-5.20); RED CELL DISTRIBUTION WIDTH 18.5 % (11.5-14.5); WHITE BLOOD COUNT 21.8 K/uL (4.8-10.8)
[2017-07-17 07:59] LABS: ALB/GLOB RATIO 0.8 (1.0-2.1); ALBUMIN 3.1 g/dL (3.5-5.0); ALT/SGPT 20 U/L (9-52); AST/SGOT 16 U/L (14-36); BLOOD UREA NITROGEN 8 mg/dl (7-17); CALCIUM 9.1 mg/dL (8.4-10.2); GFR AFRICAN-AMERICAN > 60; GFR NON-AFRICAN AMERICAN > 60; MAGNESIUM 1.8 MG/DL (1.6-2.3)
[2017-07-17 08:41] LABS: ABG ALLEN TEST YES; ARTERIAL BLOOD GAS HCO3 13.9 mmol/L (21-28); ARTERIAL BLOOD GAS HEMOGLOBIN 10.8 g/dL (11.7-17.4); ARTERIAL BLOOD GAS O2 CAPACITY 14.7 mL/dL (16-24); ARTERIAL BLOOD GAS O2 CONTENT 14.6 ML/dL (15-23); ARTERIAL BLOOD GAS O2 SAT 99.5 % (95-98); ARTERIAL BLOOD GAS PCO2 17 mm/Hg (35-45); ARTERIAL BLOOD GAS PH 7.35 (7.35-7.45); ARTERIAL BLOOD GAS PO2 100 mm/Hg (80-100); ARTERIAL BLOOD GAS TCO2 9.9 mmol/L (22-28)
--- NOTE | 2017-07-17 08:49 | CP.PCM.PN ---
Subjective - Date & Time of Evaluation Date of Evaluation: 07/17/17 Time of Evaluation: 08:46 - Subjective Subjective: 62 y.o female with PMH of DM2, HTN and PVD seen and evaluated at bedside 2 days s/p left foot incision and drainage and debridement, including nonviable soft tissue and bone, of non-healing TMA with abscess for wound vac application. Patient is AAO x 3 and NAD resting comfortably in bed at time of visit. She states that her pain has been well controlled since she was given morphine yesterday. Denies any further pedal complaints at this time. Denies N/V/F/C/CP/ SOB/D/posterior calf pain when squeezed. Objective - Vital Signs/Intake and Output Vital Signs (last 24 hours): Temp Pulse Resp BP Pulse Ox 98.9 F 81 20 128/67 98 07/17/17 08:25 07/17/17 08:25 07/17/17 08:25 07/17/17 08:25 07/17/17 08:25 - Medications Medications: Current Medications Acetaminophen (Tylenol 325mg Tab) 650 mg PO Q4 PRN PRN Reason: Pain, Mild (1-3) Last Admin: 07/15/17 20:52 Dose: 650 mg Aspirin (Ecotrin) 325 mg PO DAILY [facility] Last Admin: 07/16/17 09:04 Dose: 325 mg Clopidogrel Bisulfate (Plavix) 75 mg PO DAILY [facility] Last Admin: 07/16/17 09:03 Dose: 75 mg Docusate Sodium (Colace) 100 mg PO BID [facility] Last Admin: 07/16/17 17:15 Dose: 100 mg Enoxaparin Sodium (Lovenox) 40 mg SC DAILY [facility] PRN Reason: Protocol Last Admin: 07/16/17 10:31 Dose: 40 mg Vancomycin HCl 1 gm/ Sodium (Chloride) 250 mls @ 166.667 mls/hr IVPB Q12 [facility] PRN Reason: Protocol Last Admin: 07/16/17 21:02 Dose: 166.667 mls/hr Cefepime HCl 1 gm/ Sodium (Chloride) 100 mls @ 100 mls/hr IVPB Q8@0400,1200, 2000 [facility] PRN Reason: Protocol Last Admin: 07/17/17 04:28 Dose: 100 mls/hr Metformin HCl (Glucophage) 1,000 mg PO BID [facility] Last Admin: 07/16/17 17:14 Dose: 1,000 mg Metoprolol Tartrate (Lopressor) 100 mg PO DAILY [facility] Last Admin: 07/16/17 09:03 Dose: 100 mg Morphine Sulfate (Morphine) 2 mg IVP Q6 PRN PRN Reason: Pain, severe (8-10) Last Admin: 07/17/17 06:18 Dose: 2 mg Oxycodone/Acetaminophen (Percocet 5/325 Mg Tab) 1 tab PO Q4 PRN PRN Reason: Pain, moderate (4-7) Stop: 07/18/17 14:48 Pantoprazole Sodium (Protonix Ec Tab) 40 mg PO DAILY [facility] Last Admin: 07/16/17 09:04 Dose: 40 mg Ramipril (Altace) 10 mg PO DAILY [facility] Last Admin: 07/16/17 09:03 Dose: 10 mg Sitagliptin Phosphate (Januvia) 100 mg PO DAILY [facility] Last Admin: 07/16/17 09:03 Dose: 100 mg - Labs Labs: 07/17/17 05:50 07/17/17 05:50 - Constitutional Appears: Well, Non-toxic, No Acute Distress - Extremities Exam Additional comments: Wound vac noted to distal aspect of patient's left foot TMA site Wound vac seen to be working properly with good seal Vac pressure set to 125 mmHg All other dressings left C/D/I - Neurological Exam Neurological Exam: Alert, Awake, Oriented x3 - Psychiatric Exam Psychiatric exam: Normal Affect, Normal Mood Assessment and Plan - Assessment and Plan (Free Text) Assessment: 62 y.o female with PMH of DM2, HTN and PVD seen and evaluated at bedside 2 days s/p left foot incision and drainage and debridement, including nonviable soft tissue and bone, of non-healing TMA with abscess and wound vac. Plan: Patient seen and evaluated at bedside Plan discussed with attending Dr. Looney Afebrifred WBC 21.8 Intra-op wound cx pending Continue IV abx per ID MRI left lower extremity ordered to rule out proximal soft tissue emphysema or abscess Wound vac noted to be functioning properly at 125 mmHg with minimal drainage noted No plan for surgical intervention at this time Podiatry will continue to follow while patient in house
[2017-07-17] MEDS: Pantoprazole 40 mg EC Tab PO SCH (08:52)
[2017-07-17] MEDS: Aspirin 325 mg EC Tablets PO SCH (08:53)
[2017-07-17] MEDS: Enoxaparin 40 mg Syringe SC SCH (08:53)
--- NOTE | 2017-07-17 09:11 | CP.PCM.PN ---
<Rafael Trejo - Last Filed: 07/17/17 17:06> Subjective - Date & Time of Evaluation Date of Evaluation: 07/17/17 Time of Evaluation: 10:31 - Subjective Subjective: Progress Note for Hospitalist- Dr. Lemons 62 y.o female with PMH of DM2, HTN and PVD seen and evaluated at bedside 2 days s/p left foot incision and drainage and debridement, including nonviable soft tissue and bone, of non-healing TMA with abscess. Patient is seen laying in bed , in NAD, and AA0x3. She appears tired. Patient reports the same pain; reports that the morphine is helping with her pain. She denies calf tenderness. Denies n /v/sob/cp or f. Wound vac placement done yesterday by podiatry. Dressing is c/d/ i without strikethrough. Unable to produce bowel movements for 3 days. Objective - Vital Signs/Intake and Output Vital Signs (last 24 hours): Temp Pulse Resp BP Pulse Ox 98.9 F 81 20 128/67 98 07/17/17 08:25 07/17/17 08:52 07/17/17 08:25 07/17/17 08:53 07/17/17 08:25 - Medications Medications: Current Medications Acetaminophen (Tylenol 325mg Tab) 650 mg PO Q4 PRN PRN Reason: Pain, Mild (1-3) Last Admin: 07/15/17 20:52 Dose: 650 mg Aspirin (Ecotrin) 325 mg PO DAILY [facility] Last Admin: 07/17/17 08:53 Dose: 325 mg Clopidogrel Bisulfate (Plavix) 75 mg PO DAILY [facility] Last Admin: 07/17/17 08:52 Dose: 75 mg Docusate Sodium (Colace) 100 mg PO BID [facility] Last Admin: 07/17/17 08:52 Dose: 100 mg Enoxaparin Sodium (Lovenox) 40 mg SC DAILY [facility] PRN Reason: Protocol Last Admin: 07/17/17 08:53 Dose: 40 mg Vancomycin HCl 1 gm/ Sodium (Chloride) 250 mls @ 166.667 mls/hr IVPB Q12 [facility] PRN Reason: Protocol Last Admin: 07/17/17 08:52 Dose: 166.667 mls/hr Cefepime HCl 1 gm/ Sodium (Chloride) 100 mls @ 100 mls/hr IVPB Q8@0400,1200, 2000 [facility] PRN Reason: Protocol Last Admin: 07/17/17 04:28 Dose: 100 mls/hr Metformin HCl (Glucophage) 1,000 mg PO BID [facility] Last Admin: 07/17/17 08:52 Dose: 1,000 mg Metoprolol Tartrate (Lopressor) 100 mg PO DAILY [facility] Last Admin: 07/17/17 08:52 Dose: 100 mg Morphine Sulfate (Morphine) 2 mg IVP Q6 PRN PRN Reason: Pain, severe (8-10) Last Admin: 07/17/17 06:18 Dose: 2 mg Oxycodone/Acetaminophen (Percocet 5/325 Mg Tab) 1 tab PO Q4 PRN PRN Reason: Pain, moderate (4-7) Stop: 07/18/17 14:48 Pantoprazole Sodium (Protonix Ec Tab) 40 mg PO DAILY [facility] Last Admin: 07/17/17 08:52 Dose: 40 mg Ramipril (Altace) 10 mg PO DAILY [facility] Last Admin: 07/17/17 08:53 Dose: 10 mg Sitagliptin Phosphate (Januvia) 100 mg PO DAILY [facility] Last Admin: 07/17/17 08:53 Dose: 100 mg - Labs Labs: 07/17/17 05:50 07/17/17 05:50 - Constitutional Appears: Well, Non-toxic, No Acute Distress - Head Exam Head Exam: ATRAUMATIC, NORMAL INSPECTION, NORMOCEPHALIC - Eye Exam Eye Exam: EOMI, Normal appearance, PERRL Pupil Exam: NORMAL ACCOMODATION, PERRL - ENT Exam ENT Exam: Mucous Membranes Dry, Normal Exam - Neck Exam Neck Exam: Full ROM, Normal Inspection - Respiratory Exam Respiratory Exam: Clear to Ausculation Bilateral, NORMAL BREATHING PATTERN. absent: Rales, Rhonchi, Wheezes, Respiratory Distress, Stridor - Cardiovascular Exam Cardiovascular Exam: REGULAR RHYTHM, +S1, +S2 - GI/Abdominal Exam GI & Abdominal Exam: Soft, Normal Bowel Sounds - Extremities Exam Extremities Exam: absent: Calf Tenderness - Neurological Exam Neurological Exam: Alert, Oriented x3 - Psychiatric Exam Psychiatric exam: Normal Affect, Normal Mood - Additional Findings Additional findings: Dressing to the left LE is c/d/i without strikethrough Skin temperature WNL Assessment and Plan - Assessment and Plan (Free Text) Assessment: 62 y.o female with PMH of DM2, HTN and PVD 2 days s/p left foot incision and drainage and debridement, including nonviable soft tissue and bone, of non- healing TMA with abscess. Plan: Infected left foot Status: Acute -podiatry on board- Dr. Looney -2 days s/p left foot incision and drainage and debridement, including nonviable soft tissue and bone, of non-healing TMA with abscess -started wound vac therapy (07/16/17) -ID consulted, Dr. Sol- recommendations appreciated -Cefepime 1gm IV q 8h and Vanco 1gm IV q 12h -leukocytosis WBC=23.6 (07/16/17), 21.8 (07/17/17) -c/w antibiotics -f/u wound culture, f/u blood culture -repeat CBC, BMP in am -s/p left foot x-ray. Impression: s/p left TMA -f/u MRI -c/w current pain management PVD Status: Chronic -cardiology consulted- Dr Strange -Plavix -f/u ABIs Diabetes Mellitus, type 2 Status: Chronic -HbA1c, BMP -accuchek ACHS with low Lispro coverage. -metformin 1000mg PO q 12hrs -januvia 100mg PO daily Hypertension Status: Chronic -BP stable -continue Metoprolol and Ramipril -monitor BP Diet -Heart Healthy Diet DVT prophylaxis -Lovenox 40 mg SC daily Hypokalemia Status: resolved -potassium 4.3 today -Potassium 3.0 (07/16/17) -Given K-Dur 20meq PO x 2 -Given KCl IV 10meq x 2 - f/u magnesium <Sharita Lemons - Last Filed: 07/18/17 19:15> Objective - Vital Signs/Intake and Output Vital Signs (last 24 hours): Temp Pulse Resp BP Pulse Ox 99.1 F 74 20 113/67 97 07/18/17 15:57 07/18/17 15:57 07/18/17 15:57 07/18/17 15:57 07/18/17 15:57 - Medications Medications: Current Medications Acetaminophen (Tylenol 325mg Tab) 650 mg PO Q4 PRN PRN Reason: Pain, Mild (1-3) Last Admin: 07/15/17 20:52 Dose: 650 mg Clopidogrel Bisulfate (Plavix) 75 mg PO DAILY [facility] Last Admin: 07/18/17 09:06 Dose: 75 mg Docusate Sodium (Colace) 100 mg PO BID [facility] Last Admin: 07/18/17 17:03 Dose: 100 mg Enoxaparin Sodium (Lovenox) 40 mg SC DAILY [facility] PRN Reason: Protocol Last Admin: 07/18/17 09:06 Dose: 40 mg Glipizide (Glucotrol Xl) 2.5 mg PO BRK [facility] Last Admin: 07/18/17 12:35 Dose: 2.5 mg Vancomycin HCl 1 gm/ Sodium (Chloride) 250 mls @ 166.667 mls/hr IVPB Q12 [facility] PRN Reason: Protocol Last Admin: 07/18/17 09:12 Dose: 166.667 mls/hr Cefepime HCl 1 gm/ Sodium (Chloride) 100 mls @ 100 mls/hr IVPB Q8@0400,1200, 2000 [facility] PRN Reason: Protocol Last Admin: 07/18/17 11:09 Dose: 100 mls/hr Iron Sucrose 100 mg/ Sodium (Chloride) 105 mls @ 105 mls/hr IVPB DAILY [facility] Stop: 07/19/17 09:59 Last Admin: 07/18/17 12:34 Dose: 105 mls/hr Insulin Detemir (Levemir) 8 units SC HS [facility] Insulin Human Lispro (Humalog) 0 units SC ACHS [facility] PRN Reason: Protocol Last Admin: 07/18/17 17:22 Dose: 2 units Lactulose (Enulose) 20 gm PO BID PRN PRN Reason: Constipation Last Admin: 07/18/17 12:16 Dose: 20 gm Metoprolol Tartrate (Lopressor) 100 mg PO DAILY [facility] Last Admin: 07/18/17 09:05 Dose: 100 mg Morphine Sulfate (Morphine) 4 mg IVP Q3 PRN PRN Reason: Pain, severe (8-10) Last Admin: 07/18/17 12:15 Dose: 4 mg Oxycodone HCl (Oxycontin Extended Release Tab) 20 mg PO Q12 [facility] Last Admin: 07/18/17 12:40 Dose: 20 mg Pantoprazole Sodium (Protonix Ec Tab) 40 mg PO DAILY [facility] Last Admin: 07/18/17 09:06 Dose: 40 mg Ramipril (Altace) 10 mg PO DAILY [facility] Last Admin: 07/18/17 09:04 Dose: 10 mg Sitagliptin Phosphate (Januvia) 100 mg PO DAILY [facility] Last Admin: 07/18/17 09:05 Dose: 100 mg Sodium Bicarbonate (Sodium Bicarbonate Tab) 650 mg PO Q6 [facility] Stop: 07/19/17 16:01 Last Admin: 07/18/17 17:23 Dose: 650 mg - Labs Labs: 07/18/17 04:50 07/18/17 11:30 Attending/Attestation - Attestation I have personally seen and examined this patient.: Yes I have fully participated in the care of the patient.: Yes I have reviewed all pertinent clinical information, including history, physical exam and plan: Yes Notes (Text): 07/18/17 19:15 Seen, examined, and discussed with resident Dr. Trejo, agree with findings and plan as above.
[2017-07-17] MEDS ORDERED: Lidocaine 1% Inj (20ml) ONE (11:34)
--- NOTE | 2017-07-17 11:59 | PCM.SURG1 ---
Surgeon's Initial Post Op Note - Surgeon's Notes Surgeon: Cal Beyer MD Workforce Development Vice President: NONE Type of Anesthesia: Local Pre-Operative Diagnosis: Poor venous access Operative Findings: US showed a patent and compressible right basilic vein. Post-Operative Diagnosis: Poor venous access Operation Performed: Single lumen picc, 35 cm, right basilic vein. Tip is in the SVC. Specimen/Specimens Removed: none Estimated Blood Loss: EBL {In ML}: 2 Blood Products Given: N/A Drains Used: No Drains Post-Op Condition: Fair Date of Surgery/Procedure: 07/17/17 Time of Surgery/Procedure: 11:55
--- NOTE | 2017-07-17 12:38 | MRI ---
PROCEDURE: Left foot without contrast HISTORY: s/p TMA left foot, R/O abscess or gas gangrene COMPARISON: Comparison is made with the previous x-ray of the left foot dated 07/16/2017, previous MRI of the left foot dated 05/28/2017 TECHNIQUE: Axial coronal and sagittal MRI images of the left foot were obtained without IV contrast administration. FINDINGS: The patient status post amputation through the mid metatarsal bones. There are foci of bone marrow edema noted at the distal aspect of the 4th and 5th metatarsal bone associated with small cortical erosion. Findings suspicious for osteomyelitis. There are also small foci of bone marrow edema at the distal portion of the 2nd and 3rd metatarsal bone at the site of the amputation may represent postsurgical changes versus osteomyelitis. There is focal soft tissue swelling associated with heterogeneous hyperintense and hypointense signal at the medial aspect of the proximal and mid left foot. Findings suspicious for infectious process in the soft tissue and the possibility of abscess formation and soft tissue pneumatosis should be considered. Soft tissue edema and inflammatory changes is also noted at the site of the amputation more prominent in the lateral aspect of the left midfoot. The rest of the visualized osseous structure demonstrate no significant bone marrow edema or cortical destruction. There is heterogeneous abnormal increased signal in the muscles at the proximal and midportion of the left foot suggestive of myositis. Trace fluid also noted at the left ankle and left tarsal and tarsal metatarsal joints. IMPRESSION: Findings suspicious for osteomyelitis at the distal portion of the 4th and 5th metatarsal bones at the site of the amputation. [id number] bone marrow edema and possible small erosion noted at the tip of the 2nd and 3rd metatarsal bone at the site of the amputation may represent postsurgical changes. The possibility of osteomyelitis is not totally excluded. Focal soft tissue swelling and abnormal signal noted at the medial aspect of the proximal and mid left foot suspicious for infectious process. The possibility of abscess formation cannot be excluded this noncontrast exam. Foci of subcutaneous hypointense T1 and T2 signal seen in the soft tissue at the medial aspect of the left foot may represent subcutaneous emphysema.
--- NOTE | 2017-07-17 13:40 | CP.PCM.PN ---
Subjective - Date & Time of Evaluation Date of Evaluation: 07/17/17 Time of Evaluation: 16:00 - Subjective Subjective: ID note- Pt. seen and examined this afternoon with her at her bedside. Pt. denies any fever . had MRI of her foot earlier today and as per report there is OM of distal remaing 4th and fifth metatarsal as per report. Objective - Vital Signs/Intake and Output Vital Signs (last 24 hours): Temp Pulse Resp BP Pulse Ox 98.4 F 72 20 124/68 98 07/17/17 11:37 07/17/17 11:37 07/17/17 08:25 07/17/17 11:37 07/17/17 08:25 - Medications Medications: Current Medications Acetaminophen (Tylenol 325mg Tab) 650 mg PO Q4 PRN PRN Reason: Pain, Mild (1-3) Last Admin: 07/15/17 20:52 Dose: 650 mg Aspirin (Ecotrin) 325 mg PO DAILY [facility] Last Admin: 07/17/17 08:53 Dose: 325 mg Clopidogrel Bisulfate (Plavix) 75 mg PO DAILY [facility] Last Admin: 07/17/17 08:52 Dose: 75 mg Docusate Sodium (Colace) 100 mg PO BID [facility] Last Admin: 07/17/17 08:52 Dose: 100 mg Enoxaparin Sodium (Lovenox) 40 mg SC DAILY [facility] PRN Reason: Protocol Last Admin: 07/17/17 08:53 Dose: 40 mg Vancomycin HCl 1 gm/ Sodium (Chloride) 250 mls @ 166.667 mls/hr IVPB Q12 [facility] PRN Reason: Protocol Last Admin: 07/17/17 08:52 Dose: 166.667 mls/hr Cefepime HCl 1 gm/ Sodium (Chloride) 100 mls @ 100 mls/hr IVPB Q8@0400,1200, 2000 [facility] PRN Reason: Protocol Last Admin: 07/17/17 12:26 Dose: 100 mls/hr Metoprolol Tartrate (Lopressor) 100 mg PO DAILY [facility] Last Admin: 07/17/17 08:52 Dose: 100 mg Morphine Sulfate (Morphine) 2 mg IVP Q6 PRN PRN Reason: Pain, severe (8-10) Last Admin: 07/17/17 13:17 Dose: 2 mg Oxycodone/Acetaminophen (Percocet 5/325 Mg Tab) 1 tab PO Q4 PRN PRN Reason: Pain, moderate (4-7) Stop: 07/18/17 14:48 Last Admin: 07/17/17 11:22 Dose: 1 tab Pantoprazole Sodium (Protonix Ec Tab) 40 mg PO DAILY [facility] Last Admin: 07/17/17 08:52 Dose: 40 mg Ramipril (Altace) 10 mg PO DAILY [facility] Last Admin: 07/17/17 08:53 Dose: 10 mg Sitagliptin Phosphate (Januvia) 100 mg PO DAILY [facility] Last Admin: 07/17/17 08:53 Dose: 100 mg - Labs Labs: - Additional Findings Additional findings: - Constitutional Appears: No Acute Distress - Head Exam Head Exam: ATRAUMATIC - Eye Exam Eye Exam: EOMI - ENT Exam ENT Exam: Normal Oropharynx - Neck Exam Neck exam: Positive for: Full Rom - Respiratory Exam Respiratory Exam: Clear to Auscultation Bilateral, NORMAL BREATHING PATTERN - Cardiovascular Exam Cardiovascular Exam: RRR, +S1, +S2 - GI/Abdominal Exam GI & Abdominal Exam: Normal Bowel Sounds, Soft Additional comments: NT, ND - Extremities Exam Additional comments: Left foot TMA site now with wound vac in place draining sanguinous fluid - Neurological Exam Neurological exam: Alert, Oriented x 3 Laboratory Results - last 72 hr 07/15/17 07/15/17 07/15/17 10:48 14:34 16:26 WBC RBC Hgb Hct MCV MCH MCHC RDW Plt Count MPV Neut % (Auto) Lymph % (Auto) [place] % (Auto) Eos % (Auto) Baso % (Auto) Neut # (Auto) Lymph # (Auto) [place] # (Auto) Eos # (Auto) Baso # (Auto) ESR pCO2 pO2 HCO3 ABG pH ABG Total CO2 ABG O2 Saturation ABG O2 Content ABG Base Excess ABG Hemoglobin ABG Carboxyhemoglobin POC ABG HHb (Measured) ABG Methemoglobin ABG O2 Capacity Wade Test A-a O2 Difference Hgb O2 Saturation FiO2 Crit Value Called To Crit Value Called By Crit Value Read Back Blood Gas Notified Time Sodium Potassium Chloride Carbon Dioxide Anion Gap BUN Creatinine Est GFR ( Amer) Est GFR (Non-Af Amer) POC Glucose (mg/dL) 180 H 155 H 139 H Random Glucose Calcium Magnesium Total Bilirubin AST ALT Alkaline Phosphatase Total Protein Albumin Globulin Albumin/Globulin Ratio Influenza Typ A,B (EIA) 07/15/17 07/16/17 07/16/17 21:11 05:33 05:55 WBC 23.6 H D RBC 3.32 L Hgb 8.2 L Hct 27.3 L MCV 82.2 MCH 24.7 L MCHC 30.1 L RDW 18.4 H Plt Count 627 H MPV 8.8 Neut % (Auto) 78.0 H Lymph % (Auto) 12.3 L [place] % (Auto) 8.8 Eos % (Auto) 0.7 Baso % (Auto) 0.2 Neut # (Auto) 18.4 H Lymph # (Auto) 2.9 [place] # (Auto) 2.1 H Eos # (Auto) 0.2 Baso # (Auto) 0.1 ESR pCO2 pO2 HCO3 ABG pH ABG Total CO2 ABG O2 Saturation ABG O2 Content ABG Base Excess ABG Hemoglobin ABG Carboxyhemoglobin POC ABG HHb (Measured) ABG Methemoglobin ABG O2 Capacity Wade Test A-a O2 Difference Hgb O2 Saturation FiO2 Crit Value Called To Crit Value Called By Crit Value Read Back Blood Gas Notified Time Sodium Potassium Chloride Carbon Dioxide Anion Gap BUN Creatinine Est GFR ( Amer) Est GFR (Non-Af Amer) POC Glucose (mg/dL) 278 H 174 H Random Glucose Calcium Magnesium Total Bilirubin AST ALT Alkaline Phosphatase Total Protein Albumin Globulin Albumin/Globulin Ratio Influenza Typ A,B (EIA) 07/16/17 07/16/17 07/16/17 05:55 09:14 11:03 WBC RBC Hgb Hct MCV MCH MCHC RDW Plt Count MPV Neut % (Auto) Lymph % (Auto) [place] % (Auto) Eos % (Auto) Baso % (Auto) Neut # (Auto) Lymph # (Auto) [place] # (Auto) Eos # (Auto) Baso # (Auto) ESR pCO2 pO2 HCO3 ABG pH ABG Total CO2 ABG O2 Saturation ABG O2 Content ABG Base Excess ABG Hemoglobin ABG Carboxyhemoglobin POC ABG HHb (Measured) ABG Methemoglobin ABG O2 Capacity Wade Test A-a O2 Difference Hgb O2 Saturation FiO2 Crit Value Called To Crit Value Called By Crit Value Read Back Blood Gas Notified Time Sodium 135 Potassium 3.0 L Chloride 98 Carbon Dioxide 14 L Anion Gap 26 H BUN 8 Creatinine 0.5 L Est GFR ( Amer) > 60 Est GFR (Non-Af Amer) > 60 POC Glucose (mg/dL) 225 H Random Glucose 212 H Calcium 8.9 Magnesium Total Bilirubin AST ALT Alkaline Phosphatase Total Protein Albumin Globulin Albumin/Globulin Ratio Influenza Typ A,B (EIA) Negative for flu a/b 07/16/17 07/16/17 07/16/17 14:47 15:03 15:47 WBC RBC Hgb Hct MCV MCH MCHC RDW Plt Count MPV Neut % (Auto) Lymph % (Auto) [place] % (Auto) Eos % (Auto) Baso % (Auto) Neut # (Auto) Lymph # (Auto) [place] # (Auto) Eos # (Auto) Baso # (Auto) ESR 103 H pCO2 pO2 HCO3 ABG pH ABG Total CO2 ABG O2 Saturation ABG O2 Content ABG Base Excess ABG Hemoglobin ABG Carboxyhemoglobin POC ABG HHb (Measured) ABG Methemoglobin ABG O2 Capacity Wade Test A-a O2 Difference Hgb O2 Saturation FiO2 Crit Value Called To Crit Value Called By Crit Value Read Back Blood Gas Notified Time Sodium Potassium Chloride Carbon Dioxide Anion Gap BUN Creatinine Est GFR ( Amer) Est GFR (Non-Af Amer) POC Glucose (mg/dL) 245 H Random Glucose Calcium Magnesium 1.7 Total Bilirubin AST ALT Alkaline Phosphatase Total Protein Albumin Globulin Albumin/Globulin Ratio Influenza Typ A,B (EIA) 07/16/17 07/17/17 07/17/17 21:17 05:27 05:50 WBC RBC Hgb Hct MCV MCH MCHC RDW Plt Count MPV Neut % (Auto) Lymph % (Auto) [place] % (Auto) Eos % (Auto) Baso % (Auto) Neut # (Auto) Lymph # (Auto) [place] # (Auto) Eos # (Auto) Baso # (Auto) ESR pCO2 pO2 HCO3 ABG pH ABG Total CO2 ABG O2 Saturation ABG O2 Content ABG Base Excess ABG Hemoglobin ABG Carboxyhemoglobin POC ABG HHb (Measured) ABG Methemoglobin ABG O2 Capacity Wade Test A-a O2 Difference Hgb O2 Saturation FiO2 Crit Value Called To Crit Value Called By Crit Value Read Back Blood Gas Notified Time Sodium 137 Potassium 4.3 Chloride 100 Carbon Dioxide 11 L* D Anion Gap 30 H BUN 8 Creatinine 0.6 L Est GFR ( Amer) > 60 Est GFR (Non-Af Amer) > 60 POC Glucose (mg/dL) 170 H 190 H Random Glucose 208 H Calcium 9.1 Magnesium 1.8 Total Bilirubin 0.9 AST 16 ALT 20 Alkaline Phosphatase 97 Total Protein 6.8 Albumin 3.1 L Globulin 3.7 Albumin/Globulin Ratio 0.8 L Influenza Typ A,B (EIA) 07/17/17 07/17/17 07/17/17 05:50 08:34 11:21 WBC 21.8 H RBC 3.19 L Hgb 7.8 L Hct 26.5 L MCV 83.0 MCH 24.6 L MCHC 29.6 L RDW 18.5 H Plt Count 600 H MPV 8.6 Neut % (Auto) 74.2 Lymph % (Auto) 16.5 L [place] % (Auto) 8.4 Eos % (Auto) 0.7 Baso % (Auto) 0.2 Neut # (Auto) 16.2 H Lymph # (Auto) 3.6 [place] # (Auto) 1.8 H Eos # (Auto) 0.2 Baso # (Auto) 0.1 ESR pCO2 17 L* pO2 100 HCO3 13.9 L ABG pH 7.35 ABG Total CO2 9.9 L ABG O2 Saturation 99.5 H ABG O2 Content 14.6 L ABG Base Excess -14.1 L ABG Hemoglobin 10.8 L ABG Carboxyhemoglobin 1.6 H POC ABG HHb (Measured) 0.5 ABG Methemoglobin 2.6 ABG O2 Capacity 14.7 L Wade Test Yes A-a O2 Difference 28.0 Hgb O2 Saturation 95.2 FiO2 21.0 Crit Value Called To sudeep Galvez Crit Value Called By 203 Crit Value Read Back Y Blood Gas Notified Time 840 Sodium Potassium Chloride Carbon Dioxide Anion Gap BUN Creatinine Est GFR ( Amer) Est GFR (Non-Af Amer) POC Glucose (mg/dL) 303 H Random Glucose Calcium Magnesium Total Bilirubin AST ALT Alkaline Phosphatase Total Protein Albumin Globulin Albumin/Globulin Ratio Influenza Typ A,B (EIA) 07/17/17 15:45 WBC RBC Hgb Hct MCV MCH MCHC RDW Plt Count MPV Neut % (Auto) Lymph % (Auto) [place] % (Auto) Eos % (Auto) Baso % (Auto) Neut # (Auto) Lymph # (Auto) [place] # (Auto) Eos # (Auto) Baso # (Auto) ESR pCO2 pO2 HCO3 ABG pH ABG Total CO2 ABG O2 Saturation ABG O2 Content ABG Base Excess ABG Hemoglobin ABG Carboxyhemoglobin POC ABG HHb (Measured) ABG Methemoglobin ABG O2 Capacity Wade Test A-a O2 Difference Hgb O2 Saturation FiO2 Crit Value Called To Crit Value Called By Crit Value Read Back Blood Gas Notified Time Sodium Potassium Chloride Carbon Dioxide Anion Gap BUN Creatinine Est GFR ( Amer) Est GFR (Non-Af Amer) POC Glucose (mg/dL) 272 H Random Glucose Calcium Magnesium Total Bilirubin AST ALT Alkaline Phosphatase Total Protein Albumin Globulin Albumin/Globulin Ratio Influenza Typ A,B (EIA) Microbiology 07/15/17 09:11 Foot - Left Gram Stain - Final 07/15/17 09:11 Foot - Left Wound Culture - Preliminary Gram Negative Christian 07/15/17 09:11 Foot - Left Gram Stain - Final Microbiology 06/05/17 13:52 Toe Gram Stain - Final 06/05/17 13:52 Toe Wound Culture - Final Serratia Marcescens Enterococcus Faecalis 06/05/17 13:52 Toe Gram Stain - Final 06/05/17 13:52 Toe Wound Culture - Final Enterococcus Faecalis 06/09/17 10:30 Foot - Left Gram Stain - Final 06/09/17 10:30 Foot - Left Wound Culture - Final No growth. 06/09/17 10:30 Foot - Left Gram Stain - Final 06/09/17 10:30 Foot - Left Wound Culture - Final Coagulase Neg Staphylococcus Accession No. : [id number] Patient Name / ID : KEV KELLEY / [id number] Exam Date : 07/17/2017 10:10:21 ( Approved ) Study Comment : Sex / Age : F / 62Y Creator : Gema Easton MD Dictator : Gema Easton MD Software Development Project Manager : Assistant Front End Manager : Gema Easton MD Approver2 : Report Date : 07/17/2017 12:31:19 My Comment : PROCEDURE: Left foot without contrast HISTORY: s/p TMA left foot, R/O abscess or gas gangrene COMPARISON: Comparison is made with the previous x-ray of the left foot dated 07/16/2017, previous MRI of the left foot dated 05/28/2017 TECHNIQUE: Axial coronal and sagittal MRI images of the left foot were obtained without IV contrast administration. FINDINGS: The patient status post amputation through the mid metatarsal bones. There are foci of bone marrow edema noted at the distal aspect of the 4th and 5th metatarsal bone associated with small cortical erosion. Findings suspicious for osteomyelitis. There are also small foci of bone marrow edema at the distal portion of the 2nd and 3rd metatarsal bone at the site of the amputation may represent postsurgical changes versus osteomyelitis. There is focal soft tissue swelling associated with heterogeneous hyperintense and hypointense signal at the medial aspect of the proximal and mid left foot. Findings suspicious for infectious process in the soft tissue and the possibility of abscess formation and soft tissue pneumatosis should be considered. Soft tissue edema and inflammatory changes is also noted at the site of the amputation more prominent in the lateral aspect of the left midfoot. The rest of the visualized osseous structure demonstrate no significant bone marrow edema or cortical destruction. There is heterogeneous abnormal increased signal in the muscles at the proximal and midportion of the left foot suggestive of myositis. Trace fluid also noted at the left ankle and left tarsal and tarsal metatarsal joints. IMPRESSION: Findings suspicious for osteomyelitis at the distal portion of the 4th and 5th metatarsal bones at the site of the amputation. [id number] bone marrow edema and possible small erosion noted at the tip of the 2nd and 3rd metatarsal bone at the site of the amputation may represent postsurgical changes. The possibility of osteomyelitis is not totally excluded. Focal soft tissue swelling and abnormal signal noted at the medial aspect of the proximal and mid left foot suspicious for infectious process. The possibility of abscess formation cannot be excluded this noncontrast exam. Foci of subcutaneous hypointense T1 and T2 signal seen in the soft tissue at the medial aspect of the left foot may represent subcutaneous emphysema. Assessment and Plan (1) Gangrene of left foot Status: Acute (2) DM2 (diabetes mellitus, type 2) Status: Chronic (3) PVD (peripheral vascular disease) Status: Acute (4) Status post transmetatarsal amputation of left foot Status: Acute - Assessment and Plan (Free Text) Assessment: A/P- 62 year old female with DM II, HTN, PVD with left great toe gangrene and Om s/p left foot TMA 06/09/2017 and wsa on IV antibiotics but now is admitted because of infection at the TMA site and is s/p I and D at the TMA site by podiatry drainage of pus. afebrile high wbc count despite being on iv antibiotics NEW MRI-OM of distal 4th and fifth metatarsal site next to amputation site as per report. wound cx from toe from last admission serratia and e.Fecalis. bone bx- acute OM ( last admission) wound cx from this admission- prelim GNR plan- advise to continue with Both Iv vancomycin and Cefepime to treat the TMA site infection and also this regimen covers the 2 bacteria from previous admission wound cx. keep vanco trough <15. await ID and sensitivity of the GNR in wound culture from this admission. keep wound clean. MRI results d/w and advised based on the MRI report and the continuos high wbc despite IV antibiotics she most likely needs further debridement of the bone. also agrees with above . monitor wbc .
--- NOTE | 2017-07-17 14:08 | VASCULAR ---
PROCEDURE: Date of procedure: 07/17/2017 Procedure: 1. Placement of a right arm PICC with ultrasound and fluoroscopic guidance, CPT 61471 2. PICC tip confirmation with spot radiograph and is in the superior vena cava Medications: 1 percent lidocaine Total Fluoro time: 12.4 seconds Radiation: 1.44 MGy EBL: 2 cc HISTORY: Poor venous access TECHNIQUE: Following informed consent and procedure time-out, the patient was placed supine on the interventional table and the right arm prepped and draped in the usual sterile fashion. Ultrasound showed a patent and compressible right basilic vein. After the skin was anesthetized with lidocaine, the basilic vein was accessed with micro micropuncture technique using ultrasound guidance. A guidewire was then advanced under fluoroscopic guidance into the superior vena cava. An image documenting ultrasound guidance for vascular access was permanently saved. The length of the single-lumen 4 [place] PICC was trimmed to 35 centimeters and advanced through a peel-away sheath. The PICC was position with tip of PICC confirm a spot radiograph the superior vena cava. The PICC was secured to the patient's skin. The PICC was flushed. A biopatch and sterile dressing was applied. IMPRESSION: Placement of a single-lumen 4 [place] PICC trimmed to 35 centimeters via right basilic vein. The tip of the PICC is confirmed with spot radiograph and is in the superior vena cava.
--- NOTE | 2017-07-17 15:48 | US ---
PROCEDURE: Duplex ultrasound of the left lower extremity arteries. HISTORY: gangrene of the left foot COMPARISON: Left lower extremity arterial Doppler dated 05/28/2017. TECHNIQUE: Grayscale and duplex Doppler evaluation of the left common femoral, superficial femoral, popliteal, posterior tibial and dorsalis pedis arteries was performed.. FINDINGS: COMMON FEMORAL ARTERY: Patent. Maximal flow velocity of 144.4 cm/s. Triphasic waveform SUPERFICIAL FEMORAL ARTERY: 1. Proximal: Patent. Maximal flow velocity of 97.4 cm/s. Triphasic waveform 2. Mid: Patent. Maximal flow velocity of 52.1 cm/s. Triphasic waveform 3. Distal: Patent. Maximal flow velocity of 57.4 cm/s. Monophasic waveform POPLITEAL ARTERY:Patent. Maximal flow velocity of 68.6 cm/s. Monophasic waveform ANTERIOR TIBIAL ARTERY: Patent. Maximal flow velocity of 29.8 cm/s. Monophasic waveform POSTERIOR TIBIAL ARTERY: Patent. Maximal flow velocity of 15.5 cm/s. Monophasic waveform OTHER FINDINGS: Intravascular stent seen within the proximal and midportions of the left superficial femoral artery. IMPRESSION: Loss of triphasic waveform involving the left lower extremity distal to the mid superficial femoral artery.
[2017-07-17] MEDS ORDERED: Oxycodone/Acetaminophen 5/325 mg Tab PO STA (16:44)
[2017-07-17] MEDS: Morphine 4 MG/ML VIAL IVP PRN (19:53)
[2017-07-18] MEDS: Morphine 4 MG/ML VIAL IVP PRN ×4 (02:06→12:15)
[2017-07-18] MEDS: Cefepime 1 GM in Sodium Chloride 0.9% 100 ML IVPB SCH ×3 (03:58→20:29)
[2017-07-18 06:42] LABS: BASO # 0.1 K/uL (0.0-0.2); BASO % 0.4 % (0.0-2.0); EOS # 0.2 K/uL (0.0-0.7); EOS % 1.4 % (0.0-4.0); HEMOGLOBIN 7.8 g/dL (12.0-16.0); LYMPH # 2.8 K/uL (1.0-4.3); LYMPH % 16.9 % (20.0-40.0); MEAN CELL VOLUME 81.6 fl (81.0-99.0); MEAN CORPUSCULAR HEMOGLOBIN 25.2 pg (27.0-31.0); MEAN CORPUSCULAR HGB CONC 30.9 g/dL (33.0-37.0); MEAN PLATELET VOLUME 8.7 fl (7.2-11.7); MONO # 1.3 K/uL (0.0-0.8); MONO % 7.9 % (0.0-10.0); NEUT # 12.2 K/uL (1.8-7.0); NEUT % 73.4 % (50.0-75.0); RBC 3.11 Mil/uL (3.80-5.20); RED CELL DISTRIBUTION WIDTH 18.3 % (11.5-14.5); WHITE BLOOD COUNT 16.6 K/uL (4.8-10.8)
[2017-07-18] MEDS: Aspirin 325 mg EC Tablets PO SCH (09:05)
[2017-07-18] MEDS: Enoxaparin 40 mg Syringe SC SCH (09:06)
[2017-07-18] MEDS: Pantoprazole 40 mg EC Tab PO SCH (09:06)
--- NOTE | 2017-07-18 11:20 | CP.PCM.PN ---
Subjective - Date & Time of Evaluation Date of Evaluation: 07/18/17 Time of Evaluation: 11:20 - Subjective Subjective: 62 y/o female seen and evaluated at bedside 3 days s/p left foot incision and drainage and debridement, including nonviable soft tissue and bone, of non- healing TMA with plantar abscess. Patient is AAO x 3 and NAD resting comfortably in bed at time of visit. She states that her pain has been well controlled and is a little less than the last few days. She is aware that she needs to go for further surgery as the foot has ongoing infection and is not healing. Denies any further pedal complaints at this time. Denies N/V/F/C/CP/SOB /D/posterior calf pain when squeezed. Objective - Vital Signs/Intake and Output Vital Signs (last 24 hours): Temp Pulse Resp BP Pulse Ox 98.4 F 79 18 112/60 97 07/18/17 08:45 07/18/17 09:05 07/18/17 08:45 07/18/17 09:05 07/18/17 08:45 - Medications Medications: Current Medications Acetaminophen (Tylenol 325mg Tab) 650 mg PO Q4 PRN PRN Reason: Pain, Mild (1-3) Last Admin: 07/15/17 20:52 Dose: 650 mg Aspirin (Ecotrin) 325 mg PO DAILY [facility] Last Admin: 07/18/17 09:05 Dose: 325 mg Clopidogrel Bisulfate (Plavix) 75 mg PO DAILY [facility] Last Admin: 07/18/17 09:06 Dose: 75 mg Docusate Sodium (Colace) 100 mg PO BID [facility] Last Admin: 07/18/17 09:05 Dose: 100 mg Enoxaparin Sodium (Lovenox) 40 mg SC DAILY [facility] PRN Reason: Protocol Last Admin: 07/18/17 09:06 Dose: 40 mg Vancomycin HCl 1 gm/ Sodium (Chloride) 250 mls @ 166.667 mls/hr IVPB Q12 [facility] PRN Reason: Protocol Last Admin: 07/18/17 09:12 Dose: 166.667 mls/hr Cefepime HCl 1 gm/ Sodium (Chloride) 100 mls @ 100 mls/hr IVPB Q8@0400,1200, 2000 [facility] PRN Reason: Protocol Last Admin: 07/18/17 11:09 Dose: 100 mls/hr Metoprolol Tartrate (Lopressor) 100 mg PO DAILY [facility] Last Admin: 07/18/17 09:05 Dose: 100 mg Morphine Sulfate (Morphine) 4 mg IVP Q3 PRN PRN Reason: Pain, severe (8-10) Last Admin: 07/18/17 09:15 Dose: 4 mg Oxycodone/Acetaminophen (Percocet 5/325 Mg Tab) 1 tab PO Q4 PRN PRN Reason: Pain, moderate (4-7) Stop: 07/18/17 14:48 Last Admin: 07/17/17 11:22 Dose: 1 tab Pantoprazole Sodium (Protonix Ec Tab) 40 mg PO DAILY [facility] Last Admin: 07/18/17 09:06 Dose: 40 mg Ramipril (Altace) 10 mg PO DAILY [facility] Last Admin: 07/18/17 09:04 Dose: 10 mg Sitagliptin Phosphate (Januvia) 100 mg PO DAILY [facility] Last Admin: 07/18/17 09:05 Dose: 100 mg Sodium Bicarbonate (Sodium Bicarbonate Tab) 650 mg PO Q6 [facility] Stop: 07/19/17 16:01 - Labs Labs: 07/18/17 04:50 07/17/17 05:50 - Constitutional Appears: Well, Non-toxic, No Acute Distress - Extremities Exam Additional comments: LLE focused exam: Vasc: DP/PT pulses non-palpable. Skin temperature warm to warm from proximal to distal. Minimal edema noted surround surgical site Neuro: Epicritic and protective sensation grossly intact B/L Derm: Necrotic skin changes noted along lateral aspect of surgical skin edges of transmetatarsal amputation as well as medial arch incision, extending proximally into proximal midfoot along course of posterior tibial tendon. Skin appears pale and hypopigmented. Mild fluctuance is noted at present to plantar medial arch. No purulent drainage expressed from surgical site. Moderate amount of malodor is noted. Prolene sutures noted to medial and lateral portions of TMA site MSK: Open TMA site noted to left foot with distal aspect of remaining metatarsal bases seen. Moderate tenderness to palpation of entirety of left foot - Neurological Exam Neurological Exam: Alert, Awake, Oriented x3 - Psychiatric Exam Psychiatric exam: Normal Affect Assessment and Plan - Assessment and Plan (Free Text) Assessment: 62 y/o female seen and evaluated at bedside 3 days s/p left foot incision and drainage and debridement, including nonviable soft tissue and bone, of non- healing TMA with abscess Plan: -Pt seen and evaluated at bedside -Discussed with attending Dr. Looney -Labs and vitals reviewed- afebrile, WBC 16.6 -Intra-op wound cx shows growth of Serratia marcescens (prelim); await final -MRI impression: Findings suspicious for osteomyelitis at the distal portion of the 4th digit and 5th metatarsal bones at the site of the amputation. Mild to moderate bone marrow edema and possible small erosion noted at the tip of the 2nd and 3rd metatarsal bone at the site of the amputation may represent postsurgical changes. The possibility of osteomyelitis is not totally excluded. Focal soft tissue swelling and abnormal signal noted at the medial aspect of the proximal and mid left foot suspicious for infectious process. THe possibility of abscess formation cannot be excluded this noncontrast exam. Foci of subcutaneous hypointense T1 and T2 signal seen in the soft tissue at the medial aspect of the left foot may represent subcutaneous emphysema. -Wound was dressed with adaptic, gauze, ABD, Kerlix, very light YELITZA bandage -Continue IV abx as per ID -Pt to go to OR Thursday at 4:30pm for revision of TMA with incision and drainage of plantar space infection -Medical clearance requested -Podiatry will continue to follow patient
[2017-07-18 11:35] LABS: ABG ALLEN TEST YES; ARTERIAL BLOOD GAS HCO3 21.4 mmol/L (21-28); ARTERIAL BLOOD GAS HEMOGLOBIN 7.8 g/dL (11.7-17.4); ARTERIAL BLOOD GAS O2 CAPACITY 10.9 mL/dL (16-24); ARTERIAL BLOOD GAS O2 CONTENT 10.8 ML/dL (15-23); ARTERIAL BLOOD GAS O2 SAT 99.2 % (95-98); ARTERIAL BLOOD GAS PCO2 28 mm/Hg (35-45); ARTERIAL BLOOD GAS PH 7.44 (7.35-7.45); ARTERIAL BLOOD GAS PO2 99 mm/Hg (80-100); ARTERIAL BLOOD GAS TCO2 19.9 mmol/L (22-28)
--- NOTE | 2017-07-18 12:04 | CP.PCM.PN ---
Subjective - Date & Time of Evaluation Date of Evaluation: 07/18/17 Time of Evaluation: 11:30 - Subjective Subjective: No fever complains of foot pain also complains of insomnia denies CP no SOB no abd pain + constipation Objective - Vital Signs/Intake and Output Vital Signs (last 24 hours): Temp Pulse Resp BP Pulse Ox 98.4 F 79 18 112/60 97 07/18/17 08:45 07/18/17 09:05 07/18/17 08:45 07/18/17 09:05 07/18/17 08:45 - Medications Medications: Current Medications Acetaminophen (Tylenol 325mg Tab) 650 mg PO Q4 PRN PRN Reason: Pain, Mild (1-3) Last Admin: 07/15/17 20:52 Dose: 650 mg Aspirin (Ecotrin) 325 mg PO DAILY [facility] Last Admin: 07/18/17 09:05 Dose: 325 mg Clopidogrel Bisulfate (Plavix) 75 mg PO DAILY [facility] Last Admin: 07/18/17 09:06 Dose: 75 mg Docusate Sodium (Colace) 100 mg PO BID [facility] Last Admin: 07/18/17 09:05 Dose: 100 mg Enoxaparin Sodium (Lovenox) 40 mg SC DAILY [facility] PRN Reason: Protocol Last Admin: 07/18/17 09:06 Dose: 40 mg Glipizide (Glucotrol Xl) 2.5 mg PO BRK [facility] Vancomycin HCl 1 gm/ Sodium (Chloride) 250 mls @ 166.667 mls/hr IVPB Q12 [facility] PRN Reason: Protocol Last Admin: 07/18/17 09:12 Dose: 166.667 mls/hr Cefepime HCl 1 gm/ Sodium (Chloride) 100 mls @ 100 mls/hr IVPB Q8@0400,1200, 2000 [facility] PRN Reason: Protocol Last Admin: 07/18/17 11:09 Dose: 100 mls/hr Iron Sucrose 100 mg/ Sodium (Chloride) 105 mls @ 105 mls/hr IVPB DAILY [facility] Stop: 07/19/17 09:59 Lactulose (Enulose) 20 gm PO BID PRN PRN Reason: Constipation Metoprolol Tartrate (Lopressor) 100 mg PO DAILY [facility] Last Admin: 07/18/17 09:05 Dose: 100 mg Morphine Sulfate (Morphine) 4 mg IVP Q3 PRN PRN Reason: Pain, severe (8-10) Last Admin: 07/18/17 09:15 Dose: 4 mg Oxycodone/Acetaminophen (Percocet 5/325 Mg Tab) 1 tab PO Q4 PRN PRN Reason: Pain, moderate (4-7) Stop: 07/18/17 14:48 Last Admin: 07/17/17 11:22 Dose: 1 tab Pantoprazole Sodium (Protonix Ec Tab) 40 mg PO DAILY [facility] Last Admin: 07/18/17 09:06 Dose: 40 mg Ramipril (Altace) 10 mg PO DAILY [facility] Last Admin: 07/18/17 09:04 Dose: 10 mg Sitagliptin Phosphate (Januvia) 100 mg PO DAILY [facility] Last Admin: 07/18/17 09:05 Dose: 100 mg Sodium Bicarbonate (Sodium Bicarbonate Tab) 650 mg PO Q6 [facility] Stop: 07/19/17 16:01 - Labs Labs: 07/18/17 04:50 07/17/17 05:50 - Constitutional Appears: No Acute Distress - Head Exam Head Exam: NORMAL INSPECTION, NORMOCEPHALIC - Eye Exam Eye Exam: EOMI, Normal appearance Pupil Exam: NORMAL ACCOMODATION - ENT Exam ENT Exam: Mucous Membranes Moist - Neck Exam Neck Exam: Full ROM. absent: Meningismus - Respiratory Exam Respiratory Exam: NORMAL BREATHING PATTERN. absent: Respiratory Distress - Cardiovascular Exam Cardiovascular Exam: REGULAR RHYTHM, +S1, +S2 - GI/Abdominal Exam GI & Abdominal Exam: Soft, Normal Bowel Sounds. absent: Tenderness - Extremities Exam Extremities Exam: Normal Capillary Refill. absent: Calf Tenderness Additional comments: left foot TMA with dressing - Back Exam Back Exam: Full ROM. absent: CVA tenderness (L), CVA tenderness (R) - Neurological Exam Neurological Exam: Alert, Awake, CN II-XII Intact, Oriented x3 Neuro motor strength exam: Left Upper Extremity: 5, Right Upper Extremity: 5, Left Lower Extremity: 5, Right Lower Extremity: 5 - Psychiatric Exam Psychiatric exam: Depressed, Flat Affect - Skin Skin Exam: Dry, Normal Color, Warm Assessment and Plan - Assessment and Plan (Free Text) Assessment: 62 y.o female with PMH of DM2, HTN and PVD s/p Left TMA, was admitted bec of left foot abscess . Pt underwent s/p left foot TMA revision, incision and drainage and debridement, including nonviable soft tissue and bone, of non- healing TMA with abscess on 07/15 1. Infected left foot , hx of TNA s/p Revision TMA and Incision and Drainage and debridement -Podiatry following pt -ID consulted, Dr. Sol- recommended -Cefepime 1gm IV q 8h and Vanco 1gm IV q 12h -leukocytosis WBC=23.6 on admission - now down to 16 -Pain mgt 2. Left Foot Osteomyelitis - pt would need half-way IV abx - plan for Revision TNA on Thursday 07/20 - PICC line placed 3. PVD Status: Chronic -cardiology consulted- Dr Strange -on Plavix, ASA - hold as pt sched for TMA Revision -Doppler US Arterial: poor circ distal to sup femoral art 4. Diabetes Mellitus, type 2 - start low dose Levemir - d/c Metformin -start low dose Glucotrol, cont Januvia -accuchek ACHS with low Lispro coverage. 5. Hypertension -BP stable -continue Metoprolol and Ramipril -monitor BP 6. Hypokalemia - replace with po KCl 6. Low CO2 ? etiology - lactic acid normal - d/c Metformin -start Bicarb tabs 7. Anemia, chronic - pt refused Blood transfusion - will give IV Venofer and B12 shot DVT prophylaxis -Lovenox 40 mg SC daily
[2017-07-18 12:18] LABS: BLOOD UREA NITROGEN 9 mg/dl (7-17); CALCIUM 8.9 mg/dL (8.4-10.2); GFR AFRICAN-AMERICAN > 60; GFR NON-AFRICAN AMERICAN > 60
[2017-07-18 12:34] LABS: SQUAMOUS EPITHIAL 4 /hpf (0-5); URINE BILIRUBIN NEGATIVE (NEGATIVE); URINE BLOOD NEGATIVE (NEGATIVE); URINE CLARITY CLEAR (Clear); URINE COLOR YELLOW (YELLOW); URINE GLUCOSE (UA) >=500 mg/dL (Normal); URINE LEUKOCYTE ESTERASE NEG Leu/uL (Negative); URINE NITRATE NEGATIVE (NEGATIVE); URINE PROTEIN NEGATIVE (NEGATIVE); URINE UROBILINOGEN 0.2-1.0 mg/dL (0.2-1.0)
[2017-07-18] MEDS: GlipiZIDE 2.5 mg SR Tab PO SCH (12:35)
[2017-07-18] MEDS: oxyCODONE 20 mg ER Tab (oxyCONTIN) PO SCH ×2 (12:40→20:32)
[2017-07-18] MEDS ORDERED: Potassium Chloride 20 mEq ER Tab PO ONE (16:29)
[2017-07-18] MEDS: Insulin Lispro (humaLOG) 100 Units/ml Inj SC SCH ×3 (17:22→22:22)
[2017-07-18] MEDS: Insulin Detemir 100 Units/ml Inj SC SCH ×2 (22:20→22:21)
[2017-07-19] MEDS: Oxycodone/Acetaminophen 5/325 mg Tab PO PRN ×3 (02:38→16:10)
[2017-07-19] MEDS: Cefepime 1 GM in Sodium Chloride 0.9% 100 ML IVPB SCH ×3 (04:32→20:16)
[2017-07-19] MEDS: Morphine 4 MG/ML VIAL IVP PRN ×3 (07:43→18:34)
[2017-07-19] MEDS: Insulin Lispro (humaLOG) 100 Units/ml Inj SC SCH ×4 (07:44→22:01)
[2017-07-19 08:02] LABS: HEMOGLOBIN 7.6 g/dL (12.0-16.0); MEAN CELL VOLUME 81.2 fl (81.0-99.0); MEAN CORPUSCULAR HEMOGLOBIN 24.4 pg (27.0-31.0); MEAN CORPUSCULAR HGB CONC 30.1 g/dL (33.0-37.0); RBC 3.09 Mil/uL (3.80-5.20); RED CELL DISTRIBUTION WIDTH 18.9 % (11.5-14.5); WHITE BLOOD COUNT 12.8 K/uL (4.8-10.8)
[2017-07-19 08:25] LABS: BLOOD UREA NITROGEN 6 mg/dl (7-17); CALCIUM 8.8 mg/dL (8.4-10.2); GFR AFRICAN-AMERICAN > 60; GFR NON-AFRICAN AMERICAN > 60
[2017-07-19] MEDS: oxyCODONE 20 mg ER Tab (oxyCONTIN) PO SCH ×2 (09:29→21:03)
[2017-07-19] MEDS: GlipiZIDE 2.5 mg SR Tab PO SCH (09:31)
[2017-07-19] MEDS: Pantoprazole 40 mg EC Tab PO SCH (09:31)
[2017-07-19 09:33] LABS: INR 1.2 (0.9-1.2); PARTIAL THROMBOPLASTIN TIME 28.6 Seconds (25.6-37.1); PROTHROMBIN TIME 13.8 Seconds (9.8-13.1)
[2017-07-19] MEDS ORDERED: Potassium Chloride 20 mEq ER Tab PO ONE (10:30)
[2017-07-19] MEDS: Enoxaparin 40 mg Syringe SC SCH (11:49)
--- NOTE | 2017-07-19 12:05 | CP.PCM.PN ---
Subjective - Date & Time of Evaluation Date of Evaluation: 07/19/17 Time of Evaluation: 11:51 - Subjective Subjective: Podiatry Progress Note - Dr. Looney 62 y/o female seen and evaluated at bedside 4 days s/p left foot incision and drainage and debridement, including nonviable soft tissue and bone, of non- healing TMA with plantar abscess. Patient is AAO x 3 and NAD resting comfortably in bed at time of visit. She states that her pain has been well controlled and is milder today. Says she is getting pain medicine around the clock so she does not feel much pain anymore. She is aware and agreeable to surgery tomorrow. Denies any further pedal complaints at this time. Denies N/V/F /C/CP/SOB/D/posterior calf pain when squeezed. Objective - Vital Signs/Intake and Output Vital Signs (last 24 hours): Temp Pulse Resp BP Pulse Ox 98.4 F 75 18 108/58 L 96 07/19/17 00:17 07/19/17 00:17 07/19/17 00:17 07/19/17 09:32 07/19/17 00:17 - Medications Medications: Current Medications Acetaminophen (Tylenol 325mg Tab) 650 mg PO Q4 PRN PRN Reason: Pain, Mild (1-3) Last Admin: 07/15/17 20:52 Dose: 650 mg Clopidogrel Bisulfate (Plavix) 75 mg PO DAILY [facility] Last Admin: 07/18/17 09:06 Dose: 75 mg Docusate Sodium (Colace) 100 mg PO BID [facility] Last Admin: 07/19/17 09:29 Dose: 100 mg Enoxaparin Sodium (Lovenox) 40 mg SC DAILY [facility] PRN Reason: Protocol Last Admin: 07/18/17 09:06 Dose: 40 mg Glipizide (Glucotrol Xl) 2.5 mg PO BRK [facility] Last Admin: 07/19/17 09:31 Dose: 2.5 mg Vancomycin HCl 1 gm/ Sodium (Chloride) 250 mls @ 166.667 mls/hr IVPB Q12 [facility] PRN Reason: Protocol Last Admin: 07/19/17 09:34 Dose: 166.667 mls/hr Cefepime HCl 1 gm/ Sodium (Chloride) 100 mls @ 100 mls/hr IVPB Q8@0400,1200, 2000 [facility] PRN Reason: Protocol Last Admin: 07/19/17 04:32 Dose: 100 mls/hr Potassium Chloride 10 meq/ (Sodium Chloride) 105 mls @ 105 mls/hr IV Q1 [facility] Stop: 07/19/17 14:59 Insulin Detemir (Levemir) 8 units SC HS [facility] Last Admin: 07/18/17 22:20 Dose: 8 u Insulin Human Lispro (Humalog) 0 units SC ACHS [facility] PRN Reason: Protocol Last Admin: 07/19/17 07:44 Dose: 2 units Lactulose (Enulose) 20 gm PO BID PRN PRN Reason: Constipation Last Admin: 07/18/17 12:16 Dose: 20 gm Metoprolol Tartrate (Lopressor) 100 mg PO DAILY [facility] Last Admin: 07/19/17 09:32 Dose: 100 mg Morphine Sulfate (Morphine) 4 mg IVP Q3 PRN PRN Reason: Pain, severe (8-10) Last Admin: 07/19/17 07:43 Dose: 4 mg Oxycodone HCl (Oxycontin Extended Release Tab) 20 mg PO Q12 [facility] Last Admin: 07/19/17 09:29 Dose: 20 mg Oxycodone/Acetaminophen (Percocet 5/325 Mg Tab) 1 tab PO Q4 PRN PRN Reason: Pain, moderate (4-7) Stop: 07/22/17 02:33 Last Admin: 07/19/17 11:47 Dose: 1 tab Pantoprazole Sodium (Protonix Ec Tab) 40 mg PO DAILY [facility] Last Admin: 07/19/17 09:31 Dose: 40 mg Ramipril (Altace) 10 mg PO DAILY [facility] Last Admin: 07/19/17 09:32 Dose: 10 mg Sitagliptin Phosphate (Januvia) 100 mg PO DAILY [facility] Last Admin: 07/19/17 09:31 Dose: 100 mg Sodium Bicarbonate (Sodium Bicarbonate Tab) 650 mg PO Q6 [facility] Stop: 07/19/17 16:01 Last Admin: 07/19/17 09:29 Dose: 650 mg - Labs Labs: 07/19/17 05:50 07/19/17 05:50 PT 13.8 Seconds (9.8-13.1) H 07/19/17 05:50 INR 1.2 (0.9-1.2) 07/19/17 05:50 APTT 28.6 Seconds (25.6-37.1) 07/19/17 05:50 - Constitutional Appears: Well, Non-toxic, No Acute Distress - Extremities Exam Additional comments: LLE focused exam: Vasc: DP/PT pulses non-palpable. Skin temperature warm to warm from proximal to distal. Minimal edema noted surround surgical site Neuro: Epicritic and protective sensation grossly intact B/L Derm: Necrotic skin changes noted along lateral aspect of surgical skin edges of transmetatarsal amputation as well as medial arch incision, extending proximally into proximal midfoot along course of posterior tibial tendon. Skin appears pale and hypopigmented. Mild fluctuance is noted at present to plantar medial arch. No purulent drainage expressed from surgical site. Moderate amount of malodor is noted. Prolene sutures noted to medial and lateral portions of TMA site MSK: Open TMA site noted to left foot with distal aspect of remaining metatarsal bases seen. Moderate tenderness to palpation of entirety of left foot - Neurological Exam Neurological Exam: Alert, Awake, Oriented x3 - Psychiatric Exam Psychiatric exam: Normal Affect, Normal Mood Assessment and Plan - Assessment and Plan (Free Text) Assessment: 62 y/o female seen and evaluated at bedside 4 days s/p left foot incision and drainage and debridement, including nonviable soft tissue and bone, of non- healing TMA with abscess Plan: -Pt seen and evaluated at bedside -Discussed with attending Dr. Looney -Labs and vitals reviewed- afebrile, WBC 12.8 -Intra-op wound cx shows growth of Serratia marcescens, Enterococcus faecalis -MRI impression: Findings suspicious for osteomyelitis at the distal portion of the 4th digit and 5th metatarsal bones at the site of the amputation. Mild to moderate bone marrow edema and possible small erosion noted at the tip of the 2nd and 3rd metatarsal bone at the site of the amputation may represent postsurgical changes. The possibility of osteomyelitis is not totally excluded. Focal soft tissue swelling and abnormal signal noted at the medial aspect of the proximal and mid left foot suspicious for infectious process. THe possibility of abscess formation cannot be excluded this noncontrast exam. Foci of subcutaneous hypointense T1 and T2 signal seen in the soft tissue at the medial aspect of the left foot may represent subcutaneous emphysema. -Wound was dressed with adaptic, gauze, ABD, Kerlix, very light YELITZA bandage -Continue IV abx as per ID - Vanco, Cefepime -Pt to go to OR tomorrow at 4:30pm for revision of TMA with incision and drainage of plantar space infection -Plavix held prior to OR tomorrow -Hb currently at 7.6; pt to receive blood transfusion today -Pt to be NPO after breakfast tomorrow -Podiatry will continue to follow patient
--- NOTE | 2017-07-19 12:29 | CP.PCM.PN ---
Subjective - Date & Time of Evaluation Date of Evaluation: 07/19/17 Time of Evaluation: 12:00 - Subjective Subjective: No fever Pain better controlled with current regimen no CP' no SOB no abd pain Pt finally agreed to have Blood transfusion Objective - Vital Signs/Intake and Output Vital Signs (last 24 hours): Temp Pulse Resp BP Pulse Ox 98.4 F 75 18 108/58 L 96 07/19/17 00:17 07/19/17 00:17 07/19/17 00:17 07/19/17 09:32 07/19/17 00:17 - Medications Medications: Current Medications Acetaminophen (Tylenol 325mg Tab) 650 mg PO Q4 PRN PRN Reason: Pain, Mild (1-3) Last Admin: 07/15/17 20:52 Dose: 650 mg Clopidogrel Bisulfate (Plavix) 75 mg PO DAILY [facility] Last Admin: 07/18/17 09:06 Dose: 75 mg Docusate Sodium (Colace) 100 mg PO BID [facility] Last Admin: 07/19/17 09:29 Dose: 100 mg Enoxaparin Sodium (Lovenox) 40 mg SC DAILY [facility] PRN Reason: Protocol Last Admin: 07/19/17 11:49 Dose: 40 mg Glipizide (Glucotrol Xl) 2.5 mg PO BRK [facility] Last Admin: 07/19/17 09:31 Dose: 2.5 mg Vancomycin HCl 1 gm/ Sodium (Chloride) 250 mls @ 166.667 mls/hr IVPB Q12 [facility] PRN Reason: Protocol Last Admin: 07/19/17 09:34 Dose: 166.667 mls/hr Cefepime HCl 1 gm/ Sodium (Chloride) 100 mls @ 100 mls/hr IVPB Q8@0400,1200, 2000 [facility] PRN Reason: Protocol Last Admin: 07/19/17 04:32 Dose: 100 mls/hr Potassium Chloride 10 meq/ (Sodium Chloride) 105 mls @ 105 mls/hr IV Q1 [facility] Stop: 07/19/17 14:59 Insulin Detemir (Levemir) 8 units SC HS [facility] Last Admin: 07/18/17 22:20 Dose: 8 u Insulin Human Lispro (Humalog) 0 units SC ACHS [facility] PRN Reason: Protocol Last Admin: 07/19/17 11:48 Dose: 2 units Lactulose (Enulose) 20 gm PO BID PRN PRN Reason: Constipation Last Admin: 07/18/17 12:16 Dose: 20 gm Metoprolol Tartrate (Lopressor) 100 mg PO DAILY [facility] Last Admin: 07/19/17 09:32 Dose: 100 mg Morphine Sulfate (Morphine) 4 mg IVP Q3 PRN PRN Reason: Pain, severe (8-10) Last Admin: 07/19/17 07:43 Dose: 4 mg Oxycodone HCl (Oxycontin Extended Release Tab) 20 mg PO Q12 [facility] Last Admin: 07/19/17 09:29 Dose: 20 mg Oxycodone/Acetaminophen (Percocet 5/325 Mg Tab) 1 tab PO Q4 PRN PRN Reason: Pain, moderate (4-7) Stop: 07/22/17 02:33 Last Admin: 07/19/17 11:47 Dose: 1 tab Pantoprazole Sodium (Protonix Ec Tab) 40 mg PO DAILY [facility] Last Admin: 07/19/17 09:31 Dose: 40 mg Ramipril (Altace) 10 mg PO DAILY [facility] Last Admin: 07/19/17 09:32 Dose: 10 mg Sitagliptin Phosphate (Januvia) 100 mg PO DAILY [facility] Last Admin: 07/19/17 09:31 Dose: 100 mg Sodium Bicarbonate (Sodium Bicarbonate Tab) 650 mg PO Q6 [facility] Stop: 07/19/17 16:01 Last Admin: 07/19/17 09:29 Dose: 650 mg - Labs Labs: 07/19/17 05:50 07/19/17 05:50 PT 13.8 Seconds (9.8-13.1) H 07/19/17 05:50 INR 1.2 (0.9-1.2) 07/19/17 05:50 APTT 28.6 Seconds (25.6-37.1) 07/19/17 05:50 - Constitutional Appears: No Acute Distress - Head Exam Head Exam: NORMAL INSPECTION, NORMOCEPHALIC - Eye Exam Eye Exam: EOMI, Normal appearance Pupil Exam: NORMAL ACCOMODATION - ENT Exam ENT Exam: Mucous Membranes Moist - Neck Exam Neck Exam: Full ROM. absent: Meningismus - Respiratory Exam Respiratory Exam: NORMAL BREATHING PATTERN. absent: Respiratory Distress - Cardiovascular Exam Cardiovascular Exam: REGULAR RHYTHM, +S1, +S2 - GI/Abdominal Exam GI & Abdominal Exam: Soft, Normal Bowel Sounds. absent: Tenderness - Extremities Exam Extremities Exam: Normal Capillary Refill. absent: Calf Tenderness Additional comments: left foot TMA with dressing - Back Exam Back Exam: Full ROM. absent: CVA tenderness (L), CVA tenderness (R) - Neurological Exam Neurological Exam: Alert, Awake, CN II-XII Intact, Oriented x3 Neuro motor strength exam: Left Upper Extremity: 5, Right Upper Extremity: 5, Left Lower Extremity: 5, Right Lower Extremity: 5 - Psychiatric Exam Psychiatric exam: Depressed, Flat Affect - Skin Skin Exam: Dry, Normal Color, Warm Assessment and Plan - Assessment and Plan (Free Text) Assessment: 62 y.o female with PMH of DM2, HTN and PVD s/p Left TMA, was admitted bec of left foot abscess . Pt underwent left foot TMA revision, incision and drainage and debridement, including nonviable soft tissue and bone, of non- healing TMA with abscess on 07/15 . She was started on IV antibiotics. Plan for Angiogram and further debridement tomorrow 07/20 1. Infected left foot , hx of TNA s/p Revision TMA and Incision and Drainage and debridement -Podiatry following pt -ID consulted, Dr. Sol- recommended -Cefepime 1gm IV q 8h and Vanco 1gm IV q 12h -leukocytosis WBC=23.6 on admission - now down to 12.8 -Pain mgt -Plan for further Debridement by Podiatry tomorrow afternoon - 2. Left Foot Osteomyelitis - pt would need custodial IV abx - plan for Revision TNA on Thursday 07/20 - PICC line placed 3. PVD Status: Chronic -cardiology consulted- Dr Strange -on Plavix, ASA - hold as pt sched for TMA Revision -Doppler US Arterial: poor circ distal to sup femoral artery - Plan for Angiogram by Dr Strange in am, discussed case with Dr Strange 4. Diabetes Mellitus, type 2 - started low dose Levemir - d/c Metformin -start low dose Glucotrol, cont Januvia- hold in am as pt NPO -accucheck ACHS with low Lispro coverage. 5. Hypertension -BP stable -continue Metoprolol and Ramipril -monitor BP 6. Hypokalemia - replace with KCl runs and PO KCl 6. Low CO2 ? etiology - lactic acid normal - d/c Metformin -given Bicarb tabs 7. Anemia, chronic hgb =7.6 - finally agreed to have PRBC transfusion today- transfuse 2 units PRBC - given IV Venofer and B12 shot DVT prophylaxis -Lovenox 40 mg SC daily- hold in am
[2017-07-19] MEDS: Insulin Detemir 100 Units/ml Inj SC SCH (22:02)
[2017-07-20] MEDS: Cefepime 1 GM in Sodium Chloride 0.9% 100 ML IVPB SCH (03:35)
[2017-07-20] MEDS: Morphine 4 MG/ML VIAL IVP PRN ×2 (06:05→08:37)
[2017-07-20] MEDS ORDERED: Sodium Chloride 0.9% 1,000 ML IV SCH (08:30)
[2017-07-20 08:49] LABS: BASO # 0.2 K/uL (0.0-0.2); BASO % 1.3 % (0.0-2.0); EOS # 0.1 K/uL (0.0-0.7); EOS % 0.9 % (0.0-4.0); HEMOGLOBIN 9.5 g/dL (12.0-16.0); LYMPH # 3.4 K/uL (1.0-4.3); LYMPH % 23.4 % (20.0-40.0); MEAN CORPUSCULAR HEMOGLOBIN 25.8 pg (27.0-31.0); MEAN CORPUSCULAR HGB CONC 32.2 g/dL (33.0-37.0); MEAN PLATELET VOLUME 8.2 fl (7.2-11.7); MONO # 1.5 K/uL (0.0-0.8); MONO % 10.6 % (0.0-10.0); NEUT # 9.3 K/uL (1.8-7.0); NEUT % 63.8 % (50.0-75.0); RBC 3.68 Mil/uL (3.80-5.20); WHITE BLOOD COUNT 14.6 K/uL (4.8-10.8)
--- NOTE | 2017-07-20 08:59 | CP.PCM.PN ---
Subjective - Date & Time of Evaluation Date of Evaluation: 07/20/17 Time of Evaluation: 08:57 - Subjective Subjective: Podiatry Progress Note - Dr. Looney 62 y/o female seen and evaluated at bedside 5 days s/p left foot incision and drainage and debridement, including nonviable soft tissue and bone, of non- healing TMA with plantar abscess. Patient is AAO x 3 and NAD resting comfortably in bed at time of visit. She states that her pain has been well controlled and is milder today. Says she is getting pain medicine around the clock so she does not feel much pain anymore. She is aware and agreeable to surgery tpday. States that she has been NPO since last night. Denies any further pedal complaints at this time. Denies N/V/F/C/CP/SOB/D/posterior calf pain when squeezed. Objective - Vital Signs/Intake and Output Vital Signs (last 24 hours): Temp Pulse Resp BP Pulse Ox 98.8 F 82 20 146/73 97 07/20/17 08:28 07/20/17 08:28 07/20/17 08:28 07/20/17 08:28 07/20/17 08:28 - Medications Medications: Current Medications Acetaminophen (Tylenol 325mg Tab) 650 mg PO Q4 PRN PRN Reason: Pain, Mild (1-3) Last Admin: 07/15/17 20:52 Dose: 650 mg Clopidogrel Bisulfate (Plavix) 75 mg PO DAILY [facility] Last Admin: 07/18/17 09:06 Dose: 75 mg Docusate Sodium (Colace) 100 mg PO BID [facility] Last Admin: 07/19/17 16:11 Dose: 100 mg Enoxaparin Sodium (Lovenox) 40 mg SC DAILY [facility] PRN Reason: Protocol Last Admin: 07/19/17 11:49 Dose: 40 mg Glipizide (Glucotrol Xl) 2.5 mg PO BRK [facility] Last Admin: 07/19/17 09:31 Dose: 2.5 mg Vancomycin HCl 1 gm/ Sodium (Chloride) 250 mls @ 166.667 mls/hr IVPB Q12 [facility] PRN Reason: Protocol Last Admin: 07/19/17 21:17 Dose: 166.667 mls/hr Cefepime HCl 1 gm/ Sodium (Chloride) 100 mls @ 100 mls/hr IVPB Q8@0400,1200, 2000 [facility] PRN Reason: Protocol Last Admin: 07/20/17 03:35 Dose: 100 mls/hr Sodium Chloride (Sodium Chloride 0.9%) 1,000 mls @ 70 mls/hr IV .[id number] [facility] Stop: 07/21/17 08:24 Insulin Detemir (Levemir) 8 units SC HS [facility] Last Admin: 07/19/17 22:02 Dose: 8 u Insulin Human Lispro (Humalog) 0 units SC ACHS [facility] PRN Reason: Protocol Last Admin: 07/19/17 22:01 Dose: 2 units Lactulose (Enulose) 20 gm PO BID PRN PRN Reason: Constipation Last Admin: 07/18/17 12:16 Dose: 20 gm Metoprolol Tartrate (Lopressor) 100 mg PO DAILY [facility] Last Admin: 07/19/17 09:32 Dose: 100 mg Morphine Sulfate (Morphine) 4 mg IVP Q3 PRN PRN Reason: Pain, severe (8-10) Last Admin: 07/20/17 08:37 Dose: 4 mg Oxycodone HCl (Oxycontin Extended Release Tab) 20 mg PO Q12 [facility] Last Admin: 07/19/17 21:03 Dose: 20 mg Oxycodone/Acetaminophen (Percocet 5/325 Mg Tab) 1 tab PO Q4 PRN PRN Reason: Pain, moderate (4-7) Stop: 07/22/17 02:33 Last Admin: 07/19/17 16:10 Dose: 1 tab Pantoprazole Sodium (Protonix Ec Tab) 40 mg PO DAILY [facility] Last Admin: 07/19/17 09:31 Dose: 40 mg Ramipril (Altace) 10 mg PO DAILY [facility] Last Admin: 07/19/17 09:32 Dose: 10 mg Sitagliptin Phosphate (Januvia) 100 mg PO DAILY [facility] Last Admin: 07/19/17 09:31 Dose: 100 mg - Labs Labs: 07/19/17 05:50 07/19/17 05:50 PT 13.8 Seconds (9.8-13.1) H 07/19/17 05:50 INR 1.2 (0.9-1.2) 07/19/17 05:50 APTT 28.6 Seconds (25.6-37.1) 07/19/17 05:50 - Constitutional Appears: Well, Non-toxic, No Acute Distress - Extremities Exam Additional comments: LLE focused exam: Vasc: DP/PT pulses non-palpable. Skin temperature warm to warm from proximal to distal. Minimal edema noted surrounding surgical site Neuro: Epicritic and protective sensation grossly intact B/L Derm: Necrotic skin changes noted along lateral aspect of surgical skin edges of transmetatarsal amputation as well as medial arch incision, extending proximally into proximal midfoot along course of posterior tibial tendon. Skin appears pale and hypopigmented. Mild fluctuance is noted at present to plantar medial arch. No purulent drainage expressed from surgical site. No malodor noted at this time. Prolene sutures noted to medial and lateral portions of TMA site intact with no signs of dehiscence MSK: Open TMA site noted to left foot with distal aspect of remaining metatarsal bases seen. Moderate tenderness to palpation of entirety of left foot - Neurological Exam Neurological Exam: Alert, Awake, Oriented x3 - Psychiatric Exam Psychiatric exam: Normal Affect, Normal Mood Assessment and Plan - Assessment and Plan (Free Text) Assessment: 62 y/o female seen and evaluated at bedside 4 days s/p left foot incision and drainage and debridement, including nonviable soft tissue and bone, of non- healing TMA with plantar abscess. Patient for revisional TMA today with I and D with Dr. Looney Plan: Patient seen and evaluated at bedside Plan discussed with attending Dr. Looney Afebrile WBC 12.8 yesterday Continue IV abx per ID Continue medical management per Medicine F/u angiogram from this morning with Dr. Strange Wound dressed with adaptic, ABD, DSD Patient for surgery today with Dr. Looney at 4:30 - revision of infected left TMA site NPO status confirmed Podiatry will continue to follow while patient in house
[2017-07-20 09:06] LABS: BLOOD UREA NITROGEN 6 mg/dl (7-17); CALCIUM 8.5 mg/dL (8.4-10.2); GFR AFRICAN-AMERICAN > 60; GFR NON-AFRICAN AMERICAN > 60; MAGNESIUM 1.9 MG/DL (1.6-2.3)
--- NOTE | 2017-07-20 13:38 | CARD ---
APPROVED REPORT EKG Measurement Heart [id number] <Conclusion> Normal sinus rhythm Low voltage QRS Possible septal infarct, age undetermined Abnormal ECG
--- NOTE | 2017-07-20 16:26 | CP.PCM.PN ---
<Rafael Trejo - Last Filed: 07/20/17 16:44> Subjective - Date & Time of Evaluation Date of Evaluation: 07/20/17 Time of Evaluation: 16:22 - Subjective Subjective: Progress Note for Hospitalist- Dr. Vaz Patient went for an angiogram by Dr. Strange at [facility] today in the AM. Patient has not returned from [facility]. Objective - Vital Signs/Intake and Output Vital Signs (last 24 hours): Temp Pulse Resp BP Pulse Ox 98.8 F 82 20 146/73 97 07/20/17 08:28 07/20/17 08:28 07/20/17 08:28 07/20/17 08:28 07/20/17 08:28 - Medications Medications: Current Medications Acetaminophen (Tylenol 325mg Tab) 650 mg PO Q4 PRN PRN Reason: Pain, Mild (1-3) Last Admin: 07/15/17 20:52 Dose: 650 mg Clopidogrel Bisulfate (Plavix) 75 mg PO DAILY [facility] Last Admin: 07/18/17 09:06 Dose: 75 mg Docusate Sodium (Colace) 100 mg PO BID [facility] Last Admin: 07/19/17 16:11 Dose: 100 mg Enoxaparin Sodium (Lovenox) 40 mg SC DAILY [facility] PRN Reason: Protocol Last Admin: 07/19/17 11:49 Dose: 40 mg Glipizide (Glucotrol Xl) 2.5 mg PO BRK [facility] Last Admin: 07/19/17 09:31 Dose: 2.5 mg Vancomycin HCl 1 gm/ Sodium (Chloride) 250 mls @ 166.667 mls/hr IVPB Q12 [facility] PRN Reason: Protocol Last Admin: 07/19/17 21:17 Dose: 166.667 mls/hr Cefepime HCl 1 gm/ Sodium (Chloride) 100 mls @ 100 mls/hr IVPB Q8@0400,1200, 2000 [facility] PRN Reason: Protocol Last Admin: 07/20/17 03:35 Dose: 100 mls/hr Sodium Chloride (Sodium Chloride 0.9%) 1,000 mls @ 70 mls/hr IV .[id number] [facility] Stop: 07/21/17 08:24 Insulin Detemir (Levemir) 8 units SC HS [facility] Last Admin: 07/19/17 22:02 Dose: 8 u Insulin Human Lispro (Humalog) 0 units SC ACHS [facility] PRN Reason: Protocol Last Admin: 07/19/17 22:01 Dose: 2 units Lactulose (Enulose) 20 gm PO BID PRN PRN Reason: Constipation Last Admin: 07/18/17 12:16 Dose: 20 gm Metoprolol Tartrate (Lopressor) 100 mg PO DAILY [facility] Last Admin: 07/19/17 09:32 Dose: 100 mg Morphine Sulfate (Morphine) 4 mg IVP Q3 PRN PRN Reason: Pain, severe (8-10) Last Admin: 07/20/17 08:37 Dose: 4 mg Oxycodone HCl (Oxycontin Extended Release Tab) 20 mg PO Q12 [facility] Last Admin: 07/19/17 21:03 Dose: 20 mg Oxycodone/Acetaminophen (Percocet 5/325 Mg Tab) 1 tab PO Q4 PRN PRN Reason: Pain, moderate (4-7) Stop: 07/22/17 02:33 Last Admin: 07/19/17 16:10 Dose: 1 tab Pantoprazole Sodium (Protonix Ec Tab) 40 mg PO DAILY [facility] Last Admin: 07/19/17 09:31 Dose: 40 mg Ramipril (Altace) 10 mg PO DAILY [facility] Last Admin: 07/19/17 09:32 Dose: 10 mg Sitagliptin Phosphate (Januvia) 100 mg PO DAILY [facility] Last Admin: 07/19/17 09:31 Dose: 100 mg - Labs Labs: 07/20/17 08:42 07/20/17 08:42 PT 13.8 Seconds (9.8-13.1) H 07/19/17 05:50 INR 1.2 (0.9-1.2) 07/19/17 05:50 APTT 28.6 Seconds (25.6-37.1) 07/19/17 05:50 - Additional Findings Additional findings: Physical Examination was not done; patient went to [facility] for angiogram in AM Assessment and Plan - Assessment and Plan (Free Text) Assessment: 62 y.o female with PMH of DM2, HTN and PVD s/p Left TMA was admitted left foot abscess. Pt underwent left foot TMA revision, incision and drainage and debridement, including nonviable soft tissue and bone, of non-healing TMA with abscess on 07/15 . She was started on IV antibiotics. Going for Angiogram today Plan: 1. Infected left foot , hx of TNA s/p Revision TMA and Incision and Drainage and debridement -Podiatry following pt -ID consulted, Dr. Sol- recommended -Cefepime 1gm IV q 8h and Vanco 1gm IV q 12h -leukocytosis WBC=23.6 on admission - now 14.6 -Pain mgt -Plan for further Debridement by Podiatry 2. 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 PVD Status: Chronic -cardiology consulted- Dr Strange -on Plavix, ASA - hold as pt sched for TMA Revision -Doppler US Arterial: poor circ distal to sup femoral artery -Patient is currently at [facility]: Angiogram by Dr Strange 4. Diabetes Mellitus, type 2 - started low dose Levemir - d/c Metformin -start low dose Glucotrol, cont Januvia- held in am as pt NPO -accucheck ACHS with low Lispro coverage. 5. Hypertension -BP stable -continue Metoprolol and Ramipril -monitor BP 6. Hypokalemia - replace with KCl runs and PO KCl - Potassium today 3.6 - Magnesium 1.9 6. Low CO2 ? etiology - lactic acid normal - d/c Metformin -given Bicarb tabs 7. Anemia, chronic - 7.6/25.1 on 07/19/17 - transfused 2 units PRBC - given IV Venofer and B12 shot - post transfusion H/H: 9.5/29.4 DVT prophylaxis -Lovenox 40 mg SC daily- held today <Pepper Vaz - Last Filed: 07/20/17 19:59> Objective - Vital Signs/Intake and Output Vital Signs (last 24 hours): Temp Pulse Resp BP Pulse Ox 98.8 F 82 20 146/73 97 07/20/17 08:28 07/20/17 08:28 07/20/17 08:28 07/20/17 08:28 07/20/17 08:28 - Medications Medications: Current Medications Acetaminophen (Tylenol 325mg Tab) 650 mg PO Q4 PRN PRN Reason: Pain, Mild (1-3) Last Admin: 07/15/17 20:52 Dose: 650 mg Clopidogrel Bisulfate (Plavix) 75 mg PO DAILY [facility] Last Admin: 07/18/17 09:06 Dose: 75 mg Docusate Sodium (Colace) 100 mg PO BID [facility] Last Admin: 07/19/17 16:11 Dose: 100 mg Enoxaparin Sodium (Lovenox) 40 mg SC DAILY [facility] PRN Reason: Protocol Last Admin: 07/19/17 11:49 Dose: 40 mg Glipizide (Glucotrol Xl) 2.5 mg PO BRK [facility] Last Admin: 07/19/17 09:31 Dose: 2.5 mg Vancomycin HCl 1 gm/ Sodium (Chloride) 250 mls @ 166.667 mls/hr IVPB Q12 [facility] PRN Reason: Protocol Last Admin: 07/19/17 21:17 Dose: 166.667 mls/hr Cefepime HCl 1 gm/ Sodium (Chloride) 100 mls @ 100 mls/hr IVPB Q8@0400,1200, 2000 [facility] PRN Reason: Protocol Last Admin: 07/20/17 03:35 Dose: 100 mls/hr Sodium Chloride (Sodium Chloride 0.9%) 1,000 mls @ 70 mls/hr IV .[id number] [facility] Stop: 07/21/17 08:24 Insulin Detemir (Levemir) 8 units SC HS [facility] Last Admin: 07/19/17 22:02 Dose: 8 u Insulin Human Lispro (Humalog) 0 units SC ACHS [facility] PRN Reason: Protocol Last Admin: 07/19/17 22:01 Dose: 2 units Lactulose (Enulose) 20 gm PO BID PRN PRN Reason: Constipation Last Admin: 07/18/17 12:16 Dose: 20 gm Metoprolol Tartrate (Lopressor) 100 mg PO DAILY [facility] Last Admin: 07/19/17 09:32 Dose: 100 mg Morphine Sulfate (Morphine) 4 mg IVP Q3 PRN PRN Reason: Pain, severe (8-10) Last Admin: 07/20/17 08:37 Dose: 4 mg Oxycodone HCl (Oxycontin Extended Release Tab) 20 mg PO Q12 [facility] Last Admin: 07/19/17 21:03 Dose: 20 mg Oxycodone/Acetaminophen (Percocet 5/325 Mg Tab) 1 tab PO Q4 PRN PRN Reason: Pain, moderate (4-7) Stop: 07/22/17 02:33 Last Admin: 07/19/17 16:10 Dose: 1 tab Pantoprazole Sodium (Protonix Ec Tab) 40 mg PO DAILY [facility] Last Admin: 07/19/17 09:31 Dose: 40 mg Ramipril (Altace) 10 mg PO DAILY [facility] Last Admin: 07/19/17 09:32 Dose: 10 mg Sitagliptin Phosphate (Januvia) 100 mg PO DAILY [facility] Last Admin: 07/19/17 09:31 Dose: 100 mg - Labs Labs: 07/20/17 08:42 07/20/17 08:42 PT 13.8 Seconds (9.8-13.1) H 07/19/17 05:50 INR 1.2 (0.9-1.2) 07/19/17 05:50 APTT 28.6 Seconds (25.6-37.1) 07/19/17 05:50 Attending/Attestation - Attestation I have personally seen and examined this patient.: Yes I have fully participated in the care of the patient.: Yes I have reviewed all pertinent clinical information, including history, physical exam and plan: Yes Notes (Text): Pt is still in [facility] Discussed case with Dr Strange- stented the Popliteal artery- rec to cont ASA, Plavix, Lovenox - he also rec that pt be monitored overnight in the ICU, - monitor wound for bleeding
[2017-07-21] MEDS: Morphine 4 MG/ML VIAL IVP PRN ×4 (00:42→19:25)
--- NOTE | 2017-07-21 01:06 | CP.CCUPN ---
CCU Subjective - Physician Review Events Since Last Encounter (Free Text): 07/21/17 01:05 Patient received from [facility] post cath in stable condition. Denies cp, sob. c/o some leg pain at site of cath. Will observe in ICU overnight. CCU Objective - Vital Signs / Intake & Output Vital Signs (Last 4 hours): Vital Signs Temp Pulse Resp BP Pulse Ox 07/21/17 00:32 99.7 F H 93 H 13 156/84 H 99 - Medications Active Medications: Active Medications Generic Name Dose Route Start Last Admin Trade Name Freq PRN Reason Stop Dose Admin Acetaminophen 650 mg 07/15/17 14:47 07/15/17 20:52 Tylenol 325mg Tab PO 650 mg Q4 PRN Administration Pain, Mild (1-3) Clopidogrel Bisulfate 75 mg 07/16/17 09:00 07/18/17 09:06 Plavix PO 75 mg DAILY [facility] Administration Docusate Sodium 100 mg 07/15/17 17:00 07/19/17 16:11 Colace PO 100 mg BID [facility] Administration Enoxaparin Sodium 40 mg 07/16/17 09:00 07/19/17 11:49 Lovenox SC 40 mg DAILY [facility] Administration Protocol Glipizide 2.5 mg 07/18/17 12:00 07/19/17 09:31 Glucotrol Xl PO 2.5 mg BRK [facility] Administration Vancomycin HCl 1 gm/ Sodium 250 mls @ 166.667 mls/hr 07/15/17 21:00 07/19/17 21:17 Chloride IVPB 166.667 mls/hr Q12 [facility] Administration Protocol Cefepime HCl 1 gm/ Sodium 100 mls @ 100 mls/hr 07/16/17 04:00 07/20/17 03:35 Chloride IVPB 100 mls/hr Q8@0400,1200,2000 [facility] Administration Protocol Sodium Chloride 1,000 mls @ 70 mls/hr 07/20/17 08:30 Sodium Chloride 0.9% IV 07/21/17 08:24 .[id number] [facility] Insulin Detemir 8 units 07/18/17 22:00 07/19/17 22:02 Levemir SC 8 u HS [facility] Administration Insulin Human Lispro 0 units 07/18/17 16:30 07/19/17 22:01 Humalog SC 2 units ACHS [facility] Administration Protocol Lactulose 20 gm 07/18/17 11:48 07/18/17 12:16 Enulose PO 20 gm BID PRN Administration Constipation Metoprolol Tartrate 100 mg 07/16/17 09:00 07/19/17 09:32 Lopressor PO 100 mg DAILY [facility] Administration Morphine Sulfate 4 mg 07/17/17 16:47 07/21/17 00:42 Morphine IVP 4 mg Q3 PRN Administration Pain, severe (8-10) Oxycodone HCl 20 mg 07/18/17 12:15 07/19/17 21:03 Oxycontin Extended Release Tab PO 20 mg Q12 [facility] Administration Oxycodone/Acetaminophen 1 tab 07/19/17 02:32 07/19/17 16:10 Percocet 5/325 Mg Tab PO 07/22/17 02:33 1 tab Q4 PRN Administration Pain, moderate (4-7) Pantoprazole Sodium 40 mg 07/16/17 09:00 07/19/17 09:31 Protonix Ec Tab PO 40 mg DAILY [facility] Administration Ramipril 10 mg 07/16/17 09:00 07/19/17 09:32 Altace PO 10 mg DAILY [facility] Administration Sitagliptin Phosphate 100 mg 07/16/17 09:00 07/19/17 09:31 Januvia PO 100 mg DAILY [facility] Administration - Patient Studies Lab Studies: Microbiology Studies 07/17/17 19:03 Blood Culture - Preliminary Blood-Venous NO GROWTH AFTER 3 DAYS 07/17/17 19:03 Blood Culture - Preliminary Blood-Venous NO GROWTH AFTER 3 DAYS Lab Studies 07/20/17 07/20/17 07/20/17 Range/Units 08:42 08:42 05:26 WBC 14.6 H (4.8-10.8) K/uL RBC 3.68 L (3.80-5.20) Mil/uL Hgb 9.5 L (12.0-16.0) g/dL Hct 29.4 L (34.0-47.0) % MCV 80.0 L (81.0-99.0) fl MCH 25.8 L (27.0-31.0) pg MCHC 32.2 L (33.0-37.0) g/dL RDW 17.0 H (11.5-14.5) % Plt Count 507 H (130-400) K/uL MPV 8.2 (7.2-11.7) fl Neut % (Auto) 63.8 (50.0-75.0) % Lymph % (Auto) 23.4 (20.0-40.0) % Robeson % (Auto) 10.6 H (0.0-10.0) % Eos % (Auto) 0.9 (0.0-4.0) % Baso % (Auto) 1.3 (0.0-2.0) % Neut # (Auto) 9.3 H (1.8-7.0) K/uL Lymph # (Auto) 3.4 (1.0-4.3) K/uL Robeson # (Auto) 1.5 H (0.0-0.8) K/uL Eos # (Auto) 0.1 (0.0-0.7) K/uL Baso # (Auto) 0.2 (0.0-0.2) K/uL Sodium 136 (132-148) mmol/l Potassium 3.6 (3.6-5.0) MMOL/L Chloride 98 (98-107) mmol/L Carbon Dioxide 28 (22-30) mmol/L Anion Gap 14 (10-20) BUN 6 L (7-17) mg/dl Creatinine 0.4 L (0.7-1.2) mg/dl Est GFR ( Amer) > 60 Est GFR (Non-Af Amer) > 60 POC Glucose (mg/dL) 260 H (65-110) mg/dL Random Glucose 247 H (65-105) mg/dL Calcium 8.5 (8.4-10.2) mg/dL Magnesium 1.9 (1.6-2.3) MG/DL Blood Type Antibody Screen Crossmatch BBK History Checked 07/19/17 Range/Units 04:00 WBC (4.8-10.8) K/uL RBC (3.80-5.20) Mil/uL Hgb (12.0-16.0) g/dL Hct (34.0-47.0) % MCV (81.0-99.0) fl MCH (27.0-31.0) pg MCHC (33.0-37.0) g/dL RDW (11.5-14.5) % Plt Count (130-400) K/uL MPV (7.2-11.7) fl Neut % (Auto) (50.0-75.0) % Lymph % (Auto) (20.0-40.0) % Robeson % (Auto) (0.0-10.0) % Eos % (Auto) (0.0-4.0) % Baso % (Auto) (0.0-2.0) % Neut # (Auto) (1.8-7.0) K/uL Lymph # (Auto) (1.0-4.3) K/uL Robeson # (Auto) (0.0-0.8) K/uL Eos # (Auto) (0.0-0.7) K/uL Baso # (Auto) (0.0-0.2) K/uL Sodium (132-148) mmol/l Potassium (3.6-5.0) MMOL/L Chloride (98-107) mmol/L Carbon Dioxide (22-30) mmol/L Anion Gap (10-20) BUN (7-17) mg/dl Creatinine (0.7-1.2) mg/dl Est GFR ( Amer) Est GFR (Non-Af Amer) POC Glucose (mg/dL) (65-110) mg/dL Random Glucose (65-105) mg/dL Calcium (8.4-10.2) mg/dL Magnesium (1.6-2.3) MG/DL Blood Type B POSITIVE Antibody Screen Negative Crossmatch See Detail BBK History Checked Patient has bt Laboratory Results - last 24 hr 07/19/17 07/20/17 07/20/17 04:00 05:26 08:42 WBC 14.6 H RBC 3.68 L Hgb 9.5 L Hct 29.4 L MCV 80.0 L MCH 25.8 L MCHC 32.2 L RDW 17.0 H Plt Count 507 H MPV 8.2 Neut % (Auto) 63.8 Lymph % (Auto) 23.4 Robeson % (Auto) 10.6 H Eos % (Auto) 0.9 Baso % (Auto) 1.3 Neut # (Auto) 9.3 H Lymph # (Auto) 3.4 Robeson # (Auto) 1.5 H Eos # (Auto) 0.1 Baso # (Auto) 0.2 Sodium Potassium Chloride Carbon Dioxide Anion Gap BUN Creatinine Est GFR ( Amer) Est GFR (Non-Af Amer) POC Glucose (mg/dL) 260 H Random Glucose Calcium Magnesium Blood Type B POSITIVE Antibody Screen Negative Crossmatch See Detail BBK History Checked Patient has bt 07/20/17 08:42 WBC RBC Hgb Hct MCV MCH MCHC RDW Plt Count MPV Neut % (Auto) Lymph % (Auto) Robeson % (Auto) Eos % (Auto) Baso % (Auto) Neut # (Auto) Lymph # (Auto) Robeson # (Auto) Eos # (Auto) Baso # (Auto) Sodium 136 Potassium 3.6 Chloride 98 Carbon Dioxide 28 Anion Gap 14 BUN 6 L Creatinine 0.4 L Est GFR ( Amer) > 60 Est GFR (Non-Af Amer) > 60 POC Glucose (mg/dL) Random Glucose 247 H Calcium 8.5 Magnesium 1.9 Blood Type Antibody Screen Crossmatch BBK History Checked Fingerstick Blood Sugar Results: 260 Critical Care Progress Note - Nutrition Nutrition: Nutrition Category Date Time Status NPO Diet [DIET] Diets 07/20/17 Lunch Active
--- NOTE | 2017-07-21 01:39 | CP.PCM.PN ---
Subjective - Date & Time of Evaluation Date of Evaluation: 07/21/17 Time of Evaluation: 01:37 - Subjective Subjective: 62 year old female seen in ICU after spending day at [facility] for revascularization of left lower extremity with Dr. Strange. Per Dr. Strange, vascular intervention was successful and blood flow to lower extremity has been restored for time being. Patient states that her pain is well controlled. Per nursing, patient received 4 mg morphine upon admission to ICU. Patient denies any further pedal complaints at this time. Is AAO x 3 and NAD, resting comfortably in bed. Denies recent N/V/F/C/CP/SOB/D/posterior calf pain when squeezed Objective - Vital Signs/Intake and Output Vital Signs (last 24 hours): Temp Pulse Resp BP Pulse Ox 99.7 F H 93 H 13 156/84 H 99 07/21/17 00:32 07/21/17 00:32 07/21/17 00:32 07/21/17 00:32 07/21/17 00:32 - Medications Medications: Current Medications Acetaminophen (Tylenol 325mg Tab) 650 mg PO Q4 PRN PRN Reason: Pain, Mild (1-3) Last Admin: 07/15/17 20:52 Dose: 650 mg Clopidogrel Bisulfate (Plavix) 75 mg PO DAILY [facility] Last Admin: 07/18/17 09:06 Dose: 75 mg Docusate Sodium (Colace) 100 mg PO BID [facility] Last Admin: 07/19/17 16:11 Dose: 100 mg Enoxaparin Sodium (Lovenox) 40 mg SC DAILY [facility] PRN Reason: Protocol Last Admin: 07/19/17 11:49 Dose: 40 mg Glipizide (Glucotrol Xl) 2.5 mg PO BRK [facility] Last Admin: 07/19/17 09:31 Dose: 2.5 mg Vancomycin HCl 1 gm/ Sodium (Chloride) 250 mls @ 166.667 mls/hr IVPB Q12 [facility] PRN Reason: Protocol Last Admin: 07/19/17 21:17 Dose: 166.667 mls/hr Cefepime HCl 1 gm/ Sodium (Chloride) 100 mls @ 100 mls/hr IVPB Q8@0400,1200, 2000 [facility] PRN Reason: Protocol Last Admin: 07/20/17 03:35 Dose: 100 mls/hr Sodium Chloride (Sodium Chloride 0.9%) 1,000 mls @ 70 mls/hr IV .[id number] [facility] Stop: 07/21/17 08:24 Insulin Detemir (Levemir) 8 units SC HS [facility] Last Admin: 07/19/17 22:02 Dose: 8 u Insulin Human Lispro (Humalog) 0 units SC ACHS [facility] PRN Reason: Protocol Last Admin: 07/19/17 22:01 Dose: 2 units Lactulose (Enulose) 20 gm PO BID PRN PRN Reason: Constipation Last Admin: 07/18/17 12:16 Dose: 20 gm Metoprolol Tartrate (Lopressor) 100 mg PO DAILY [facility] Last Admin: 07/19/17 09:32 Dose: 100 mg Morphine Sulfate (Morphine) 4 mg IVP Q3 PRN PRN Reason: Pain, severe (8-10) Last Admin: 07/21/17 00:42 Dose: 4 mg Oxycodone HCl (Oxycontin Extended Release Tab) 20 mg PO Q12 [facility] Last Admin: 07/19/17 21:03 Dose: 20 mg Oxycodone/Acetaminophen (Percocet 5/325 Mg Tab) 1 tab PO Q4 PRN PRN Reason: Pain, moderate (4-7) Stop: 07/22/17 02:33 Last Admin: 07/19/17 16:10 Dose: 1 tab Pantoprazole Sodium (Protonix Ec Tab) 40 mg PO DAILY [facility] Last Admin: 07/19/17 09:31 Dose: 40 mg Ramipril (Altace) 10 mg PO DAILY [facility] Last Admin: 07/19/17 09:32 Dose: 10 mg Sitagliptin Phosphate (Januvia) 100 mg PO DAILY [facility] Last Admin: 07/19/17 09:31 Dose: 100 mg - Labs Labs: 07/20/17 08:42 07/20/17 08:42 PT 13.8 Seconds (9.8-13.1) H 07/19/17 05:50 INR 1.2 (0.9-1.2) 07/19/17 05:50 APTT 28.6 Seconds (25.6-37.1) 07/19/17 05:50 - Constitutional Appears: Well, Non-toxic, No Acute Distress - Extremities Exam Additional comments: Dressings to LLE intact with minimal bloody strikethrough noted Strikethrough outlined with marking pen for tracking purposes - Neurological Exam Neurological Exam: Alert, Awake, Oriented x3 - Psychiatric Exam Psychiatric exam: Normal Affect, Normal Mood Assessment and Plan - Assessment and Plan (Free Text) Assessment: 62 year old female seen in ICU after spending day at [facility] for revascularization of left lower extremity with Dr. Strange. Plan: Patient seen and evaluated in ICU Medical managment per Hospitalist appreciated Monitor H and H Will discuss need for surgical intervention vs. conservative care with Dr. Looney in am Podiatry to continue to follow while patient in house
[2017-07-21] MEDS: Cefepime 1 GM in Sodium Chloride 0.9% 100 ML IVPB SCH ×3 (05:54→20:00)
[2017-07-21 06:41] LABS: BASO # 0.1 K/uL (0.0-0.2); BASO % 0.5 % (0.0-2.0); EOS # 0.1 K/uL (0.0-0.7); EOS % 0.8 % (0.0-4.0); HEMOGLOBIN 9.3 g/dL (12.0-16.0); LYMPH # 3.1 K/uL (1.0-4.3); LYMPH % 21.2 % (20.0-40.0); MEAN CELL VOLUME 79.9 fl (81.0-99.0); MEAN CORPUSCULAR HEMOGLOBIN 25.8 pg (27.0-31.0); MEAN CORPUSCULAR HGB CONC 32.3 g/dL (33.0-37.0); MEAN PLATELET VOLUME 8.3 fl (7.2-11.7); MONO # 1.6 K/uL (0.0-0.8); MONO % 11.3 % (0.0-10.0); NEUT # 9.6 K/uL (1.8-7.0); NEUT % 66.2 % (50.0-75.0); NRBC % 0.1 % (0.0-0.0); RBC 3.61 Mil/uL (3.80-5.20); RED CELL DISTRIBUTION WIDTH 17.9 % (11.5-14.5); WHITE BLOOD COUNT 14.4 K/uL (4.8-10.8)
[2017-07-21] MEDS: Insulin Lispro (humaLOG) 100 Units/ml Inj SC SCH ×4 (06:46→22:30)
[2017-07-21 06:52] LABS: ALB/GLOB RATIO 0.8 (1.0-2.1); ALT/SGPT 10 U/L (9-52); AST/SGOT 43 U/L (14-36); BLOOD UREA NITROGEN 6 mg/dl (7-17); CALCIUM 8.8 mg/dL (8.4-10.2); GFR AFRICAN-AMERICAN > 60; GFR NON-AFRICAN AMERICAN > 60
[2017-07-21] MEDS: oxyCODONE 20 mg ER Tab (oxyCONTIN) PO SCH ×2 (08:49→20:59)
[2017-07-21] MEDS: Pantoprazole 40 mg EC Tab PO SCH (08:50)
[2017-07-21] MEDS ORDERED: Potassium Chloride 20 mEq/15 ml LIQ UD PO ONE (09:14)
--- NOTE | 2017-07-21 09:17 | CP.PCM.PN ---
Subjective - Date & Time of Evaluation Date of Evaluation: 07/21/17 Time of Evaluation: 09:13 - Subjective Subjective: 62 year old female seen in ICU after spending day at [facility] for revascularization of left lower extremity with Dr. Strange yesterday. Per Dr. Strange, vascular intervention was successful and blood flow to lower extremity has been restored for time being. Patient states that her pain is well controlled and that she is very hungry at this time. Patient denies any further pedal complaints at this time. Is AAO x 3 and NAD, resting comfortably in bed. Denies recent N/V/F/C/CP/SOB/D/posterior calf pain when squeezed Objective - Vital Signs/Intake and Output Vital Signs (last 24 hours): Temp Pulse Resp BP Pulse Ox 98.3 F 92 H 11 L 125/56 L 97 07/21/17 08:33 07/21/17 08:46 07/21/17 09:03 07/21/17 08:46 07/21/17 08:33 Intake and Output: 07/21/17 07/21/17 06:59 18:59 Intake Total 100 Balance 100 - Medications Medications: Current Medications Acetaminophen (Tylenol 325mg Tab) 650 mg PO Q4 PRN PRN Reason: Pain, Mild (1-3) Last Admin: 07/15/17 20:52 Dose: 650 mg Clopidogrel Bisulfate (Plavix) 75 mg PO DAILY [facility] Last Admin: 07/18/17 09:06 Dose: 75 mg Docusate Sodium (Colace) 100 mg PO BID [facility] Last Admin: 07/21/17 08:45 Dose: 100 mg Enoxaparin Sodium (Lovenox) 40 mg SC DAILY [facility] PRN Reason: Protocol Last Admin: 07/19/17 11:49 Dose: 40 mg Glipizide (Glucotrol Xl) 2.5 mg PO BRK [facility] Last Admin: 07/19/17 09:31 Dose: 2.5 mg Vancomycin HCl 1 gm/ Sodium (Chloride) 250 mls @ 166.667 mls/hr IVPB Q12 [facility] PRN Reason: Protocol Last Admin: 07/19/17 21:17 Dose: 166.667 mls/hr Cefepime HCl 1 gm/ Sodium (Chloride) 100 mls @ 100 mls/hr IVPB Q8@0400,1200, 2000 [facility] PRN Reason: Protocol Last Admin: 07/21/17 05:54 Dose: 100 mls/hr Insulin Detemir (Levemir) 8 units SC HS [facility] Last Admin: 07/19/17 22:02 Dose: 8 u Insulin Human Lispro (Humalog) 0 units SC ACHS [facility] PRN Reason: Protocol Last Admin: 07/21/17 06:46 Dose: 3 units Lactulose (Enulose) 20 gm PO BID PRN PRN Reason: Constipation Last Admin: 07/18/17 12:16 Dose: 20 gm Metoprolol Tartrate (Lopressor) 100 mg PO DAILY [facility] Last Admin: 07/21/17 08:46 Dose: 100 mg Morphine Sulfate (Morphine) 4 mg IVP Q3 PRN PRN Reason: Pain, severe (8-10) Last Admin: 07/21/17 06:04 Dose: 4 mg Oxycodone HCl (Oxycontin Extended Release Tab) 20 mg PO Q12 [facility] Last Admin: 07/21/17 08:49 Dose: 20 mg Oxycodone/Acetaminophen (Percocet 5/325 Mg Tab) 1 tab PO Q4 PRN PRN Reason: Pain, moderate (4-7) Stop: 07/22/17 02:33 Last Admin: 07/19/17 16:10 Dose: 1 tab Pantoprazole Sodium (Protonix Ec Tab) 40 mg PO DAILY [facility] Last Admin: 07/21/17 08:50 Dose: 40 mg Ramipril (Altace) 10 mg PO DAILY [facility] Last Admin: 07/21/17 08:44 Dose: 10 mg Sitagliptin Phosphate (Januvia) 100 mg PO DAILY [facility] Last Admin: 07/19/17 09:31 Dose: 100 mg - Labs Labs: 07/21/17 06:30 07/21/17 06:30 PT 13.8 Seconds (9.8-13.1) H 07/19/17 05:50 INR 1.2 (0.9-1.2) 07/19/17 05:50 APTT 28.6 Seconds (25.6-37.1) 07/19/17 05:50 - Constitutional Appears: Well, Non-toxic, No Acute Distress - Extremities Exam Additional comments: LLE focused exam: Dressing C/D/I to LLE Minimal strikethrough noted superficially but signs of heavy bleeding seen in deeper layers of dressing Vasc: DP/PT pulses faintly palpable to LLE. Skin temperature warm to warm from proximal to distal. No edema noted surrounding surgical site Neuro: Epicritic and protective sensation grossly intact B/L Derm: Necrotic skin changes noted along lateral aspect of surgical skin edges of transmetatarsal amputation as well as medial arch incision, extending proximally into proximal midfoot along course of posterior tibial tendon. Skin appears pale and hypopigmented. No fluctuance is noted at present to plantar medial arch. No purulent drainage expressed from surgical site. No malodor noted at this time. Prolene sutures noted to medial and lateral portions of TMA site intact with no signs of dehiscence. Increased bleeding to TMA site appreciated at this time. MSK: Open TMA site noted to left foot with distal aspect of remaining metatarsal bases seen. Moderate tenderness to palpation of entirety of left foot - Neurological Exam Neurological Exam: Alert, Awake, Oriented x3 - Psychiatric Exam Psychiatric exam: Normal Affect, Normal Mood Assessment and Plan - Assessment and Plan (Free Text) Assessment: 62 year old female seen in ICU after spending day at [facility] for revascularization of left lower extremity with Dr. Strange yesterday. Patient for revisional TMA with Dr. Looney tomorrow at 1 pm Plan: Patient seen and evaluated at bedside Afebrile, WBC 14.4 H/H: 9.3/28.8 Continue IV abx per ID Continue medical management per hospitalist 07/17: LE MRI - Findings suspicious for osteomyelitis at the distal portion of the 4th and 5th metatarsal bones at the site of the amputation. Mild-to- moderate bone marrow edema and possible small erosion noted at the tip of the 2nd and 3rd metatarsal bone at the site of the amputation may represent postsurgical changes. The possibility of osteomyelitis is not totally excluded. Patients wound dressed with Telfa, ABD, DSD Patient for revisional TMA with Dr. Looney tomorrow at 1 pm Podiatry will continue to follow while patient in house
--- NOTE | 2017-07-21 10:34 | CP.PCM.PN ---
Subjective - Date & Time of Evaluation Date of Evaluation: 07/21/17 Time of Evaluation: 09:00 - Subjective Subjective: Progress Note for Hospitalist Dr. Galvez 62 y.o female with PMH of DM2, HTN, PVD with left nonhealing infected TMA seen and evaluated at bedside 1 day s/p left lower extremity revascularization by Dr. Strange at [facility]. She is seen resting comfortably in bed, in NAD, and AA0x3. Patient denies n/v/sob/cp/chills. Patient reports pain to the left lower extremity and is well managed by pain medication. Dressing is c/d/i without strikethrough. Changed by podiatry in the AM. No other complaints. Objective - Vital Signs/Intake and Output Vital Signs (last 24 hours): Temp Pulse Resp BP Pulse Ox 98.3 F 92 H 11 L 125/56 L 97 07/21/17 08:33 07/21/17 08:46 07/21/17 09:03 07/21/17 08:46 07/21/17 08:33 Intake and Output: 07/21/17 07/21/17 06:59 18:59 Intake Total 100 Balance 100 - Medications Medications: Current Medications Acetaminophen (Tylenol 325mg Tab) 650 mg PO Q4 PRN PRN Reason: Pain, Mild (1-3) Last Admin: 07/15/17 20:52 Dose: 650 mg Clopidogrel Bisulfate (Plavix) 75 mg PO DAILY [facility] Last Admin: 07/18/17 09:06 Dose: 75 mg Docusate Sodium (Colace) 100 mg PO BID [facility] Last Admin: 07/21/17 08:45 Dose: 100 mg Enoxaparin Sodium (Lovenox) 40 mg SC DAILY [facility] PRN Reason: Protocol Last Admin: 07/19/17 11:49 Dose: 40 mg Glipizide (Glucotrol Xl) 2.5 mg PO BRK [facility] Last Admin: 07/19/17 09:31 Dose: 2.5 mg Vancomycin HCl 1 gm/ Sodium (Chloride) 250 mls @ 166.667 mls/hr IVPB Q12 [facility] PRN Reason: Protocol Last Admin: 07/19/17 21:17 Dose: 166.667 mls/hr Cefepime HCl 1 gm/ Sodium (Chloride) 100 mls @ 100 mls/hr IVPB Q8@0400,1200, 2000 [facility] PRN Reason: Protocol Last Admin: 07/21/17 05:54 Dose: 100 mls/hr Insulin Detemir (Levemir) 8 units SC HS [facility] Last Admin: 07/19/17 22:02 Dose: 8 u Insulin Human Lispro (Humalog) 0 units SC ACHS [facility] PRN Reason: Protocol Last Admin: 07/21/17 06:46 Dose: 3 units Lactulose (Enulose) 20 gm PO BID PRN PRN Reason: Constipation Last Admin: 07/18/17 12:16 Dose: 20 gm Metoprolol Tartrate (Lopressor) 100 mg PO DAILY [facility] Last Admin: 07/21/17 08:46 Dose: 100 mg Morphine Sulfate (Morphine) 4 mg IVP Q3 PRN PRN Reason: Pain, severe (8-10) Last Admin: 07/21/17 06:04 Dose: 4 mg Oxycodone HCl (Oxycontin Extended Release Tab) 20 mg PO Q12 [facility] Last Admin: 07/21/17 08:49 Dose: 20 mg Oxycodone/Acetaminophen (Percocet 5/325 Mg Tab) 1 tab PO Q4 PRN PRN Reason: Pain, moderate (4-7) Stop: 07/22/17 02:33 Last Admin: 07/19/17 16:10 Dose: 1 tab Pantoprazole Sodium (Protonix Ec Tab) 40 mg PO DAILY [facility] Last Admin: 07/21/17 08:50 Dose: 40 mg Ramipril (Altace) 10 mg PO DAILY [facility] Last Admin: 07/21/17 08:44 Dose: 10 mg Sitagliptin Phosphate (Januvia) 100 mg PO DAILY [facility] Last Admin: 07/19/17 09:31 Dose: 100 mg - Labs Labs: 07/21/17 06:30 07/21/17 06:30 PT 13.8 Seconds (9.8-13.1) H 07/19/17 05:50 INR 1.2 (0.9-1.2) 07/19/17 05:50 APTT 28.6 Seconds (25.6-37.1) 07/19/17 05:50 - Constitutional Appears: Well, Non-toxic, No Acute Distress - Head Exam Head Exam: ATRAUMATIC, NORMAL INSPECTION, NORMOCEPHALIC - Eye Exam Eye Exam: EOMI, Normal appearance, PERRL Pupil Exam: NORMAL ACCOMODATION, PERRL - ENT Exam ENT Exam: Mucous Membranes Moist, Normal Exam - Neck Exam Neck Exam: Full ROM, Normal Inspection - Respiratory Exam Respiratory Exam: Clear to Ausculation Bilateral, NORMAL BREATHING PATTERN. absent: Rhonchi, Wheezes, Respiratory Distress, Stridor - Cardiovascular Exam Cardiovascular Exam: REGULAR RHYTHM, +S1, +S2 - GI/Abdominal Exam GI & Abdominal Exam: Soft, Normal Bowel Sounds - Extremities Exam Extremities Exam: absent: Calf Tenderness Additional comments: Dressing is clean, dry, intact without strikethrough Increase warmth to the left lower extremity compared to the right No calf tenderness with palpation or calf squeeze Assessment and Plan - Assessment and Plan (Free Text) Assessment: 62 y.o female with PMH of DM2, HTN and PVD s/p Left TMA was admitted left foot abscess. Pt underwent left foot TMA revision, incision and drainage and debridement, including nonviable soft tissue and bone, of non-healing TMA with abscess on 07/15. She was started on IV antibiotics. Pt underwent left lower extremity revascularization at [facility] with Dr. Strange on 07/20/17. Podiatry plans to go to OR tomorrow for revisional TMA. Plan: Plan: 1. Infected left foot , hx of TNA s/p Revision TMA and Incision and Drainage and debridement -Podiatry following pt -ID consulted, Dr. Sol- recommended -Cefepime 1gm IV q 8h and Vanco 1gm IV q 12h -leukocytosis WBC=23.6 on admission - now 14.4 -Pain mgt -Plan for revisional TMA on 07/22/17 -will hold Lovenox tomorrow -NPO at midnight today 2. Left Foot Osteomyelitis - pt would need prison IV abx - plan for Revision TMA on 07/22 - PICC line placed 3. PVD Status: Chronic -cardiology consulted- Dr Strange -on Plavix, ASA - hold as pt sched for TMA Revision -Doppler US Arterial: poor circ distal to sup femoral artery -Left LE revascularization by Dr Strange at [facility] yesterday 07/20 4. Diabetes Mellitus, type 2 - started low dose Levemir - d/c Metformin -start low dose Glucotrol, cont Januvia -accucheck ACHS with low Lispro coverage. 5. Hypertension -BP stable -continue Metoprolol and Ramipril -monitor BP 6. Hypokalemia - Potassium today 3.1 - given KCl40 meq stat dose once - repeat potassium in AM - Magnesium 1.9 6. Low CO2 ? etiology - lactic acid normal - d/c Metformin -given Bicarb tabs 7. Anemia, chronic - today's H/H 9.3/28.8 - will monitor - 7.6/25.1 on 07/19/17 - transfused 2 units PRBC - given IV Venofer and B12 shot - post transfusion H/H: 9.5/29.4 DVT prophylaxis -Lovenox 40 mg SC daily -will hold Lovenox tmr
[2017-07-21] MEDS: Enoxaparin 40 mg Syringe SC SCH (11:07)
[2017-07-21] MEDS ORDERED: [UNRECOGNIZED DRUG - OTHER] IV ONE (11:12)
[2017-07-21] MEDS ORDERED: SODIUM CHLORIDE 0.9% IV ONE (11:12)
[2017-07-21] MEDS: Sodium Chloride 0.9% 1,000 ML IV SCH (12:00)
[2017-07-21] MEDS: GlipiZIDE 2.5 mg SR Tab PO SCH (13:34)
[2017-07-21 14:16] LABS: BLOOD UREA NITROGEN 7 mg/dl (7-17); CALCIUM 8.5 mg/dL (8.4-10.2); GFR AFRICAN-AMERICAN > 60; GFR NON-AFRICAN AMERICAN > 60
--- NOTE | 2017-07-21 16:35 | CP.PCM.CON ---
Past Patient History - Tetanus Immunizations Tetanus Immunization: Unknown - Past Medical History & Family History Past Medical History?: Yes - Past Social History Smoking Status: Never Smoked Alcohol: None Drugs: Denies Home Situation {Lives}: With Family - CARDIAC Hx Circulatory Problems: Yes Hx Hypercholesterolemia: Yes Hx Hypertension: Yes Hx Peripheral Vascular Disease: Yes - PULMONARY Hx Respiratory Disorders: No - NEUROLOGICAL Hx Neurological Disorder: No - HEENT Hx HEENT Problems: No - RENAL Hx Chronic Kidney Disease: No - ENDOCRINE/METABOLIC Hx Endocrine Disorders: Yes Hx Diabetes Mellitus Type 2: Yes - HEMATOLOGICAL/ONCOLOGICAL Hx Blood Disorders: No - INTEGUMENTARY Hx Dermatological Problems: No - MUSCULOSKELETAL/RHEUMATOLOGICAL Hx Musculoskeletal Disorders: Yes Hx Herniated Disk: Yes (with left lumbar radiculopathy) - GASTROINTESTINAL Hx Gastrointestinal Disorders: No - GENITOURINARY/GYNECOLOGICAL Hx Genitourinary Disorders: No - PSYCHIATRIC Hx Emotional Abuse: No Hx Physical Abuse: No - SURGICAL HISTORY Hx Surgeries: Yes Hx Cataract Extraction: Yes (bilateral) Hx Cardiac Catheterization: Yes Other/Comment: lower leg surgery, left TMA. left great ingrown toenail removal - ANESTHESIA Hx Anesthesia: Yes Hx Anesthesia Reactions: No Hx Malignant Hyperthermia: No Meds Allergies/Adverse Reactions: Allergies Allergy/AdvReac Type Severity Reaction Status Date / Time No Known Allergies Allergy Verified 07/15/17 10:44 - Medications Medications: Current Medications Acetaminophen (Tylenol 325mg Tab) 650 mg PO Q4 PRN PRN Reason: Pain, Mild (1-3) Last Admin: 07/15/17 20:52 Dose: 650 mg Clopidogrel Bisulfate (Plavix) 75 mg PO DAILY [facility] Last Admin: 07/21/17 10:47 Dose: 75 mg Docusate Sodium (Colace) 100 mg PO BID [facility] Last Admin: 07/21/17 08:45 Dose: 100 mg Enoxaparin Sodium (Lovenox) 40 mg SC DAILY [facility] PRN Reason: Protocol Last Admin: 07/21/17 11:07 Dose: 40 mg Glipizide (Glucotrol Xl) 2.5 mg PO BRK [facility] Last Admin: 07/21/17 13:34 Dose: 2.5 mg Vancomycin HCl 1 gm/ Sodium (Chloride) 250 mls @ 166.667 mls/hr IVPB Q12 [facility] PRN Reason: Protocol Last Admin: 07/21/17 10:48 Dose: 166.667 mls/hr Cefepime HCl 1 gm/ Sodium (Chloride) 100 mls @ 100 mls/hr IVPB Q8@0400,1200, 2000 [facility] PRN Reason: Protocol Last Admin: 07/21/17 11:08 Dose: 100 mls/hr Sodium Chloride (Sodium Chloride 0.9%) 1,000 mls @ 75 mls/hr IV .[id number] [facility] Stop: 07/22/17 11:20 Insulin Detemir (Levemir) 8 units SC HS [facility] Last Admin: 07/19/17 22:02 Dose: 8 u Insulin Human Lispro (Humalog) 0 units SC ACHS [facility] PRN Reason: Protocol Last Admin: 07/21/17 11:22 Dose: 3 units Lactulose (Enulose) 20 gm PO BID PRN PRN Reason: Constipation Last Admin: 07/18/17 12:16 Dose: 20 gm Metoprolol Tartrate (Lopressor) 100 mg PO DAILY [facility] Last Admin: 07/21/17 08:46 Dose: 100 mg Morphine Sulfate (Morphine) 4 mg IVP Q3 PRN PRN Reason: Pain, severe (8-10) Last Admin: 07/21/17 13:28 Dose: 4 mg Oxycodone HCl (Oxycontin Extended Release Tab) 20 mg PO Q12 [facility] Last Admin: 07/21/17 08:49 Dose: 20 mg Oxycodone/Acetaminophen (Percocet 5/325 Mg Tab) 1 tab PO Q4 PRN PRN Reason: Pain, moderate (4-7) Stop: 07/22/17 02:33 Last Admin: 07/19/17 16:10 Dose: 1 tab Pantoprazole Sodium (Protonix Ec Tab) 40 mg PO DAILY [facility] Last Admin: 07/21/17 08:50 Dose: 40 mg Ramipril (Altace) 10 mg PO DAILY [facility] Last Admin: 07/21/17 08:44 Dose: 10 mg Sitagliptin Phosphate (Januvia) 100 mg PO DAILY [facility] Last Admin: 07/21/17 13:34 Dose: 100 mg Results - Vital Signs Recent Vital Signs: Last Vital Signs Temp 99.1 F 07/21/17 16:00 Pulse 74 07/21/17 16:00 Resp 8 L 07/21/17 16:00 BP 114/57 L 02/13/18 16:00 Pulse Ox 97 07/21/17 16:00 - Labs Result Diagrams: 07/21/17 06:30 07/21/17 13:45 Labs: Laboratory Results - last 24 hr 07/21/17 07/21/17 07/21/17 06:30 06:30 11:17 WBC 14.4 H RBC 3.61 L Hgb 9.3 L Hct 28.8 L MCV 79.9 L MCH 25.8 L MCHC 32.3 L RDW 17.9 H Plt Count 457 H MPV 8.3 Neut % (Auto) 66.2 Lymph % (Auto) 21.2 Nuckolls % (Auto) 11.3 H Eos % (Auto) 0.8 Baso % (Auto) 0.5 Neut # (Auto) 9.6 H Lymph # (Auto) 3.1 Nuckolls # (Auto) 1.6 H Eos # (Auto) 0.1 Baso # (Auto) 0.1 Sodium 135 Potassium 3.1 L Chloride 93 L Carbon Dioxide 31 H Anion Gap 14 BUN 6 L Creatinine 0.4 L Est GFR ( Amer) > 60 Est GFR (Non-Af Amer) > 60 POC Glucose (mg/dL) 298 H Random Glucose 266 H Calcium 8.8 Total Bilirubin 0.5 AST 43 H D ALT 10 Alkaline Phosphatase 89 Total Protein 6.7 Albumin 3.0 L Globulin 3.6 Albumin/Globulin Ratio 0.8 L 07/21/17 07/21/17 13:45 16:24 WBC RBC Hgb Hct MCV MCH MCHC RDW Plt Count MPV Neut % (Auto) Lymph % (Auto) Nuckolls % (Auto) Eos % (Auto) Baso % (Auto) Neut # (Auto) Lymph # (Auto) Nuckolls # (Auto) Eos # (Auto) Baso # (Auto) Sodium 132 Potassium 3.8 Chloride 91 L Carbon Dioxide 31 H Anion Gap 14 BUN 7 Creatinine 0.5 L Est GFR ( Amer) > 60 Est GFR (Non-Af Amer) > 60 POC Glucose (mg/dL) 330 H Random Glucose 369 H Calcium 8.5 Total Bilirubin AST ALT Alkaline Phosphatase Total Protein Albumin Globulin Albumin/Globulin Ratio
--- NOTE | 2017-07-21 16:37 | CP.PCM.PN ---
Subjective - Date & Time of Evaluation Date of Evaluation: 07/20/17 Time of Evaluation: 09:00 - Subjective Subjective: severe pain plan for peripheral angiogram today at [facility] - Vital Signs/Intake and Output Vital Signs (last 24 hours): Temp Pulse Resp BP Pulse Ox 99.1 F 74 8 L 114/57 L 97 07/21/17 16:00 07/21/17 16:00 07/21/17 16:00 07/21/17 16:00 07/21/17 16:00 Intake and Output: 07/21/17 07/21/17 06:59 18:59 Intake Total 100 350 Balance 100 350 - Medications Medications: Current Medications Acetaminophen (Tylenol 325mg Tab) 650 mg PO Q4 PRN PRN Reason: Pain, Mild (1-3) Last Admin: 07/15/17 20:52 Dose: 650 mg Clopidogrel Bisulfate (Plavix) [address] [facility] Last Admin: 07/21/17 10:47 Dose: 75 mg Docusate Sodium (Colace) [address] [facility] Last Admin: 07/21/17 08:45 Dose: 100 mg Enoxaparin Sodium (Lovenox) [address] [facility] PRN Reason: Protocol Last Admin: 07/21/17 11:07 Dose: 40 mg Glipizide (Glucotrol Xl) 2.[address] [facility] Last Admin: 07/21/17 13:34 Dose: 2.5 mg Vancomycin HCl 1 gm/ Sodium (Chloride) 250 mls @ 166.667 mls/hr IVPB Q12 [facility] PRN Reason: Protocol Last Admin: 07/21/17 10:48 Dose: 166.667 mls/hr Cefepime HCl 1 gm/ Sodium (Chloride) 100 mls @ 100 mls/hr IVPB Q8@0400,1200, 2000 [facility] PRN Reason: Protocol Last Admin: 07/21/17 11:08 Dose: 100 mls/hr Sodium Chloride (Sodium Chloride 0.9%) 1,000 mls @ 75 mls/hr IV .[id number] [facility] Stop: 07/22/17 11:20 Insulin Detemir (Levemir) [address] [facility] Last Admin: 07/19/17 22:02 Dose: 8 u Insulin Human Lispro (Humalog) 0 units SC ACHS [facility] PRN Reason: Protocol Last Admin: 07/21/17 11:22 Dose: 3 units Lactulose (Enulose) 20 gm PO BID PRN PRN Reason: Constipation Last Admin: 07/18/17 12:16 Dose: 20 gm Metoprolol Tartrate (Lopressor) [address] [facility] Last Admin: 07/21/17 08:46 Dose: 100 mg Morphine Sulfate (Morphine) 4 mg IVP Q3 PRN PRN Reason: Pain, severe (8-10) Last Admin: 07/21/17 13:28 Dose: 4 mg Oxycodone HCl (Oxycontin Extended Release Tab) [address] [facility] Last Admin: 07/21/17 08:49 Dose: 20 mg Oxycodone/Acetaminophen (Percocet 5/325 Mg Tab) 1 tab PO Q4 PRN PRN Reason: Pain, moderate (4-7) Stop: 07/22/17 02:33 Last Admin: 07/19/17 16:10 Dose: 1 tab Pantoprazole Sodium (Protonix Ec Tab) [address] [facility] Last Admin: 07/21/17 08:50 Dose: 40 mg Ramipril (Altace) [address] [facility] Last Admin: 07/21/17 08:44 Dose: 10 mg Sitagliptin Phosphate (Januvia) [address] [facility] Last Admin: 07/21/17 13:34 Dose: 100 mg - Labs Labs: 07/21/17 06:30 07/21/17 13:45 PT 13.8 Seconds (9.8-13.1) H 07/19/17 05:50 INR 1.2 (0.9-1.2) 07/19/17 05:50 APTT 28.6 Seconds (25.6-37.1) 07/19/17 05:50 - Constitutional Appears: Toxic, In Acute Distress - Head Exam Head Exam: ATRAUMATIC, NORMAL INSPECTION, NORMOCEPHALIC - Eye Exam Eye Exam: EOMI, Normal appearance, PERRL Pupil Exam: NORMAL ACCOMODATION, PERRL - ENT Exam ENT Exam: Mucous Membranes Moist, Normal Exam - Neck Exam Neck Exam: Full ROM, Normal Inspection. absent: Lymphadenopathy - Respiratory Exam Respiratory Exam: Clear to Ausculation Bilateral, NORMAL BREATHING PATTERN - Cardiovascular Exam Cardiovascular Exam: REGULAR RHYTHM, +S1, +S2. absent: Murmur - GI/Abdominal Exam GI & Abdominal Exam: Soft, Normal Bowel Sounds. absent: Tenderness - Extremities Exam Extremities Exam: Full ROM, Normal Capillary Refill, Normal Inspection, Pedal Edema, Tenderness. absent: Joint Swelling - Neurological Exam Neurological Exam: Alert, Awake, CN II-XII Intact, Oriented x3 - Psychiatric Exam Psychiatric exam: Normal Affect, Normal Mood - Skin Skin Exam: Dry, Intact, Normal Color, Warm Assessment and Plan (1) PVD (peripheral vascular disease) with claudication Assessment & Plan: plan for peripheral angiogram today Status: Acute (2) Gangrene of left foot Status: Acute (3) Status post transmetatarsal amputation of left foot Status: Acute (4) DM2 (diabetes mellitus, type 2) Status: Chronic (5) CAD (coronary artery disease) Status: Acute
--- NOTE | 2017-07-21 16:40 | CP.PCM.PN ---
Subjective - Date & Time of Evaluation Date of Evaluation: 07/21/17 Time of Evaluation: 16:37 - Subjective Subjective: more comfortable today s/p [employer]/stenting of left popliteal 95% stenosis s/p [employer]/atherectomy of left VALERIA 100% and [employer]/stenting with stent x 2 TMA wound site good bleeding noted today Objective - Vital Signs/Intake and Output Vital Signs (last 24 hours): Temp Pulse Resp BP Pulse Ox 99.1 F 74 8 L 114/57 L 97 07/21/17 16:00 07/21/17 16:00 07/21/17 16:00 07/21/17 16:00 07/21/17 16:00 Intake and Output: 07/21/17 07/21/17 06:59 18:59 Intake Total 100 350 Balance 100 350 - Medications Medications: Current Medications Acetaminophen (Tylenol 325mg Tab) 650 mg PO Q4 PRN PRN Reason: Pain, Mild (1-3) Last Admin: 07/15/17 20:52 Dose: 650 mg Clopidogrel Bisulfate (Plavix) 75 mg PO DAILY [facility] Last Admin: 07/21/17 10:47 Dose: 75 mg Docusate Sodium (Colace) 100 mg PO BID [facility] Last Admin: 07/21/17 08:45 Dose: 100 mg Enoxaparin Sodium (Lovenox) 40 mg SC DAILY [facility] PRN Reason: Protocol Last Admin: 07/21/17 11:07 Dose: 40 mg Glipizide (Glucotrol Xl) 2.5 mg PO BRK [facility] Last Admin: 07/21/17 13:34 Dose: 2.5 mg Vancomycin HCl 1 gm/ Sodium (Chloride) 250 mls @ 166.667 mls/hr IVPB Q12 [facility] PRN Reason: Protocol Last Admin: 07/21/17 10:48 Dose: 166.667 mls/hr Cefepime HCl 1 gm/ Sodium (Chloride) 100 mls @ 100 mls/hr IVPB Q8@0400,1200, 2000 [facility] PRN Reason: Protocol Last Admin: 07/21/17 11:08 Dose: 100 mls/hr Sodium Chloride (Sodium Chloride 0.9%) 1,000 mls @ 75 mls/hr IV .[id number] [facility] Stop: 07/22/17 11:20 Insulin Detemir (Levemir) 8 units SC HS [facility] Last Admin: 07/19/17 22:02 Dose: 8 u Insulin Human Lispro (Humalog) 0 units SC ACHS [facility] PRN Reason: Protocol Last Admin: 07/21/17 11:22 Dose: 3 units Lactulose (Enulose) 20 gm PO BID PRN PRN Reason: Constipation Last Admin: 07/18/17 12:16 Dose: 20 gm Metoprolol Tartrate (Lopressor) 100 mg PO DAILY [facility] Last Admin: 07/21/17 08:46 Dose: 100 mg Morphine Sulfate (Morphine) 4 mg IVP Q3 PRN PRN Reason: Pain, severe (8-10) Last Admin: 07/21/17 13:28 Dose: 4 mg Oxycodone HCl (Oxycontin Extended Release Tab) 20 mg PO Q12 [facility] Last Admin: 07/21/17 08:49 Dose: 20 mg Oxycodone/Acetaminophen (Percocet 5/325 Mg Tab) 1 tab PO Q4 PRN PRN Reason: Pain, moderate (4-7) Stop: 07/22/17 02:33 Last Admin: 07/19/17 16:10 Dose: 1 tab Pantoprazole Sodium (Protonix Ec Tab) 40 mg PO DAILY [facility] Last Admin: 07/21/17 08:50 Dose: 40 mg Ramipril (Altace) 10 mg PO DAILY [facility] Last Admin: 07/21/17 08:44 Dose: 10 mg Sitagliptin Phosphate (Januvia) 100 mg PO DAILY [facility] Last Admin: 07/21/17 13:34 Dose: 100 mg - Labs Labs: 07/21/17 06:30 07/21/17 13:45 PT 13.8 Seconds (9.8-13.1) H 07/19/17 05:50 INR 1.2 (0.9-1.2) 07/19/17 05:50 APTT 28.6 Seconds (25.6-37.1) 07/19/17 05:50 - Constitutional Appears: Well - Head Exam Head Exam: ATRAUMATIC, NORMAL INSPECTION, NORMOCEPHALIC - Eye Exam Eye Exam: EOMI, Normal appearance, PERRL Pupil Exam: NORMAL ACCOMODATION, PERRL - ENT Exam ENT Exam: Mucous Membranes Moist, Normal Exam - Neck Exam Neck Exam: Full ROM, Normal Inspection. absent: Lymphadenopathy - Respiratory Exam Respiratory Exam: Clear to Ausculation Bilateral, NORMAL BREATHING PATTERN - Cardiovascular Exam Cardiovascular Exam: REGULAR RHYTHM, +S1, +S2, Murmur - GI/Abdominal Exam GI & Abdominal Exam: Soft, Normal Bowel Sounds. absent: Tenderness - Extremities Exam Extremities Exam: Full ROM, Normal Capillary Refill, Normal Inspection. absent : Joint Swelling, Pedal Edema - Back Exam Back Exam: NORMAL INSPECTION - Neurological Exam Neurological Exam: Alert, Awake, CN II-XII Intact, Normal Gait, Oriented x3 - Psychiatric Exam Psychiatric exam: Normal Affect, Normal Mood - Skin Skin Exam: Dry, Intact, Normal Color, Warm Assessment and Plan (1) PVD (peripheral vascular disease) with claudication Assessment & Plan: cont with dapt cont with acei add statins add cilostazol 100mg po bid Status: Acute (2) Gangrene of left foot Status: Acute (3) Status post transmetatarsal amputation of left foot Status: Acute (4) DM2 (diabetes mellitus, type 2) Status: Chronic (5) CAD (coronary artery disease) Status: Acute
[2017-07-21] MEDS: Oxycodone/Acetaminophen 5/325 mg Tab PO PRN ×3 (16:41→22:55)
--- NOTE | 2017-07-21 18:01 | RAD ---
HISTORY: assess picc line COMPARISON: 05/27/2017 FINDINGS: LUNGS: No active pulmonary disease. PLEURA: No significant pleural effusion identified, no pneumothorax apparent. CARDIOVASCULAR: No radiographic findings to suggest acute or significant cardiovascular disease. OSSEOUS STRUCTURES: No significant abnormalities. VISUALIZED UPPER ABDOMEN: Normal. OTHER FINDINGS: Tech lying at the junction of the right axillary vein and right subclavian vein. The finding is marked on the study for review. IMPRESSION: PICC line tip in the right subclavian vein. No active pulmonary disease.
[2017-07-21] MEDS: Insulin Detemir 100 Units/ml Inj SC SCH (22:44)
[2017-07-22] MEDS: Sodium Chloride 0.9% 1,000 ML IV SCH ×2 (01:00→16:58)
[2017-07-22] MEDS: Cefepime 1 GM in Sodium Chloride 0.9% 100 ML IVPB SCH ×3 (03:31→21:22)
--- NOTE | 2017-07-22 06:32 | CP.PCM.PN ---
Subjective - Date & Time of Evaluation Date of Evaluation: 07/22/17 Time of Evaluation: 06:29 - Subjective Subjective: 62 year old female seen at bedside for nonhealing, infected TMA site of left foot. Patient had successful revascularization of anterior tibial and dorsalis pedis arteries two days ago with Dr. Strange. Patient states that her pain is well controlled today. Patient denies any further pedal complaints at this time. Is AAO x 3 and NAD, resting comfortably in bed. Denies recent N/V/F/C/CP/ SOB/D/posterior calf pain when squeezed Objective - Vital Signs/Intake and Output Vital Signs (last 24 hours): Temp Pulse Resp BP Pulse Ox 99.4 F 83 20 111/58 L 96 07/22/17 00:20 07/22/17 00:20 07/22/17 00:20 07/22/17 00:20 07/22/17 00:20 Intake and Output: 07/21/17 07/22/17 18:59 06:59 Intake Total 875 Output Total 300 Balance 575 - Medications Medications: Current Medications Acetaminophen (Tylenol 325mg Tab) 650 mg PO Q4 PRN PRN Reason: Pain, Mild (1-3) Last Admin: 07/15/17 20:52 Dose: 650 mg Atorvastatin Calcium (Lipitor) 40 mg PO DAILY [facility] Cilostazol (Pletal) 100 mg PO BID [facility] Clopidogrel Bisulfate (Plavix) 75 mg PO DAILY [facility] Last Admin: 07/21/17 10:47 Dose: 75 mg Docusate Sodium (Colace) 100 mg PO BID [facility] Last Admin: 07/21/17 16:36 Dose: 100 mg Enoxaparin Sodium (Lovenox) 40 mg SC DAILY [facility] PRN Reason: Protocol Last Admin: 07/21/17 11:07 Dose: 40 mg Glipizide (Glucotrol Xl) 2.5 mg PO BRK [facility] Last Admin: 07/21/17 13:34 Dose: 2.5 mg Vancomycin HCl 1 gm/ Sodium (Chloride) 250 mls @ 166.667 mls/hr IVPB Q12 [facility] PRN Reason: Protocol Last Admin: 07/21/17 21:00 Dose: 166.667 mls/hr Cefepime HCl 1 gm/ Sodium (Chloride) 100 mls @ 100 mls/hr IVPB Q8@0400,1200, 2000 [facility] PRN Reason: Protocol Last Admin: 07/22/17 03:31 Dose: 100 mls/hr Sodium Chloride (Sodium Chloride 0.9%) 1,000 mls @ 75 mls/hr IV .[id number] [facility] Stop: 07/22/17 11:20 Last Admin: 07/22/17 01:00 Dose: Not Given Insulin Detemir (Levemir) 8 units SC HS [facility] Last Admin: 07/21/17 22:44 Dose: 8 u Insulin Human Lispro (Humalog) 0 units SC ACHS [facility] PRN Reason: Protocol Last Admin: 07/21/17 22:30 Dose: Not Given Lactulose (Enulose) 20 gm PO BID PRN PRN Reason: Constipation Last Admin: 07/18/17 12:16 Dose: 20 gm Metoprolol Tartrate (Lopressor) 100 mg PO DAILY [facility] Last Admin: 07/21/17 08:46 Dose: 100 mg Morphine Sulfate (Morphine) 4 mg IVP Q3 PRN PRN Reason: Pain, severe (8-10) Last Admin: 07/21/17 19:25 Dose: 4 mg Oxycodone HCl (Oxycontin Extended Release Tab) 20 mg PO Q12 [facility] Last Admin: 07/21/17 20:59 Dose: 20 mg Pantoprazole Sodium (Protonix Ec Tab) 40 mg PO DAILY [facility] Last Admin: 07/21/17 08:50 Dose: 40 mg Ramipril (Altace) 10 mg PO DAILY [facility] Last Admin: 07/21/17 08:44 Dose: 10 mg Sitagliptin Phosphate (Januvia) 100 mg PO DAILY [facility] Last Admin: 07/21/17 13:34 Dose: 100 mg - Labs Labs: 07/21/17 06:30 07/21/17 13:45 PT 13.8 Seconds (9.8-13.1) H 07/19/17 05:50 INR 1.2 (0.9-1.2) 07/19/17 05:50 APTT 28.6 Seconds (25.6-37.1) 07/19/17 05:50 - Constitutional Appears: Well, Non-toxic, No Acute Distress - Extremities Exam Additional comments: LLE focused exam: Dressing C/D/I to LLE with no strikethrough noted Vasc: DP/PT pulses faintly palpable to LLE. Skin temperature warm to warm from proximal to distal. No edema noted surrounding surgical site Neuro: Epicritic and protective sensation grossly intact B/L Derm: Necrotic skin changes noted along lateral aspect of surgical skin edges of transmetatarsal amputation as well as medial arch incision, extending proximally into proximal midfoot along course of posterior tibial tendon. No fluctuance is noted at present to plantar medial arch. No purulent drainage expressed from surgical site. No malodor noted at this time. Prolene sutures noted to medial and lateral portions of TMA site intact with no signs of dehiscence. Increased bleeding to TMA site appreciated at this time with eschar formation. MSK: Open TMA site noted to left foot with distal aspect of remaining metatarsal bases seen. Moderate tenderness to palpation of entirety of left foot - Neurological Exam Neurological Exam: Alert, Awake, Oriented x3 - Psychiatric Exam Psychiatric exam: Normal Affect, Normal Mood Assessment and Plan - Assessment and Plan (Free Text) Assessment: 62 year old female seen preoperatively at bedside for revisional TMA of left foot with wound vac application today with Dr. Looney at 1 pm Plan: Patient seen and evaluated at bedside Plan discussed with attending Dr. Looney Afebrile, WBC 14.4 Continue IV abx per ID Continue medical management and pain management per Hospitalist Wound dressed with adaptic, ABD, DSD, multipodus boot Patient to be NPO until after surgery today Plan is for revisional TMA today at [address] Looney with removal of all nonviable and necrotic tissue and application of wound vac Patient to have second revascularization procedure done in two weeks with Dr. Strange, this time for posterior tibial artery Podiatry will continue to follow while patient in house
[2017-07-22] MEDS: Morphine 4 MG/ML VIAL IVP PRN ×3 (06:33→17:10)
[2017-07-22 06:35] LABS: HEMOGLOBIN 8.9 g/dL (12.0-16.0); MEAN CELL VOLUME 80.9 fl (81.0-99.0); MEAN CORPUSCULAR HEMOGLOBIN 26.1 pg (27.0-31.0); MEAN CORPUSCULAR HGB CONC 32.2 g/dL (33.0-37.0); RBC 3.43 Mil/uL (3.80-5.20); RED CELL DISTRIBUTION WIDTH 17.9 % (11.5-14.5); WHITE BLOOD COUNT 14.1 K/uL (4.8-10.8)
[2017-07-22 06:49] LABS: BLOOD UREA NITROGEN 8 mg/dl (7-17); CALCIUM 8.7 mg/dL (8.4-10.2); GFR AFRICAN-AMERICAN > 60; GFR NON-AFRICAN AMERICAN > 60
[2017-07-22] MEDS: GlipiZIDE 2.5 mg SR Tab PO SCH (08:02)
[2017-07-22] MEDS: oxyCODONE 20 mg ER Tab (oxyCONTIN) PO SCH ×2 (08:03→22:17)
[2017-07-22] MEDS ORDERED: Potassium Chloride 20 mEq ER Tab PO ONE (08:04)
[2017-07-22] MEDS: Insulin Lispro (humaLOG) 100 Units/ml Inj SC SCH ×6 (08:39→22:15)
[2017-07-22] MEDS: Pantoprazole 40 mg EC Tab PO SCH (08:41)
[2017-07-22] MEDS: Cilostazol 100 mg Tab UD PO SCH ×2 (08:41→18:05)
--- NOTE | 2017-07-22 09:57 | CP.PCM.PN ---
Subjective - Date & Time of Evaluation Date of Evaluation: 07/22/17 Time of Evaluation: 09:00 - Subjective Subjective: Progress Note for Hospitalist Dr. Galvez 62 y.o female with PMH of DM2, HTN, CAD, PVD with left nonhealing infected TMA seen and evaluated at bedside 2 day s/p left lower extremity revascularization by Dr. Strange at [facility] (formerly [facility]3]. She is seen resting comfortably in bed, in NAD , and AA0x3. Patient denies n/v/sob/cp/chills. reports pain to the left lower extremity and is well managed by pain medication. Dressing is c/d/i without strikethrough. Changed by podiatry in the AM. No new complaints. Patient understands that she will go to the OR today for left foot surgery. NPO status confirmed. Objective - Vital Signs/Intake and Output Vital Signs (last 24 hours): Temp Pulse Resp BP Pulse Ox 97.9 F 83 18 126/77 96 07/22/17 07:47 07/22/17 08:40 07/22/17 07:47 07/22/17 08:40 07/22/17 07:47 - Medications Medications: Current Medications Acetaminophen (Tylenol 325mg Tab) 650 mg PO Q4 PRN PRN Reason: Pain, Mild (1-3) Last Admin: 07/15/17 20:52 Dose: 650 mg Atorvastatin Calcium (Lipitor) 40 mg PO DAILY [facility] Last Admin: 07/22/17 08:02 Dose: Not Given Cilostazol (Pletal) 100 mg PO BID [facility] Last Admin: 07/22/17 08:41 Dose: Not Given Clopidogrel Bisulfate (Plavix) 75 mg PO DAILY [facility] Last Admin: 07/22/17 08:03 Dose: Not Given Docusate Sodium (Colace) 100 mg PO BID [facility] Last Admin: 07/22/17 08:02 Dose: Not Given Enoxaparin Sodium (Lovenox) 40 mg SC DAILY [facility] PRN Reason: Protocol Last Admin: 07/21/17 11:07 Dose: 40 mg Glipizide (Glucotrol Xl) 2.5 mg PO BRK [facility] Last Admin: 07/22/17 08:02 Dose: Not Given Vancomycin HCl 1 gm/ Sodium (Chloride) 250 mls @ 166.667 mls/hr IVPB Q12 [facility] PRN Reason: Protocol Last Admin: 07/21/17 21:00 Dose: 166.667 mls/hr Cefepime HCl 1 gm/ Sodium (Chloride) 100 mls @ 100 mls/hr IVPB Q8@0400,1200, 2000 [facility] PRN Reason: Protocol Last Admin: 07/22/17 03:31 Dose: 100 mls/hr Sodium Chloride (Sodium Chloride 0.9%) 1,000 mls @ 75 mls/hr IV .[id number] [facility] Stop: 07/22/17 11:20 Last Admin: 07/22/17 01:00 Dose: Not Given Potassium Chloride 10 meq/ (Sodium Chloride) 55 mls @ 55 mls/hr IV Q1 [facility] Stop: 07/22/17 11:59 Insulin Detemir (Levemir) 8 units SC HS [facility] Last Admin: 07/21/17 22:44 Dose: 8 u Insulin Human Lispro (Humalog) 0 units SC ACHS [facility] PRN Reason: Protocol Last Admin: 07/22/17 08:40 Dose: 3 units Lactulose (Enulose) 20 gm PO BID PRN PRN Reason: Constipation Last Admin: 07/18/17 12:16 Dose: 20 gm Metoprolol Tartrate (Lopressor) 100 mg PO DAILY [facility] Last Admin: 07/22/17 08:40 Dose: 100 mg Morphine Sulfate (Morphine) 4 mg IVP Q3 PRN PRN Reason: Pain, severe (8-10) Last Admin: 07/22/17 06:33 Dose: 4 mg Oxycodone HCl (Oxycontin Extended Release Tab) 20 mg PO Q12 [facility] Last Admin: 07/22/17 08:03 Dose: Not Given Pantoprazole Sodium (Protonix Ec Tab) 40 mg PO DAILY [facility] Last Admin: 07/22/17 08:41 Dose: Not Given Ramipril (Altace) 10 mg PO DAILY [facility] Last Admin: 07/22/17 08:02 Dose: Not Given Sitagliptin Phosphate (Januvia) 100 mg PO DAILY [facility] Last Admin: 07/22/17 08:02 Dose: Not Given - Labs Labs: 07/22/17 05:55 07/22/17 05:55 PT 13.8 Seconds (9.8-13.1) H 07/19/17 05:50 INR 1.2 (0.9-1.2) 07/19/17 05:50 APTT 28.6 Seconds (25.6-37.1) 07/19/17 05:50 - Constitutional Appears: Well, Non-toxic, No Acute Distress - Head Exam Head Exam: ATRAUMATIC, NORMOCEPHALIC - Eye Exam Eye Exam: EOMI, Normal appearance, PERRL Pupil Exam: NORMAL ACCOMODATION - ENT Exam ENT Exam: Mucous Membranes Moist, Normal Exam - Neck Exam Neck Exam: Full ROM, Normal Inspection - Respiratory Exam Respiratory Exam: Clear to Ausculation Bilateral, NORMAL BREATHING PATTERN. absent: Rales, Rhonchi, Wheezes, Respiratory Distress, Stridor - Cardiovascular Exam Cardiovascular Exam: REGULAR RHYTHM, +S1, +S2 - GI/Abdominal Exam GI & Abdominal Exam: Soft, Normal Bowel Sounds. absent: Tenderness - Extremities Exam Extremities Exam: absent: Calf Tenderness Additional comments: Dressing is c/d/i without strikethrough noted Temperature gradient WNL - Neurological Exam Neurological Exam: Alert, Awake, Oriented x3 - Psychiatric Exam Psychiatric exam: Normal Affect, Normal Mood - Skin Skin Exam: Dry, Normal Color Assessment and Plan - Assessment and Plan (Free Text) Assessment: 62 y.o female with PMH of DM2, HTN and PVD s/p Left TMA was admitted left foot abscess. Pt underwent left foot TMA revision, incision and drainage and debridement, including nonviable soft tissue and bone, of non-healing TMA with abscess on 07/15. She was started on IV antibiotics. Pt underwent left lower extremity revascularization at [facility] with Dr. Strange on 07/20/17. Podiatry will bring patient to OR today for left revisional TMA. Plan: 1. Infected left foot , hx of TNA s/p Revision TMA and Incision and Drainage and debridement -Podiatry following pt -ID consulted, Dr. Sol- recommended -Cefepime 1gm IV q 8h and Vanco 1gm IV q 12h -c/w abx -leukocytosis WBC=23.6 on admission - now 14.1 trending down -Pain mgt -Revisional TMA on 07/22/17 -Lovenox held -NPO status confirmed 2. Left Foot Osteomyelitis - OR today by podiatry - Pt would need lead mechanic IV abx - PICC line placed - c/w abx 3. PVD Status: Chronic -Doppler US Arterial: poor circulation distal to sup femoral artery (07/15/17) -cardiology consulted- Dr Strange -2 days s/p CLINICAL PROFESSOR/stenting of left popliteal 95% stenosis and CLINICAL PROFESSOR/atherectomy of left VALERIA 100% and CLINICAL PROFESSOR/stenting with stent x 2 -Continue Plavix. Start Pletal and Atorvastatin. Start ASA in Am 4. Diabetes Mellitus, type 2 - started low dose Levemir - d/c Metformin -start low dose Glucotrol, cont Januvia -accucheck ACHS with low Lispro coverage. 5. HLD -Start Atorvastatin 6. Hypertension -BP stable -continue Metoprolol and Ramipril 7. Hypokalemia -Potassium: 3.3 today -given [id number] x 2 doses - Magnesium 1.9 on 07/20 8. Low CO2 ? etiology - lactic acid normal - d/c Metformin -given Bicarb tabs 9. Anemia, chronic - today's H/H 8.9/27.7 - 7.6/25.1 on 07/19/17 - transfused 2 units PRBC - given IV Venofer and B12 shot - post transfusion H/H: 9.5/29.4 10. CAD -cardiology on board 11. DVT prophylaxis -Lovenox held in AM for surgery -SCDs
[2017-07-22] MEDS ORDERED: Lidocaine 1% Inj (20ml) ONE (13:01)
[2017-07-22] MEDS ORDERED: Bupivacaine 0.5% Inj(30mL) ONE (13:01)
[2017-07-22] MEDS ORDERED: Midazolam 2 MG/2 ML VIAL ONE (13:35)
[2017-07-22] MEDS ORDERED: Etomidate 20 mg/10ml Inj IV ONE (13:38)
[2017-07-22] MEDS ORDERED: Sodium Chloride 0.9% 1,000 ML IV ONE (14:35)
--- NOTE | 2017-07-22 15:14 | PCM.SURG1 ---
Surgeon's Initial Post Op Note - Surgeon's Notes Surgeon: Dr. Looney, DPM [employer] Designer: Cammy Ritchie PGY1, Lesly Hubbard PGY1 Type of Anesthesia: General LMA Anesthesia Administered By: Dr. Flores Pre-Operative Diagnosis: L foot non-healing TMA site with abscess Operative Findings: See dication report. M- Wound vac. I- None Post-Operative Diagnosis: Same Operation Performed: 1. Revision of TMA left foot. 2. Incision and drainage of abscess, left foot with wound vac application Specimen/Specimens Removed: L foot wound culture. L foot clean wound culture Estimated Blood Loss: EBL {In ML}: 35 Blood Products Given: N/A Drains Used: No Drains Post-Op Condition: Good Date of Surgery/Procedure: 07/22/17 Time of Surgery/Procedure: 15:15
--- NOTE | 2017-07-22 16:58 | RAD ---
PROCEDURE: Left Foot Radiographs. HISTORY: s/p revisional TMA and I and D left foot COMPARISON: 07/16/2017. FINDINGS: BONES: Status post revision of midfoot amputation. There are postsurgical changes in the amputation stump. A surgical drain overlies the foot. JOINTS: The visualized joints are normal. SOFT TISSUES: There is diffuse soft tissue swelling. OTHER FINDINGS: None. IMPRESSION: Status post midfoot amputation with postsurgical changes as described above.
[2017-07-22 17:52] LABS: HEMOGLOBIN 8.9 g/dL (12.0-16.0); MEAN CELL VOLUME 82.3 fl (81.0-99.0); MEAN CORPUSCULAR HGB CONC 30.3 g/dL (33.0-37.0); RBC 3.56 Mil/uL (3.80-5.20); RED CELL DISTRIBUTION WIDTH 18.6 % (11.5-14.5); WHITE BLOOD COUNT 13.4 K/uL (4.8-10.8)
[2017-07-22] MEDS: Insulin Detemir 100 Units/ml Inj SC SCH (22:18)
[2017-07-23] MEDS: Cefepime 1 GM in Sodium Chloride 0.9% 100 ML IVPB SCH ×2 (04:32→14:57)
[2017-07-23 06:38] LABS: HEMOGLOBIN 8.5 g/dL (12.0-16.0); MEAN CELL VOLUME 80.3 fl (81.0-99.0); MEAN CORPUSCULAR HEMOGLOBIN 25.9 pg (27.0-31.0); MEAN CORPUSCULAR HGB CONC 32.3 g/dL (33.0-37.0); RBC 3.3 Mil/uL (3.80-5.20); RED CELL DISTRIBUTION WIDTH 18.1 % (11.5-14.5); WHITE BLOOD COUNT 15.2 K/uL (4.8-10.8)
[2017-07-23 06:49] LABS: BLOOD UREA NITROGEN 5 mg/dl (7-17); CALCIUM 8.4 mg/dL (8.4-10.2); GFR AFRICAN-AMERICAN > 60; GFR NON-AFRICAN AMERICAN > 60
--- NOTE | 2017-07-23 07:29 | CP.PCM.PN ---
Subjective - Date & Time of Evaluation Date of Evaluation: 07/23/17 Time of Evaluation: 07:25 - Subjective Subjective: Progress note - Dr. Looney 62 year old female seen at bedside for nonhealing, infected TMA site of left foot. Patient had successful revascularization of anterior tibial and dorsalis pedis arteries three days ago with Dr. Strange. Patient states that her pain is well controlled today. Patient is 1 day s/p TMA site debridement today. Patient denies any further pedal complaints at this time. Patient is resting comfortably in bed and is AAOx3 and in NAD. Denies recent N/V/F/C/CP/SOB/D/ posterior calf pain when squeezed Objective - Vital Signs/Intake and Output Vital Signs (last 24 hours): Temp Pulse Resp BP Pulse Ox 99.4 F 96 H 18 123/54 L 97 07/22/17 23:47 07/22/17 23:47 07/22/17 23:47 07/22/17 23:47 07/22/17 23:47 - Medications Medications: Current Medications Acetaminophen (Tylenol 325mg Tab) 650 mg PO Q4 PRN PRN Reason: Pain, Mild (1-3) Last Admin: 07/15/17 20:52 Dose: 650 mg Atorvastatin Calcium (Lipitor) 40 mg PO DAILY [facility] Last Admin: 07/22/17 08:02 Dose: Not Given Cilostazol (Pletal) 100 mg PO BID [facility] Last Admin: 07/22/17 18:05 Dose: Not Given Clopidogrel Bisulfate (Plavix) 75 mg PO DAILY [facility] Last Admin: 07/22/17 08:03 Dose: Not Given Docusate Sodium (Colace) 100 mg PO BID [facility] Last Admin: 07/22/17 16:57 Dose: 100 mg Enoxaparin Sodium (Lovenox) 40 mg SC DAILY [facility] PRN Reason: Protocol Last Admin: 07/21/17 11:07 Dose: 40 mg Glipizide (Glucotrol Xl) 2.5 mg PO BRK [facility] Last Admin: 07/22/17 08:02 Dose: Not Given Vancomycin HCl 1 gm/ Sodium (Chloride) 250 mls @ 166.667 mls/hr IVPB Q12 [facility] PRN Reason: Protocol Last Admin: 07/22/17 22:28 Dose: 166.667 mls/hr Cefepime HCl 1 gm/ Sodium (Chloride) 100 mls @ 100 mls/hr IVPB Q8@0400,1200, 2000 [facility] PRN Reason: Protocol Last Admin: 07/23/17 04:32 Dose: 100 mls/hr Sodium Chloride (Sodium Chloride 0.9%) 1,000 mls @ 100 mls/hr IV .Q10H [facility] Last Admin: 07/22/17 16:58 Dose: Not Given Insulin Detemir (Levemir) 8 units SC HS [facility] Last Admin: 07/22/17 22:18 Dose: 8 u Insulin Human Lispro (Humalog) 0 units SC ACHS [facility] PRN Reason: Protocol Last Admin: 07/22/17 22:15 Dose: Not Given Lactulose (Enulose) 20 gm PO BID PRN PRN Reason: Constipation Last Admin: 07/18/17 12:16 Dose: 20 gm Metoprolol Tartrate (Lopressor) 100 mg PO DAILY [facility] Last Admin: 07/22/17 08:40 Dose: 100 mg Morphine Sulfate (Morphine) 6 mg IVP Q2 PRN PRN Reason: Pain, severe (8-10) Last Admin: 07/23/17 05:29 Dose: 6 mg Oxycodone HCl (Oxycontin Extended Release Tab) 20 mg PO Q12 [facility] Last Admin: 07/22/17 22:17 Dose: 20 mg Pantoprazole Sodium (Protonix Ec Tab) 40 mg PO DAILY [facility] Last Admin: 07/22/17 08:41 Dose: Not Given Ramipril (Altace) 10 mg PO DAILY [facility] Last Admin: 07/22/17 08:02 Dose: Not Given Sitagliptin Phosphate (Januvia) 100 mg PO DAILY [facility] Last Admin: 07/22/17 08:02 Dose: Not Given - Labs Labs: 07/23/17 05:30 07/23/17 05:30 PT 13.8 Seconds (9.8-13.1) H 07/19/17 05:50 INR 1.2 (0.9-1.2) 07/19/17 05:50 APTT 28.6 Seconds (25.6-37.1) 07/19/17 05:50 - Constitutional Appears: Well, Non-toxic, No Acute Distress - Extremities Exam Additional comments: Dressing is clean, dry and intact Wound vac is functioning at 125 mmHg and there is roughly 100 cc of drainage in the canister - Neurological Exam Neurological Exam: Alert, Awake, Oriented x3 - Psychiatric Exam Psychiatric exam: Normal Affect, Normal Mood Assessment and Plan - Assessment and Plan (Free Text) Assessment: 62 year old female seen 1 day post-operatively at bedside for revisional TMA of left foot Plan: Patient seen and evaluated at bedside Plan discussed with attending Dr. Looney Afebrile, WBC 15.2 Tib-fib x-rays ordered Continue IV abx per ID Continue medical management and pain management per Hospitalist Wound vac is intact and functioning at 125 mmHg - will change the vac tomorrow Patient to have possible second revascularization procedure done with Dr. Strange Podiatry will continue to follow while patient in house
[2017-07-23] MEDS: Insulin Lispro (humaLOG) 100 Units/ml Inj SC SCH ×5 (07:30→23:54)
[2017-07-23] MEDS: oxyCODONE 20 mg ER Tab (oxyCONTIN) PO SCH ×2 (08:27→20:54)
[2017-07-23] MEDS: GlipiZIDE 2.5 mg SR Tab PO SCH (08:35)
[2017-07-23] MEDS: Cilostazol 100 mg Tab UD PO SCH ×2 (08:39→09:03)
[2017-07-23] MEDS: Pantoprazole 40 mg EC Tab PO SCH (08:39)
[2017-07-23] MEDS ORDERED: Potassium Chloride 20 mEq ER Tab PO ONE (09:30)
--- NOTE | 2017-07-23 11:19 | RAD ---
PROCEDURE: Left tibia and fibula HISTORY: Rule out soft tissue emphysema to the leg COMPARISON: Comparison/correlation made with radiographs left knee right left foot/ankle dated 07/22/2017. TECHNIQUE: Frontal and lateral views obtained. FINDINGS: The previously noted small amount subcutaneous air within the dorsal soft tissues at the level of the distal tibia have diminished. Previously noted subcutaneous air within the posterior plantar soft tissues not appreciated on this exam due to patient positioning and have not been included on the film. Apparent endovascular stents at the level of the again seen within the soft tissues distal 1/2 -- 1/3 of the left lower extremity as well and dorsally at the level of the proximal tibia proximal tibia. No definitive cortical destructive changes are identified IMPRESSION: The previously noted small amount subcutaneous air within the dorsal soft tissues at the level of the distal tibia have diminished. Previously noted subcutaneous air within the posterior plantar soft tissues not appreciated on this exam due to patient positioning and have not been included on the film. Apparent endovascular stents at the level of the again seen within the soft tissues distal 1/2 -- 1/3 of the left lower extremity as well and dorsally at the level of the proximal tibia proximal tibia. No definitive cortical destructive changes are identified
--- NOTE | 2017-07-23 12:22 | CP.PCM.PN ---
Subjective - Date & Time of Evaluation Date of Evaluation: 07/23/17 Time of Evaluation: 12:22 - Subjective Subjective: ID note- Pt. seen and examined today and her is at her bedside as well. pt. s/p revision of the left TMA and I and D by yesterday and now has wound vac in place and as per hospitalist and podiatry that pt. is being d/c to [facility] today. pt. herself in better spirits today and eating her food. denies any fever or chills. Objective - Vital Signs/Intake and Output Vital Signs (last 24 hours): Temp Pulse Resp BP Pulse Ox 99.2 F 89 20 149/72 95 07/23/17 07:54 07/23/17 08:38 07/23/17 07:54 07/23/17 08:38 07/23/17 07:54 - Medications Medications: Current Medications Acetaminophen (Tylenol 325mg Tab) 650 mg PO Q4 PRN PRN Reason: Pain, Mild (1-3) Last Admin: 07/15/17 20:52 Dose: 650 mg Atorvastatin Calcium (Lipitor) 40 mg PO DAILY [facility] Last Admin: 07/23/17 08:37 Dose: 40 mg Cilostazol (Pletal) 100 mg PO BID [facility] Last Admin: 07/23/17 08:39 Dose: 100 mg Clopidogrel Bisulfate (Plavix) 75 mg PO DAILY [facility] Last Admin: 07/23/17 08:38 Dose: 75 mg Docusate Sodium (Colace) 100 mg PO BID [facility] Last Admin: 07/23/17 08:34 Dose: 100 mg Enoxaparin Sodium (Lovenox) 40 mg SC DAILY [facility] PRN Reason: Protocol Last Admin: 07/21/17 11:07 Dose: 40 mg Glipizide (Glucotrol Xl) 2.5 mg PO BRK [facility] Last Admin: 07/23/17 08:35 Dose: 2.5 mg Vancomycin HCl 1 gm/ Sodium (Chloride) 250 mls @ 166.667 mls/hr IVPB Q12 [facility] PRN Reason: Protocol Last Admin: 07/22/17 22:28 Dose: 166.667 mls/hr Cefepime HCl 1 gm/ Sodium (Chloride) 100 mls @ 100 mls/hr IVPB Q8@0400,1200, 2000 [facility] PRN Reason: Protocol Last Admin: 07/23/17 04:32 Dose: 100 mls/hr Sodium Chloride (Sodium Chloride 0.9%) 1,000 mls @ 100 mls/hr IV .Q10H [facility] Last Admin: 07/22/17 16:58 Dose: Not Given Insulin Detemir (Levemir) 8 units SC HS [facility] Last Admin: 07/22/17 22:18 Dose: 8 u Insulin Human Lispro (Humalog) 0 units SC ACHS [facility] PRN Reason: Protocol Last Admin: 07/23/17 12:02 Dose: 5 units Lactulose (Enulose) 20 gm PO BID PRN PRN Reason: Constipation Last Admin: 07/18/17 12:16 Dose: 20 gm Metoprolol Tartrate (Lopressor) 100 mg PO DAILY [facility] Last Admin: 07/23/17 08:38 Dose: 100 mg Morphine Sulfate (Morphine) 6 mg IVP Q2 PRN PRN Reason: Pain, severe (8-10) Last Admin: 07/23/17 05:29 Dose: 6 mg Oxycodone HCl (Oxycontin Extended Release Tab) 20 mg PO Q12 [facility] Last Admin: 07/23/17 08:27 Dose: 20 mg Pantoprazole Sodium (Protonix Ec Tab) 40 mg PO DAILY [facility] Last Admin: 07/23/17 08:39 Dose: 40 mg Ramipril (Altace) 10 mg PO DAILY [facility] Last Admin: 07/23/17 08:32 Dose: 10 mg Sitagliptin Phosphate (Januvia) 100 mg PO DAILY [facility] Last Admin: 07/23/17 08:37 Dose: 100 mg - Labs Labs: - Additional Findings Additional findings: - Constitutional Appears: No Acute Distress - Head Exam Head Exam: ATRAUMATIC - Eye Exam Eye Exam: EOMI - ENT Exam ENT Exam: Normal Oropharynx - Neck Exam Neck exam: Positive for: Full Rom - Respiratory Exam Respiratory Exam: Clear to Auscultation Bilateral, NORMAL BREATHING PATTERN - Cardiovascular Exam Cardiovascular Exam: RRR, +S1, +S2 - GI/Abdominal Exam GI & Abdominal Exam: Normal Bowel Sounds, Soft Additional comments: NT, ND - Extremities Exam Additional comments: Left foot TMA site now with wound vac in place draining sanguinous fluid - Neurological Exam Neurological exam: Alert, Oriented x 3 Laboratory Results - last 72 hr 07/21/17 07/21/17 07/21/17 06:30 06:30 11:17 WBC 14.4 H RBC 3.61 L Hgb 9.3 L Hct 28.8 L MCV 79.9 L MCH 25.8 L MCHC 32.3 L RDW 17.9 H Plt Count 457 H MPV 8.3 Neut % (Auto) 66.2 Lymph % (Auto) 21.2 [place] % (Auto) 11.3 H Eos % (Auto) 0.8 Baso % (Auto) 0.5 Neut # (Auto) 9.6 H Lymph # (Auto) 3.1 [place] # (Auto) 1.6 H Eos # (Auto) 0.1 Baso # (Auto) 0.1 Sodium 135 Potassium 3.1 L Chloride 93 L Carbon Dioxide 31 H Anion Gap 14 BUN 6 L Creatinine 0.4 L Est GFR ( Amer) > 60 Est GFR (Non-Af Amer) > 60 POC Glucose (mg/dL) 298 H Random Glucose 266 H Calcium 8.8 Total Bilirubin 0.5 AST 43 H D ALT 10 Alkaline Phosphatase 89 Total Protein 6.7 Albumin 3.0 L Globulin 3.6 Albumin/Globulin Ratio 0.8 L 07/21/17 07/21/17 07/21/17 13:45 16:24 22:37 WBC RBC Hgb Hct MCV MCH MCHC RDW Plt Count MPV Neut % (Auto) Lymph % (Auto) [place] % (Auto) Eos % (Auto) Baso % (Auto) Neut # (Auto) Lymph # (Auto) [place] # (Auto) Eos # (Auto) Baso # (Auto) Sodium 132 Potassium 3.8 Chloride 91 L Carbon Dioxide 31 H Anion Gap 14 BUN 7 Creatinine 0.5 L Est GFR ( Amer) > 60 Est GFR (Non-Af Amer) > 60 POC Glucose (mg/dL) 330 H 296 H Random Glucose 369 H Calcium 8.5 Total Bilirubin AST ALT Alkaline Phosphatase Total Protein Albumin Globulin Albumin/Globulin Ratio 07/22/17 07/22/17 07/22/17 05:55 05:55 06:10 WBC 14.1 H RBC 3.43 L Hgb 8.9 L Hct 27.7 L MCV 80.9 L MCH 26.1 L MCHC 32.2 L RDW 17.9 H Plt Count 441 H MPV Neut % (Auto) Lymph % (Auto) [place] % (Auto) Eos % (Auto) Baso % (Auto) Neut # (Auto) Lymph # (Auto) [place] # (Auto) Eos # (Auto) Baso # (Auto) Sodium 136 Potassium 3.3 L Chloride 94 L Carbon Dioxide 33 H Anion Gap 12 BUN 8 Creatinine 0.5 L Est GFR ( Amer) > 60 Est GFR (Non-Af Amer) > 60 POC Glucose (mg/dL) 296 H Random Glucose 310 H Calcium 8.7 Total Bilirubin AST ALT Alkaline Phosphatase Total Protein Albumin Globulin Albumin/Globulin Ratio 07/22/17 07/22/17 07/22/17 10:47 15:15 17:35 WBC 13.4 H RBC 3.56 L Hgb 8.9 L Hct 29.3 L MCV 82.3 MCH 25.0 L MCHC 30.3 L RDW 18.6 H Plt Count 460 H MPV Neut % (Auto) Lymph % (Auto) [place] % (Auto) Eos % (Auto) Baso % (Auto) Neut # (Auto) Lymph # (Auto) [place] # (Auto) Eos # (Auto) Baso # (Auto) Sodium Potassium Chloride Carbon Dioxide Anion Gap BUN Creatinine Est GFR ( Amer) Est GFR (Non-Af Amer) POC Glucose (mg/dL) 267 H 217 H Random Glucose Calcium Total Bilirubin AST ALT Alkaline Phosphatase Total Protein Albumin Globulin Albumin/Globulin Ratio 07/22/17 07/23/17 07/23/17 21:14 05:30 05:30 WBC 15.2 H RBC 3.30 L Hgb 8.5 L Hct 26.5 L MCV 80.3 L D MCH 25.9 L MCHC 32.3 L RDW 18.1 H Plt Count 453 H MPV Neut % (Auto) Lymph % (Auto) [place] % (Auto) Eos % (Auto) Baso % (Auto) Neut # (Auto) Lymph # (Auto) [place] # (Auto) Eos # (Auto) Baso # (Auto) Sodium 133 Potassium 3.0 L Chloride 91 L Carbon Dioxide 30 Anion Gap 15 BUN 5 L Creatinine 0.4 L Est GFR ( Amer) > 60 Est GFR (Non-Af Amer) > 60 POC Glucose (mg/dL) 275 H Random Glucose 268 H Calcium 8.4 Total Bilirubin AST ALT Alkaline Phosphatase Total Protein Albumin Globulin Albumin/Globulin Ratio 07/23/17 07/23/17 05:47 10:53 WBC RBC Hgb Hct MCV MCH MCHC RDW Plt Count MPV Neut % (Auto) Lymph % (Auto) [place] % (Auto) Eos % (Auto) Baso % (Auto) Neut # (Auto) Lymph # (Auto) [place] # (Auto) Eos # (Auto) Baso # (Auto) Sodium Potassium Chloride Carbon Dioxide Anion Gap BUN Creatinine Est GFR ( Amer) Est GFR (Non-Af Amer) POC Glucose (mg/dL) 272 H 366 H Random Glucose Calcium Total Bilirubin AST ALT Alkaline Phosphatase Total Protein Albumin Globulin Albumin/Globulin Ratio Microbiology 07/21/17 07:43 Nose MRSA Culture (Admit) - Final MRSA NOT DETECTED 07/22/17 17:30 Foot - Left Gram Stain - Final 07/22/17 17:30 Foot - Left Wound Culture - Preliminary NO GROWTH AFTER 24 HOURS 07/22/17 17:30 Foot - Left Gram Stain - Final 07/22/17 17:30 Foot - Left Wound Culture - Preliminary NO GROWTH AFTER 24 HOURS 07/21/17 06:57 Nose MRSA Culture (Admit) - Final MRSA NOT DETECTED 07/17/17 19:03 Blood-Venous Blood Culture - Final NO GROWTH AFTER 5 DAYS 07/17/17 19:03 Blood-Venous Gram Stain - Final TEST NOT PERFORMED 07/17/17 19:03 Blood-Venous Blood Culture - Final NO GROWTH AFTER 5 DAYS 07/17/17 19:03 Blood-Venous Gram Stain - Final TEST NOT PERFORMED 07/15/17 09:11 Foot - Left Gram Stain - Final 07/15/17 09:11 Foot - Left Wound Culture - Final Enterococcus Faecalis 07/15/17 09:11 Foot - Left Gram Stain - Final 07/15/17 09:11 Foot - Left Wound Culture - Final Serratia Marcescens Accession No. : [id number] Patient Name / ID : KEV KELLEY / [id number] Exam Date : 07/23/2017 09:31:11 ( Approved ) Study Comment : Sex / Age : F / 62Y Creator : zulay [email or web address] Dictator : Simón Blanchard MD Transit Mix Operator : Supervisor Filling And Packing : Simón Blanchard MD Approver2 : Report Date : 07/23/2017 09:41:20 My Comment : PROCEDURE: Left tibia and fibula HISTORY: Rule out soft tissue emphysema to the leg COMPARISON: Comparison/correlation made with radiographs left knee right left foot/ankle dated 07/22/2017. TECHNIQUE: Frontal and lateral views obtained. FINDINGS: The previously noted small amount subcutaneous air within the dorsal soft tissues at the level of the distal tibia have diminished. Previously noted subcutaneous air within the posterior plantar soft tissues not appreciated on this exam due to patient positioning and have not been included on the film. Apparent endovascular stents at the level of the again seen within the soft tissues distal 1/2 -- 1/3 of the left lower extremity as well and dorsally at the level of the proximal tibia proximal tibia. No definitive cortical destructive changes are identified IMPRESSION: The previously noted small amount subcutaneous air within the dorsal soft tissues at the level of the distal tibia have diminished. Previously noted subcutaneous air within the posterior plantar soft tissues not appreciated on this exam due to patient positioning and have not been included on the film. Apparent endovascular stents at the level of the again seen within the soft tissues distal 1/2 -- 1/3 of the left lower extremity as well and dorsally at the level of the proximal tibia proximal tibia. No definitive cortical destructive changes are identified Assessment and Plan (1) Gangrene of left foot Status: Acute (2) DM2 (diabetes mellitus, type 2) Status: Chronic (3) PVD (peripheral vascular disease) Status: Acute (4) Status post transmetatarsal amputation of left foot Status: Acute - Assessment and Plan (Free Text) Assessment: A/P- 62 year old female with DM II, HTN, PVD with left great toe gangrene and Om s/p left foot TMA 06/09/2017 and wsa on IV antibiotics but now is admitted because of infection at the TMA site and is s/p I and D at the TMA site by podiatry drainage of pus. s/p second left TMA revision yesterday has remained afebrile leukocytosis had almost resolved , slightly increased today to 15 ( could be post surgical inflammatory reaction) this admission MRI-OM of distal 4th and fifth metatarsal site next to amputation site as per report. wound cx from toe from last admission serratia and e.Fecalis. bone bx- acute OM ( last admission) wound cx from this admission- e.feclais and serratia ( same organisms as last admission). pt. also s/p re-vascularizationof the LLE by during this admission OR wound cx from 07/22/2017- negative so far 24 hours plan- if patient is being d/c to [facility] advise total of 4-6 weeks of IV antibiotics for the OM. would advise to continue with IV vancomycin 750 mg q12 hours and advise to give ertapenem 1 gram IV daily for the serratia instead of the cefepime since it is once a day and easier fot eh patient and the serratia is sensitive to this abx as well. keep vanco trough <15. advise to check vanco trough once a week and keep it less than 15. pt. has already received 10 days of IV antibiotics during this admission, advise another 4 weeks of IV abx. advise to monitor wbc once a week as well as creatinine. pt. to f/u with podiatry as outpatient. Pt. also to be seen by me as outpatient. pt. to also f/u with her PMD as outpatient. also advised pt. if she develops any hearing difficulties while on the vanco to notify us. All above d/w patient and she verbalizes full understanding of all above. All above also d/w podiatry and hospitalist .
--- NOTE | 2017-07-23 12:53 | CP.PCM.DIS ---
<Rafael rTejo - Last Filed: 07/23/17 15:49> Provider - Provider Date of Admission: 07/15/17 15:04 Attending physician: Arnold Munson MD Consults: Infectious Disease Consult- Dr. Sol Podiatry Consult-Dr. Looney Cardiology Consult- Dr. Strange Time Spent in preparation of Discharge (in minutes): 30 Diagnosis - Discharge Diagnosis (1) Osteomyelitis of left foot Status: Acute (2) Gangrene of left foot Status: Acute (3) Status post transmetatarsal amputation of left foot Status: Acute Comment: s/p revisional TMA and incision and drainage of left foot OM and abcess (4) PVD (peripheral vascular disease) with claudication Status: Chronic (5) DM2 (diabetes mellitus, type 2) Status: Chronic (6) HLD (hyperlipidemia) Status: Chronic (7) HTN (hypertension) Status: Chronic (8) Hypokalemia Status: Acute (9) Chronic anemia Status: Acute Comment: acute on chronic anemia (10) CAD (coronary artery disease) Status: Chronic Hospital Course - Lab Results Lab Results: Micro Results 07/21/17 07:43 Nose MRSA Culture (Admit) - Final MRSA NOT DETECTED 07/22/17 17:30 Foot - Left Gram Stain - Final 07/22/17 17:30 Foot - Left Wound Culture - Preliminary NO GROWTH AFTER 24 HOURS 07/22/17 17:30 Foot - Left Gram Stain - Final 07/22/17 17:30 Foot - Left Wound Culture - Preliminary NO GROWTH AFTER 24 HOURS 07/21/17 06:57 Nose MRSA Culture (Admit) - Final MRSA NOT DETECTED 07/17/17 19:03 Blood-Venous Blood Culture - Final NO GROWTH AFTER 5 DAYS 07/17/17 19:03 Blood-Venous Gram Stain - Final TEST NOT PERFORMED 07/17/17 19:03 Blood-Venous Blood Culture - Final NO GROWTH AFTER 5 DAYS 07/17/17 19:03 Blood-Venous Gram Stain - Final TEST NOT PERFORMED 07/15/17 09:11 Foot - Left Gram Stain - Final 07/15/17 09:11 Foot - Left Wound Culture - Final Enterococcus Faecalis 07/15/17 09:11 Foot - Left Gram Stain - Final 07/15/17 09:11 Foot - Left Wound Culture - Final Serratia Marcescens Most Recent Lab Values WBC 15.2 K/uL (4.8-10.8) H 07/23/17 05:30 RBC 3.30 Mil/uL (3.80-5.20) L 07/23/17 05:30 Hgb 8.5 g/dL (12.0-16.0) L 07/23/17 05:30 Hct 26.5 % (34.0-47.0) L 07/23/17 05:30 MCV 80.3 fl (81.0-99.0) L D 07/23/17 05:30 MCH 25.9 pg (27.0-31.0) L 07/23/17 05:30 MCHC 32.3 g/dL (33.0-37.0) L 07/23/17 05:30 RDW 18.1 % (11.5-14.5) H 07/23/17 05:30 Plt Count 453 K/uL (130-400) H 07/23/17 05:30 MPV 8.3 fl (7.2-11.7) 07/21/17 06:30 Neut % (Auto) 66.2 % (50.0-75.0) 07/21/17 06:30 Lymph % (Auto) 21.2 % (20.0-40.0) 07/21/17 06:30 [place] % (Auto) 11.3 % (0.0-10.0) H 07/21/17 06:30 Eos % (Auto) 0.8 % (0.0-4.0) 07/21/17 06:30 Baso % (Auto) 0.5 % (0.0-2.0) 07/21/17 06:30 Neut # (Auto) 9.6 K/uL (1.8-7.0) H 07/21/17 06:30 Lymph # (Auto) 3.1 K/uL (1.0-4.3) 07/21/17 06:30 [place] # (Auto) 1.6 K/uL (0.0-0.8) H 07/21/17 06:30 Eos # (Auto) 0.1 K/uL (0.0-0.7) 07/21/17 06:30 Baso # (Auto) 0.1 K/uL (0.0-0.2) 07/21/17 06:30 ESR 103 mm/hr (0-30) H 07/16/17 15:03 PT 13.8 Seconds (9.8-13.1) H 07/19/17 05:50 INR 1.2 (0.9-1.2) 07/19/17 05:50 APTT 28.6 Seconds (25.6-37.1) 07/19/17 05:50 pCO2 28 mm/Hg (35-45) L 07/18/17 10:32 pO2 99 mm/Hg (80-100) 07/18/17 10:32 HCO3 21.4 mmol/L (21-28) 07/18/17 10:32 ABG pH 7.44 (7.35-7.45) 07/18/17 10:32 ABG Total CO2 19.9 mmol/L (22-28) L 07/18/17 10:32 ABG O2 Saturation 99.2 % (95-98) H 07/18/17 10:32 ABG O2 Content 10.8 ML/dL (15-23) L 07/18/17 10:32 ABG Base Excess -4.5 mmol/L (-2.0-3.0) L 07/18/17 10:32 ABG Hemoglobin 7.8 g/dL (11.7-17.4) L 07/18/17 10:32 ABG Carboxyhemoglobin 1.2 % (0.5-1.5) 07/18/17 10:32 POC ABG HHb (Measured) 0.8 % (0.0-5.0) 07/18/17 10:32 ABG Methemoglobin 1.7 % (0.0-3.0) 07/18/17 10:32 ABG O2 Capacity 10.9 mL/dL (16-24) L 07/18/17 10:32 Wade Test Yes 07/18/17 10:32 A-a O2 Difference 16.0 mm/Hg 07/18/17 10:32 Hgb O2 Saturation 96.3 % (95.0-98.0) 07/18/17 10:32 FiO2 21.0 % 07/18/17 10:32 Crit Value Called To sudeep Galvez 07/17/17 08:34 Crit Value Called By 203 07/17/17 08:34 Crit Value Read Back Y 07/17/17 08:34 Blood Gas Notified Time 840 07/17/17 08:34 Sodium 133 mmol/l (132-148) 07/23/17 05:30 Potassium 3.0 MMOL/L (3.6-5.0) L 07/23/17 05:30 Chloride 91 mmol/L (98-107) L 07/23/17 05:30 Carbon Dioxide 30 mmol/L (22-30) 07/23/17 05:30 Anion Gap 15 (10-20) 07/23/17 05:30 BUN 5 mg/dl (7-17) L 07/23/17 05:30 Creatinine 0.4 mg/dl (0.7-1.2) L 07/23/17 05:30 Est GFR ( Amer) > 60 07/23/17 05:30 Est GFR (Non-Af Amer) > 60 07/23/17 05:30 POC Glucose (mg/dL) 366 mg/dL (65-110) H 07/23/17 10:53 Random Glucose 268 mg/dL (65-105) H 07/23/17 05:30 Lactic Acid 0.8 MMOL/L (0.7-2.1) 07/18/17 11:30 Calcium 8.4 mg/dL (8.4-10.2) 07/23/17 05:30 Magnesium 1.9 MG/DL (1.6-2.3) 07/20/17 08:42 Total Bilirubin 0.5 mg/dl (0.2-1.3) 07/21/17 06:30 AST 43 U/L (14-36) H D 07/21/17 06:30 ALT 10 U/L (9-52) 07/21/17 06:30 Alkaline Phosphatase 89 U/L (38-126) 07/21/17 06:30 Total Protein 6.7 G/DL (6.3-8.2) 07/21/17 06:30 Albumin 3.0 g/dL (3.5-5.0) L 07/21/17 06:30 Globulin 3.6 gm/dL (2.2-3.9) 07/21/17 06:30 Albumin/Globulin Ratio 0.8 (1.0-2.1) L 07/21/17 06:30 Urine Color Yellow (YELLOW) 07/18/17 11:30 Urine Clarity Clear (Clear) 07/18/17 11:30 Urine pH 6.0 (5.0-8.0) 07/18/17 11:30 Ur Specific [place] 1.024 (1.003-1.030) 07/18/17 11:30 Urine Protein Negative mg/dL (NEGATIVE) 07/18/17 11:30 Urine Glucose (UA) >=500 mg/dL (Normal) 07/18/17 11:30 Urine Ketones 80 mg/dL (NEGATIVE) 07/18/17 11:30 Urine Blood Negative (NEGATIVE) 07/18/17 11:30 Urine Nitrate Negative (NEGATIVE) 07/18/17 11:30 Urine Bilirubin Negative (NEGATIVE) 07/18/17 11:30 Urine Urobilinogen 0.2-1.0 mg/dL (0.2-1.0) 07/18/17 11:30 Ur Leukocyte Esterase Neg Mick/uL (Negative) 07/18/17 11:30 Urine RBC (Auto) 1 /hpf (0-3) 07/18/17 11:30 Urine Microscopic WBC 2 /hpf (0-5) 07/18/17 11:30 Ur Squamous Epith Cells 4 /hpf (0-5) 07/18/17 11:30 Ur Random Creatinine 40.8 mg/dL 07/17/17 06:30 Ur Random Sodium 49 meq/L 07/17/17 10:46 Ur Random Potassium 33.1 mmol/L 07/17/17 10:46 Vancomycin Trough 11.0 ug/mL (5.0-10.0) H 07/18/17 08:15 Influenza Typ A,B (EIA) Negative for flu a/b (NEGATIVE) 07/16/17 09:14 Blood Type B POSITIVE 07/19/17 04:00 Antibody Screen Negative 07/19/17 04:00 Crossmatch See Detail 07/19/17 04:00 BBK History Checked Patient has bt 07/19/17 04:00 - Hospital Course Hospital Course: 62 y.o female with PMH of DM2, HTN, CAD admitted for severely infected left foot with gangrenous changes. Patient presented to [facility] for a revision of TMA with incision and drainage with debridement of all nonviable tissue. In the OR, podiatry expressed ~50 cc of purulence abscess from foot with severe infection and gangrenous changes noted and decision was made to admit patient. Patient leukocytosis with WBC of 23.6. Infectious disease consulted Dr. Sol in which patient received Cefepime and Vanco during hospital stay; recommended 3-4 weeks of IV abx. PICC placed on 07/17/17. Doppler US Arterial: poor circulation distal to sup femoral artery. Vascular consult- Dr. Strange. Left LE revascularization by Dr Strange at [facility] on 07/20: CABLE FERRY OPERATOR/stenting of left popliteal 95% stenosis and CABLE FERRY OPERATOR/atherectomy of left VALERIA 100% and CABLE FERRY OPERATOR/stenting with stent x 2. During hospital stay patient H and H was 7.6/25.1 and transfused 2 units PRBC , given IV Venofer and B12 shots. Post transfusion 9.5/29.4. Patients H/H remain WNL during hospital stay. During hospital stay patient also was hypokalemia in which given KCl with improvements. LE MRI (07/17) findings suspicious for osteomyelitis at the distal portion of the 4th and 5th metatarsal bones at the site of the amputation. Patient went for additional surgery in OR on 07/22/[address] Looney for revisional left TMA and incision and drainage of abscess with wound VAC placement. Patient is hemodynamically stable and in NAD. WBC trended down from admission at 15.2. Decision was made to discharge patient to [facility] for continued IV abx and PT. Patient is to follow up at [facility] on Thursday with Dr. Angel. Pt to follow up with Dr. Strange for possible additional revascularization surgery as outpatient. Pt to f/ u with PMD and ID. Discharge Exam - Head Exam Head Exam: ATRAUMATIC, NORMOCEPHALIC - Eye Exam Eye Exam: EOMI, Normal appearance, PERRL Pupil Exam: NORMAL ACCOMODATION, PERRL - ENT Exam ENT Exam: Mucous Membranes Moist - Neck Exam Neck exam: Full Rom, Normal Inspection - Respiratory Exam Respiratory Exam: NORMAL BREATHING PATTERN. absent: Rales, Rhonchi, Wheezes, Respiratory Distress, Stridor - Cardiovascular Exam Cardiovascular Exam: REGULAR RHYTHM, +S1, +S2 - GI/Abdominal Exam GI & Abdominal Exam: Normal Bowel Sounds - Extremities Exam Additional comments: No calf tenderness with palpation bilaterally Dressing c/d/I without strikethrough Wound VAC is on and continuous at 125 mmHg About 70 cc of sangious drainage noted in canister - Back Exam Back exam: absent: CVA tenderness (L), CVA tenderness (R) Discharge Plan - Discharge Medications Prescriptions: Cefepime 1gm in NS 100ml [Maxipime 1gm] 1 gm IVPB Q8H 42 Days #126 bag oxyCODONE/Acetaminophen [Percocet 5/325 mg Tab] 1 ea PO Q4H PRN #30 tab PRN Reason: Pain, Moderate (4-7) Vancomycin 750 mg/D5W 150 ml [Vancocin] 750 mg IV Q12H 42 Days #84 pds - Follow Up Plan Condition: GOOD Disposition: Trans to Other Acute Care Hosp Instructions: Abscess (GEN), Incision and Drainage (DC) Referrals: Veronica Sol MD [Staff Provider] - Nik Strange MD [Staff Provider] - Elodia Cuevas MD [Family Provider] - Raven Looney DPM [Staff Provider] - <Joseph Bertrand - Last Filed: 07/23/17 16:28> Provider - Provider Date of Admission: 07/15/17 15:04 Attending physician: Arnold Munson MD Hospital Course - Lab Results Lab Results: Micro Results 07/21/17 07:43 Nose MRSA Culture (Admit) - Final MRSA NOT DETECTED 07/22/17 17:30 Foot - Left Gram Stain - Final 07/22/17 17:30 Foot - Left Wound Culture - Preliminary NO GROWTH AFTER 24 HOURS 07/22/17 17:30 Foot - Left Gram Stain - Final 07/22/17 17:30 Foot - Left Wound Culture - Preliminary NO GROWTH AFTER 24 HOURS 07/21/17 06:57 Nose MRSA Culture (Admit) - Final MRSA NOT DETECTED 07/17/17 19:03 Blood-Venous Blood Culture - Final NO GROWTH AFTER 5 DAYS 07/17/17 19:03 Blood-Venous Gram Stain - Final TEST NOT PERFORMED 07/17/17 19:03 Blood-Venous Blood Culture - Final NO GROWTH AFTER 5 DAYS 07/17/17 19:03 Blood-Venous Gram Stain - Final TEST NOT PERFORMED 07/15/17 09:11 Foot - Left Gram Stain - Final 07/15/17 09:11 Foot - Left Wound Culture - Final Enterococcus Faecalis 07/15/17 09:11 Foot - Left Gram Stain - Final 07/15/17 09:11 Foot - Left Wound Culture - Final Serratia Marcescens Most Recent Lab Values WBC 15.2 K/uL (4.8-10.8) H 07/23/17 05:30 RBC 3.30 Mil/uL (3.80-5.20) L 07/23/17 05:30 Hgb 8.5 g/dL (12.0-16.0) L 07/23/17 05:30 Hct 26.5 % (34.0-47.0) L 07/23/17 05:30 MCV 80.3 fl (81.0-99.0) L D 07/23/17 05:30 MCH 25.9 pg (27.0-31.0) L 07/23/17 05:30 MCHC 32.3 g/dL (33.0-37.0) L 07/23/17 05:30 RDW 18.1 % (11.5-14.5) H 07/23/17 05:30 Plt Count 453 K/uL (130-400) H 07/23/17 05:30 MPV 8.3 fl (7.2-11.7) 07/21/17 06:30 Neut % (Auto) 66.2 % (50.0-75.0) 07/21/17 06:30 Lymph % (Auto) 21.2 % (20.0-40.0) 07/21/17 06:30 [place] % (Auto) 11.3 % (0.0-10.0) H 07/21/17 06:30 Eos % (Auto) 0.8 % (0.0-4.0) 07/21/17 06:30 Baso % (Auto) 0.5 % (0.0-2.0) 07/21/17 06:30 Neut # (Auto) 9.6 K/uL (1.8-7.0) H 07/21/17 06:30 Lymph # (Auto) 3.1 K/uL (1.0-4.3) 07/21/17 06:30 [place] # (Auto) 1.6 K/uL (0.0-0.8) H 07/21/17 06:30 Eos # (Auto) 0.1 K/uL (0.0-0.7) 07/21/17 06:30 Baso # (Auto) 0.1 K/uL (0.0-0.2) 07/21/17 06:30 ESR 103 mm/hr (0-30) H 07/16/17 15:03 PT 13.8 Seconds (9.8-13.1) H 07/19/17 05:50 INR 1.2 (0.9-1.2) 07/19/17 05:50 APTT 28.6 Seconds (25.6-37.1) 07/19/17 05:50 pCO2 28 mm/Hg (35-45) L 07/18/17 10:32 pO2 99 mm/Hg (80-100) 07/18/17 10:32 HCO3 21.4 mmol/L (21-28) 07/18/17 10:32 ABG pH 7.44 (7.35-7.45) 07/18/17 10:32 ABG Total CO2 19.9 mmol/L (22-28) L 07/18/17 10:32 ABG O2 Saturation 99.2 % (95-98) H 07/18/17 10:32 ABG O2 Content 10.8 ML/dL (15-23) L 07/18/17 10:32 ABG Base Excess -4.5 mmol/L (-2.0-3.0) L 07/18/17 10:32 ABG Hemoglobin 7.8 g/dL (11.7-17.4) L 07/18/17 10:32 ABG Carboxyhemoglobin 1.2 % (0.5-1.5) 07/18/17 10:32 POC ABG HHb (Measured) 0.8 % (0.0-5.0) 07/18/17 10:32 ABG Methemoglobin 1.7 % (0.0-3.0) 07/18/17 10:32 ABG O2 Capacity 10.9 mL/dL (16-24) L 07/18/17 10:32 Wade Test Yes 07/18/17 10:32 A-a O2 Difference 16.0 mm/Hg 07/18/17 10:32 Hgb O2 Saturation 96.3 % (95.0-98.0) 07/18/17 10:32 FiO2 21.0 % 07/18/17 10:32 Crit Value Called To sudeep Galvez 07/17/17 08:34 Crit Value Called By Veronica 07/17/17 08:34 Crit Value Read Back Y 07/17/17 08:34 Blood Gas Notified Time 840 07/17/17 08:34 Sodium 133 mmol/l (132-148) 07/23/17 05:30 Potassium 3.0 MMOL/L (3.6-5.0) L 07/23/17 05:30 Chloride 91 mmol/L (98-107) L 07/23/17 05:30 Carbon Dioxide 30 mmol/L (22-30) 07/23/17 05:30 Anion Gap 15 (10-20) 07/23/17 05:30 BUN 5 mg/dl (7-17) L 07/23/17 05:30 Creatinine 0.4 mg/dl (0.7-1.2) L 07/23/17 05:30 Est GFR ( Amer) > 60 07/23/17 05:30 Est GFR (Non-Af Amer) > 60 07/23/17 05:30 POC Glucose (mg/dL) 329 mg/dL (65-110) H 07/23/17 16:10 Random Glucose 268 mg/dL (65-105) H 07/23/17 05:30 Lactic Acid 0.8 MMOL/L (0.7-2.1) 07/18/17 11:30 Calcium 8.4 mg/dL (8.4-10.2) 07/23/17 05:30 Magnesium 1.9 MG/DL (1.6-2.3) 07/20/17 08:42 Total Bilirubin 0.5 mg/dl (0.2-1.3) 07/21/17 06:30 AST 43 U/L (14-36) H D 07/21/17 06:30 ALT 10 U/L (9-52) 07/21/17 06:30 Alkaline Phosphatase 89 U/L (38-126) 07/21/17 06:30 Total Protein 6.7 G/DL (6.3-8.2) 07/21/17 06:30 Albumin 3.0 g/dL (3.5-5.0) L 07/21/17 06:30 Globulin 3.6 gm/dL (2.2-3.9) 07/21/17 06:30 Albumin/Globulin Ratio 0.8 (1.0-2.1) L 07/21/17 06:30 Urine Color Yellow (YELLOW) 07/18/17 11:30 Urine Clarity Clear (Clear) 07/18/17 11:30 Urine pH 6.0 (5.0-8.0) 07/18/17 11:30 Ur Specific [place] 1.024 (1.003-1.030) 07/18/17 11:30 Urine Protein Negative mg/dL (NEGATIVE) 07/18/17 11:30 Urine Glucose (UA) >=500 mg/dL (Normal) 07/18/17 11:30 Urine Ketones 80 mg/dL (NEGATIVE) 07/18/17 11:30 Urine Blood Negative (NEGATIVE) 07/18/17 11:30 Urine Nitrate Negative (NEGATIVE) 07/18/17 11:30 Urine Bilirubin Negative (NEGATIVE) 07/18/17 11:30 Urine Urobilinogen 0.2-1.0 mg/dL (0.2-1.0) 07/18/17 11:30 Ur Leukocyte Esterase Neg Mick/uL (Negative) 07/18/17 11:30 Urine RBC (Auto) 1 /hpf (0-3) 07/18/17 11:30 Urine Microscopic WBC 2 /hpf (0-5) 07/18/17 11:30 Ur Squamous Epith Cells 4 /hpf (0-5) 07/18/17 11:30 Ur Random Creatinine 40.8 mg/dL 07/17/17 06:30 Ur Random Sodium 49 meq/L 07/17/17 10:46 Ur Random Potassium 33.1 mmol/L 07/17/17 10:46 Vancomycin Trough 11.0 ug/mL (5.0-10.0) H 07/18/17 08:15 Influenza Typ A,B (EIA) Negative for flu a/b (NEGATIVE) 07/16/17 09:14 Blood Type B POSITIVE 07/19/17 04:00 Antibody Screen Negative 07/19/17 04:00 Crossmatch See Detail 07/19/17 04:00 BBK History Checked Patient has bt 07/19/17 04:00 - Hospital Course Hospital Course: PLEASE DISREGARD THIS DISCHARGE SUMMARY. THE PATIENT WAS KEPT DUE TO SPIKING FEVER OF 101. PLEASE REFER TO PROGRESS NOTE FROM 07/23/2017
--- NOTE | 2017-07-23 16:41 | CP.PCM.PN ---
Subjective - Date & Time of Evaluation Date of Evaluation: 07/22/17 Time of Evaluation: 18:00 - Subjective Subjective: s/p wound debridement in OR with good bleeding noted Objective - Vital Signs/Intake and Output Vital Signs (last 24 hours): Temp Pulse Resp BP Pulse Ox 99.2 F 89 20 149/72 95 07/23/17 07:54 07/23/17 08:38 07/23/17 07:54 07/23/17 08:38 07/23/17 07:54 - Medications Medications: Current Medications Acetaminophen (Tylenol 325mg Tab) 650 mg PO Q4 PRN PRN Reason: Pain, Mild (1-3) Last Admin: 07/15/17 20:52 Dose: 650 mg Atorvastatin Calcium (Lipitor) 40 mg PO DAILY [facility] Last Admin: 07/23/17 08:37 Dose: 40 mg Cilostazol (Pletal) 100 mg PO BID [facility] Last Admin: 07/23/17 08:39 Dose: 100 mg Clopidogrel Bisulfate (Plavix) 75 mg PO DAILY [facility] Last Admin: 07/23/17 08:38 Dose: 75 mg Docusate Sodium (Colace) 100 mg PO BID [facility] Last Admin: 07/23/17 08:34 Dose: 100 mg Enoxaparin Sodium (Lovenox) 40 mg SC DAILY [facility] PRN Reason: Protocol Last Admin: 07/21/17 11:07 Dose: 40 mg Glipizide (Glucotrol Xl) 2.5 mg PO BRK [facility] Last Admin: 07/23/17 08:35 Dose: 2.5 mg Sodium Chloride (Sodium Chloride 0.9%) 1,000 mls @ 100 mls/hr IV .Q10H [facility] Last Admin: 07/22/17 16:58 Dose: Not Given Vancomycin HCl 750 mg/ Sodium (Chloride) 250 mls @ 166.667 mls/hr IVPB Q12 [facility] PRN Reason: Protocol Ertapenem 1 gm/ Sodium (Chloride) 100 mls @ 100 mls/hr IVPB DAILY [facility] PRN Reason: Protocol Insulin Detemir (Levemir) 8 units SC HS [facility] Last Admin: 07/22/17 22:18 Dose: 8 u Insulin Human Lispro (Humalog) 0 units SC ACHS [facility] PRN Reason: Protocol Last Admin: 07/23/17 12:02 Dose: 5 units Lactulose (Enulose) 20 gm PO BID PRN PRN Reason: Constipation Last Admin: 07/18/17 12:16 Dose: 20 gm Metoprolol Tartrate (Lopressor) 100 mg PO DAILY [facility] Last Admin: 07/23/17 08:38 Dose: 100 mg Morphine Sulfate (Morphine) 6 mg IVP Q2 PRN PRN Reason: Pain, severe (8-10) Last Admin: 07/23/17 13:41 Dose: 6 mg Oxycodone HCl (Oxycontin Extended Release Tab) 20 mg PO Q12 [facility] Last Admin: 07/23/17 08:27 Dose: 20 mg Pantoprazole Sodium (Protonix Ec Tab) 40 mg PO DAILY [facility] Last Admin: 07/23/17 08:39 Dose: 40 mg Ramipril (Altace) 10 mg PO DAILY [facility] Last Admin: 07/23/17 08:32 Dose: 10 mg Sitagliptin Phosphate (Januvia) 100 mg PO DAILY [facility] Last Admin: 07/23/17 08:37 Dose: 100 mg - Labs Labs: 07/23/17 05:30 07/23/17 05:30 PT 13.8 Seconds (9.8-13.1) H 07/19/17 05:50 INR 1.2 (0.9-1.2) 07/19/17 05:50 APTT 28.6 Seconds (25.6-37.1) 07/19/17 05:50 - Constitutional Appears: Well, In Acute Distress - Head Exam Head Exam: ATRAUMATIC, NORMAL INSPECTION, NORMOCEPHALIC - Eye Exam Eye Exam: EOMI, Normal appearance, PERRL Pupil Exam: NORMAL ACCOMODATION, PERRL - ENT Exam ENT Exam: Mucous Membranes Moist, Normal Exam - Neck Exam Neck Exam: Full ROM, Normal Inspection. absent: Lymphadenopathy - Respiratory Exam Respiratory Exam: Clear to Ausculation Bilateral, NORMAL BREATHING PATTERN - Cardiovascular Exam Cardiovascular Exam: REGULAR RHYTHM, +S1, +S2, Murmur - GI/Abdominal Exam GI & Abdominal Exam: Soft, Normal Bowel Sounds. absent: Tenderness - Extremities Exam Extremities Exam: Full ROM, Normal Capillary Refill, Normal Inspection. absent : Joint Swelling, Pedal Edema - Back Exam Back Exam: NORMAL INSPECTION - Neurological Exam Neurological Exam: Alert, Awake, CN II-XII Intact, Oriented x3 - Psychiatric Exam Psychiatric exam: Normal Affect, Normal Mood - Skin Skin Exam: Dry, Intact, Normal Color, Warm Assessment and Plan (1) PVD (peripheral vascular disease) with claudication Status: Chronic (2) Gangrene of left foot Status: Acute (3) Status post transmetatarsal amputation of left foot Status: Acute (4) DM2 (diabetes mellitus, type 2) Status: Chronic (5) CAD (coronary artery disease) Status: Chronic
--- NOTE | 2017-07-23 16:43 | CP.PCM.PN ---
Subjective - Date & Time of Evaluation Date of Evaluation: 07/23/17 Time of Evaluation: 16:42 - Subjective Subjective: feeling fine plan for dc to rehab today Objective - Vital Signs/Intake and Output Vital Signs (last 24 hours): Temp Pulse Resp BP Pulse Ox 99.2 F 89 20 149/72 95 07/23/17 07:54 07/23/17 08:38 07/23/17 07:54 07/23/17 08:38 07/23/17 07:54 - Medications Medications: Current Medications Acetaminophen (Tylenol 325mg Tab) 650 mg PO Q4 PRN PRN Reason: Pain, Mild (1-3) Last Admin: 07/15/17 20:52 Dose: 650 mg Atorvastatin Calcium (Lipitor) 40 mg PO DAILY [facility] Last Admin: 07/23/17 08:37 Dose: 40 mg Cilostazol (Pletal) 100 mg PO BID [facility] Last Admin: 07/23/17 08:39 Dose: 100 mg Clopidogrel Bisulfate (Plavix) 75 mg PO DAILY [facility] Last Admin: 07/23/17 08:38 Dose: 75 mg Docusate Sodium (Colace) 100 mg PO BID [facility] Last Admin: 07/23/17 08:34 Dose: 100 mg Enoxaparin Sodium (Lovenox) 40 mg SC DAILY [facility] PRN Reason: Protocol Last Admin: 07/21/17 11:07 Dose: 40 mg Glipizide (Glucotrol Xl) 2.5 mg PO BRK [facility] Last Admin: 07/23/17 08:35 Dose: 2.5 mg Sodium Chloride (Sodium Chloride 0.9%) 1,000 mls @ 100 mls/hr IV .Q10H [facility] Last Admin: 07/22/17 16:58 Dose: Not Given Vancomycin HCl 750 mg/ Sodium (Chloride) 250 mls @ 166.667 mls/hr IVPB Q12 JEANNIE PRN Reason: Protocol Ertapenem 1 gm/ Sodium (Chloride) 100 mls @ 100 mls/hr IVPB DAILY [facility] PRN Reason: Protocol Insulin Detemir (Levemir) 8 units SC HS [facility] Last Admin: 07/22/17 22:18 Dose: 8 u Insulin Human Lispro (Humalog) 0 units SC ACHS [facility] PRN Reason: Protocol Last Admin: 07/23/17 12:02 Dose: 5 units Lactulose (Enulose) 20 gm PO BID PRN PRN Reason: Constipation Last Admin: 07/18/17 12:16 Dose: 20 gm Metoprolol Tartrate (Lopressor) 100 mg PO DAILY [facility] Last Admin: 07/23/17 08:38 Dose: 100 mg Morphine Sulfate (Morphine) 6 mg IVP Q2 PRN PRN Reason: Pain, severe (8-10) Last Admin: 07/23/17 13:41 Dose: 6 mg Oxycodone HCl (Oxycontin Extended Release Tab) 20 mg PO Q12 [facility] Last Admin: 07/23/17 08:27 Dose: 20 mg Pantoprazole Sodium (Protonix Ec Tab) 40 mg PO DAILY [facility] Last Admin: 07/23/17 08:39 Dose: 40 mg Ramipril (Altace) 10 mg PO DAILY [facility] Last Admin: 07/23/17 08:32 Dose: 10 mg Sitagliptin Phosphate (Januvia) 100 mg PO DAILY [facility] Last Admin: 07/23/17 08:37 Dose: 100 mg - Labs Labs: 07/23/17 05:30 07/23/17 05:30 PT 13.8 Seconds (9.8-13.1) H 07/19/17 05:50 INR 1.2 (0.9-1.2) 07/19/17 05:50 APTT 28.6 Seconds (25.6-37.1) 07/19/17 05:50 - Constitutional Appears: Well - Head Exam Head Exam: ATRAUMATIC, NORMAL INSPECTION, NORMOCEPHALIC - Eye Exam Eye Exam: EOMI, Normal appearance, PERRL Pupil Exam: NORMAL ACCOMODATION, PERRL - ENT Exam ENT Exam: Mucous Membranes Moist, Normal Exam - Neck Exam Neck Exam: Full ROM, Normal Inspection. absent: Lymphadenopathy - Respiratory Exam Respiratory Exam: Clear to Ausculation Bilateral, NORMAL BREATHING PATTERN - Cardiovascular Exam Cardiovascular Exam: REGULAR RHYTHM, +S1, +S2. absent: Murmur - GI/Abdominal Exam GI & Abdominal Exam: Soft, Normal Bowel Sounds. absent: Tenderness - Extremities Exam Extremities Exam: Full ROM, Normal Capillary Refill, Normal Inspection. absent : Joint Swelling, Pedal Edema - Back Exam Back Exam: NORMAL INSPECTION - Neurological Exam Neurological Exam: Alert, Awake, CN II-XII Intact, Oriented x3 - Psychiatric Exam Psychiatric exam: Normal Affect, Normal Mood - Skin Skin Exam: Dry, Intact, Normal Color, Warm Assessment and Plan (1) PVD (peripheral vascular disease) with claudication Assessment & Plan: cont asa, plavix, cilostazol outpt f/u next week plan for pedal access revascularization of [place] next week Status: Chronic (2) Gangrene of left foot Status: Acute (3) Status post transmetatarsal amputation of left foot Status: Acute (4) DM2 (diabetes mellitus, type 2) Status: Chronic (5) CAD (coronary artery disease) Status: Chronic
--- NOTE | 2017-07-23 19:05 | CP.PCM.PN ---
Subjective - Date & Time of Evaluation Date of Evaluation: 07/23/17 Time of Evaluation: 10:00 - Subjective Subjective: Patient seen and examined at bedside. She was feeling better today and family was ready to send her to [facility] today on IV antibiotics; however patient spiked a fever of 102 today and the discharge was postponed. She was recultured x 2 and antibiotics were changed to Invanz/Vanco. Patient denies any cp/sob/fever/chills /n/v/d. Objective - Vital Signs/Intake and Output Vital Signs (last 24 hours): Temp Pulse Resp BP Pulse Ox 101.2 F H 87 20 94/55 L 94 L 07/23/17 17:17 07/23/17 16:41 07/23/17 16:41 07/23/17 16:41 07/23/17 16:41 - Medications Medications: Current Medications Acetaminophen (Tylenol 325mg Tab) 650 mg PO Q4 PRN PRN Reason: Pain, Mild (1-3) Last Admin: 07/15/17 20:52 Dose: 650 mg Acetaminophen (Tylenol 325mg Tab) 650 mg PO Q6 PRN PRN Reason: Fever >100.4 F Last Admin: 07/23/17 17:17 Dose: 650 mg Atorvastatin Calcium (Lipitor) 40 mg PO DAILY [facility] Last Admin: 07/23/17 08:37 Dose: 40 mg Cilostazol (Pletal) 100 mg PO BID [facility] Last Admin: 07/23/17 08:39 Dose: 100 mg Clopidogrel Bisulfate (Plavix) 75 mg PO DAILY [facility] Last Admin: 07/23/17 08:38 Dose: 75 mg Docusate Sodium (Colace) 100 mg PO BID [facility] Last Admin: 07/23/17 17:13 Dose: 100 mg Enoxaparin Sodium (Lovenox) 40 mg SC DAILY [facility] PRN Reason: Protocol Last Admin: 07/21/17 11:07 Dose: 40 mg Glipizide (Glucotrol Xl) 2.5 mg PO BRK [facility] Last Admin: 07/23/17 08:35 Dose: 2.5 mg Sodium Chloride (Sodium Chloride 0.9%) 1,000 mls @ 100 mls/hr IV .Q10H [facility] Last Admin: 07/22/17 16:58 Dose: Not Given Vancomycin HCl 750 mg/ Sodium (Chloride) 250 mls @ 166.667 mls/hr IVPB Q12 [facility] PRN Reason: Protocol Ertapenem 1 gm/ Sodium (Chloride) 100 mls @ 100 mls/hr IVPB DAILY [facility] PRN Reason: Protocol Last Admin: 07/23/17 17:18 Dose: 100 mls/hr Insulin Detemir (Levemir) 8 units SC HS [facility] Last Admin: 07/22/17 22:18 Dose: 8 u Insulin Human Lispro (Humalog) 0 units SC ACHS [facility] PRN Reason: Protocol Last Admin: 07/23/17 17:15 Dose: 4 units Lactulose (Enulose) 20 gm PO BID PRN PRN Reason: Constipation Last Admin: 07/18/17 12:16 Dose: 20 gm Metoprolol Tartrate (Lopressor) 100 mg PO DAILY [facility] Last Admin: 07/23/17 08:38 Dose: 100 mg Morphine Sulfate (Morphine) 6 mg IVP Q2 PRN PRN Reason: Pain, severe (8-10) Last Admin: 07/23/17 13:41 Dose: 6 mg Oxycodone HCl (Oxycontin Extended Release Tab) 20 mg PO Q12 [facility] Last Admin: 07/23/17 08:27 Dose: 20 mg Pantoprazole Sodium (Protonix Ec Tab) 40 mg PO DAILY [facility] Last Admin: 07/23/17 08:39 Dose: 40 mg Ramipril (Altace) 10 mg PO DAILY [facility] Last Admin: 07/23/17 08:32 Dose: 10 mg Sitagliptin Phosphate (Januvia) 100 mg PO DAILY [facility] Last Admin: 07/23/17 08:37 Dose: 100 mg - Labs Labs: 07/23/17 05:30 07/23/17 05:30 PT 13.8 Seconds (9.8-13.1) H 07/19/17 05:50 INR 1.2 (0.9-1.2) 07/19/17 05:50 APTT 28.6 Seconds (25.6-37.1) 07/19/17 05:50 - Additional Findings Additional findings: - Head Exam Head Exam: ATRAUMATIC, NORMOCEPHALIC - Eye Exam Eye Exam: EOMI, Normal appearance, PERRL Pupil Exam: NORMAL ACCOMODATION, PERRL - ENT Exam ENT Exam: Mucous Membranes Moist - Neck Exam Neck exam: Full Rom, Normal Inspection - Respiratory Exam Respiratory Exam: NORMAL BREATHING PATTERN. absent: Rales, Rhonchi, Wheezes, Respiratory Distress, Stridor - Cardiovascular Exam Cardiovascular Exam: REGULAR RHYTHM, +S1, +S2 - GI/Abdominal Exam GI & Abdominal Exam: Normal Bowel Sounds - Extremities Exam Additional comments: No calf tenderness with palpation bilaterally Dressing c/d/I without strikethrough Wound VAC is on and continuous at 125 mmHg About 70 cc of sangious drainage noted in canister Assessment and Plan - Assessment and Plan (Free Text) Plan: 62 y.o female with PMH of DM2, HTN and PVD s/p Left TMA was admitted left foot abscess. Pt underwent left foot TMA revision, incision and drainage and debridement, including nonviable soft tissue and bone, of non-healing TMA with abscess on 07/15. She was started on IV antibiotics. Pt underwent left lower extremity revascularization at [facility] with Dr. Strange on 07/20/17. Or yesterday for left revisional TMA. Now spiking fevers on abx Plan: 1. Infected left foot , hx of TNA s/p Revision TMA and Incision and Drainage and debridement -Podiatry following pt -ID consulted, Dr. Sol- recommended - Cefepime 1gm IV q 8h and Vanco 1gm IV q 12h discontinued, started Invanz 1 gram IVPB daily and Vanco 750 mg IVPB q 12 hours - Recultured blood cx x 2 -leukocytosis WBC=23.6 on admission - ->13.4 -> 15.2 -Pain mgt 2. Left Foot Osteomyelitis - OR yesterday by podiatry - Pt would need uat tester IV abx - PICC line placed - c/w abx 3. PVD Status: Chronic -Doppler US Arterial: poor circulation distal to sup femoral artery (07/15/17) -cardiology consulted- Dr Strange -2 days s/p AIR TECHNICIAN/stenting of left popliteal 95% stenosis and AIR TECHNICIAN/atherectomy of left VALERIA 100% and AIR TECHNICIAN/stenting with stent x 2 -Continue Plavix. Start Pletal and Atorvastatin. Restart Aspirin 4. Diabetes Mellitus, type 2 - started low dose Levemir - d/c Metformin -start low dose Glucotrol, cont Januvia -accucheck ACHS with low Lispro coverage. 5. HLD -Start Atorvastatin 6. Hypertension -BP stable -continue Metoprolol and Ramipril 7. Hypokalemia -Potassium: 3.3 today -given [id number] x 2 doses - Magnesium 1.9 on 07/20 8. Low CO2 ? etiology - lactic acid normal - d/c Metformin -given Bicarb tabs 9. Anemia, chronic - today's H/H 8.9/27.7 - 7.6/25.1 on 07/19/17 - transfused 2 units PRBC - given IV Venofer and B12 shot - post transfusion H/H: 9.5/29.4 10. CAD -cardiology on board 11. DVT prophylaxis Resume Lovenox
[2017-07-23] MEDS ORDERED: Morphine 4 MG/ML VIAL IVP PRN (21:15)
[2017-07-23] MEDS: Insulin Detemir 100 Units/ml Inj SC SCH (23:56)
[2017-07-23] MEDS: Enoxaparin 40 mg Syringe SC SCH (23:57)
[2017-07-24 06:38] LABS: HEMOGLOBIN 7.9 g/dL (12.0-16.0); MEAN CELL VOLUME 80.4 fl (81.0-99.0); MEAN CORPUSCULAR HEMOGLOBIN 25.3 pg (27.0-31.0); MEAN CORPUSCULAR HGB CONC 31.5 g/dL (33.0-37.0); RBC 3.14 Mil/uL (3.80-5.20); RED CELL DISTRIBUTION WIDTH 18.1 % (11.5-14.5); WHITE BLOOD COUNT 12.4 K/uL (4.8-10.8)
[2017-07-24 06:50] LABS: BLOOD UREA NITROGEN 12 mg/dl (7-17); CALCIUM 8.3 mg/dL (8.4-10.2); GFR AFRICAN-AMERICAN > 60; GFR NON-AFRICAN AMERICAN > 60
[2017-07-24] MEDS ORDERED: Potassium Chloride 20 mEq ER Tab PO ONE (07:22)
--- NOTE | 2017-07-24 08:00 | CP.PCM.PN ---
Subjective - Date & Time of Evaluation Date of Evaluation: 07/24/17 Time of Evaluation: 08:00 - Subjective Subjective: Progress note - Dr. Looney 62 year old female seen at bedside for nonhealing, infected TMA site of left foot. Patient states that her pain is well controlled today. Patient is 2 days s /p TMA site debridement today. Patient is resting comfortably in bed and is AAOx3 and in NAD. Denies overnight N/V/F/C/CP/SOB/posterior calf pain when squeezed. Patient denies any further pedal complaints at this time. Objective - Vital Signs/Intake and Output Vital Signs (last 24 hours): Temp Pulse Resp BP Pulse Ox 97.9 F 84 18 119/66 95 07/23/17 23:58 07/23/17 23:58 07/23/17 23:58 07/23/17 23:58 07/23/17 23:58 - Medications Medications: Current Medications Acetaminophen (Tylenol 325mg Tab) 650 mg PO Q4 PRN PRN Reason: Pain, Mild (1-3) Last Admin: 07/15/17 20:52 Dose: 650 mg Acetaminophen (Tylenol 325mg Tab) 650 mg PO Q6 PRN PRN Reason: Fever >100.4 F Last Admin: 07/23/17 17:17 Dose: 650 mg Aspirin (Aspirin Chewable) 81 mg PO DAILY [facility] Atorvastatin Calcium (Lipitor) 40 mg PO DAILY [facility] Last Admin: 07/23/17 08:37 Dose: 40 mg Cilostazol (Pletal) 100 mg PO BID [facility] Last Admin: 07/23/17 08:39 Dose: 100 mg Clopidogrel Bisulfate (Plavix) 75 mg PO DAILY [facility] Last Admin: 07/23/17 08:38 Dose: 75 mg Docusate Sodium (Colace) 100 mg PO BID [facility] Last Admin: 07/23/17 17:13 Dose: 100 mg Enoxaparin Sodium (Lovenox) 40 mg SC DAILY [facility] PRN Reason: Protocol Last Admin: 07/23/17 23:57 Dose: 40 mg Glipizide (Glucotrol Xl) 2.5 mg PO BRK [facility] Last Admin: 07/23/17 08:35 Dose: 2.5 mg Sodium Chloride (Sodium Chloride 0.9%) 1,000 mls @ 100 mls/hr IV .Q10H [facility] Last Admin: 07/22/17 16:58 Dose: Not Given Vancomycin HCl 750 mg/ Sodium (Chloride) 250 mls @ 166.667 mls/hr IVPB Q12 [facility] PRN Reason: Protocol Last Admin: 07/23/17 20:55 Dose: 166.667 mls/hr Ertapenem 1 gm/ Sodium (Chloride) 100 mls @ 100 mls/hr IVPB DAILY [facility] PRN Reason: Protocol Last Admin: 07/23/17 17:18 Dose: 100 mls/hr Insulin Detemir (Levemir) 8 units SC HS [facility] Last Admin: 07/23/17 23:56 Dose: 8 u Insulin Human Lispro (Humalog) 0 units SC ACHS [facility] PRN Reason: Protocol Last Admin: 07/23/17 23:54 Dose: Not Given Lactulose (Enulose) 20 gm PO BID PRN PRN Reason: Constipation Last Admin: 07/18/17 12:16 Dose: 20 gm Metoprolol Tartrate (Lopressor) 100 mg PO DAILY [facility] Last Admin: 07/23/17 08:38 Dose: 100 mg Morphine Sulfate (Morphine) 6 mg IVP Q2 PRN PRN Reason: Pain, severe (8-10) Last Admin: 07/24/17 05:43 Dose: 6 mg Oxycodone HCl (Oxycontin Extended Release Tab) 20 mg PO Q12 [facility] Last Admin: 07/23/17 20:54 Dose: 20 mg Pantoprazole Sodium (Protonix Ec Tab) 40 mg PO DAILY [facility] Last Admin: 07/23/17 08:39 Dose: 40 mg Ramipril (Altace) 10 mg PO DAILY [facility] Last Admin: 07/23/17 08:32 Dose: 10 mg Sitagliptin Phosphate (Januvia) 100 mg PO DAILY [facility] Last Admin: 07/23/17 08:37 Dose: 100 mg - Labs Labs: 07/24/17 06:05 07/24/17 06:05 PT 13.8 Seconds (9.8-13.1) H 07/19/17 05:50 INR 1.2 (0.9-1.2) 07/19/17 05:50 APTT 28.6 Seconds (25.6-37.1) 07/19/17 05:50 - Constitutional Appears: Well, Non-toxic, No Acute Distress - Extremities Exam Additional comments: LLE focused exam: Dressing C/D/I to LLE with no strikethrough noted VASC: DP/PT pulses faintly palpable to LLE. Skin temperature warm to warm from proximal to distal. No pitting or non-pitting edema noted surrounding surgical site DERM: Wound expanding from the medial aspect of the foot/distal ankle circumferentially around the distal lateral aspect of the foot, on the medial aspect, medial cunieform is exposed and laterally, proximal shaft of the metatarsal exposed, diffuse patches of granular base soft tissue noted on the medial aspect of the foot as well as distal plantar and dorsal aspect of the TMA , wound edges are non-necrotic, and minimally macerated, no active purulence or serous drainage noted, no malodor, no periwound erythema, no signs of active infection at this time. NEURO: Epicritic and protective sensation grossly intact B/L ORTHO: Open TMA site noted to left foot with distal aspect of remaining metatarsal bases seen. Moderate tenderness to palpation of entirety of left foot - Neurological Exam Neurological Exam: Alert, Awake, Oriented x3 - Psychiatric Exam Psychiatric exam: Normal Affect, Normal Mood Assessment and Plan - Assessment and Plan (Free Text) Assessment: 62 year old female seen 2 days post-operatively at bedside for revisional TMA of left foot Plan: Patient seen and evaluated at bedside Plan discussed with attending Dr. Looney Afebrile, WBC 12.4 Tib-fib x-rays ordered - no soft tissue emphysema noted Continue IV abx per ID - Ertapenem and Vancomycin Continue medical management and pain management per Hospitalist Wound vac changed and set to function at 125 mmHg - will progress to changing the wound vac only twice a week due to severe pain Patient to have possible second revascularization procedure done with Dr. Strange Podiatry will continue to follow while patient in house
--- NOTE | 2017-07-24 08:26 | OP ---
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 POSTOPERATIVE DIAGNOSIS: Left foot nonhealing transmetatarsal amputation with abscess. NAME OF PROCEDURE: 1. Revision of transmetatarsal amputation, left foot. 2. Incision and drainage of abscess, left foot. 3. Wound vacuum assisted closure application. SURGEON: Raven Looney DPM ASSISTANTS: Chikis Ritchie DPM, PGY-1 and Lesly Hubbard DPM, PGY-1. ANESTHESIOLOGIST: Fili Flores MD TYPE OF ANESTHESIA: General LMA. INDICATIONS: The patient is a 62-year-old female with the above diagnosis. The patient has exhausted conservative treatment at this time and now requests surgical intervention. The patient signed the consent after careful explanation of the risks, benefits, alternatives, and complications to procedure and wishes to proceed. No guarantees were given nor implied. PREPARATION: The patient was brought into the operating room and placed on the operating room table in a supine position. Time-out was performed for identification of the correct patient and procedure. After the induction of general anesthesia, the left lower extremity was then prepped and draped in normal sterile manner and the procedure began. No tourniquet was utilized during the procedure. DESCRIPTION OF PROCEDURE: Attention was then directed to the medial and distal aspect of the left foot where necrotic skin changes were noted along the medial arch and distal stump. Medial arch incision extending proximally into the midfoot along the course of the posterior tibial tendon. Necrotic skin changes were also noted at the distal stump. The necrotic skin changes at the medial arch were noted to be fluctuant. Prolene sutures were noted to the medial and lateral portions of the TMA site, which were seen to be intact. The Prolene sutures were removed. Next, utilizing a 15 blade, the necrotic tissue was excisionally debrided from the left foot. Once the necrotic tissue from the medial arch was removed, purulence was able to be expressed from the medial ankle tracking proximally into the medial aspect of the left leg following the course of the posterior tibial tendon. Approximately 15 mL of purulence was expressed from the patient's leg. A deep wound culture was obtained and passed off the operative field to be sent to pathology. Pressure was placed on the plantar aspect of the foot and approximately 5 mL of purulence was able to be expressed. Next, the necrotic and nonviable soft tissue was excised from the distal transmetatarsal amputation site utilizing a 15 blade. All necrotic and nonviable soft tissue was excised from the plantar medial arch as well. Next, all periosteal tissue was freed from the distal aspect of the first through fifth metatarsals with a 15 blade. Utilizing a 15 blade, the first metatarsal was disarticulated at the first metatarsophalangeal joint. Next, a sagittal saw was used to resect the distal most aspects of the second through fifth metatarsals. All nonviable bone and tissue were passed off the operative field to be sent to pathology. A pulse lavage utilizing 3 L of bacitracin-infused normal saline was used to irrigate the left foot. At this time, a deep clean wound culture was obtained and sent for pathology. A wound VAC was then applied to the left foot using WhiteFoam and then the left foot was dressed with ABDs and Kerlix. POSTOPERATIVE CONDITION: The patient tolerated the anesthesia and procedure well and was escorted to the recovery room with vital signs stable and neurovascular status intact to the left lower extremity. The patient is to remain nonweightbearing to the left lower extremity with a rolling walker. The wound VAC is to remain intact for 2 days and will be changed this 07/24/2017, or sooner if skin edges appear to be necrotic. Podiatry will continue to follow the patient while in house. Chikis Ritchie DPM Raven Looney DPM
[2017-07-24] MEDS: GlipiZIDE 2.5 mg SR Tab PO SCH (08:46)
[2017-07-24] MEDS: Insulin Lispro (humaLOG) 100 Units/ml Inj SC SCH ×4 (08:47→21:53)
[2017-07-24] MEDS: Enoxaparin 40 mg Syringe SC SCH (08:51)
[2017-07-24] MEDS: oxyCODONE 20 mg ER Tab (oxyCONTIN) PO SCH ×2 (08:52→21:24)
[2017-07-24] MEDS: Cilostazol 100 mg Tab UD PO SCH ×2 (08:54→16:47)
[2017-07-24] MEDS: Pantoprazole 40 mg EC Tab PO SCH (08:56)
--- NOTE | 2017-07-24 09:41 | CP.PCM.PN ---
<Rafael Trejo - Last Filed: 07/24/17 14:18> Subjective - Date & Time of Evaluation Date of Evaluation: 07/24/17 Time of Evaluation: 09:44 - Subjective Subjective: Hospitalist Progress Note Dr. Bertrand 62 y.o female with PMH of DM2, HTN, CAD, PVD seen and evaluated at bedside for non-healing infected left TMA. She is seen resting comfortably in bed, in NAD, and AA0x3. Her was at bedside during visitation. Patient denies fever or chills. Denies n/v/sob/cp/calf tenderness or pain. No acute overnight events. Patient denies dizziness. Reports same pain to the left lower extremity. Objective - Vital Signs/Intake and Output Vital Signs (last 24 hours): Temp Pulse Resp BP Pulse Ox 98.5 F 90 20 150/72 97 07/24/17 08:09 07/24/17 08:50 07/24/17 08:09 07/24/17 08:50 07/24/17 08:09 - Medications Medications: Current Medications Acetaminophen (Tylenol 325mg Tab) 650 mg PO Q4 PRN PRN Reason: Pain, Mild (1-3) Last Admin: 07/15/17 20:52 Dose: 650 mg Acetaminophen (Tylenol 325mg Tab) 650 mg PO Q6 PRN PRN Reason: Fever >100.4 F Last Admin: 07/23/17 17:17 Dose: 650 mg Aspirin (Aspirin Chewable) 81 mg PO DAILY [facility] Last Admin: 07/24/17 08:46 Dose: 81 mg Atorvastatin Calcium (Lipitor) 40 mg PO DAILY [facility] Last Admin: 07/24/17 08:49 Dose: 40 mg Cilostazol (Pletal) 100 mg PO BID [facility] Last Admin: 07/24/17 08:54 Dose: 100 mg Clopidogrel Bisulfate (Plavix) 75 mg PO DAILY [facility] Last Admin: 07/24/17 08:53 Dose: 75 mg Docusate Sodium (Colace) 100 mg PO BID [facility] Last Admin: 07/24/17 08:46 Dose: 100 mg Enoxaparin Sodium (Lovenox) 40 mg SC DAILY [facility] PRN Reason: Protocol Last Admin: 07/24/17 08:51 Dose: 40 mg Glipizide (Glucotrol Xl) 2.5 mg PO BRK [facility] Last Admin: 07/24/17 08:46 Dose: 2.5 mg Sodium Chloride (Sodium Chloride 0.9%) 1,000 mls @ 100 mls/hr IV .Q10H [facility] Last Admin: 07/22/17 16:58 Dose: Not Given Vancomycin HCl 750 mg/ Sodium (Chloride) 250 mls @ 166.667 mls/hr IVPB Q12 [facility] PRN Reason: Protocol Last Admin: 07/24/17 08:56 Dose: 166.667 mls/hr Ertapenem 1 gm/ Sodium (Chloride) 100 mls @ 100 mls/hr IVPB DAILY [facility] PRN Reason: Protocol Last Admin: 07/23/17 17:18 Dose: 100 mls/hr Insulin Detemir (Levemir) 8 units SC HS [facility] Last Admin: 07/23/17 23:56 Dose: 8 u Insulin Human Lispro (Humalog) 0 units SC ACHS [facility] PRN Reason: Protocol Last Admin: 07/24/17 08:47 Dose: 3 units Lactulose (Enulose) 20 gm PO BID PRN PRN Reason: Constipation Last Admin: 07/18/17 12:16 Dose: 20 gm Metoprolol Tartrate (Lopressor) 100 mg PO DAILY [facility] Last Admin: 07/24/17 08:50 Dose: 100 mg Morphine Sulfate (Morphine) 6 mg IVP Q2 PRN PRN Reason: Pain, severe (8-10) Last Admin: 07/24/17 05:43 Dose: 6 mg Oxycodone HCl (Oxycontin Extended Release Tab) 20 mg PO Q12 [facility] Last Admin: 07/24/17 08:52 Dose: 20 mg Pantoprazole Sodium (Protonix Ec Tab) 40 mg PO DAILY [facility] Last Admin: 07/24/17 08:56 Dose: 40 mg Ramipril (Altace) 10 mg PO DAILY [facility] Last Admin: 07/24/17 08:45 Dose: 10 mg Sitagliptin Phosphate (Januvia) 100 mg PO DAILY [facility] Last Admin: 07/24/17 08:49 Dose: 100 mg - Labs Labs: 07/24/17 06:05 07/24/17 06:05 PT 13.8 Seconds (9.8-13.1) H 07/19/17 05:50 INR 1.2 (0.9-1.2) 07/19/17 05:50 APTT 28.6 Seconds (25.6-37.1) 07/19/17 05:50 - Constitutional Appears: Well, Non-toxic, No Acute Distress - Head Exam Head Exam: ATRAUMATIC, NORMOCEPHALIC - Eye Exam Eye Exam: EOMI, Normal appearance, PERRL Pupil Exam: NORMAL ACCOMODATION, PERRL - ENT Exam ENT Exam: Mucous Membranes Moist, Normal Exam - Neck Exam Neck Exam: Full ROM, Normal Inspection - Respiratory Exam Respiratory Exam: Clear to Ausculation Bilateral, NORMAL BREATHING PATTERN. absent: Rhonchi, Wheezes, Respiratory Distress, Stridor - Cardiovascular Exam Cardiovascular Exam: REGULAR RHYTHM, +S1, +S2 - GI/Abdominal Exam GI & Abdominal Exam: Soft, Normal Bowel Sounds. absent: Tenderness - Rectal Exam Rectal Exam: Deferred - Extremities Exam Extremities Exam: absent: Calf Tenderness Additional comments: Dressing c/d/I without strikethrough Wound VAC is on and continuous at 125 mmHg About 75 cc of sangious drainage noted in canister No calf tenderness with palpation bilaterally Assessment and Plan (1) Osteomyelitis of left foot Status: Acute (2) Gangrene of left foot Status: Acute (3) Status post transmetatarsal amputation of left foot Status: Acute (4) PVD (peripheral vascular disease) with claudication Status: Chronic (5) DM2 (diabetes mellitus, type 2) Status: Chronic (6) HLD (hyperlipidemia) Status: Chronic (7) HTN (hypertension) Status: Chronic (8) Hypokalemia Status: Acute (9) Chronic anemia Status: Acute (10) CAD (coronary artery disease) Status: Chronic - Assessment and Plan (Free Text) Assessment: 62 y.o female with PMH of DM2, HTN and PVD s/p left TMA was admitted for left foot abscess. Pt underwent left foot TMA revision, incision and drainage and debridement, including nonviable soft tissue and bone, of non-healing TMA with abscess on 07/15. She was started on IV antibiotics. Pt underwent left lower extremity revascularization at [facility] [place] with Dr. Strange on 07/20/17. Additional OR for revisional TMA. Spiked fever yesterday on abx Plan: 1. Infected left foot , hx of TMA -s/p Revision TMA and Incision and Drainage and debridement w/ wound VAC therapy -podiatry following pt -ID consulted, Dr. Sol- recommended - Cefepime 1gm IV q 8h and Vanco 1gm IV q 12h -discontinued Cefepime , started Invanz 1 gram IVPB daily and Vanco 750 mg IVPB q 12 hours -recultured blood cx x 2 -leukocytosis WBC=23.6 on admission -> 13.4 -> 15.2 -WBC 12.4 today -repeat BMP, CBC in AM -pain mgt 2. Fever most likely secondary to acute left foot infection -receiving abx, cefepime and invanz -recultured blood cx x 2 -will monitor 3. 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 PVD -doppler US Arterial: poor circulation distal to sup femoral artery (07/15/17) -cardiology consulted- Dr Strange -2 days s/p CHEMICAL RECLAMATION EQUIPMENT OPERATOR/stenting of left popliteal 95% stenosis and CHEMICAL RECLAMATION EQUIPMENT OPERATOR/atherectomy of left VALERIA 100% and CHEMICAL RECLAMATION EQUIPMENT OPERATOR/stenting with stent x 2 -continue Plavix, Pletal, Atorvastatin -continue aspirin 5. Diabetes Mellitus, type 2 -started low dose Levemir -d/c Metformin -start low dose Glucotrol, cont Januvia -accucheck ACHS with low Lispro coverage. 6. HLD -c/w Atorvastatin 7. Hypertension -BP stable -continue Metoprolol and Ramipril 8. Hypokalemia -potassium: 3.3 today -given KCl PO 20mEq - Magnesium 1.9 on 07/20 9. Low CO2 ? etiology - lactic acid normal - d/c Metformin -given Bicarb tabs 10. Anemia, chronic -H/H 7.9/25.2 -started ferrous 325 mg PO BID -repeat BMP, CBC in AM - 7.6/25.1 on 07/19/17 - transfused 2 units PRBC - given IV Venofer and B12 shot - post transfusion H/H: 9.5/29.4 11. CAD -cardiology on board 12. DVT prophylaxis - Lovenox <Joseph Bertrand - Last Filed: 07/24/17 14:26> Objective - Vital Signs/Intake and Output Vital Signs (last 24 hours): Temp Pulse Resp BP Pulse Ox 98.5 F 90 20 150/72 97 07/24/17 08:09 07/24/17 08:50 07/24/17 08:09 07/24/17 08:50 07/24/17 08:09 - Medications Medications: Current Medications Acetaminophen (Tylenol 325mg Tab) 650 mg PO Q4 PRN PRN Reason: Pain, Mild (1-3) Last Admin: 07/15/17 20:52 Dose: 650 mg Acetaminophen (Tylenol 325mg Tab) 650 mg PO Q6 PRN PRN Reason: Fever >100.4 F Last Admin: 07/23/17 17:17 Dose: 650 mg Aspirin (Aspirin Chewable) 81 mg PO DAILY [facility] Last Admin: 07/24/17 08:46 Dose: 81 mg Atorvastatin Calcium (Lipitor) 40 mg PO DAILY [facility] Last Admin: 07/24/17 08:49 Dose: 40 mg Cilostazol (Pletal) 100 mg PO BID [facility] Last Admin: 07/24/17 08:54 Dose: 100 mg Clopidogrel Bisulfate (Plavix) 75 mg PO DAILY [facility] Last Admin: 07/24/17 08:53 Dose: 75 mg Docusate Sodium (Colace) 100 mg PO BID [facility] Last Admin: 07/24/17 08:46 Dose: 100 mg Enoxaparin Sodium (Lovenox) 40 mg SC DAILY [facility] PRN Reason: Protocol Last Admin: 07/24/17 08:51 Dose: 40 mg Ferrous Sulfate (Feosol) 325 mg PO BID [facility] Glipizide (Glucotrol Xl) 2.5 mg PO BRK [facility] Last Admin: 07/24/17 08:46 Dose: 2.5 mg Sodium Chloride (Sodium Chloride 0.9%) 1,000 mls @ 100 mls/hr IV .Q10H [facility] Last Admin: 07/22/17 16:58 Dose: Not Given Vancomycin HCl 750 mg/ Sodium (Chloride) 250 mls @ 166.667 mls/hr IVPB Q12 [facility] PRN Reason: Protocol Last Admin: 07/24/17 08:56 Dose: 166.667 mls/hr Ertapenem 1 gm/ Sodium (Chloride) 100 mls @ 100 mls/hr IVPB DAILY [facility] PRN Reason: Protocol Last Admin: 07/24/17 10:26 Dose: 100 mls/hr Insulin Detemir (Levemir) 8 units SC [facility] Last Admin: 07/23/17 23:56 Dose: 8 u Insulin Human Lispro (Humalog) 0 units SC ACHS [facility] PRN Reason: Protocol Last Admin: 07/24/17 08:47 Dose: 3 units Lactulose (Enulose) 20 gm PO BID PRN PRN Reason: Constipation Last Admin: 07/18/17 12:16 Dose: 20 gm Metoprolol Tartrate (Lopressor) 100 mg PO DAILY [facility] Last Admin: 07/24/17 08:50 Dose: 100 mg Morphine Sulfate (Morphine) 6 mg IVP Q2 PRN PRN Reason: Pain, severe (8-10) Last Admin: 07/24/17 05:43 Dose: 6 mg Oxycodone HCl (Oxycontin Extended Release Tab) 20 mg PO Q12 [facility] Last Admin: 07/24/17 08:52 Dose: 20 mg Pantoprazole Sodium (Protonix Ec Tab) 40 mg PO DAILY [facility] Last Admin: 07/24/17 08:56 Dose: 40 mg Ramipril (Altace) 10 mg PO DAILY [facility] Last Admin: 07/24/17 08:45 Dose: 10 mg Sitagliptin Phosphate (Januvia) 100 mg PO DAILY [facility] Last Admin: 07/24/17 08:49 Dose: 100 mg - Labs Labs: 07/24/17 06:05 07/24/17 06:05 PT 13.8 Seconds (9.8-13.1) H 07/19/17 05:50 INR 1.2 (0.9-1.2) 07/19/17 05:50 APTT 28.6 Seconds (25.6-37.1) 07/19/17 05:50 Assessment and Plan - Assessment and Plan (Free Text) Plan: ATTENDING ATTESTATION: Patient was seen and examined. I discussed the case with the resident and agree with the findings and plan as documented in the residents note.
[2017-07-24] MEDS ORDERED: Morphine 4 MG/ML VIAL IVP ONE (10:15)
--- NOTE | 2017-07-24 11:15 | CP.PCM.PN ---
Subjective - Date & Time of Evaluation Date of Evaluation: 07/24/17 Time of Evaluation: 16:30 - Subjective Subjective: ID Note- Pt. developed fever yesterday and hence her d/c to [facility] was held. afebrile today so far. no other vents overnight. Objective - Vital Signs/Intake and Output Vital Signs (last 24 hours): Temp Pulse Resp BP Pulse Ox 98.5 F 90 20 150/72 97 07/24/17 08:09 07/24/17 08:50 07/24/17 08:09 07/24/17 08:50 07/24/17 08:09 - Medications Medications: Current Medications Acetaminophen (Tylenol 325mg Tab) 650 mg PO Q4 PRN PRN Reason: Pain, Mild (1-3) Last Admin: 07/15/17 20:52 Dose: 650 mg Acetaminophen (Tylenol 325mg Tab) 650 mg PO Q6 PRN PRN Reason: Fever >100.4 F Last Admin: 07/23/17 17:17 Dose: 650 mg Aspirin (Aspirin Chewable) 81 mg PO DAILY [facility] Last Admin: 07/24/17 08:46 Dose: 81 mg Atorvastatin Calcium (Lipitor) 40 mg PO DAILY [facility] Last Admin: 07/24/17 08:49 Dose: 40 mg Cilostazol (Pletal) 100 mg PO BID [facility] Last Admin: 07/24/17 08:54 Dose: 100 mg Clopidogrel Bisulfate (Plavix) 75 mg PO DAILY [facility] Last Admin: 07/24/17 08:53 Dose: 75 mg Docusate Sodium (Colace) 100 mg PO BID [facility] Last Admin: 07/24/17 08:46 Dose: 100 mg Enoxaparin Sodium (Lovenox) 40 mg SC DAILY [facility] PRN Reason: Protocol Last Admin: 07/24/17 08:51 Dose: 40 mg Glipizide (Glucotrol Xl) 2.5 mg PO BRK [facility] Last Admin: 07/24/17 08:46 Dose: 2.5 mg Sodium Chloride (Sodium Chloride 0.9%) 1,000 mls @ 100 mls/hr IV .Q10H [facility] Last Admin: 07/22/17 16:58 Dose: Not Given Vancomycin HCl 750 mg/ Sodium (Chloride) 250 mls @ 166.667 mls/hr IVPB Q12 [facility] PRN Reason: Protocol Last Admin: 07/24/17 08:56 Dose: 166.667 mls/hr Ertapenem 1 gm/ Sodium (Chloride) 100 mls @ 100 mls/hr IVPB DAILY [facility] PRN Reason: Protocol Last Admin: 07/24/17 10:26 Dose: 100 mls/hr Insulin Detemir (Levemir) 8 units SC HS [facility] Last Admin: 07/23/17 23:56 Dose: 8 u Insulin Human Lispro (Humalog) 0 units SC ACHS [facility] PRN Reason: Protocol Last Admin: 07/24/17 08:47 Dose: 3 units Lactulose (Enulose) 20 gm PO BID PRN PRN Reason: Constipation Last Admin: 07/18/17 12:16 Dose: 20 gm Metoprolol Tartrate (Lopressor) 100 mg PO DAILY [facility] Last Admin: 07/24/17 08:50 Dose: 100 mg Morphine Sulfate (Morphine) 6 mg IVP Q2 PRN PRN Reason: Pain, severe (8-10) Last Admin: 07/24/17 05:43 Dose: 6 mg Oxycodone HCl (Oxycontin Extended Release Tab) 20 mg PO Q12 [facility] Last Admin: 07/24/17 08:52 Dose: 20 mg Pantoprazole Sodium (Protonix Ec Tab) 40 mg PO DAILY [facility] Last Admin: 07/24/17 08:56 Dose: 40 mg Ramipril (Altace) 10 mg PO DAILY [facility] Last Admin: 07/24/17 08:45 Dose: 10 mg Sitagliptin Phosphate (Januvia) 100 mg PO DAILY [facility] Last Admin: 07/24/17 08:49 Dose: 100 mg - Labs Labs: - Additional Findings Additional findings: - Constitutional Appears: No Acute Distress - Head Exam Head Exam: ATRAUMATIC - Eye Exam Eye Exam: EOMI - ENT Exam ENT Exam: Normal Oropharynx - Neck Exam Neck exam: Positive for: Full Rom - Respiratory Exam Respiratory Exam: Clear to Auscultation Bilateral, NORMAL BREATHING PATTERN - Cardiovascular Exam Cardiovascular Exam: RRR, +S1, +S2 - GI/Abdominal Exam GI & Abdominal Exam: Normal Bowel Sounds, Soft Additional comments: NT, ND - Extremities Exam Additional comments: Left foot TMA site now with wound vac in place draining sanguinous fluid - Neurological Exam Neurological exam: Alert, Oriented x 3 Laboratory Results - last 72 hr 07/21/17 07/21/17 07/22/17 16:24 22:37 05:55 WBC 14.1 H RBC 3.43 L Hgb 8.9 L Hct 27.7 L MCV 80.9 L MCH 26.1 L MCHC 32.2 L RDW 17.9 H Plt Count 441 H Sodium Potassium Chloride Carbon Dioxide Anion Gap BUN Creatinine Est GFR ( Amer) Est GFR (Non-Af Amer) POC Glucose (mg/dL) 330 H 296 H Random Glucose Calcium 07/22/17 07/22/17 07/22/17 05:55 06:10 10:47 WBC RBC Hgb Hct MCV MCH MCHC RDW Plt Count Sodium 136 Potassium 3.3 L Chloride 94 L Carbon Dioxide 33 H Anion Gap 12 BUN 8 Creatinine 0.5 L Est GFR ( Amer) > 60 Est GFR (Non-Af Amer) > 60 POC Glucose (mg/dL) 296 H 267 H Random Glucose 310 H Calcium 8.7 07/22/17 07/22/17 07/22/17 15:15 17:35 21:14 WBC 13.4 H RBC 3.56 L Hgb 8.9 L Hct 29.3 L MCV 82.3 MCH 25.0 L MCHC 30.3 L RDW 18.6 H Plt Count 460 H Sodium Potassium Chloride Carbon Dioxide Anion Gap BUN Creatinine Est GFR ( Amer) Est GFR (Non-Af Amer) POC Glucose (mg/dL) 217 H 275 H Random Glucose Calcium 07/23/17 07/23/17 07/23/17 05:30 05:30 05:47 WBC 15.2 H RBC 3.30 L Hgb 8.5 L Hct 26.5 L MCV 80.3 L D MCH 25.9 L MCHC 32.3 L RDW 18.1 H Plt Count 453 H Sodium 133 Potassium 3.0 L Chloride 91 L Carbon Dioxide 30 Anion Gap 15 BUN 5 L Creatinine 0.4 L Est GFR ( Amer) > 60 Est GFR (Non-Af Amer) > 60 POC Glucose (mg/dL) 272 H Random Glucose 268 H Calcium 8.4 07/23/17 07/23/17 07/23/17 10:53 16:10 21:07 WBC RBC Hgb Hct MCV MCH MCHC RDW Plt Count Sodium Potassium Chloride Carbon Dioxide Anion Gap BUN Creatinine Est GFR ( Amer) Est GFR (Non-Af Amer) POC Glucose (mg/dL) 366 H 329 H 282 H Random Glucose Calcium 07/24/17 07/24/17 07/24/17 05:17 06:05 06:05 WBC 12.4 H RBC 3.14 L Hgb 7.9 L Hct 25.2 L MCV 80.4 L MCH 25.3 L MCHC 31.5 L RDW 18.1 H Plt Count 411 H Sodium 135 Potassium 3.3 L Chloride 94 L Carbon Dioxide 30 Anion Gap 14 BUN 12 Creatinine 0.6 L Est GFR ( Amer) > 60 Est GFR (Non-Af Amer) > 60 POC Glucose (mg/dL) 283 H Random Glucose 277 H Calcium 8.3 L 07/24/17 07/24/17 10:58 15:52 WBC RBC Hgb Hct MCV MCH MCHC RDW Plt Count Sodium Potassium Chloride Carbon Dioxide Anion Gap BUN Creatinine Est GFR ( Amer) Est GFR (Non-Af Amer) POC Glucose (mg/dL) 293 H 286 H Random Glucose Calcium Microbiology 07/21/17 07:43 Nose MRSA Culture (Admit) - Final MRSA NOT DETECTED 07/22/17 17:30 Foot - Left Gram Stain - Final 07/22/17 17:30 Foot - Left Wound Culture - Preliminary NO GROWTH AFTER 24 HOURS 07/22/17 17:30 Foot - Left Gram Stain - Final 07/22/17 17:30 Foot - Left Wound Culture - Preliminary NO GROWTH AFTER 24 HOURS 07/21/17 06:57 Nose MRSA Culture (Admit) - Final MRSA NOT DETECTED 07/17/17 19:03 Blood-Venous Blood Culture - Final NO GROWTH AFTER 5 DAYS 07/17/17 19:03 Blood-Venous Gram Stain - Final TEST NOT PERFORMED 07/17/17 19:03 Blood-Venous Blood Culture - Final NO GROWTH AFTER 5 DAYS 07/17/17 19:03 Blood-Venous Gram Stain - Final TEST NOT PERFORMED 07/15/17 09:11 Foot - Left Gram Stain - Final 07/15/17 09:11 Foot - Left Wound Culture - Final Enterococcus Faecalis 07/15/17 09:11 Foot - Left Gram Stain - Final 07/15/17 09:11 Foot - Left Wound Culture - Final Serratia Marcescens Assessment and Plan (1) Gangrene of left foot Status: Acute (2) DM2 (diabetes mellitus, type 2) Status: Chronic (3) PVD (peripheral vascular disease) Status: Acute (4) Status post transmetatarsal amputation of left foot Status: Acute - Assessment and Plan (Free Text) Assessment: A/P- 62 year old female with DM II, HTN, PVD with left great toe gangrene and Om s/p left foot TMA 06/09/2017 and wsa on IV antibiotics but now is admitted because of infection at the TMA site and is s/p I and D at the TMA site by podiatry drainage of pus. s/p second left TMA revision 2 days ago. new onset fever yesterday afternoon. leukocytosis trending down. this admission MRI-OM of distal 4th and fifth metatarsal site next to amputation site as per report. wound cx from toe from last admission serratia and e.Fecalis. bone bx- acute OM ( last admission) wound cx from this admission- e.feclais and serratia ( same organisms as last admission). pt. also s/p re-vascularizationof the LLE by during this admission OR wound cx from 07/22/2017- negative so far 24 hours plan- would advise to wait until pt. is fever free 24 hours prior to d/c to [facility]. if patient is being d/c to [facility] advise total of 4-6 weeks of IV antibiotics for the OM. patient switched to ertapenem yesterday would advise to continue with IV vancomycin 750 mg q12 hours and advise to give ertapenem 1 gram IV daily for the serratia and if ertapenem can't be given in [facility] then advise to switch to meropenm 1 gram q12 . keep vanco trough <15. advise to check vanco trough once a week and keep it less than 15. pt. has already received 10 days of IV antibiotics during this admission, advise another 4 weeks of IV abx. advise to monitor wbc once a week as well as creatinine. pt. to f/u with podiatry as outpatient. Pt. also to be seen by me as outpatient. pt. to also f/u with her PMD as outpatient. also advised pt. if she develops any hearing difficulties while on the vanco to notify us. All above d/w patient and she verbalizes full understanding of all above. All above also d/w podiatry and hospitalist .
[2017-07-24] MEDS: Morphine 4 MG/ML VIAL IVP PRN (19:40)
[2017-07-24] MEDS: Insulin Detemir 100 Units/ml Inj SC SCH (22:45)
[2017-07-25] MEDS: Morphine 4 MG/ML VIAL IVP PRN ×3 (06:37→18:11)
[2017-07-25 07:23] LABS: BASO # 0.1 K/uL (0.0-0.2); BASO % 0.5 % (0.0-2.0); EOS # 0.2 K/uL (0.0-0.7); EOS % 2.1 % (0.0-4.0); HEMOGLOBIN 7.2 g/dL (12.0-16.0); LYMPH # 2.6 K/uL (1.0-4.3); LYMPH % 22.6 % (20.0-40.0); MEAN CELL VOLUME 80.2 fl (81.0-99.0); MEAN CORPUSCULAR HEMOGLOBIN 25.8 pg (27.0-31.0); MEAN CORPUSCULAR HGB CONC 32.2 g/dL (33.0-37.0); MEAN PLATELET VOLUME 8.4 fl (7.2-11.7); MONO # 1.4 K/uL (0.0-0.8); MONO % 12.4 % (0.0-10.0); NEUT # 7.2 K/uL (1.8-7.0); NEUT % 62.4 % (50.0-75.0); RBC 2.8 Mil/uL (3.80-5.20); WHITE BLOOD COUNT 11.6 K/uL (4.8-10.8)
[2017-07-25 07:39] LABS: BLOOD UREA NITROGEN 12 mg/dl (7-17); CALCIUM 8.3 mg/dL (8.4-10.2); GFR AFRICAN-AMERICAN > 60; GFR NON-AFRICAN AMERICAN > 60
[2017-07-25] MEDS: oxyCODONE 20 mg ER Tab (oxyCONTIN) PO SCH ×3 (08:50→21:55)
[2017-07-25] MEDS: Enoxaparin 40 mg Syringe SC SCH (08:51)
[2017-07-25] MEDS: Cilostazol 100 mg Tab UD PO SCH ×2 (08:52→17:27)
[2017-07-25] MEDS: GlipiZIDE 2.5 mg SR Tab PO SCH (08:52)
[2017-07-25] MEDS: Pantoprazole 40 mg EC Tab PO SCH (08:53)
[2017-07-25] MEDS: Insulin Lispro (humaLOG) 100 Units/ml Inj SC SCH ×4 (08:54→22:25)
--- NOTE | 2017-07-25 09:15 | CP.PCM.PN ---
Subjective - Date & Time of Evaluation Date of Evaluation: 07/25/17 Time of Evaluation: 12:10 - Subjective Subjective: Progress note - Dr. Looney 62 year old female seen at bedside for nonhealing, infected TMA site of left foot. Patient is seen with her son at bedside today. Patient states that her pain is well controlled today. Patient is 3 days s/p TMA site debridement today. Patient is resting comfortably in bed and is AAOx3 and in NAD. Denies overnight N/V/F/C/CP/SOB/posterior calf pain when squeezed. Patient denies any further pedal complaints at this time. Objective - Vital Signs/Intake and Output Vital Signs (last 24 hours): Temp Pulse Resp BP Pulse Ox 98.4 F 87 20 132/73 96 07/25/17 08:20 07/25/17 08:20 07/25/17 08:20 07/25/17 08:53 07/25/17 08:20 - Medications Medications: Current Medications Acetaminophen (Tylenol 325mg Tab) 650 mg PO Q4 PRN PRN Reason: Pain, Mild (1-3) Last Admin: 07/15/17 20:52 Dose: 650 mg Acetaminophen (Tylenol 325mg Tab) 650 mg PO Q6 PRN PRN Reason: Fever >100.4 F Last Admin: 07/23/17 17:17 Dose: 650 mg Aspirin (Aspirin Chewable) 81 mg PO DAILY [facility] Last Admin: 07/25/17 08:52 Dose: 81 mg Atorvastatin Calcium (Lipitor) 40 mg PO DAILY [facility] Last Admin: 07/25/17 08:54 Dose: 40 mg Cilostazol (Pletal) 100 mg PO BID [facility] Last Admin: 07/25/17 08:52 Dose: 100 mg Clopidogrel Bisulfate (Plavix) 75 mg PO DAILY [facility] Last Admin: 07/25/17 08:52 Dose: 75 mg Docusate Sodium (Colace) 100 mg PO BID [facility] Last Admin: 07/25/17 08:52 Dose: 100 mg Enoxaparin Sodium (Lovenox) 40 mg SC DAILY [facility] PRN Reason: Protocol Last Admin: 07/25/17 08:51 Dose: 40 mg Ferrous Sulfate (Feosol) 325 mg PO BID [facility] Last Admin: 07/25/17 08:53 Dose: 325 mg Glipizide (Glucotrol Xl) 2.5 mg PO BRK [facility] Last Admin: 07/25/17 08:52 Dose: 2.5 mg Sodium Chloride (Sodium Chloride 0.9%) 1,000 mls @ 100 mls/hr IV .Q10H [facility] Last Admin: 07/22/17 16:58 Dose: Not Given Vancomycin HCl 750 mg/ Sodium (Chloride) 250 mls @ 166.667 mls/hr IVPB Q12 [facility] PRN Reason: Protocol Last Admin: 07/24/17 21:25 Dose: 166.667 mls/hr Ertapenem 1 gm/ Sodium (Chloride) 100 mls @ 100 mls/hr IVPB DAILY [facility] PRN Reason: Protocol Last Admin: 07/24/17 10:26 Dose: 100 mls/hr Insulin Detemir (Levemir) 8 units SC HS [facility] Last Admin: 07/24/17 22:45 Dose: 8 u Insulin Human Lispro (Humalog) 0 units SC ACHS [facility] PRN Reason: Protocol Last Admin: 07/25/17 08:54 Dose: 3 units Lactulose (Enulose) 20 gm PO BID PRN PRN Reason: Constipation Last Admin: 07/18/17 12:16 Dose: 20 gm Metoprolol Tartrate (Lopressor) 100 mg PO DAILY [facility] Last Admin: 07/25/17 08:52 Dose: 100 mg Morphine Sulfate (Morphine) 4 mg IVP Q6 PRN PRN Reason: Pain, severe (8-10) Last Admin: 07/25/17 06:37 Dose: 4 mg Morphine Sulfate (Morphine) 2 mg IVP Q6 PRN PRN Reason: Pain, moderate (4-7) Oxycodone HCl (Oxycontin Extended Release Tab) 20 mg PO Q12 [facility] Last Admin: 07/25/17 08:51 Dose: 20 mg Pantoprazole Sodium (Protonix Ec Tab) 40 mg PO DAILY [facility] Last Admin: 07/25/17 08:53 Dose: 40 mg Ramipril (Altace) 10 mg PO DAILY [facility] Last Admin: 07/25/17 08:53 Dose: 10 mg Sitagliptin Phosphate (Januvia) 100 mg PO DAILY [facility] Last Admin: 07/25/17 08:52 Dose: 100 mg - Labs Labs: 07/25/17 05:30 07/25/17 05:30 PT 13.8 Seconds (9.8-13.1) H 07/19/17 05:50 INR 1.2 (0.9-1.2) 07/19/17 05:50 APTT 28.6 Seconds (25.6-37.1) 07/19/17 05:50 - Constitutional Appears: Well, Non-toxic, No Acute Distress - Extremities Exam Additional comments: Dressing is clean, dry and intact Wound vac is functioning at 125 mmHg and there is roughly 10 cc of drainage in the canister - Neurological Exam Neurological Exam: Alert, Awake, Oriented x3 - Psychiatric Exam Psychiatric exam: Normal Affect, Normal Mood Assessment and Plan - Assessment and Plan (Free Text) Assessment: 62 year old female seen 3 days post-operatively at bedside for revisional TMA of left foot Plan: Patient seen and evaluated at bedside Plan discussed with attending Dr. Aayush Claudioebkodi, WBC 11.6 (trending down) Tib-fib x-rays ordered - no soft tissue emphysema noted Continue IV abx per ID - Ertapenem and Vancomycin Continue medical management and pain management per Hospitalist Wound vac set to function at 125 mmHg - will progress to changing the wound vac only twice a week due to severe pain Patient to have possible second revascularization procedure done with Dr. Strange Podiatry will continue to follow while patient in house
[2017-07-25] MEDS ORDERED: Potassium Chloride 20 mEq/15 ml LIQ UD PO ONE (11:04)
--- NOTE | 2017-07-25 13:13 | CP.PCM.PN ---
Subjective - Date & Time of Evaluation Date of Evaluation: 07/25/17 Time of Evaluation: 12:00 - Subjective Subjective: Patient seen and examined bedside. Complains of pain to left foot.Appears pale. No acute issues overnight Tmax 99.9 Hgb 7.2 WBC 11.6 Complains of constipation. Last BM 5 days ago Objective - Vital Signs/Intake and Output Vital Signs (last 24 hours): Temp Pulse Resp BP Pulse Ox 98.4 F 87 20 132/73 96 07/25/17 08:20 07/25/17 08:20 07/25/17 08:20 07/25/17 08:53 07/25/17 08:20 - Medications Medications: Current Medications Acetaminophen (Tylenol 325mg Tab) 650 mg PO Q4 PRN PRN Reason: Pain, Mild (1-3) Last Admin: 07/15/17 20:52 Dose: 650 mg Acetaminophen (Tylenol 325mg Tab) 650 mg PO Q6 PRN PRN Reason: Fever >100.4 F Last Admin: 07/23/17 17:17 Dose: 650 mg Aspirin (Aspirin Chewable) 81 mg PO DAILY [facility] Last Admin: 07/25/17 08:52 Dose: 81 mg Atorvastatin Calcium (Lipitor) 40 mg PO DAILY [facility] Last Admin: 07/25/17 08:54 Dose: 40 mg Cilostazol (Pletal) 100 mg PO BID [facility] Last Admin: 07/25/17 08:52 Dose: 100 mg Clopidogrel Bisulfate (Plavix) 75 mg PO DAILY [facility] Last Admin: 07/25/17 08:52 Dose: 75 mg Docusate Sodium (Colace) 100 mg PO BID [facility] Last Admin: 07/25/17 08:52 Dose: 100 mg Enoxaparin Sodium (Lovenox) 40 mg SC DAILY [facility] PRN Reason: Protocol Last Admin: 07/25/17 08:51 Dose: 40 mg Ferrous Sulfate (Feosol) 325 mg PO BID [facility] Last Admin: 07/25/17 08:53 Dose: 325 mg Glipizide (Glucotrol Xl) 2.5 mg PO BRK [facility] Last Admin: 07/25/17 08:52 Dose: 2.5 mg Sodium Chloride (Sodium Chloride 0.9%) 1,000 mls @ 100 mls/hr IV .Q10H [facility] Last Admin: 07/22/17 16:58 Dose: Not Given Vancomycin HCl 750 mg/ Sodium (Chloride) 250 mls @ 166.667 mls/hr IVPB Q12 [facility] PRN Reason: Protocol Last Admin: 07/25/17 09:00 Dose: 166.667 mls/hr Ertapenem 1 gm/ Sodium (Chloride) 100 mls @ 100 mls/hr IVPB DAILY [facility] PRN Reason: Protocol Last Admin: 07/25/17 11:09 Dose: 100 mls/hr Insulin Detemir (Levemir) 8 units SC HS [facility] Last Admin: 07/24/17 22:45 Dose: 8 u Insulin Human Lispro (Humalog) 0 units SC ACHS [facility] PRN Reason: Protocol Last Admin: 07/25/17 12:20 Dose: 3 units Lactulose (Enulose) 20 gm PO BID PRN PRN Reason: Constipation Last Admin: 07/18/17 12:16 Dose: 20 gm Metoprolol Tartrate (Lopressor) 100 mg PO DAILY [facility] Last Admin: 07/25/17 08:52 Dose: 100 mg Morphine Sulfate (Morphine) 4 mg IVP Q6 PRN PRN Reason: Pain, severe (8-10) Last Admin: 07/25/17 12:17 Dose: 4 mg Morphine Sulfate (Morphine) 2 mg IVP Q6 PRN PRN Reason: Pain, moderate (4-7) Oxycodone HCl (Oxycontin Extended Release Tab) 20 mg PO Q12 [facility] Last Admin: 07/25/17 08:51 Dose: 20 mg Pantoprazole Sodium (Protonix Ec Tab) 40 mg PO DAILY [facility] Last Admin: 07/25/17 08:53 Dose: 40 mg Ramipril (Altace) 10 mg PO DAILY [facility] Last Admin: 07/25/17 08:53 Dose: 10 mg Sitagliptin Phosphate (Januvia) 100 mg PO DAILY [facility] Last Admin: 07/25/17 08:52 Dose: 100 mg - Labs Labs: 07/25/17 05:30 07/25/17 05:30 PT 13.8 Seconds (9.8-13.1) H 07/19/17 05:50 INR 1.2 (0.9-1.2) 07/19/17 05:50 APTT 28.6 Seconds (25.6-37.1) 07/19/17 05:50 - Constitutional Appears: Non-toxic, No Acute Distress, Other (pale ) - Head Exam Head Exam: ATRAUMATIC, NORMAL INSPECTION, NORMOCEPHALIC - Eye Exam Eye Exam: EOMI, Normal appearance, PERRL Pupil Exam: NORMAL ACCOMODATION - ENT Exam ENT Exam: Mucous Membranes Moist, Normal Exam - Neck Exam Neck Exam: Full ROM, Normal Inspection - Respiratory Exam Respiratory Exam: Clear to Ausculation Bilateral, NORMAL BREATHING PATTERN. absent: Rales, Rhonchi, Wheezes - Cardiovascular Exam Cardiovascular Exam: REGULAR RHYTHM, RRR, +S1, +S2. absent: JVD - GI/Abdominal Exam GI & Abdominal Exam: Soft, Normal Bowel Sounds. absent: Distended, Guarding, Tenderness, Rebound - Rectal Exam Rectal Exam: Deferred - Extremities Exam Extremities Exam: absent: Pedal Edema Additional comments: left stump with dressing in place - Back Exam Back Exam: NORMAL INSPECTION - Neurological Exam Neurological Exam: Alert, Awake, CN II-XII Intact, Oriented x3 - Psychiatric Exam Psychiatric exam: Normal Affect, Normal Mood - Skin Skin Exam: Dry, Pallor, Warm Assessment and Plan - Assessment and Plan (Free Text) Assessment: 62 y/o female with PMH of DM2, HTN and PVD s/p left TMA was admitted for left foot abscess. Patient underwent left foot TMA revision, incision and drainage and debridement, including nonviable soft tissue and bone, of non-healing TMA with abscess on 07/15. She was started on IV antibiotics. Pt underwent left lower extremity revascularization at [facility] with Dr. Strange on 07/20/17. Additional OR for revisional TMA with further debridement , I&D performed . ID , podiatry and vascular surgery following closely Antibiotics changed from Cefepime and Vanco to Invanz and Vanco since patient started having fever despite IV antibiotics and I & D Wound cultures growing Enterococcus faecalis and Serratia Marcenses At present with pain to left lower extremity , Tmax 99.9 last 24 hours , Hgb dropped to 7.2, pale 1.Osteomyelitis of left foot and TMA s/p Revision TMA and Incision and Drainage and debridement x twice duruing this admission by podiatry Wound vac to be changed twice / week by podiatry ID consulted wound cultures positive for Enterococcus faecalis and Serratia Marcenses Received vanco and Cefpime initially and now on Invanz and Vanco Vlood cultures with no growth so far Continue pain management Will need 6 weeks of Iv antibiotics PICC line placed Plan to d/c to [facility] 2.Severe PVD Arterial doppler USshowed poor circulation distal to superficial femoral artery vascular cardiology consulted- Dr Strange s/p CHOP SAW OPERATOR/stenting of left popliteal 95% stenosis and CHOP SAW OPERATOR/atherectomy of left VALERIA 100% and CHOP SAW OPERATOR/stenting with stent x 2 continue Plavix,ASA, Pletal, Atorvastatin Plan for angio again as outpatient next week 3. Diabetes Mellitus, type 2 labile increase levemir to 10 units Continue glucotrol and Januvia Metformin was discontinued since patient received contrast accucheck ACHS with low Lispro coverage. 4.Acute blood loss anemia and anemia of chronic disease Hgb drooped to 7.2 today was transfused 2 unit PRBC , given B12 and Venofer IV Will transfuse 2 more units today continue ferrous sulfate 5. HLD Atorvastatin 6. Hypertension BP stable continue Metoprolol and Ramipril 7. Hypokalemia K 3.4 replace with KCl 10 Meq Po 8. CAD cardiology on board continue Metoprolol, ramipril, Asa, statin, plavix 9. DVT prophylaxis Lovenox
[2017-07-25] MEDS: Insulin Detemir 100 Units/ml Inj SC SCH (22:39)
[2017-07-25] MEDS: Sodium Chloride 0.9% 1,000 ML IV SCH (23:00)
[2017-07-26] MEDS: oxyCODONE 20 mg ER Tab (oxyCONTIN) PO SCH ×2 (08:48→20:05)
[2017-07-26] MEDS: Insulin Lispro (humaLOG) 100 Units/ml Inj SC SCH ×5 (08:51→22:42)
[2017-07-26] MEDS: Cilostazol 100 mg Tab UD PO SCH ×2 (08:52→17:54)
[2017-07-26] MEDS: GlipiZIDE 2.5 mg SR Tab PO SCH (08:52)
[2017-07-26] MEDS: Pantoprazole 40 mg EC Tab PO SCH (08:53)
[2017-07-26] MEDS: Enoxaparin 40 mg Syringe SC SCH (08:55)
--- NOTE | 2017-07-26 10:30 | CP.PCM.PN ---
Subjective - Date & Time of Evaluation Date of Evaluation: 07/26/17 Time of Evaluation: 12:30 - Subjective Subjective: Patient seen and examined bedside. Complains severe pain to left foot. s/p 2 unit PRBC transfusion Feeling better No acute issues overnight, Tmax 100.9 last 24 hours Objective - Vital Signs/Intake and Output Vital Signs (last 24 hours): Temp Pulse Resp BP Pulse Ox 98.6 F 87 20 145/72 94 L 07/26/17 08:04 07/26/17 08:04 07/26/17 08:04 07/26/17 08:53 07/26/17 08:04 - Medications Medications: Current Medications Acetaminophen (Tylenol 325mg Tab) 650 mg PO Q4 PRN PRN Reason: Pain, Mild (1-3) Last Admin: 07/15/17 20:52 Dose: 650 mg Acetaminophen (Tylenol 325mg Tab) 650 mg PO Q6 PRN PRN Reason: Fever >100.4 F Last Admin: 07/25/17 16:13 Dose: 650 mg Aspirin (Aspirin Chewable) 81 mg PO DAILY [facility] Last Admin: 07/26/17 08:53 Dose: 81 mg Atorvastatin Calcium (Lipitor) 40 mg PO DAILY [facility] Last Admin: 07/26/17 08:55 Dose: 40 mg Cilostazol (Pletal) 100 mg PO BID [facility] Last Admin: 07/26/17 08:52 Dose: 100 mg Clopidogrel Bisulfate (Plavix) 75 mg PO DAILY [facility] Last Admin: 07/26/17 08:53 Dose: 75 mg Docusate Sodium (Colace) 100 mg PO BID [facility] Last Admin: 07/26/17 08:54 Dose: 100 mg Enoxaparin Sodium (Lovenox) 40 mg SC DAILY [facility] PRN Reason: Protocol Last Admin: 07/26/17 08:55 Dose: 40 mg Ferrous Sulfate (Feosol) 325 mg PO BID [facility] Last Admin: 07/26/17 08:54 Dose: 325 mg Glipizide (Glucotrol Xl) 2.5 mg PO BRK [facility] Last Admin: 07/26/17 08:52 Dose: 2.5 mg Sodium Chloride (Sodium Chloride 0.9%) 1,000 mls @ 100 mls/hr IV .Q10H [facility] Last Admin: 07/25/17 23:00 Dose: Not Given Vancomycin HCl 750 mg/ Sodium (Chloride) 250 mls @ 166.667 mls/hr IVPB Q12 [facility] PRN Reason: Protocol Last Admin: 07/25/17 09:00 Dose: 166.667 mls/hr Ertapenem 1 gm/ Sodium (Chloride) 100 mls @ 100 mls/hr IVPB DAILY [facility] PRN Reason: Protocol Last Admin: 07/26/17 08:50 Dose: 100 mls/hr Insulin Detemir (Levemir) 10 units SC HS [facility] Last Admin: 07/25/17 22:39 Dose: 10 units Insulin Human Lispro (Humalog) 0 units SC ACHS [facility] PRN Reason: Protocol Last Admin: 07/26/17 08:51 Dose: 2 units Lactulose (Enulose) 20 gm PO BID PRN PRN Reason: Constipation Last Admin: 07/26/17 08:54 Dose: 20 gm Metoprolol Tartrate (Lopressor) 100 mg PO DAILY [facility] Last Admin: 07/26/17 08:54 Dose: 100 mg Morphine Sulfate (Morphine) 4 mg IVP Q6 PRN PRN Reason: Pain, severe (8-10) Last Admin: 07/25/17 18:11 Dose: 4 mg Morphine Sulfate (Morphine) 2 mg IVP Q6 PRN PRN Reason: Pain, moderate (4-7) Oxycodone HCl (Oxycontin Extended Release Tab) 20 mg PO Q12 [facility] Last Admin: 07/26/17 08:48 Dose: 20 mg Pantoprazole Sodium (Protonix Ec Tab) 40 mg PO DAILY [facility] Last Admin: 07/26/17 08:53 Dose: 40 mg Ramipril (Altace) 10 mg PO DAILY [facility] Last Admin: 07/26/17 08:53 Dose: 10 mg Sitagliptin Phosphate (Januvia) 100 mg PO DAILY [facility] Last Admin: 07/26/17 08:54 Dose: 100 mg - Labs Labs: 07/25/17 05:30 07/25/17 05:30 PT 13.8 Seconds (9.8-13.1) H 07/19/17 05:50 INR 1.2 (0.9-1.2) 07/19/17 05:50 APTT 28.6 Seconds (25.6-37.1) 07/19/17 05:50 - Constitutional Appears: Non-toxic, No Acute Distress - Head Exam Head Exam: ATRAUMATIC, NORMAL INSPECTION, NORMOCEPHALIC - Eye Exam Eye Exam: EOMI, Normal appearance, PERRL Pupil Exam: NORMAL ACCOMODATION - ENT Exam ENT Exam: Mucous Membranes Moist, Normal Exam - Neck Exam Neck Exam: Full ROM, Normal Inspection - Respiratory Exam Respiratory Exam: Clear to Ausculation Bilateral, NORMAL BREATHING PATTERN. absent: Rhonchi, Wheezes, Respiratory Distress - Cardiovascular Exam Cardiovascular Exam: REGULAR RHYTHM, RRR, +S1, +S2. absent: JVD - GI/Abdominal Exam GI & Abdominal Exam: Soft, Normal Bowel Sounds. absent: Distended, Guarding, Tenderness, Rebound - Rectal Exam Rectal Exam: Deferred - Extremities Exam Extremities Exam: absent: Pedal Edema Additional comments: left foot TMA with clean dressing , wound vac in place LE warm to touch - Back Exam Back Exam: NORMAL INSPECTION - Neurological Exam Neurological Exam: Alert, Awake, CN II-XII Intact, Oriented x3 - Psychiatric Exam Psychiatric exam: Flat Affect - Skin Skin Exam: Dry, Pallor, Warm Assessment and Plan - Assessment and Plan (Free Text) Assessment: 62 y/o female with PMH of DM2, HTN and PVD s/p left TMA was admitted for left foot abscess. Patient underwent left foot TMA revision, incision and drainage and debridement,of nonviable soft tissue and bone, of non-healing TMA with abscess on 07/15. She was started on IV antibiotics. Pt underwent left lower extremity revascularization at [facility] [place] with Dr. Strange on 07/20/17. Additional OR for revisional TMA with further debridement , I&D performed 07/21. ID , podiatry and vascular surgery following closely Antibiotics changed from Cefepime and Vanco to Invanz and Vanco since patient started having fever despite IV antibiotics and I & D Wound cultures growing Enterococcus faecalis and Serratia Marcenses At present with pain to left lower extremity , Tmax 99.9 last 24 hours , transfused 2 unit PRBC overnight with Hgb 9.4 post transfusion 1.Osteomyelitis of left foot and TMA s/p Revision TMA ,Incision and Drainage and debridement x twice during this admission by podiatry Wound vac in place will be changed twice / week by podiatry. will need to premedicate before wound vac change ID consulted wound cultures positive for Enterococcus faecalis and Serratia Marcenses Received vanco and Cefepime initially and now on Invanz and Vanco Blood cultures with no growth so far Continue pain management Will need 6 weeks of Iv antibiotics PICC line placed but Xray shows that this is more midline than a PICC. 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 Diabetes Mellitus, type 2 labile on levemir to 10 units Continue glucotrol and Januvia Metformin was discontinued since patient received contrast . will resume today accucheck ACHS with low Lispro coverage. 4.Acute blood loss anemia and anemia of chronic disease Hgb drooped to 7.2 was transfused 2 unit PRBC , given B12 and Venofer IV transfused 2 more units yesterday with Hgb 9.4 post transfusion continue ferrous sulfate 5. HLD Atorvastatin 6. Hypertension BP stable continue Metoprolol and Ramipril 7. Hypokalemia K 3.4 replace with KCl 10 Meq Po 8. CAD cardiology on board continue Metoprolol, ramipril, Asa, statin, plavix 9. DVT prophylaxis Lovenox
[2017-07-26] MEDS: Morphine 4 MG/ML VIAL IVP PRN (10:58)
[2017-07-26 11:20] LABS: HEMOGLOBIN 9.4 g/dL (12.0-16.0); MEAN CELL VOLUME 80.7 fl (81.0-99.0); MEAN CORPUSCULAR HEMOGLOBIN 26.2 pg (27.0-31.0); MEAN CORPUSCULAR HGB CONC 32.4 g/dL (33.0-37.0); RBC 3.58 Mil/uL (3.80-5.20); RED CELL DISTRIBUTION WIDTH 17.1 % (11.5-14.5)
[2017-07-26 11:56] LABS: BLOOD UREA NITROGEN 13 mg/dl (7-17); CALCIUM 8.2 mg/dL (8.4-10.2); GFR AFRICAN-AMERICAN > 60; GFR NON-AFRICAN AMERICAN > 60
[2017-07-26] MEDS ORDERED: Potassium Chloride 20 mEq/15 ml LIQ UD PO ONE (11:59)
--- NOTE | 2017-07-26 13:09 | CP.PCM.PN ---
Subjective - Date & Time of Evaluation Date of Evaluation: 07/26/17 Time of Evaluation: 11:45 - Subjective Subjective: Progress note - Dr. Looney 62 year old female seen at bedside for nonhealing, infected TMA site of left foot. Patient states that her pain is well controlled today and only has pain when someone touches her foot. Patient is 4 days s/p TMA site debridement today. Patient is resting comfortably in bed and is AAOx3 and in NAD. Denies overnight N/V/F/C/CP/SOB/posterior calf pain when squeezed. Patient denies any further pedal complaints at this time. Objective - Vital Signs/Intake and Output Vital Signs (last 24 hours): Temp Pulse Resp BP Pulse Ox 98.6 F 87 20 145/72 94 L 07/26/17 08:04 07/26/17 08:04 07/26/17 08:04 07/26/17 08:53 07/26/17 08:04 - Medications Medications: Current Medications Acetaminophen (Tylenol 325mg Tab) 650 mg PO Q4 PRN PRN Reason: Pain, Mild (1-3) Last Admin: 07/15/17 20:52 Dose: 650 mg Acetaminophen (Tylenol 325mg Tab) 650 mg PO Q6 PRN PRN Reason: Fever >100.4 F Last Admin: 07/25/17 16:13 Dose: 650 mg Aspirin (Aspirin Chewable) 81 mg PO DAILY [facility] Last Admin: 07/26/17 08:53 Dose: 81 mg Atorvastatin Calcium (Lipitor) 40 mg PO DAILY [facility] Last Admin: 07/26/17 08:55 Dose: 40 mg Cilostazol (Pletal) 100 mg PO BID [facility] Last Admin: 07/26/17 08:52 Dose: 100 mg Clopidogrel Bisulfate (Plavix) 75 mg PO DAILY [facility] Last Admin: 07/26/17 08:53 Dose: 75 mg Docusate Sodium (Colace) 100 mg PO BID [facility] Last Admin: 07/26/17 08:54 Dose: 100 mg Enoxaparin Sodium (Lovenox) 40 mg SC DAILY [facility] PRN Reason: Protocol Last Admin: 07/26/17 08:55 Dose: 40 mg Ferrous Sulfate (Feosol) 325 mg PO BID [facility] Last Admin: 07/26/17 08:54 Dose: 325 mg Glipizide (Glucotrol Xl) 2.5 mg PO BRK [facility] Last Admin: 07/26/17 08:52 Dose: 2.5 mg Sodium Chloride (Sodium Chloride 0.9%) 1,000 mls @ 100 mls/hr IV .Q10H [facility] Last Admin: 07/25/17 23:00 Dose: Not Given Vancomycin HCl 750 mg/ Sodium (Chloride) 250 mls @ 166.667 mls/hr IVPB Q12 [facility] PRN Reason: Protocol Last Admin: 07/26/17 09:00 Dose: Not Given Ertapenem 1 gm/ Sodium (Chloride) 100 mls @ 100 mls/hr IVPB DAILY [facility] PRN Reason: Protocol Last Admin: 07/26/17 08:50 Dose: 100 mls/hr Insulin Detemir (Levemir) 10 units SC HS [facility] Last Admin: 07/25/17 22:39 Dose: 10 units Insulin Human Lispro (Humalog) 0 units SC ACHS [facility] PRN Reason: Protocol Last Admin: 07/26/17 12:27 Dose: 2 units Lactulose (Enulose) 20 gm PO BID PRN PRN Reason: Constipation Last Admin: 07/26/17 08:54 Dose: 20 gm Metoprolol Tartrate (Lopressor) 100 mg PO DAILY [facility] Last Admin: 07/26/17 08:54 Dose: 100 mg Morphine Sulfate (Morphine) 4 mg IVP Q6 PRN PRN Reason: Pain, severe (8-10) Last Admin: 07/26/17 10:58 Dose: 4 mg Morphine Sulfate (Morphine) 2 mg IVP Q6 PRN PRN Reason: Pain, moderate (4-7) Oxycodone HCl (Oxycontin Extended Release Tab) 20 mg PO Q12 [facility] Last Admin: 07/26/17 08:48 Dose: 20 mg Pantoprazole Sodium (Protonix Ec Tab) 40 mg PO DAILY [facility] Last Admin: 07/26/17 08:53 Dose: 40 mg Ramipril (Altace) 10 mg PO DAILY [facility] Last Admin: 07/26/17 08:53 Dose: 10 mg Sitagliptin Phosphate (Januvia) 100 mg PO DAILY [facility] Last Admin: 07/26/17 08:54 Dose: 100 mg - Labs Labs: 07/26/17 11:10 07/26/17 11:10 PT 13.8 Seconds (9.8-13.1) H 07/19/17 05:50 INR 1.2 (0.9-1.2) 07/19/17 05:50 APTT 28.6 Seconds (25.6-37.1) 07/19/17 05:50 - Constitutional Appears: Well, Non-toxic, No Acute Distress - Extremities Exam Additional comments: Dressing is clean, dry and intact Wound vac is functioning at 125 mmHg and there is roughly 30 cc of drainage in the canister - Neurological Exam Neurological Exam: Alert, Awake, Oriented x3 - Psychiatric Exam Psychiatric exam: Normal Affect, Normal Mood Assessment and Plan - Assessment and Plan (Free Text) Assessment: 62 year old female seen 4 days post-operatively at bedside for revisional TMA of left foot Plan: Patient seen and evaluated at bedside Plan discussed with attending Dr. Looney Afebrile, WBC 13.0 Tib-fib x-rays ordered - no soft tissue emphysema noted Continue IV abx per ID - Ertapenem and Vancomycin Continue medical management and pain management per Hospitalist Wound vac set to function at 125 mmHg - will progress to changing the wound vac only twice a week due to severe pain Patient to have possible second revascularization procedure done with Dr. Strange Podiatry will continue to follow while patient in house
[2017-07-26] MEDS: Insulin Detemir 100 Units/ml Inj SC SCH (22:40)
[2017-07-27 06:30] LABS: MEAN CORPUSCULAR HGB CONC 31.7 g/dL (33.0-37.0); RBC 3.47 Mil/uL (3.80-5.20); RED CELL DISTRIBUTION WIDTH 17.4 % (11.5-14.5); WHITE BLOOD COUNT 14.2 K/uL (4.8-10.8)
[2017-07-27 07:04] LABS: BLOOD UREA NITROGEN 9 mg/dl (7-17); CALCIUM 8.3 mg/dL (8.4-10.2); GFR AFRICAN-AMERICAN > 60; GFR NON-AFRICAN AMERICAN > 60
--- NOTE | 2017-07-27 07:12 | CP.PCM.PN ---
Subjective - Date & Time of Evaluation Date of Evaluation: 07/27/17 Time of Evaluation: 07:30 - Subjective Subjective: Progress note - Dr. Looney 62 year old female seen at bedside for nonhealing, infected TMA site of left foot. Patient states that her pain is well controlled today and only has pain when someone touches her foot. Patient is 5 days s/p TMA site debridement today. Patient is resting comfortably in bed and is AAOx3 and in NAD. Denies overnight N/V/F/C/CP/SOB/posterior calf pain when squeezed. Patient denies any further pedal complaints at this time. Objective - Vital Signs/Intake and Output Vital Signs (last 24 hours): Temp Pulse Resp BP Pulse Ox 99.8 F H 85 19 108/63 94 L 07/27/17 00:00 07/27/17 00:00 07/27/17 00:00 07/27/17 00:00 07/27/17 00:00 - Medications Medications: Current Medications Acetaminophen (Tylenol 325mg Tab) 650 mg PO Q4 PRN PRN Reason: Pain, Mild (1-3) Last Admin: 07/15/17 20:52 Dose: 650 mg Acetaminophen (Tylenol 325mg Tab) 650 mg PO Q6 PRN PRN Reason: Fever >100.4 F Last Admin: 07/25/17 16:13 Dose: 650 mg Aspirin (Aspirin Chewable) 81 mg PO DAILY [facility] Last Admin: 07/26/17 08:53 Dose: 81 mg Atorvastatin Calcium (Lipitor) 40 mg PO DAILY [facility] Last Admin: 07/26/17 08:55 Dose: 40 mg Cilostazol (Pletal) 100 mg PO BID [facility] Last Admin: 07/26/17 17:54 Dose: 100 mg Clopidogrel Bisulfate (Plavix) 75 mg PO DAILY [facility] Last Admin: 07/26/17 08:53 Dose: 75 mg Docusate Sodium (Colace) 100 mg PO BID [facility] Last Admin: 07/26/17 17:54 Dose: 100 mg Enoxaparin Sodium (Lovenox) 40 mg SC DAILY [facility] PRN Reason: Protocol Last Admin: 07/26/17 08:55 Dose: 40 mg Ferrous Sulfate (Feosol) 325 mg PO BID [facility] Last Admin: 07/26/17 17:54 Dose: 325 mg Glipizide (Glucotrol Xl) 2.5 mg PO BRK [facility] Last Admin: 07/26/17 08:52 Dose: 2.5 mg Sodium Chloride (Sodium Chloride 0.9%) 1,000 mls @ 100 mls/hr IV .Q10H [facility] Last Admin: 07/25/17 23:00 Dose: Not Given Vancomycin HCl 750 mg/ Sodium (Chloride) 250 mls @ 166.667 mls/hr IVPB Q12 [facility] PRN Reason: Protocol Last Admin: 07/26/17 22:41 Dose: 166.667 mls/hr Ertapenem 1 gm/ Sodium (Chloride) 100 mls @ 100 mls/hr IVPB DAILY [facility] PRN Reason: Protocol Last Admin: 07/26/17 08:50 Dose: 100 mls/hr Insulin Detemir (Levemir) 10 units SC HS [facility] Last Admin: 07/26/17 22:40 Dose: 10 units Insulin Human Lispro (Humalog) 0 units SC ACHS [facility] PRN Reason: Protocol Last Admin: 07/26/17 22:00 Dose: Not Given Lactulose (Enulose) 20 gm PO BID PRN PRN Reason: Constipation Last Admin: 07/26/17 08:54 Dose: 20 gm Metformin HCl (Glucophage) 1,000 mg PO BIDWM [facility] Last Admin: 07/26/17 17:53 Dose: 1,000 mg Metoprolol Tartrate (Lopressor) 100 mg PO DAILY [facility] Last Admin: 07/26/17 08:54 Dose: 100 mg Morphine Sulfate (Morphine) 4 mg IVP Q6 PRN PRN Reason: Pain, severe (8-10) Last Admin: 07/26/17 10:58 Dose: 4 mg Morphine Sulfate (Morphine) 2 mg IVP Q6 PRN PRN Reason: Pain, moderate (4-7) Oxycodone HCl (Oxycontin Extended Release Tab) 20 mg PO Q12 [facility] Last Admin: 07/26/17 20:05 Dose: 20 mg Pantoprazole Sodium (Protonix Ec Tab) 40 mg PO DAILY [facility] Last Admin: 07/26/17 08:53 Dose: 40 mg Ramipril (Altace) 10 mg PO DAILY [facility] Last Admin: 07/26/17 08:53 Dose: 10 mg Sitagliptin Phosphate (Januvia) 100 mg PO DAILY [facility] Last Admin: 07/26/17 08:54 Dose: 100 mg - Labs Labs: 07/26/17 11:10 07/27/17 05:27 PT 13.8 Seconds (9.8-13.1) H 07/19/17 05:50 INR 1.2 (0.9-1.2) 07/19/17 05:50 APTT 28.6 Seconds (25.6-37.1) 07/19/17 05:50 - Constitutional Appears: Well, Non-toxic, No Acute Distress - Extremities Exam Additional comments: Dressing is clean, dry and intact Wound vac is functioning at 125 mmHg and there is roughly 30 cc of drainage in the canister - Neurological Exam Neurological Exam: Alert, Awake, Oriented x3 - Psychiatric Exam Psychiatric exam: Normal Affect, Normal Mood Assessment and Plan - Assessment and Plan (Free Text) Assessment: 62 year old female seen 5 days post-operatively at bedside for revisional TMA of left foot Plan: Patient seen and evaluated at bedside Discussed with attending Dr. Looney Afebrile, WBC 14.2 Tib-fib x-rays ordered - no soft tissue emphysema noted Continue IV abx per ID - Ertapenem and Vancomycin Continue medical management and pain management per Hospitalist Wound vac set to function at 125 mmHg - will progress to changing the wound vac only twice a week due to severe pain. Will change the vac tomorrow Patient to have possible second revascularization procedure done with Dr. Strange Podiatry will continue to follow while patient in house
[2017-07-27] MEDS ORDERED: Potassium Chloride 20 mEq/15 ml LIQ UD PO ONE (08:20)
[2017-07-27] MEDS: Morphine 4 MG/ML VIAL IVP PRN ×3 (08:40→23:36)
[2017-07-27] MEDS: GlipiZIDE 2.5 mg SR Tab PO SCH (08:52)
[2017-07-27] MEDS: Pantoprazole 40 mg EC Tab PO SCH (08:53)
[2017-07-27] MEDS: Cilostazol 100 mg Tab UD PO SCH ×2 (08:53→17:43)
[2017-07-27] MEDS: Enoxaparin 40 mg Syringe SC SCH (08:54)
[2017-07-27] MEDS: oxyCODONE 20 mg ER Tab (oxyCONTIN) PO SCH ×3 (09:00→20:51)
[2017-07-27] MEDS: Insulin Lispro (humaLOG) 100 Units/ml Inj SC SCH ×6 (09:14→21:47)
[2017-07-27] MEDS: Sodium Chloride 0.9% 1,000 ML IV SCH ×2 (09:46→15:45)
--- NOTE | 2017-07-27 10:23 | CP.PCM.PN ---
Subjective - Date & Time of Evaluation Date of Evaluation: 07/27/17 Time of Evaluation: 11:30 - Subjective Subjective: Hospitalist Progress Note- Dr. Galvez 62 year old female seen at bedside for nonhealing, infected TMA site of left foot with wound VAC therapy. Patient is accompanied by son and during visitation. Patient complains of severe pain to the left foot. Reports worse when someone touches it. Patient and family are worried about her pain level. During visitation, patient's mood appears to be flat. Appears slightly lethargic. Patient denies n/v/sob/cp/chills or f. Denies acute overnight events. Objective - Vital Signs/Intake and Output Vital Signs (last 24 hours): Temp Pulse Resp BP Pulse Ox 98.2 F 81 19 136/71 98 07/27/17 08:42 07/27/17 08:54 07/27/17 08:42 07/27/17 08:54 07/27/17 08:42 - Medications Medications: Current Medications Acetaminophen (Tylenol 325mg Tab) 650 mg PO Q4 PRN PRN Reason: Pain, Mild (1-3) Last Admin: 07/15/17 20:52 Dose: 650 mg Acetaminophen (Tylenol 325mg Tab) 650 mg PO Q6 PRN PRN Reason: Fever >100.4 F Last Admin: 07/25/17 16:13 Dose: 650 mg Aspirin (Aspirin Chewable) 81 mg PO DAILY [facility] Last Admin: 07/27/17 08:55 Dose: 81 mg Atorvastatin Calcium (Lipitor) 40 mg PO DAILY [facility] Last Admin: 07/27/17 08:53 Dose: 40 mg Cilostazol (Pletal) 100 mg PO BID [facility] Last Admin: 07/27/17 08:53 Dose: 100 mg Clopidogrel Bisulfate (Plavix) 75 mg PO DAILY [facility] Last Admin: 07/27/17 08:53 Dose: 75 mg Docusate Sodium (Colace) 100 mg PO BID [facility] Last Admin: 07/27/17 09:27 Dose: Not Given Enoxaparin Sodium (Lovenox) 40 mg SC DAILY [facility] PRN Reason: Protocol Last Admin: 07/27/17 08:54 Dose: 40 mg Ferrous Sulfate (Feosol) 325 mg PO BID [facility] Last Admin: 07/27/17 08:55 Dose: 325 mg Glipizide (Glucotrol Xl) 2.5 mg PO BRK [facility] Last Admin: 07/27/17 08:52 Dose: 2.5 mg Sodium Chloride (Sodium Chloride 0.9%) 1,000 mls @ 100 mls/hr IV .Q10H [facility] Last Admin: 07/27/17 09:46 Dose: 100 mls/hr Vancomycin HCl 750 mg/ Sodium (Chloride) 250 mls @ 166.667 mls/hr IVPB Q12 [facility] PRN Reason: Protocol Last Admin: 07/27/17 08:57 Dose: 166.667 mls/hr Ertapenem 1 gm/ Sodium (Chloride) 100 mls @ 100 mls/hr IVPB DAILY [facility] PRN Reason: Protocol Last Admin: 07/27/17 08:56 Dose: 100 mls/hr Insulin Detemir (Levemir) 10 units SC HS [facility] Last Admin: 07/26/17 22:40 Dose: 10 units Insulin Human Lispro (Humalog) 0 units SC ACHS [facility] PRN Reason: Protocol Last Admin: 07/27/17 09:14 Dose: 1 units Lactulose (Enulose) 20 gm PO BID PRN PRN Reason: Constipation Last Admin: 07/26/17 08:54 Dose: 20 gm Metformin HCl (Glucophage) 1,000 mg PO BIDWM [facility] Last Admin: 07/27/17 08:55 Dose: 1,000 mg Metoprolol Tartrate (Lopressor) 100 mg PO DAILY [facility] Last Admin: 07/27/17 08:54 Dose: 100 mg Morphine Sulfate (Morphine) 4 mg IVP Q6 PRN PRN Reason: Pain, severe (8-10) Last Admin: 07/26/17 10:58 Dose: 4 mg Morphine Sulfate (Morphine) 2 mg IVP Q6 PRN PRN Reason: Pain, moderate (4-7) Last Admin: 07/27/17 08:40 Dose: 2 mg Oxycodone HCl (Oxycontin Extended Release Tab) 20 mg PO Q12 [facility] Last Admin: 07/27/17 09:00 Dose: Not Given Pantoprazole Sodium (Protonix Ec Tab) 40 mg PO DAILY [facility] Last Admin: 07/27/17 08:53 Dose: 40 mg Ramipril (Altace) 10 mg PO DAILY [facility] Last Admin: 07/27/17 08:52 Dose: 10 mg Sitagliptin Phosphate (Januvia) 100 mg PO DAILY [facility] Last Admin: 07/27/17 08:54 Dose: 100 mg - Labs Labs: 07/27/17 05:27 07/27/17 05:27 PT 13.8 Seconds (9.8-13.1) H 07/19/17 05:50 INR 1.2 (0.9-1.2) 07/19/17 05:50 APTT 28.6 Seconds (25.6-37.1) 07/19/17 05:50 - Constitutional Appears: Well, Non-toxic, No Acute Distress - Head Exam Head Exam: ATRAUMATIC, NORMOCEPHALIC - Eye Exam Eye Exam: EOMI, Normal appearance, PERRL Pupil Exam: NORMAL ACCOMODATION, PERRL - ENT Exam ENT Exam: Mucous Membranes Moist, Normal Exam - Neck Exam Neck Exam: Full ROM, Normal Inspection - Respiratory Exam Respiratory Exam: Clear to Ausculation Bilateral, NORMAL BREATHING PATTERN. absent: Rales, Rhonchi, Wheezes, Respiratory Distress, Stridor - Cardiovascular Exam Cardiovascular Exam: REGULAR RHYTHM, +S1, +S2 - GI/Abdominal Exam GI & Abdominal Exam: Soft, Normal Bowel Sounds - Rectal Exam Rectal Exam: NORMAL INSPECTION - Extremities Exam Extremities Exam: Full ROM, Normal Inspection - Back Exam Back Exam: NORMAL INSPECTION. absent: CVA tenderness (L), CVA tenderness (R) - Neurological Exam Neurological Exam: Alert, Awake, Oriented x3 - Psychiatric Exam Psychiatric exam: Flat Affect, Normal Affect - Skin Skin Exam: Dry, Intact, Normal Color, Warm Assessment and Plan (1) Osteomyelitis of left foot Status: Acute (2) Gangrene of left foot Status: Acute (3) Status post transmetatarsal amputation of left foot Status: Acute (4) PVD (peripheral vascular disease) with claudication Status: Chronic (5) DM2 (diabetes mellitus, type 2) Status: Chronic (6) HLD (hyperlipidemia) Status: Chronic (7) HTN (hypertension) Status: Chronic (8) Hypokalemia Status: Acute (9) Chronic anemia Status: Acute (10) CAD (coronary artery disease) Status: Chronic - Assessment and Plan (Free Text) Assessment: 62 y/o female with PMH of DM2, HTN and PVD s/p left TMA was admitted for left foot abscess. Patient underwent left foot TMA revision, incision and drainage and debridement,of nonviable soft tissue and bone, of non-healing TMA with abscess on 07/15. She was started on IV antibiotics. Pt underwent left lower extremity revascularization at [facility] with Dr. Strange on 07/20/17. Additional OR for revisional TMA with further debridement , I&D performed 07/21. ID , podiatry and vascular surgery following closely Antibiotics changed from Cefepime and Vanco to Invanz and Vanco since patient started having fever despite IV antibiotics and I & D Wound cultures growing Enterococcus faecalis and Serratia Marcenses At present with pain to left lower extremity , Tmax 99.9 last 24 hours , transfused 2 unit PRBC overnight with Hgb 9.4 post transfusion Plan: 1.Osteomyelitis of left foot and TMA -s/p Revision TMA ,Incision and Drainage and debridement x twice during this admission by podiatry -Wound vac in place will be changed twice / week by podiatry. will need to premedicate before wound vac change -ID consulted -wound cultures positive for Enterococcus faecalis and Serratia Marcenses -Received vanco and Cefepime initially and now on Invanz and Vanco -Blood cultures with no growth so far -Will need 6 weeks of IV antibiotics -PICC line placed but Xray shows that this is more midline than a PICC. Will discuss with IR before discharge if PICC can be reinserted or midline is ok for long -term Iv antibiotics -[facility] -Discussed with ID, per ID pateint discharge with vanco and ertapenem. if ertapenem can't be given at [facility], ID okay to switch with meropenem. -Vanco trough to be checked weekly, trough <15 -Check WBC and creatitine weekly -Will continue additional 4 weeks of IV abx when discharge to [facility] tmr 2.Severe PVD -Arterial dopplex LE showed poor circulation distal to superficial femoral artery -vascular cardiology consulted- Dr Strange -s/p QUALITY ASSURANCE COORDINATOR/stenting of left popliteal 95% stenosis and QUALITY ASSURANCE COORDINATOR/atherectomy of left VALERIA 100% and QUALITY ASSURANCE COORDINATOR/stenting with stent x 2 -continue Plavix,ASA, Pletal, Atorvastatin -F/U with Dr. Strange for additional revascularization as an outpatient in 2 weeks , f/u appointment with Dr. Strange this Thursday 3. Intractable left foot pain -patient intractable pain noted only when awake, patient able to sleep -patient appears more lethargic, currently on high dose of narcotics for pain management -given high dosage of narcotics, will not add additional narcotics or change dosage - no change to current pain management regimen -will start Gabapentin 300mg PO q 8 daily 4. Diabetes Mellitus, Type 2 -on levemir to 10 units -Continue glucotrol and Januvia -c/w Metformin -accucheck ACHS with low Lispro coverage. 5.Acute blood loss anemia and anemia of chronic disease -Hgb dropped to 7.2 -was transfused 2 unit PRBC, given B12 and Venofer IV -post transfusion 9.0/28.5 -continue ferrous sulfate 6. HLD -Atorvastatin 7. Hypertension -BP stable -continue Metoprolol and Ramipril 8. Hypokalemia -K 3.5 -replace with KCl 10 Meq Po 9. CAD -cardiology on board -continue Metoprolol, Ramipril, Asa, Statin, Plavix 10. Pseudo hyponatremia secondary to hyperglycemia -c/w DM regimen 11. DVT prophylaxis -Lovenox
--- NOTE | 2017-07-27 10:36 | CP.PCM.PN ---
Subjective - Date & Time of Evaluation Date of Evaluation: 07/27/17 Time of Evaluation: 13:00 - Subjective Subjective: ID note- Pt. seen and examined today. tired today. no new events overnight. Objective - Vital Signs/Intake and Output Vital Signs (last 24 hours): Temp Pulse Resp BP Pulse Ox 98.2 F 81 19 136/71 98 07/27/17 08:42 07/27/17 08:54 07/27/17 08:42 07/27/17 08:54 07/27/17 08:42 - Medications Medications: Current Medications Acetaminophen (Tylenol 325mg Tab) 650 mg PO Q4 PRN PRN Reason: Pain, Mild (1-3) Last Admin: 07/15/17 20:52 Dose: 650 mg Acetaminophen (Tylenol 325mg Tab) 650 mg PO Q6 PRN PRN Reason: Fever >100.4 F Last Admin: 07/25/17 16:13 Dose: 650 mg Aspirin (Aspirin Chewable) 81 mg PO DAILY [facility] Last Admin: 07/27/17 08:55 Dose: 81 mg Atorvastatin Calcium (Lipitor) 40 mg PO DAILY [facility] Last Admin: 07/27/17 08:53 Dose: 40 mg Cilostazol (Pletal) 100 mg PO BID [facility] Last Admin: 07/27/17 08:53 Dose: 100 mg Clopidogrel Bisulfate (Plavix) 75 mg PO DAILY [facility] Last Admin: 07/27/17 08:53 Dose: 75 mg Docusate Sodium (Colace) 100 mg PO BID [facility] Last Admin: 07/27/17 09:27 Dose: Not Given Enoxaparin Sodium (Lovenox) 40 mg SC DAILY [facility] PRN Reason: Protocol Last Admin: 07/27/17 08:54 Dose: 40 mg Ferrous Sulfate (Feosol) 325 mg PO BID [facility] Last Admin: 07/27/17 08:55 Dose: 325 mg Glipizide (Glucotrol Xl) 2.5 mg PO BRK [facility] Last Admin: 07/27/17 08:52 Dose: 2.5 mg Sodium Chloride (Sodium Chloride 0.9%) 1,000 mls @ 100 mls/hr IV .Q10H [facility] Last Admin: 07/27/17 09:46 Dose: 100 mls/hr Vancomycin HCl 750 mg/ Sodium (Chloride) 250 mls @ 166.667 mls/hr IVPB Q12 [facility] PRN Reason: Protocol Last Admin: 07/27/17 08:57 Dose: 166.667 mls/hr Ertapenem 1 gm/ Sodium (Chloride) 100 mls @ 100 mls/hr IVPB DAILY [facility] PRN Reason: Protocol Last Admin: 07/27/17 08:56 Dose: 100 mls/hr Insulin Detemir (Levemir) 10 units SC HS [facility] Last Admin: 07/26/17 22:40 Dose: 10 units Insulin Human Lispro (Humalog) 0 units SC ACHS [facility] PRN Reason: Protocol Last Admin: 07/27/17 09:14 Dose: 1 units Lactulose (Enulose) 20 gm PO BID PRN PRN Reason: Constipation Last Admin: 07/26/17 08:54 Dose: 20 gm Metformin HCl (Glucophage) 1,000 mg PO BIDWM [facility] Last Admin: 07/27/17 08:55 Dose: 1,000 mg Metoprolol Tartrate (Lopressor) 100 mg PO DAILY [facility] Last Admin: 07/27/17 08:54 Dose: 100 mg Morphine Sulfate (Morphine) 4 mg IVP Q6 PRN PRN Reason: Pain, severe (8-10) Last Admin: 07/26/17 10:58 Dose: 4 mg Morphine Sulfate (Morphine) 2 mg IVP Q6 PRN PRN Reason: Pain, moderate (4-7) Last Admin: 07/27/17 08:40 Dose: 2 mg Oxycodone HCl (Oxycontin Extended Release Tab) 20 mg PO Q12 [facility] Last Admin: 07/27/17 09:00 Dose: Not Given Pantoprazole Sodium (Protonix Ec Tab) 40 mg PO DAILY [facility] Last Admin: 07/27/17 08:53 Dose: 40 mg Ramipril (Altace) 10 mg PO DAILY [facility] Last Admin: 07/27/17 08:52 Dose: 10 mg Sitagliptin Phosphate (Januvia) 100 mg PO DAILY [facility] Last Admin: 07/27/17 08:54 Dose: 100 mg - Labs Labs: - Additional Findings Additional findings: - Constitutional Appears: No Acute Distress - Head Exam Head Exam: ATRAUMATIC - Eye Exam Eye Exam: EOMI - ENT Exam ENT Exam: Normal Oropharynx - Neck Exam Neck exam: Positive for: Full Rom - Respiratory Exam Respiratory Exam: Clear to Auscultation Bilateral, NORMAL BREATHING PATTERN - Cardiovascular Exam Cardiovascular Exam: RRR, +S1, +S2 - GI/Abdominal Exam GI & Abdominal Exam: Normal Bowel Sounds, Soft Additional comments: NT, ND - Extremities Exam Additional comments: Left foot TMA site now with wound vac in place draining sanguinous fluid - Neurological Exam Neurological exam: Alert, Oriented x 3 Laboratory Results - last 72 hr 07/24/17 07/24/17 07/25/17 15:52 21:18 05:07 WBC RBC Hgb Hct MCV MCH MCHC RDW Plt Count MPV Neut % (Auto) Lymph % (Auto) [place] % (Auto) Eos % (Auto) Baso % (Auto) Neut # (Auto) Lymph # (Auto) [place] # (Auto) Eos # (Auto) Baso # (Auto) Sodium Potassium Chloride Carbon Dioxide Anion Gap BUN Creatinine Est GFR ( Amer) Est GFR (Non-Af Amer) POC Glucose (mg/dL) 286 H 299 H 267 H Random Glucose Calcium Vancomycin Trough Blood Type Antibody Screen Crossmatch BBK History Checked 07/25/17 07/25/17 07/25/17 05:30 05:30 05:30 WBC 11.6 H RBC 2.80 L Hgb 7.2 L Hct 22.5 L MCV 80.2 L MCH 25.8 L MCHC 32.2 L RDW 18.0 H Plt Count 411 H MPV 8.4 Neut % (Auto) 62.4 Lymph % (Auto) 22.6 [place] % (Auto) 12.4 H Eos % (Auto) 2.1 Baso % (Auto) 0.5 Neut # (Auto) 7.2 H Lymph # (Auto) 2.6 [place] # (Auto) 1.4 H Eos # (Auto) 0.2 Baso # (Auto) 0.1 Sodium 134 Potassium 3.4 L Chloride 94 L Carbon Dioxide 30 Anion Gap 13 BUN 12 Creatinine 0.7 Est GFR ( Amer) > 60 Est GFR (Non-Af Amer) > 60 POC Glucose (mg/dL) Random Glucose 251 H Calcium 8.3 L Vancomycin Trough 15.4 H Blood Type Antibody Screen Crossmatch BBK History Checked 07/25/17 07/25/17 07/25/17 10:56 15:15 15:44 WBC RBC Hgb Hct MCV MCH MCHC RDW Plt Count MPV Neut % (Auto) Lymph % (Auto) [place] % (Auto) Eos % (Auto) Baso % (Auto) Neut # (Auto) Lymph # (Auto) [place] # (Auto) Eos # (Auto) Baso # (Auto) Sodium Potassium Chloride Carbon Dioxide Anion Gap BUN Creatinine Est GFR ( Amer) Est GFR (Non-Af Amer) POC Glucose (mg/dL) 290 H 260 H Random Glucose Calcium Vancomycin Trough Blood Type B POSITIVE Antibody Screen Negative Crossmatch See Detail BBK History Checked Patient has bt 07/25/17 07/26/17 07/26/17 21:16 05:29 11:10 WBC 13.0 H RBC 3.58 L Hgb 9.4 L D Hct 28.9 L MCV 80.7 L MCH 26.2 L MCHC 32.4 L RDW 17.1 H Plt Count 412 H MPV Neut % (Auto) Lymph % (Auto) [place] % (Auto) Eos % (Auto) Baso % (Auto) Neut # (Auto) Lymph # (Auto) [place] # (Auto) Eos # (Auto) Baso # (Auto) Sodium Potassium Chloride Carbon Dioxide Anion Gap BUN Creatinine Est GFR ( Amer) Est GFR (Non-Af Amer) POC Glucose (mg/dL) 247 H 245 H Random Glucose Calcium Vancomycin Trough Blood Type Antibody Screen Crossmatch BBK History Checked 07/26/17 07/26/17 07/26/17 11:10 11:10 12:30 WBC RBC Hgb Hct MCV MCH MCHC RDW Plt Count MPV Neut % (Auto) Lymph % (Auto) [place] % (Auto) Eos % (Auto) Baso % (Auto) Neut # (Auto) Lymph # (Auto) [place] # (Auto) Eos # (Auto) Baso # (Auto) Sodium 131 L Potassium 3.4 L Chloride 93 L Carbon Dioxide 29 Anion Gap 12 BUN 13 Creatinine 0.7 Est GFR ( Amer) > 60 Est GFR (Non-Af Amer) > 60 POC Glucose (mg/dL) 243 H Random Glucose 271 H Calcium 8.2 L Vancomycin Trough 8.7 Blood Type Antibody Screen Crossmatch BBK History Checked 07/26/17 07/26/17 07/27/17 15:43 22:17 05:27 WBC 14.2 H RBC 3.47 L Hgb 9.0 L Hct 28.5 L MCV 82.0 MCH 26.0 L MCHC 31.7 L RDW 17.4 H Plt Count 418 H MPV Neut % (Auto) Lymph % (Auto) [place] % (Auto) Eos % (Auto) Baso % (Auto) Neut # (Auto) Lymph # (Auto) [place] # (Auto) Eos # (Auto) Baso # (Auto) Sodium Potassium Chloride Carbon Dioxide Anion Gap BUN Creatinine Est GFR ( Amer) Est GFR (Non-Af Amer) POC Glucose (mg/dL) 263 H 334 H Random Glucose Calcium Vancomycin Trough Blood Type Antibody Screen Crossmatch BBK History Checked 07/27/17 07/27/17 07/27/17 05:27 05:50 11:12 WBC RBC Hgb Hct MCV MCH MCHC RDW Plt Count MPV Neut % (Auto) Lymph % (Auto) [place] % (Auto) Eos % (Auto) Baso % (Auto) Neut # (Auto) Lymph # (Auto) [place] # (Auto) Eos # (Auto) Baso # (Auto) Sodium 133 Potassium 3.5 L Chloride 96 L Carbon Dioxide 27 Anion Gap 14 BUN 9 Creatinine 0.7 Est GFR ( Amer) > 60 Est GFR (Non-Af Amer) > 60 POC Glucose (mg/dL) 177 H 204 H Random Glucose 172 H Calcium 8.3 L Vancomycin Trough Blood Type Antibody Screen Crossmatch BBK History Checked Microbiology 07/23/17 18:54 Blood-Venous Blood Culture - Preliminary NO GROWTH AFTER 3 DAYS 07/23/17 18:54 Blood-Venous Blood Culture - Preliminary NO GROWTH AFTER 3 DAYS 07/22/17 17:30 Foot - Left Gram Stain - Final 07/22/17 17:30 Foot - Left Wound Culture - Final Enterococcus Faecalis 07/22/17 17:30 Foot - Left Gram Stain - Final 07/22/17 17:30 Foot - Left Wound Culture - Final Enterococcus Faecalis 07/21/17 07:43 Nose MRSA Culture (Admit) - Final MRSA NOT DETECTED 07/21/17 06:57 Nose MRSA Culture (Admit) - Final MRSA NOT DETECTED 07/17/17 19:03 Blood-Venous Blood Culture - Final NO GROWTH AFTER 5 DAYS 07/17/17 19:03 Blood-Venous Gram Stain - Final TEST NOT PERFORMED 07/17/17 19:03 Blood-Venous Blood Culture - Final NO GROWTH AFTER 5 DAYS 07/17/17 19:03 Blood-Venous Gram Stain - Final TEST NOT PERFORMED 07/15/17 09:11 Foot - Left Gram Stain - Final 07/15/17 09:11 Foot - Left Wound Culture - Final Enterococcus Faecalis 07/15/17 09:11 Foot - Left Gram Stain - Final 07/15/17 09:11 Foot - Left Wound Culture - Final Serratia Marcescens Accession No. : [id number] Patient Name / ID : KEV KELLEY / [id number] Exam Date : 07/23/2017 09:31:11 ( Approved ) Study Comment : Sex / Age : F / 62Y Creator : [email or web address] Dictator : Simón Blanchard MD Manufacturing Production Manager : Driving Teacher : Simón Blanchard MD Approver2 : Report Date : 07/23/2017 09:41:20 My Comment : PROCEDURE: Left tibia and fibula HISTORY: Rule out soft tissue emphysema to the leg COMPARISON: Comparison/correlation made with radiographs left knee right left foot/ankle dated 07/22/2017. TECHNIQUE: Frontal and lateral views obtained. FINDINGS: The previously noted small amount subcutaneous air within the dorsal soft tissues at the level of the distal tibia have diminished. Previously noted subcutaneous air within the posterior plantar soft tissues not appreciated on this exam due to patient positioning and have not been included on the film. Apparent endovascular stents at the level of the again seen within the soft tissues distal 1/2 -- 1/3 of the left lower extremity as well and dorsally at the level of the proximal tibia proximal tibia. No definitive cortical destructive changes are identified IMPRESSION: The previously noted small amount subcutaneous air within the dorsal soft tissues at the level of the distal tibia have diminished. Previously noted subcutaneous air within the posterior plantar soft tissues not appreciated on this exam due to patient positioning and have not been included on the film. Apparent endovascular stents at the level of the again seen within the soft tissues distal 1/2 -- 1/3 of the left lower extremity as well and dorsally at the level of the proximal tibia proximal tibia. No definitive cortical destructive changes are identified Assessment and Plan (1) Gangrene of left foot Status: Acute (2) DM2 (diabetes mellitus, type 2) Status: Chronic (3) PVD (peripheral vascular disease) Status: Acute (4) Status post transmetatarsal amputation of left foot Status: Acute - Assessment and Plan (Free Text) Assessment: A/P- 62 year old female with DM II, HTN, PVD with left great toe gangrene and Om s/p left foot TMA 06/09/2017 and wsa on IV antibiotics but now is admitted because of infection at the TMA site and is s/p I and D at the TMA site by podiatry drainage of pus. s/p second left TMA revision 5 days ago. afebrile past 2 days. leukocytosis slightly increased today could be inflamamtory in nature. this admission MRI-OM of distal 4th and fifth metatarsal site next to amputation site as per report. wound cx from toe from last admission serratia and e.Fecalis. bone bx- acute OM ( last admission) wound cx from this admission- e.feclais and serratia ( same organisms as last admission). pt. also s/p re-vascularizationof the LLE by during this admission OR wound cx from 07/22/2017-e.fecalis x 2 sens to vanco plan- if patient is being d/c to [facility] advise total of 4-6 weeks of IV antibiotics for the OM. patient switched to ertapenem yesterday would advise to continue with IV vancomycin 750 mg q12 hours and advise to give ertapenem 1 gram IV daily for the serratia and if ertapenem can't be given in [facility] then advise to switch to meropenm 1 gram q12 . keep vanco trough <15. advise to check vanco trough once a week and keep it less than 15. advise to also monitor wbc and creatinine once a week. pt. has already received 12 days of IV antibiotics during this admission, advise another 4 weeks of IV abx. pt. to f/u with podiatry as outpatient. Pt. also to be seen by me as outpatient. pt. to also f/u with her PMD as outpatient. also advised pt. if she develops any hearing difficulties while on the vanco to notify us. also advise to monitor ESR once every 2 weeks as outpatient. All above d/w patient and her and they verbalize full understanding of all above. All above also d/w podiatry and hospitalist .
--- NOTE | 2017-07-27 15:30 | CP.PCM.CON ---
History of Present Illness - History of Present Illness History of Present Illness: Psychiatry consult CC: "I'm upset." HPI: 62 y/o female with PMH of DM2, HTN and PVD s/p left TMA was admitted for left foot abscess. Patient underwent left foot TMA revision, incision and drainage and debridement, including nonviable soft tissue and bone, of non- healing TMA with abscess on 07/15. She was started on IV antibiotics. Pt underwent left lower extremity revascularization at [facility] with Dr. Strange on 05/25. Additional OR for revisional TMA with further debridement , I&D performed 07/21. ID , podiatry and vascular surgery following closely. Antibiotics changed from Cefepime and Vanco to Invanz and Vanco since patient started having fever despite IV antibiotics and I & D. Wound cultures growing Enterococcus faecalis and Serratia Marcense. Patient reports that she feels upset with intermittent feelings of depression in the context of chronic pain. She also reports disruptions in sleep due to the pain. She denies any significant history of depression or anxiety and this was confirmed by her family ( and son) who do not presently think she is suffering from major depression. Patient reports that her symptoms of distress are related to her acute pain and that when she is not in pain she is usually happy. She is goal oriented. No hallucinations or suicidal ideation. No other acute psychiatric complaints. Patient reports that she is not interested in treatment with psychotropic medications at this time. 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 -No acute psychiatric medications indicated -No acute inpatient psychiatric admission needed -No 1:1 needed for psychiatric reasons Past Patient History - Tetanus Immunizations Tetanus Immunization: Unknown - Past Medical History & Family History Past Medical History?: Yes - Past Social History Smoking Status: Never Smoked Alcohol: None Drugs: Denies Home Situation {Lives}: With Family - CARDIAC Hx Circulatory Problems: Yes Hx Hypercholesterolemia: Yes Hx Hypertension: Yes Hx Peripheral Vascular Disease: Yes - PULMONARY Hx Respiratory Disorders: No - NEUROLOGICAL Hx Neurological Disorder: No - HEENT Hx HEENT Problems: No - RENAL Hx Chronic Kidney Disease: No - ENDOCRINE/METABOLIC Hx Endocrine Disorders: Yes Hx Diabetes Mellitus Type 2: Yes - HEMATOLOGICAL/ONCOLOGICAL Hx Blood Disorders: No - INTEGUMENTARY Hx Dermatological Problems: No - MUSCULOSKELETAL/RHEUMATOLOGICAL Hx Musculoskeletal Disorders: Yes Hx Herniated Disk: Yes (with left lumbar radiculopathy) - GASTROINTESTINAL Hx Gastrointestinal Disorders: No - GENITOURINARY/GYNECOLOGICAL Hx Genitourinary Disorders: No - PSYCHIATRIC Hx Emotional Abuse: No Hx Physical Abuse: No - SURGICAL HISTORY Hx Surgeries: Yes Hx Cataract Extraction: Yes (bilateral) Hx Cardiac Catheterization: Yes Other/Comment: lower leg surgery, left TMA. left great ingrown toenail removal - ANESTHESIA Hx Anesthesia: Yes Hx Anesthesia Reactions: No Hx Malignant Hyperthermia: No Meds Home Medications: Home Medication List Medication Instructions Recorded Confirmed Type Acetaminophen [Tylenol 325mg tab] 650 mg PO Q4 PRN tab 07/23/17 Rx Atorvastatin [Lipitor] 40 mg PO DAILY tab 07/23/17 Rx Cefepime 1gm in NS 100ml [Maxipime 1 gm IVPB Q8H 42 Days #126 bag 07/23/17 Rx 1gm] Cilostazol [Pletal] 100 mg PO BID tab 07/23/17 Rx Docusate [Colace] 100 mg PO BID cap 07/23/17 Rx Enoxaparin [Lovenox] 40 mg SC DAILY syr 07/23/17 Rx GlipiZIDE SR [Glucotrol XL] 2.5 mg PO BRK tab 07/23/17 Rx Insulin Detemir [Levemir] 8 units SC HS vial 07/23/17 Rx Lactulose [Enulose] 20 gm PO BID PRN udc 07/23/17 Rx Pantoprazole [Protonix EC Tab] 40 mg PO DAILY ect 07/23/17 Rx Vancomycin 750 mg/D5W 150 ml 750 mg IV Q12H 42 Days #84 pds 07/23/17 Rx [Vancocin] oxyCODONE [oxyCONTIN Extended 20 mg PO Q12 #10 tabsr 07/23/17 Rx Release Tab] oxyCODONE/Acetaminophen [Percocet 1 ea PO Q4H PRN #30 tab 07/23/17 Rx 5/325 mg Tab] Allergies/Adverse Reactions: Allergies Allergy/AdvReac Type Severity Reaction Status Date / Time No Known Allergies Allergy Verified 07/15/17 10:44 - Medications Medications: Current Medications Acetaminophen (Tylenol 325mg Tab) 650 mg PO Q4 PRN PRN Reason: Pain, Mild (1-3) Last Admin: 07/15/17 20:52 Dose: 650 mg Acetaminophen (Tylenol 325mg Tab) 650 mg PO Q6 PRN PRN Reason: Fever >100.4 F Last Admin: 07/25/17 16:13 Dose: 650 mg Aspirin (Aspirin Chewable) 81 mg PO DAILY [facility] Last Admin: 07/27/17 08:55 Dose: 81 mg Atorvastatin Calcium (Lipitor) 40 mg PO DAILY [facility] Last Admin: 07/27/17 08:53 Dose: 40 mg Cilostazol (Pletal) 100 mg PO BID [facility] Last Admin: 07/27/17 08:53 Dose: 100 mg Clopidogrel Bisulfate (Plavix) 75 mg PO DAILY [facility] Last Admin: 07/27/17 08:53 Dose: 75 mg Docusate Sodium (Colace) 100 mg PO BID [facility] Last Admin: 07/27/17 09:27 Dose: Not Given Enoxaparin Sodium (Lovenox) 40 mg SC DAILY [facility] PRN Reason: Protocol Last Admin: 07/27/17 08:54 Dose: 40 mg Ferrous Sulfate (Feosol) 325 mg PO BID [facility] Last Admin: 07/27/17 08:55 Dose: 325 mg Gabapentin (Neurontin) 300 mg PO Q8 [facility] Glipizide (Glucotrol Xl) 2.5 mg PO BRK [facility] Last Admin: 07/27/17 08:52 Dose: 2.5 mg Sodium Chloride (Sodium Chloride 0.9%) 1,000 mls @ 100 mls/hr IV .Q10H [facility] Last Admin: 07/27/17 09:46 Dose: 100 mls/hr Vancomycin HCl 750 mg/ Sodium (Chloride) 250 mls @ 166.667 mls/hr IVPB Q12 [facility] PRN Reason: Protocol Last Admin: 07/27/17 08:57 Dose: 166.667 mls/hr Ertapenem 1 gm/ Sodium (Chloride) 100 mls @ 100 mls/hr IVPB DAILY [facility] PRN Reason: Protocol Last Admin: 07/27/17 08:56 Dose: 100 mls/hr Insulin Detemir (Levemir) 10 units SC HS [facility] Last Admin: 07/26/17 22:40 Dose: 10 units Insulin Human Lispro (Humalog) 0 units SC ACHS [facility] PRN Reason: Protocol Last Admin: 07/27/17 09:14 Dose: 1 units Lactulose (Enulose) 20 gm PO BID PRN PRN Reason: Constipation Last Admin: 07/26/17 08:54 Dose: 20 gm Metformin HCl (Glucophage) 1,000 mg PO BIDWM [facility] Last Admin: 07/27/17 08:55 Dose: 1,000 mg Metoprolol Tartrate (Lopressor) 100 mg PO DAILY [facility] Last Admin: 07/27/17 08:54 Dose: 100 mg Morphine Sulfate (Morphine) 4 mg IVP Q6 PRN PRN Reason: Pain, severe (8-10) Last Admin: 07/26/17 10:58 Dose: 4 mg Morphine Sulfate (Morphine) 2 mg IVP Q6 PRN PRN Reason: Pain, moderate (4-7) Last Admin: 07/27/17 08:40 Dose: 2 mg Oxycodone HCl (Oxycontin Extended Release Tab) 20 mg PO Q12 [facility] Last Admin: 07/27/17 13:05 Dose: 20 mg Pantoprazole Sodium (Protonix Ec Tab) 40 mg PO DAILY [facility] Last Admin: 07/27/17 08:53 Dose: 40 mg Ramipril (Altace) 10 mg PO DAILY [facility] Last Admin: 07/27/17 08:52 Dose: 10 mg Sitagliptin Phosphate (Januvia) 100 mg PO DAILY [facility] Last Admin: 07/27/17 08:54 Dose: 100 mg Results - Vital Signs Recent Vital Signs: Last Vital Signs Temp 98.2 F 07/27/17 08:42 Pulse 81 07/27/17 08:54 Resp 19 07/27/17 08:42 BP 136/71 07/27/17 08:54 Pulse Ox 98 07/27/17 08:42 - Labs Result Diagrams: 07/27/17 05:27 07/27/17 05:27 Labs: Laboratory Results - last 24 hr 07/26/17 07/26/17 07/27/17 15:43 22:17 05:27 WBC 14.2 H RBC 3.47 L Hgb 9.0 L Hct 28.5 L MCV 82.0 MCH 26.0 L MCHC 31.7 L RDW 17.4 H Plt Count 418 H Sodium Potassium Chloride Carbon Dioxide Anion Gap BUN Creatinine Est GFR ( Amer) Est GFR (Non-Af Amer) POC Glucose (mg/dL) 263 H 334 H Random Glucose Calcium 07/27/17 07/27/17 07/27/17 05:27 05:50 11:12 WBC RBC Hgb Hct MCV MCH MCHC RDW Plt Count Sodium 133 Potassium 3.5 L Chloride 96 L Carbon Dioxide 27 Anion Gap 14 BUN 9 Creatinine 0.7 Est GFR ( Amer) > 60 Est GFR (Non-Af Amer) > 60 POC Glucose (mg/dL) 177 H 204 H Random Glucose 172 H Calcium 8.3 L
[2017-07-27] MEDS: Insulin Detemir 100 Units/ml Inj SC SCH (21:47)
[2017-07-28] MEDS: Sodium Chloride 0.9% 1,000 ML IV SCH (01:15)
[2017-07-28 06:44] LABS: MEAN CORPUSCULAR HEMOGLOBIN 25.5 pg (27.0-31.0); MEAN CORPUSCULAR HGB CONC 31.1 g/dL (33.0-37.0); RBC 3.52 Mil/uL (3.80-5.20); RED CELL DISTRIBUTION WIDTH 17.9 % (11.5-14.5); WHITE BLOOD COUNT 11.5 K/uL (4.8-10.8)
[2017-07-28 07:01] LABS: BLOOD UREA NITROGEN 9 mg/dl (7-17); CALCIUM 8.1 mg/dL (8.4-10.2); GFR AFRICAN-AMERICAN > 60; GFR NON-AFRICAN AMERICAN > 60
[2017-07-28] MEDS ORDERED: Potassium Chloride 20 mEq ER Tab PO ONE (07:26)
--- NOTE | 2017-07-28 07:33 | CP.PCM.PN ---
Subjective - Date & Time of Evaluation Date of Evaluation: 07/28/17 Time of Evaluation: 11:00 - Subjective Subjective: Progress note - Dr. Looney 62 year old female seen at bedside for nonhealing, infected TMA site of left foot. Patient states that her pain is well controlled today and only has pain when someone touches her foot. Patient is 6 days s/p TMA site debridement today. Reports that she is worried about the wound vac change today. Denies overnight N/V/F/C/CP/SOB/posterior calf pain when squeezed. Patient denies any further pedal complaints at this time. Objective - Vital Signs/Intake and Output Vital Signs (last 24 hours): Temp Pulse Resp BP Pulse Ox 98.1 F 87 19 101/59 L 95 07/28/17 00:00 07/28/17 00:00 07/28/17 00:00 07/28/17 00:00 07/28/17 00:00 - Medications Medications: Current Medications Acetaminophen (Tylenol 325mg Tab) 650 mg PO Q4 PRN PRN Reason: Pain, Mild (1-3) Last Admin: 07/15/17 20:52 Dose: 650 mg Acetaminophen (Tylenol 325mg Tab) 650 mg PO Q6 PRN PRN Reason: Fever >100.4 F Last Admin: 07/25/17 16:13 Dose: 650 mg Aspirin (Aspirin Chewable) 81 mg PO DAILY [facility] Last Admin: 07/27/17 08:55 Dose: 81 mg Atorvastatin Calcium (Lipitor) 40 mg PO DAILY [facility] Last Admin: 07/27/17 08:53 Dose: 40 mg Cilostazol (Pletal) 100 mg PO BID [facility] Last Admin: 07/27/17 17:43 Dose: 100 mg Clopidogrel Bisulfate (Plavix) 75 mg PO DAILY [facility] Last Admin: 07/27/17 08:53 Dose: 75 mg Docusate Sodium (Colace) 100 mg PO BID [facility] Last Admin: 07/27/17 17:44 Dose: Not Given Enoxaparin Sodium (Lovenox) 40 mg SC DAILY [facility] PRN Reason: Protocol Last Admin: 07/27/17 08:54 Dose: 40 mg Ferrous Sulfate (Feosol) 325 mg PO BID [facility] Last Admin: 07/27/17 17:49 Dose: 325 mg Gabapentin (Neurontin) 300 mg PO Q8 [facility] Last Admin: 07/28/17 00:18 Dose: 300 mg Glipizide (Glucotrol Xl) 2.5 mg PO BRK [facility] Last Admin: 07/27/17 08:52 Dose: 2.5 mg Sodium Chloride (Sodium Chloride 0.9%) 1,000 mls @ 100 mls/hr IV .Q10H [facility] Last Admin: 07/28/17 01:15 Dose: Not Given Vancomycin HCl 750 mg/ Sodium (Chloride) 250 mls @ 166.667 mls/hr IVPB Q12 [facility] PRN Reason: Protocol Last Admin: 07/27/17 20:52 Dose: 166.667 mls/hr Ertapenem 1 gm/ Sodium (Chloride) 100 mls @ 100 mls/hr IVPB DAILY [facility] PRN Reason: Protocol Last Admin: 07/27/17 08:56 Dose: 100 mls/hr Insulin Detemir (Levemir) 10 units SC HS [facility] Last Admin: 07/27/17 21:47 Dose: 10 units Insulin Human Lispro (Humalog) 0 units SC ACHS [facility] PRN Reason: Protocol Last Admin: 07/27/17 21:47 Dose: Not Given Lactulose (Enulose) 20 gm PO BID PRN PRN Reason: Constipation Last Admin: 07/26/17 08:54 Dose: 20 gm Metformin HCl (Glucophage) 1,000 mg PO BIDWM [facility] Last Admin: 07/27/17 17:43 Dose: 1,000 mg Metoprolol Tartrate (Lopressor) 100 mg PO DAILY [facility] Last Admin: 07/27/17 08:54 Dose: 100 mg Morphine Sulfate (Morphine) 4 mg IVP Q6 PRN PRN Reason: Pain, severe (8-10) Last Admin: 07/26/17 10:58 Dose: 4 mg Morphine Sulfate (Morphine) 2 mg IVP Q6 PRN PRN Reason: Pain, moderate (4-7) Last Admin: 07/27/17 23:36 Dose: 2 mg Oxycodone HCl (Oxycontin Extended Release Tab) 20 mg PO Q12 [facility] Last Admin: 07/27/17 20:51 Dose: 20 mg Pantoprazole Sodium (Protonix Ec Tab) 40 mg PO DAILY [facility] Last Admin: 07/27/17 08:53 Dose: 40 mg Ramipril (Altace) 10 mg PO DAILY [facility] Last Admin: 07/27/17 08:52 Dose: 10 mg Sitagliptin Phosphate (Januvia) 100 mg PO DAILY [facility] Last Admin: 07/27/17 08:54 Dose: 100 mg - Labs Labs: 07/28/17 05:45 07/28/17 05:45 PT 13.8 Seconds (9.8-13.1) H 07/19/17 05:50 INR 1.2 (0.9-1.2) 07/19/17 05:50 APTT 28.6 Seconds (25.6-37.1) 07/19/17 05:50 - Constitutional Appears: Well, Non-toxic, No Acute Distress - Extremities Exam Additional comments: LLE focused exam: Dressing C/D/I to LLE with no strikethrough noted VASC: DP/PT pulses faintly palpable to LLE. Skin temperature warm to warm from proximal to distal. No pitting or non-pitting edema noted surrounding surgical site DERM: Wound expanding from the medial aspect of the foot/distal ankle circumferentially around the distal lateral aspect of the foot, on the medial aspect, medial cunieform is exposed and laterally, proximal shaft of the metatarsal exposed, diffuse patches of granular base soft tissue noted on the medial aspect of the foot as well as distal plantar and dorsal aspect of the TMA , granular tissue is visualized in between metatarsals comparing from the last vac change, wound edges are non-necrotic, and minimally macerated, no active purulence or serous drainage noted, no malodor, no periwound erythema, no signs of active infection at this time. NEURO: Epicritic and protective sensation grossly intact B/L ORTHO: Open TMA site noted to left foot with distal aspect of remaining metatarsal bases seen. Moderate tenderness to palpation of entirety of left foot - Neurological Exam Neurological Exam: Alert, Awake, Oriented x3 - Psychiatric Exam Psychiatric exam: Normal Affect, Normal Mood Assessment and Plan - Assessment and Plan (Free Text) Assessment: 62 year old female seen 6 days post-operatively at bedside for revisional TMA of left foot Plan: Patient seen and evaluated at bedside Discussed with attending Dr. Angel Afebrile, WBC 11.5 Tib-fib x-rays ordered - no soft tissue emphysema noted Continue IV abx per ID - Ertapenem and Vancomycin Continue medical management and pain management per Hospitalist Wound vac changed today. - Wound vac set to function at 125 mmHg - will change the wound vac only twice a week due to severe pain. Podiatry will continue to follow while patient in house - Upon discharge, follow up with Dr. Looney at [facility] on Thursday for further wound vac change and wound care
[2017-07-28] MEDS: Insulin Lispro (humaLOG) 100 Units/ml Inj SC SCH ×3 (08:20→16:47)
[2017-07-28] MEDS: oxyCODONE 20 mg ER Tab (oxyCONTIN) PO SCH ×2 (09:31)
[2017-07-28] MEDS: Pantoprazole 40 mg EC Tab PO SCH (09:32)
[2017-07-28] MEDS: GlipiZIDE 2.5 mg SR Tab PO SCH (09:33)
[2017-07-28] MEDS: Cilostazol 100 mg Tab UD PO SCH ×2 (09:34→17:44)
[2017-07-28] MEDS: Enoxaparin 40 mg Syringe SC SCH (09:37)
[2017-07-28] MEDS: Morphine 4 MG/ML VIAL IVP PRN ×2 (11:53→17:47)
--- NOTE | 2017-07-28 13:55 | CP.PCM.DIS ---
<Rafael Trejo - Last Filed: 07/28/17 15:09> Provider - Provider Date of Admission: 07/15/17 15:04 Attending physician: Arnold Munson MD Consults: ID- Dr. Sol,[facility] Vascular- Dr. Strange,[facility] Podiatry-[place] Time Spent in preparation of Discharge (in minutes): 40 Diagnosis - Discharge Diagnosis (1) Osteomyelitis of left foot Status: Acute (2) Gangrene of left foot Status: Acute (3) Status post transmetatarsal amputation of left foot Status: Acute (4) PVD (peripheral vascular disease) with claudication Status: Chronic (5) DM2 (diabetes mellitus, type 2) Status: Chronic (6) HLD (hyperlipidemia) Status: Chronic (7) HTN (hypertension) Status: Chronic (8) Hypokalemia Status: Acute (9) Chronic anemia Status: Acute (10) CAD (coronary artery disease) Status: Chronic (11) Left foot pain Status: Acute Hospital Course - Lab Results Lab Results: Micro Results 07/23/17 18:54 Blood-Venous Blood Culture - Preliminary NO GROWTH AFTER 4 DAYS 07/23/17 18:54 Blood-Venous Blood Culture - Preliminary NO GROWTH AFTER 4 DAYS 07/22/17 17:30 Foot - Left Gram Stain - Final 07/22/17 17:30 Foot - Left Wound Culture - Final Enterococcus Faecalis 07/22/17 17:30 Foot - Left Gram Stain - Final 07/22/17 17:30 Foot - Left Wound Culture - Final Enterococcus Faecalis 07/21/17 07:43 Nose MRSA Culture (Admit) - Final MRSA NOT DETECTED 07/21/17 06:57 Nose MRSA Culture (Admit) - Final MRSA NOT DETECTED 07/17/17 19:03 Blood-Venous Blood Culture - Final NO GROWTH AFTER 5 DAYS 07/17/17 19:03 Blood-Venous Gram Stain - Final TEST NOT PERFORMED 07/17/17 19:03 Blood-Venous Blood Culture - Final NO GROWTH AFTER 5 DAYS 07/17/17 19:03 Blood-Venous Gram Stain - Final TEST NOT PERFORMED 07/15/17 09:11 Foot - Left Gram Stain - Final 07/15/17 09:11 Foot - Left Wound Culture - Final Enterococcus Faecalis 07/15/17 09:11 Foot - Left Gram Stain - Final 07/15/17 09:11 Foot - Left Wound Culture - Final Serratia Marcescens Most Recent Lab Values WBC 11.5 K/uL (4.8-10.8) H 07/28/17 05:45 RBC 3.52 Mil/uL (3.80-5.20) L 07/28/17 05:45 Hgb 9.0 g/dL (12.0-16.0) L 07/28/17 05:45 Hct 28.9 % (34.0-47.0) L 07/28/17 05:45 MCV 82.0 fl (81.0-99.0) 07/28/17 05:45 MCH 25.5 pg (27.0-31.0) L 07/28/17 05:45 MCHC 31.1 g/dL (33.0-37.0) L 07/28/17 05:45 RDW 17.9 % (11.5-14.5) H 07/28/17 05:45 Plt Count 445 K/uL (130-400) H 07/28/17 05:45 MPV 8.4 fl (7.2-11.7) 07/25/17 05:30 Neut % (Auto) 62.4 % (50.0-75.0) 07/25/17 05:30 Lymph % (Auto) 22.6 % (20.0-40.0) 07/25/17 05:30 [place] % (Auto) 12.4 % (0.0-10.0) H 07/25/17 05:30 Eos % (Auto) 2.1 % (0.0-4.0) 07/25/17 05:30 Baso % (Auto) 0.5 % (0.0-2.0) 07/25/17 05:30 Neut # (Auto) 7.2 K/uL (1.8-7.0) H 07/25/17 05:30 Lymph # (Auto) 2.6 K/uL (1.0-4.3) 07/25/17 05:30 [place] # (Auto) 1.4 K/uL (0.0-0.8) H 07/25/17 05:30 Eos # (Auto) 0.2 K/uL (0.0-0.7) 07/25/17 05:30 Baso # (Auto) 0.1 K/uL (0.0-0.2) 07/25/17 05:30 ESR 103 mm/hr (0-30) H 07/16/17 15:03 PT 13.8 Seconds (9.8-13.1) H 07/19/17 05:50 INR 1.2 (0.9-1.2) 07/19/17 05:50 APTT 28.6 Seconds (25.6-37.1) 07/19/17 05:50 pCO2 28 mm/Hg (35-45) L 07/18/17 10:32 pO2 99 mm/Hg (80-100) 07/18/17 10:32 HCO3 21.4 mmol/L (21-28) 07/18/17 10:32 ABG pH 7.44 (7.35-7.45) 07/18/17 10:32 ABG Total CO2 19.9 mmol/L (22-28) L 07/18/17 10:32 ABG O2 Saturation 99.2 % (95-98) H 07/18/17 10:32 ABG O2 Content 10.8 ML/dL (15-23) L 07/18/17 10:32 ABG Base Excess -4.5 mmol/L (-2.0-3.0) L 07/18/17 10:32 ABG Hemoglobin 7.8 g/dL (11.7-17.4) L 07/18/17 10:32 ABG Carboxyhemoglobin 1.2 % (0.5-1.5) 07/18/17 10:32 POC ABG HHb (Measured) 0.8 % (0.0-5.0) 07/18/17 10:32 ABG Methemoglobin 1.7 % (0.0-3.0) 07/18/17 10:32 ABG O2 Capacity 10.9 mL/dL (16-24) L 07/18/17 10:32 Wade Test Yes 07/18/17 10:32 A-a O2 Difference 16.0 mm/Hg 07/18/17 10:32 Hgb O2 Saturation 96.3 % (95.0-98.0) 07/18/17 10:32 FiO2 21.0 % 07/18/17 10:32 Crit Value Called To sudeep Galvez 07/17/17 08:34 Crit Value Called By 203 07/17/17 08:34 Crit Value Read Back Y 07/17/17 08:34 Blood Gas Notified Time 840 07/17/17 08:34 Sodium 136 mmol/l (132-148) 07/28/17 05:45 Potassium 3.4 MMOL/L (3.6-5.0) L 07/28/17 05:45 Chloride 100 mmol/L (98-107) 07/28/17 05:45 Carbon Dioxide 25 mmol/L (22-30) 07/28/17 05:45 Anion Gap 14 (10-20) 07/28/17 05:45 BUN 9 mg/dl (7-17) 07/28/17 05:45 Creatinine 0.7 mg/dl (0.7-1.2) 07/28/17 05:45 Est GFR ( Amer) > 60 07/28/17 05:45 Est GFR (Non-Af Amer) > 60 07/28/17 05:45 POC Glucose (mg/dL) 181 mg/dL (65-110) H 07/28/17 11:00 Random Glucose 184 mg/dL (65-105) H 07/28/17 05:45 Lactic Acid 0.8 MMOL/L (0.7-2.1) 07/18/17 11:30 Calcium 8.1 mg/dL (8.4-10.2) L 07/28/17 05:45 Magnesium 1.9 MG/DL (1.6-2.3) 07/20/17 08:42 Total Bilirubin 0.5 mg/dl (0.2-1.3) 07/21/17 06:30 AST 43 U/L (14-36) H D 07/21/17 06:30 ALT 10 U/L (9-52) 07/21/17 06:30 Alkaline Phosphatase 89 U/L (38-126) 07/21/17 06:30 Total Protein 6.7 G/DL (6.3-8.2) 07/21/17 06:30 Albumin 3.0 g/dL (3.5-5.0) L 07/21/17 06:30 Globulin 3.6 gm/dL (2.2-3.9) 07/21/17 06:30 Albumin/Globulin Ratio 0.8 (1.0-2.1) L 07/21/17 06:30 Urine Color Yellow (YELLOW) 07/18/17 11:30 Urine Clarity Clear (Clear) 07/18/17 11:30 Urine pH 6.0 (5.0-8.0) 07/18/17 11:30 Ur Specific [place] 1.024 (1.003-1.030) 07/18/17 11:30 Urine Protein Negative mg/dL (NEGATIVE) 07/18/17 11:30 Urine Glucose (UA) >=500 mg/dL (Normal) 07/18/17 11:30 Urine Ketones 80 mg/dL (NEGATIVE) 07/18/17 11:30 Urine Blood Negative (NEGATIVE) 07/18/17 11:30 Urine Nitrate Negative (NEGATIVE) 07/18/17 11:30 Urine Bilirubin Negative (NEGATIVE) 07/18/17 11:30 Urine Urobilinogen 0.2-1.0 mg/dL (0.2-1.0) 07/18/17 11:30 Ur Leukocyte Esterase Neg Mick/uL (Negative) 07/18/17 11:30 Urine RBC (Auto) 1 /hpf (0-3) 07/18/17 11:30 Urine Microscopic WBC 2 /hpf (0-5) 07/18/17 11:30 Ur Squamous Epith Cells 4 /hpf (0-5) 07/18/17 11:30 Ur Random Creatinine 40.8 mg/dL 07/17/17 06:30 Ur Random Sodium 49 meq/L 07/17/17 10:46 Ur Random Potassium 33.1 mmol/L 07/17/17 10:46 Vancomycin Trough 8.7 ug/mL (5.0-10.0) 07/26/17 12:30 Influenza Typ A,B (EIA) Negative for flu a/b (NEGATIVE) 07/16/17 09:14 Blood Type B POSITIVE 07/25/17 15:15 Antibody Screen Negative 07/25/17 15:15 Crossmatch See Detail 07/25/17 15:15 BBK History Checked Patient has bt 07/25/17 15:15 - Hospital Course Hospital Course: 62 y.o female with PMH of DM2, HTN, CAD admitted for severely infected left foot with gangrenous changes. Patient presented to [facility] for a revision of TMA with incision and drainage with debridement of all nonviable tissue. In the OR, podiatry expressed ~50 cc of purulence abscess from foot with severe infection and gangrenous changes noted and decision was made to admit patient. Patient leukocytosis with WBC of 23.6. Infectious disease consulted Dr. Sol in which patient received Cefepime and Vanco during hospital stay; recommended 4-6 weeks of IV abx. PICC placed on 07/17/17. Doppler US Arterial: poor circulation distal to sup femoral artery. Vascular consult- Dr. Strange. Left LE revascularization by Dr Strange at [facility] [place] on 07/20: [employer]/stenting of left popliteal 95% stenosis and [employer]/atherectomy of left VALERIA 100% and [employer]/stenting with stent x 2. LE MRI (07/17) findings suspicious for osteomyelitis at the distal portion of the 4th and 5th metatarsal bones at the site of the amputation. Patient went for additional surgery in OR on 07/22/[address] Looney for revisional left TMA and incision and drainage of abscess with wound VAC placement. Patient spiked a fever 102 on 07/23/17. Blood culture x2 negative. Has been afebrile since. Cefepime discontinued and changed to Ertapenem. Patient transfused total of 4 units PRBC throughout hospital stay as well as given IV Venofer and B12 shots for anemia. Patients H/H is stable. During hospital stay patient also was hypokalemia in which given KCl with improvements. Patient complained of severe pain in which Gabapentin was started. Patient noted to have flat affect and adjustment disorder in which psychiatry consulted. At present, patient does no wany any antidepressants and she does not need acute psychiatric treatment. New PICC line placed on 07/28/17 with new single lumen 4 fr picc, 37 cm for mcc IV abx. Patient is hemodynamically stable and in NAD. WBC trended down from admission at 11.5. Decision was made to discharge patient to [facility] for continued IV abx and PT. Patient is to follow up with Dr. Looney at [facility] on Thursday. Pt to follow up with Dr. Strange to follow up with Dr. Strange on Thursday for possible additional revascularization surgery as outpatient in 2 weeks. Pt to f/u with ID. ID recommendeds patient to get additional 4 weeks of IV Vanco and Invanz or Meropenem if Invanz isn't covered at [facility], and to get weekly CMP/BMP/Vanco troughs. Troughs to be less than <15. Patient to get wound VAC changes at [facility] twice a week. Discharge Exam - Head Exam Head Exam: ATRAUMATIC, NORMOCEPHALIC - Eye Exam Eye Exam: EOMI, Normal appearance, PERRL Pupil Exam: NORMAL ACCOMODATION - Neck Exam Neck exam: Full Rom, Normal Inspection - Respiratory Exam Respiratory Exam: NORMAL BREATHING PATTERN, UNREMARKABLE - Cardiovascular Exam Cardiovascular Exam: REGULAR RHYTHM, +S1, +S2 - GI/Abdominal Exam GI & Abdominal Exam: Normal Bowel Sounds, Unremarkable - Extremities Exam Additional comments: No pain with palpation to the calf bilaterally Dressing is c/d/i without strikethrough Wound VAC therapy at continuos flow at 125 mmHg No leakage indicated, sangious drainage noted in canister Pain with palpation to surrounding surgical site of TMA - Back Exam Back exam: NORMAL INSPECTION. absent: CVA tenderness (L), CVA tenderness (R) - Neurological Exam Neurological exam: Alert, Oriented x3 - Psychiatric Exam Psychiatric exam: Normal Affect, Normal Mood - Skin Skin Exam: Dry, Intact, Normal Color, Warm Discharge Plan - Discharge Medications Prescriptions: Meropenem [Merrem IV] 1 gm IV Q12 28 Days #56 pds oxyCODONE/Acetaminophen [Percocet 5/325 mg Tab] 1 ea PO Q4H PRN #30 tab PRN Reason: Pain, Moderate (4-7) Vancomycin 750 mg/D5W 150 ml [Vancocin] 750 mg IV Q12H 42 Days #84 pds - Follow Up Plan Condition: GOOD Disposition: TRANSF TO SNF Instructions: Abscess (GEN), Incision and Drainage (DC) Additional Instructions: Meropenem and Vanco IV x 4 more weeks Wound Care - cont Wound Vac and change 2x per week Weekly CBC and BMP and Vanco level , keep trough less than [address] Looney on Thursday at [facility] Podiatry clinic appt with Dr Strange on Monday 07/[address] Sol in 1 wk Referrals: Veronica Sol MD [Staff Provider] - Nik Strange MD [Staff Provider] - Elodia Cuevas MD [Family Provider] - Raven Looney DPM [Staff Provider] - <Pepper Vaz - Last Filed: 07/28/17 15:48> Provider - Provider Date of Admission: 07/15/17 15:04 Attending physician: Arnold Munson MD Hospital Course - Lab Results Lab Results: Micro Results 07/23/17 18:54 Blood-Venous Blood Culture - Preliminary NO GROWTH AFTER 4 DAYS 07/23/17 18:54 Blood-Venous Blood Culture - Preliminary NO GROWTH AFTER 4 DAYS 07/22/17 17:30 Foot - Left Gram Stain - Final 07/22/17 17:30 Foot - Left Wound Culture - Final Enterococcus Faecalis 07/22/17 17:30 Foot - Left Gram Stain - Final 07/22/17 17:30 Foot - Left Wound Culture - Final Enterococcus Faecalis 07/21/17 07:43 Nose MRSA Culture (Admit) - Final MRSA NOT DETECTED 07/21/17 06:57 Nose MRSA Culture (Admit) - Final MRSA NOT DETECTED 07/17/17 19:03 Blood-Venous Blood Culture - Final NO GROWTH AFTER 5 DAYS 07/17/17 19:03 Blood-Venous Gram Stain - Final TEST NOT PERFORMED 07/17/17 19:03 Blood-Venous Blood Culture - Final NO GROWTH AFTER 5 DAYS 07/17/17 19:03 Blood-Venous Gram Stain - Final TEST NOT PERFORMED 07/15/17 09:11 Foot - Left Gram Stain - Final 07/15/17 09:11 Foot - Left Wound Culture - Final Enterococcus Faecalis 07/15/17 09:11 Foot - Left Gram Stain - Final 07/15/17 09:11 Foot - Left Wound Culture - Final Serratia Marcescens Most Recent Lab Values WBC 11.5 K/uL (4.8-10.8) H 07/28/17 05:45 RBC 3.52 Mil/uL (3.80-5.20) L 07/28/17 05:45 Hgb 9.0 g/dL (12.0-16.0) L 07/28/17 05:45 Hct 28.9 % (34.0-47.0) L 07/28/17 05:45 MCV 82.0 fl (81.0-99.0) 07/28/17 05:45 MCH 25.5 pg (27.0-31.0) L 07/28/17 05:45 MCHC 31.1 g/dL (33.0-37.0) L 07/28/17 05:45 RDW 17.9 % (11.5-14.5) H 07/28/17 05:45 Plt Count 445 K/uL (130-400) H 07/28/17 05:45 MPV 8.4 fl (7.2-11.7) 07/25/17 05:30 Neut % (Auto) 62.4 % (50.0-75.0) 07/25/17 05:30 Lymph % (Auto) 22.6 % (20.0-40.0) 07/25/17 05:30 [place] % (Auto) 12.4 % (0.0-10.0) H 07/25/17 05:30 Eos % (Auto) 2.1 % (0.0-4.0) 07/25/17 05:30 Baso % (Auto) 0.5 % (0.0-2.0) 07/25/17 05:30 Neut # (Auto) 7.2 K/uL (1.8-7.0) H 07/25/17 05:30 Lymph # (Auto) 2.6 K/uL (1.0-4.3) 07/25/17 05:30 [place] # (Auto) 1.4 K/uL (0.0-0.8) H 07/25/17 05:30 Eos # (Auto) 0.2 K/uL (0.0-0.7) 07/25/17 05:30 Baso # (Auto) 0.1 K/uL (0.0-0.2) 07/25/17 05:30 ESR 103 mm/hr (0-30) H 07/16/17 15:03 PT 13.8 Seconds (9.8-13.1) H 07/19/17 05:50 INR 1.2 (0.9-1.2) 07/19/17 05:50 APTT 28.6 Seconds (25.6-37.1) 07/19/17 05:50 pCO2 28 mm/Hg (35-45) L 07/18/17 10:32 pO2 99 mm/Hg (80-100) 07/18/17 10:32 HCO3 21.4 mmol/L (21-28) 07/18/17 10:32 ABG pH 7.44 (7.35-7.45) 07/18/17 10:32 ABG Total CO2 19.9 mmol/L (22-28) L 07/18/17 10:32 ABG O2 Saturation 99.2 % (95-98) H 07/18/17 10:32 ABG O2 Content 10.8 ML/dL (15-23) L 07/18/17 10:32 ABG Base Excess -4.5 mmol/L (-2.0-3.0) L 07/18/17 10:32 ABG Hemoglobin 7.8 g/dL (11.7-17.4) L 07/18/17 10:32 ABG Carboxyhemoglobin 1.2 % (0.5-1.5) 07/18/17 10:32 POC ABG HHb (Measured) 0.8 % (0.0-5.0) 07/18/17 10:32 ABG Methemoglobin 1.7 % (0.0-3.0) 07/18/17 10:32 ABG O2 Capacity 10.9 mL/dL (16-24) L 07/18/17 10:32 Wade Test Yes 07/18/17 10:32 A-a O2 Difference 16.0 mm/Hg 07/18/17 10:32 Hgb O2 Saturation 96.3 % (95.0-98.0) 07/18/17 10:32 FiO2 21.0 % 07/18/17 10:32 Crit Value Called To sudeep Galvez 07/17/17 08:34 Crit Value Called By Veronica 07/17/17 08:34 Crit Value Read Back Y 07/17/17 08:34 Blood Gas Notified Time 840 07/17/17 08:34 Sodium 136 mmol/l (132-148) 07/28/17 05:45 Potassium 3.4 MMOL/L (3.6-5.0) L 07/28/17 05:45 Chloride 100 mmol/L (98-107) 07/28/17 05:45 Carbon Dioxide 25 mmol/L (22-30) 07/28/17 05:45 Anion Gap 14 (10-20) 07/28/17 05:45 BUN 9 mg/dl (7-17) 07/28/17 05:45 Creatinine 0.7 mg/dl (0.7-1.2) 07/28/17 05:45 Est GFR ( Amer) > 60 07/28/17 05:45 Est GFR (Non-Af Amer) > 60 07/28/17 05:45 POC Glucose (mg/dL) 181 mg/dL (65-110) H 07/28/17 11:00 Random Glucose 184 mg/dL (65-105) H 07/28/17 05:45 Lactic Acid 0.8 MMOL/L (0.7-2.1) 07/18/17 11:30 Calcium 8.1 mg/dL (8.4-10.2) L 07/28/17 05:45 Magnesium 1.9 MG/DL (1.6-2.3) 07/20/17 08:42 Total Bilirubin 0.5 mg/dl (0.2-1.3) 07/21/17 06:30 AST 43 U/L (14-36) H D 07/21/17 06:30 ALT 10 U/L (9-52) 07/21/17 06:30 Alkaline Phosphatase 89 U/L (38-126) 07/21/17 06:30 Total Protein 6.7 G/DL (6.3-8.2) 07/21/17 06:30 Albumin 3.0 g/dL (3.5-5.0) L 07/21/17 06:30 Globulin 3.6 gm/dL (2.2-3.9) 07/21/17 06:30 Albumin/Globulin Ratio 0.8 (1.0-2.1) L 07/21/17 06:30 Urine Color Yellow (YELLOW) 07/18/17 11:30 Urine Clarity Clear (Clear) 07/18/17 11:30 Urine pH 6.0 (5.0-8.0) 07/18/17 11:30 Ur Specific [place] 1.024 (1.003-1.030) 07/18/17 11:30 Urine Protein Negative mg/dL (NEGATIVE) 07/18/17 11:30 Urine Glucose (UA) >=500 mg/dL (Normal) 07/18/17 11:30 Urine Ketones 80 mg/dL (NEGATIVE) 07/18/17 11:30 Urine Blood Negative (NEGATIVE) 07/18/17 11:30 Urine Nitrate Negative (NEGATIVE) 07/18/17 11:30 Urine Bilirubin Negative (NEGATIVE) 07/18/17 11:30 Urine Urobilinogen 0.2-1.0 mg/dL (0.2-1.0) 07/18/17 11:30 Ur Leukocyte Esterase Neg Mick/uL (Negative) 07/18/17 11:30 Urine RBC (Auto) 1 /hpf (0-3) 07/18/17 11:30 Urine Microscopic WBC 2 /hpf (0-5) 07/18/17 11:30 Ur Squamous Epith Cells 4 /hpf (0-5) 07/18/17 11:30 Ur Random Creatinine 40.8 mg/dL 07/17/17 06:30 Ur Random Sodium 49 meq/L 07/17/17 10:46 Ur Random Potassium 33.1 mmol/L 07/17/17 10:46 Vancomycin Trough 8.7 ug/mL (5.0-10.0) 07/26/17 12:30 Influenza Typ A,B (EIA) Negative for flu a/b (NEGATIVE) 07/16/17 09:14 Blood Type B POSITIVE 07/25/17 15:15 Antibody Screen Negative 07/25/17 15:15 Crossmatch See Detail 07/25/17 15:15 BBK History Checked Patient has bt 07/25/17 15:15 Attending/Attestation - Attestation I have personally seen and examined this patient.: Yes I have fully participated in the care of the patient.: Yes I have reviewed all pertinent clinical information, including history, physical exam and plan: Yes
[2017-07-28] MEDS ORDERED: Lidocaine 1% Inj (20ml) ONE (14:12)
--- NOTE | 2017-07-28 14:26 | PCM.SURG1 ---
Surgeon's Initial Post Op Note - Surgeon's Notes Surgeon: Cal Yoo MD Hand Bookbinder: NONE Type of Anesthesia: None Pre-Operative Diagnosis: Infection, malpositioned picc. Operative Findings: Right arm picc pulled out. Post-Operative Diagnosis: Infection Operation Performed: Existing right arm picc was removed and exchanged for a new single lumen 4 fr picc, 37 cm. Tip of picc is in the SVC. Specimen/Specimens Removed: NONE Estimated Blood Loss: EBL {In ML}: 1 Blood Products Given: N/A Drains Used: No Drains Post-Op Condition: Fair Date of Surgery/Procedure: 07/28/17 Time of Surgery/Procedure: 14:25
[2017-07-28 16:41] VITALS: BP 132/75; PULSE 80; RESP 20; TEMP 99.1; O2SAT 96
== END 2017-07-28 18:15 | DRG 504 ==
LOC: H.OPSURG 10:26 → H.MEDSURG1 15:04 → OBSVTOIN 15:04 → H.ICU/CCU 07-21 00:36 → H.MEDSURG1 07-21 18:32
PROC: 02HV33Z Insertion of Infusion Device into Superior Vena Cava, Percutaneous Approach (ICD-10-PCS; 2017-07-17)
PROC: B518ZZA Fluoroscopy of Superior Vena Cava, Guidance (ICD-10-PCS; 2017-07-17)
PROC: 3E04329 Introduction of Other Anti-infective into Central Vein, Percutaneous Approach (ICD-10-PCS; 2017-07-17)
PROC: 30233N1 Transfusion of Nonautologous Red Blood Cells into Peripheral Vein, Percutaneous Approach (ICD-10-PCS; 2017-07-19)
PROC: 0J9R00Z Drainage of Left Foot Subcutaneous Tissue and Fascia with Drainage Device, Open Approach (ICD-10-PCS; 2017-07-22)
PROC: 0Y6Q0Z0 Detachment at Left 1st Toe, Complete, Open Approach (ICD-10-PCS; principal; 2017-07-22 13:00)
PROC: 0QBP0ZZ Excision of Left Metatarsal, Open Approach (ICD-10-PCS; 2017-07-22 13:00)
DX: T87.44 Infection of amputation stump, left lower extremity (principal); T81.4XXA Infection following a procedure, initial encounter; E11.69 Type 2 diabetes mellitus with other specified complication; M86.172 Other acute osteomyelitis, left ankle and foot; E11.52 Type 2 diabetes mellitus with diabetic peripheral angiopathy with gangrene; D62 Acute posthemorrhagic anemia; L02.612 Cutaneous abscess of left foot; B95.2 Enterococcus as the cause of diseases classified elsewhere; B96.89 Other specified bacterial agents as the cause of diseases classified elsewhere; Z89.432 Acquired absence of left foot; E87.6 Hypokalemia; G89.29 Other chronic pain; D63.8 Anemia in other chronic diseases classified elsewhere; F43.21 Adjustment disorder with depressed mood; I10 Essential (primary) hypertension; E78.5 Hyperlipidemia, unspecified; I25.10 Atherosclerotic heart disease of native coronary artery without angina pectoris; M54.16 Radiculopathy, lumbar region; K59.00 Constipation, unspecified; E78.00 Pure hypercholesterolemia, unspecified; G47.00 Insomnia, unspecified; Y83.5 Amputation of limb(s) as the cause of abnormal reaction of the patient, or of later complication, without mention of misadventure at the time of the procedure; Z79.4 Long term (current) use of insulin